=== PATIENT | male | born 1955 | race Caucasian/White ===

== ENCOUNTER 2016-11-24 13:56 | Inpatient (IN) | payer MEDICARE ==
[~2016-11-24] VITALS: Ht 182.9 cm; Wt 120.2 kg
--- NOTE | 2016-11-24 14:08 | PHYS DOC ---
Adult General HPI HPI Patient is a 61 year old male who presents with chest pain, he has a past medical history of coronary disease, schizophrenia, hypertension, hypothyroidism, Alzheimer's disease, diabetes, COPD, obesity, major depressive disorder, chronic pain syndrome who EMS was called secondary chest pain. In route he had a rhythm changed to a wide complex rate of approximately 100 and was unresponsive after sternal rub became responsive but is wide-complex tachycardia persists. Approximately 30 minutes after he arrived he went to a narrow complex rhythm and now he is much more responsive, he states he had some chest discomfort that radiated up into his left chest that lasted for a few minutes and it resolved. According to his he's been having troubles his voice over the last several days and feeling more hoarse. The states that he was just in [facility] and [facility] prior to going to [facility]. Review of Systems Review of Systems Unable to obtain Current Medications Current Medications Current Medications Medications (Trade) Dose Ordered Sig/Tamra Start Time Stop Time Status Last Admin Dose Admin Aspirin (Children'S Aspirin) 324 mg 1X ONCE 11/24/16 14:15 11/24/16 14:44 DC 11/24/16 15:02 324 MG Nitroglycerin (Nitrostat) 0.4 mg PRN Q5MIN PRN 11/24/16 15:45 11/25/16 15:44 Ondansetron HCl (Zofran) 4 mg PRN Q8HRS PRN 11/24/16 15:45 11/25/16 15:44 Allergies Allergies Allergies Coded Allergies Type Severity Reaction Last Updated Verified Penicillins Allergy Unknown 11/24/16 Yes Sulfa (Sulfonamide Antibiotics) Allergy Unknown 11/24/16 Yes clindamycin Allergy Unknown 11/24/16 Yes lisinopril Allergy Unknown 11/24/16 Yes Physical Exam Physical Exam Constitutional: Well developed, well nourished, no acute distress, non-toxic appearance. [] HENT: Normocephalic, atraumatic, bilateral external ears normal, oropharynx moist, no oral exudates, nose normal. [] Eyes: PERRLA, EOMI, conjunctiva normal, no discharge. [] Neck: Normal range of motion, no tenderness, supple, no stridor. [] Cardiovascular:Heart rate regular rhythm, no murmur [] Lungs & Thorax: Bilateral breath sounds clear to auscultation [] Abdomen: Bowel sounds normal, soft, no tenderness, no masses, no pulsatile masses. [] Skin: Warm, dry, no erythema, no rash. [] Back: No tenderness, no CVA tenderness. [] Extremities: No tenderness, no cyanosis, no clubbing, ROM intact, no edema. [] Neurologic: Alert and oriented X 3, normal motor function, normal sensory function, no focal deficits noted. [] Psychologic: Affect normal, judgement normal, mood normal. [] Current Patient Data Vital Signs Vital Signs Date Time Temp Pulse Resp B/P Pulse Ox O2 Delivery O2 Flow Rate FiO2 11/24/16 14:35 Nasal Cannula 4.0 11/24/16 13:56 97.6 95 24 122/70 97 97.6 Lab Values Laboratory Tests Test 11/24/16 14:07 11/24/16 15:15 White Blood Count 9.9x10^3/uL (4.0-11.0) Red Blood Count 3.74x10^6/uL (4.30-5.70) L Hemoglobin 9.8g/dL (13.0-17.5) L Hematocrit 30.3% (39.0-53.0) L Mean Corpuscular Volume 81fL (79-100) Mean Corpuscular Hemoglobin 26pg (25-35) Mean Corpuscular Hemoglobin Concent 32g/dL (31-37) Red Cell Distribution Width 20.0% (11.5-14.5) H Platelet Count 265x10^3/uL (140-400) Neutrophils (%) (Auto) 74% (31-73) H Lymphocytes (%) (Auto) 9% (24-48) L Monocytes (%) (Auto) 17% (0-9) H Eosinophils (%) (Auto) 0% (0-3) Basophils (%) (Auto) 0% (0-3) Neutrophils # (Auto) 7.4x10^3uL (1.8-7.7) Lymphocytes # (Auto) 0.9x10^3/uL (1.0-4.8) L Monocytes # (Auto) 1.6x10^3/uL (0.0-1.1) H Eosinophils # (Auto) 0.0x10^3/uL (0.0-0.7) Basophils # (Auto) 0.0x10^3/uL (0.0-0.2) Prothrombin Time 17.3SEC (11.7-14.0) H Prothrombin Time INR 1.5 (0.8-1.1) H Sodium Level 133mmol/L (136-145) L Potassium Level 4.2mmol/L (3.5-5.1) Chloride Level 94mmol/L (98-107) L Carbon Dioxide Level 33mmol/L (21-32) H Anion Gap 6 (6-14) Blood Urea Nitrogen 25mg/dL (8-26) Creatinine 1.5mg/dL (0.7-1.3) H Estimated GFR (Cockcroft-Gault) 47.7 Glucose Level 295mg/dL (70-99) H Calcium Level 10.0mg/dL (8.5-10.1) Magnesium Level 1.9mg/dL (1.8-2.4) Total Bilirubin 0.6mg/dL (0.2-1.0) Direct Bilirubin 0.4mg/dL (0.0-0.2) H Aspartate Amino Transferase (AST) 30U/L (15-37) Alanine Aminotransferase (ALT) 18U/L (16-63) Alkaline Phosphatase 182U/L (46-116) H Ammonia 13mcmol/L (11-34) Creatine Kinase 63U/L (39-308) Creatine Kinase MB (Mass) 0.9ng/mL (0.0-3.6) Creatine Kinase MB Relative Index % (0-4) Troponin I Quantitative < 0.017ng/mL (0.000-0.055) UR-Xvl-W-Type Natriuretic Peptide 1053pg/mL (0-124) H Total Protein 7.4g/dL (6.4-8.2) Albumin 1.7g/dL (3.4-5.0) L Lipase 45U/L (73-393) L Thyroid Stimulating Hormone (TSH) 2.921uIU/mL (0.358-3.74) Urine Opiates Screen Pos (NEG) Urine Methadone Screen Neg (NEG) Urine Barbiturates Neg (NEG) Urine Phencyclidine Screen Neg (NEG) Urine Amphetamine/Methamphetamine Neg (NEG) Urine Benzodiazepines Screen Neg (NEG) Urine Cocaine Screen Neg (NEG) Urine Cannabinoids Screen Neg (NEG) Urine Ethyl Alcohol Neg (NEG) Laboratory Tests 11/24/16 14:07 Laboratory Tests 11/24/16 14:07 EKG EKG First EKG at 1358 shows sinus rhythm with a prolonged SC interval at 220 ms, left axis deviation, likely paced rhythm, QRS 176, QTC 5 or 50 ms, as interpreted by me G at 1420 shows normal sinus rhythm with a prolonged SC of 266 ms, normal axis, QRS 104 ms, QTC 441 ms, no ST elevations appreciated, T-wave inversions in lead 3, as interpreted by me. Radiology/Procedures Radiology/Procedures [facility] [id number] [place], [place] [id number] IMAGING REPORT Signed PATIENT: ANNAMARIE WHITLOCK ACCOUNT: [id number] : 1955 LOCATION: ER AGE: 61 SEX: M EXAM STATUS: REG ER ORD. PHYSICIAN: BELLA ZAVALA MD REASON: chest pain PROCEDURE: PORTABLE CHEST 1V Portable chest, 11/24/2016: History: Chest pain There has been a previous median sternotomy. A left-sided transvenous pacemaker is in place with 2 leads extending into the right heart. The heart appears to be within normal limits in size for the AP technique. The pulmonary vascularity is normal. The depth of inspiration is suboptimal. No acute infiltrates are seen. There is no evidence of significant pleural fluid. IMPRESSION: 1. A transvenous pacemaker is in place. 2. Previous cardiac surgery. 3. No acute cardiopulmonary abnormality is detected. DICTATED and SIGNED BY: TONYA JULIEN MD DATE: 11/24/161432 CC: BELLA ZAVALA MD; PATTY RAM MD ~ [id number] [place], [place] [id number] IMAGING REPORT Signed PATIENT: ANNAMARIE WHITLOCK ACCOUNT: [id number] : 1955 LOCATION: ER AGE: 61 SEX: M EXAM STATUS: REG ER ORD. PHYSICIAN: BELLA ZAVALA MD REASON: AMS PROCEDURE: CT HEAD WO CONTRAST CT of the head without contrast, 11/24/2016: History: Altered mental status, previous stroke There is moderate cerebral atrophy. The ventricles are mildly prominent on a compensatory basis. There is no shift of the midline structures. There is no evidence of acute intracranial hemorrhage or mass effect. IMPRESSION: 1. Cerebral atrophy. 2. No acute intracranial abnormality is detected. PQRS Compliance Statement: One or more of the following individualized dose reduction techniques were utilized for this examination: 1. Automated exposure control 2. Adjustment of the mA and/or kV according to patient size 3. Use of iterative reconstruction technique DICTATED and SIGNED BY: TONYA JULIEN MD DATE: 11/24/16 1383 CC: BELLA ZAVALA MD; PATTY RAM MD ~ Impressions: Altered mental status-resolved Chest pain-resolved Course & Med Decision Making Course & Med Decision Making Pertinent Labs and Imaging studies reviewed. (See chart for details) Patient has some confusion however it seems to be resolved now. He denies any chest pain currently. CT of his head, UA are pending at this time. Spoke with Dr. Ram, who accepts the patient for admission, he wants cardiology and neurology consult would and his is make her interrogated. The patient's agreeable plan is in stable condition this time with his at bedside. Dragon Disclaimer Dragon Disclaimer This electronic medical record was generated, in whole or in part, using a voice recognition dictation system. BELLA ZAVALA MD Nov 24, 2016 14:08
[2016-11-24] MEDS ORDERED: ASPIRIN CHEWABLE 81 MG TABLET. PO ONE (14:15)
[2016-11-24 14:29] LABS: INR 1.5 (0.8-1.1); PROTHROMBIN TIME PATIENT 17.3 SEC (11.7-14.0)
[2016-11-24 14:30] LABS: BASO % 0 % (0-3); EOS % 0 % (0-3); HEMATOCRIT 30.3 % (39.0-53.0); HEMOGLOBIN 9.8 g/dL (13.0-17.5); LYMPH # 0.9 x10^3/uL (1.0-4.8); LYMPH % 9 % (24-48); MEAN CORPUSCULAR HEMOGLOBIN 26 pg (25-35); MEAN CORPUSCULAR HGB CONC 32 g/dL (31-37); MEAN CORPUSCULAR VOLUME 81 fL (79-100); MONO % 17 % (0-9); NEUT % 74 % (31-73); PLATELET COUNT 265 x10^3/uL (140-400); RED BLOOD COUNT 3.74 x10^6/uL (4.30-5.70); WHITE BLOOD COUNT 9.9 x10^3/uL (4.0-11.0)
[2016-11-24 14:35] LABS: BASE EXCESS COOX 8 mmol/L (-3-3); CARBON MONOXIDE 1.2 % (0.0-1.9); HCO3 COOX 33 mmol/L (21-28); METHEMOGLOBIN 0.5 % (0.0-1.9); OXYHEMOGLOBIN 93.9 %; PCO2 COOX 50 mmHg (35-46); PH COOX 7.44 (7.35-7.45); PO2 COOX 86 mmHg (65-108); SAT O2 COOX 96 % (92-99); TOTAL HEMOGLOBIN 10.8 g/dL
--- NOTE | 2016-11-24 14:38 | RAD ---
Portable chest, 11/24/2016: History: Chest pain There has been a previous median sternotomy. A left-sided transvenous pacemaker is in place with 2 leads extending into the right heart. The heart appears to be within normal limits in size for the AP technique. The pulmonary vascularity is normal. The depth of inspiration is suboptimal. No acute infiltrates are seen. There is no evidence of significant pleural fluid. IMPRESSION: 1. A transvenous pacemaker is in place. 2. Previous cardiac surgery. 3. No acute cardiopulmonary abnormality is detected.
[2016-11-24 14:39] LABS: CREATININE 1.5 mg/dL (0.7-1.3); GFR 47.7; POTASSIUM 4.2 mmol/L (3.5-5.1)
[2016-11-24 14:43] LABS: ALBUMIN 1.7 g/dL (3.4-5.0); DIRECT BILIRUBIN 0.4 mg/dL (0.0-0.2); MAGNESIUM 1.9 mg/dL (1.8-2.4); TOTAL BILIRUBIN 0.6 mg/dL (0.2-1.0); TOTAL PROTEIN 7.4 g/dL (6.4-8.2)
[2016-11-24 14:53] LABS: CKMB MASS 0.9 ng/mL (0.0-3.6); CREATINE KINASE 63 U/L (39-308)
[2016-11-24 15:34] LABS: BARBITURATES NEG (NEG); BENZODIAZEPINES NEG (NEG); CANNABINOIDS NEG (NEG); COCAINE NEG (NEG); METHADONE NEG (NEG); OPIATES POS (NEG); PHENCYCLIDINE NEG (NEG)
[2016-11-24 15:42] LABS: BILIRUBIN,URINE NEGATIVE (NEG); GLUCOSE,URINE >=1000 mg/dL (NEG); NITRITE,URINE NEGATIVE (NEG); PH,URINE 5.5; PROTEIN,URINE NEGATIVE (NEG-TRACE)
[2016-11-24] MEDS ORDERED: NITROGLYCERIN SUBLINGUAL 0.4 MG BOTTLE OF 25. SL PRN (15:45)
[2016-11-24] MEDS ORDERED: ONDANSETRON PF 4 MG/2 ML VIAL. IV PRN (15:45)
--- NOTE | 2016-11-24 15:52 | RAD ---
CT of the head without contrast, 11/24/2016: History: Altered mental status, previous stroke There is moderate cerebral atrophy. The ventricles are mildly prominent on a compensatory basis. There is no shift of the midline structures. There is no evidence of acute intracranial hemorrhage or mass effect. IMPRESSION: 1. Cerebral atrophy. 2. No acute intracranial abnormality is detected. PQRS Compliance Statement: One or more of the following individualized dose reduction techniques were utilized for this examination: 1. Automated exposure control 2. Adjustment of the mA and/or kV according to patient size 3. Use of iterative reconstruction technique
--- NOTE | 2016-11-24 15:56 | PDOC2 ---
CARDIAC CONSULT DATE OF CONSULT Date of Consult DATE: 11/24/16 TIME: 15:53 REASON FOR CONSULT Reason for Consult: Chest Pain REFERRING PHYSICIAN Referring Physician: Dr. Mckay SOURCE Source: Caregiver, Chart review HISTORY OF PRESENT ILLNESS HISTORY OF PRESENT ILLNESS This is a 61 yo male who presented with complaints of chest pain. HPI mainly obtained from as patient had difficulty with voice since Thursday and is mildly drowsy upon examination. Patient with a history of CAD s/p CABG in with redo in , HTN, HLP, SSS s/p PPM, CHF, PAD, schizophrenia, and Alzheimer' s disease who resides in a nursing facility. is DPOA. reports pain early this afternoon. Located in the central chest and lasted several minutes. Radiated to his left arm. Associated with nausea. Relieved with nitro x2. Denies any associated dizziness, diaphoresis, palpitations, or SOA. Has experienced chest pain intermittently for the last few years but feels it has been more frequent since August. Moved here a year ago from [place]. Has not established a ob gyn physician assistant since moving here. Cardiac workup conducted in August at [facility], including echocardiogram, chemical stress test , and PET scan. reports abnormal studies indicative of obstructive disease ; in which medical management was recommended. Was treated as [facility] last week for non-healing bilateral LE wounds. Underwent bilateral LE angiogram, which reportedly revealed no significant disease requiring intervention. reports compliance with medications. Per chart review, patients rhythm apparently converted to a wide-complex tachycardia with a rate of 100. Patient was asymptomatic. PAST MEDICAL HISTORY Cardiovascular: CAD (s/p CABG in with redo in ), CHF, HTN, MT, Hyperlipidemia, Other (SSS s/p PPM) Pulmonary: COPD CENTRAL NERVOUS SYSTEM: Other (Alzheimer's Disease ) GI: GERD, Other (gastroparesis ) Heme/Onc: No pertinent hx Hepatobiliary: No pertinent hx Psych: Depression, Schizophrenia Musculoskeletal: Osteoarthritis, Other (chronic pain) Infectious disease: No pertinent hx ENT: No pertinent hx Renal/: Chronic renal insuff Endocrine: Diabetes, Hypothyroidism, Other (obesity ) Dermatology: No pertinent hx PAST SURGICAL HISTORY Past Surgical History: Pacemaker, Appendectomy, Cholecystectomy, Total knee replacement (left knee ), Tonsillectomy, Other (pericardial window follow CABG in , back sx, left femur hardware) FAMILY HISTORY Family History: Coronary Artery Disease SOCIAL HISTORY Smoke: Quit ALCOHOL: none Drugs: None Lives: Senior Living CURRENT MEDICATIONS CURRENT MEDICATIONS Current Medications Medications (Trade) Dose Ordered Sig/Tamra Route PRN Reason Start Time Stop Time Status Last Admin Dose Admin Aspirin (Children'S Aspirin) 324 mg 1X ONCE PO 11/24/16 14:15 11/24/16 14:44 DC 11/24/16 15:02 ALLERGIES ALLERGIES: Coded Allergies: Penicillins (Verified Allergy, Unknown, 11/24/16) Sulfa (Sulfonamide Antibiotics) (Verified Allergy, Unknown, 11/24/16) clindamycin (Verified Allergy, Unknown, 11/24/16) lisinopril (Verified Allergy, Unknown, 11/24/16) ROS Review of System 14 point ROS conducted with pertinent positives noted above in HPI. PHYSICAL EXAM General: Alert (droswy ), Cooperative, No acute distress HEENT: Atraumatic, Other (dry mucous membranes ) Lungs: Other (diminished bases ) Heart: Regular rate, Normal S1, Normal S2, Other (2/6 systolic murmur ) Abdomen: Soft, Other (obese ) Extremities: Other (1+ bilateral LE edema, diminished pedal pulses ) Skin: Other (bilateral LE heel wound and coccyx wound ) Neuro: Other (voice impaired; only able to whisper ) Psych/Mental Status: Other (flat affect) MUSCULOSKELETAL: Osteoarthritic changes both hands VITALS VITALS Vital Signs Date Time Temp Pulse Resp B/P Pulse Ox O2 Delivery O2 Flow Rate FiO2 11/24/16 14:35 Nasal Cannula 4.0 11/24/16 13:56 97.6 95 24 122/70 97 97.6 LABS Lab: Laboratory Tests Test 11/24/16 14:07 11/24/16 15:15 White Blood Count 9.9x10^3/uL (4.0-11.0) Red Blood Count 3.74x10^6/uL (4.30-5.70) Hemoglobin 9.8g/dL (13.0-17.5) Hematocrit 30.3% (39.0-53.0) Mean Corpuscular Volume 81fL (79-100) Mean Corpuscular Hemoglobin 26pg (25-35) Mean Corpuscular Hemoglobin Concent 32g/dL (31-37) Red Cell Distribution Width 20.0% (11.5-14.5) Platelet Count 265x10^3/uL (140-400) Neutrophils (%) (Auto) 74% (31-73) Lymphocytes (%) (Auto) 9% (24-48) Monocytes (%) (Auto) 17% (0-9) Eosinophils (%) (Auto) 0% (0-3) Basophils (%) (Auto) 0% (0-3) Neutrophils # (Auto) 7.4x10^3uL (1.8-7.7) Lymphocytes # (Auto) 0.9x10^3/uL (1.0-4.8) Monocytes # (Auto) 1.6x10^3/uL (0.0-1.1) Eosinophils # (Auto) 0.0x10^3/uL (0.0-0.7) Basophils # (Auto) 0.0x10^3/uL (0.0-0.2) Prothrombin Time 17.3SEC (11.7-14.0) Prothromb Time International Ratio 1.5 (0.8-1.1) Sodium Level 133mmol/L (136-145) Potassium Level 4.2mmol/L (3.5-5.1) Chloride Level 94mmol/L (98-107) Carbon Dioxide Level 33mmol/L (21-32) Anion Gap 6 (6-14) Blood Urea Nitrogen 25mg/dL (8-26) Creatinine 1.5mg/dL (0.7-1.3) Estimated GFR (Cockcroft-Gault) 47.7 Glucose Level 295mg/dL (70-99) Calcium Level 10.0mg/dL (8.5-10.1) Magnesium Level 1.9mg/dL (1.8-2.4) Total Bilirubin 0.6mg/dL (0.2-1.0) Direct Bilirubin 0.4mg/dL (0.0-0.2) Aspartate Amino Transf (AST/SGOT) 30U/L (15-37) Alanine Aminotransferase (ALT/SGPT) 18U/L (16-63) Alkaline Phosphatase 182U/L (46-116) Ammonia 13mcmol/L (11-34) Creatine Kinase 63U/L (39-308) Creatine Kinase MB (Mass) 0.9ng/mL (0.0-3.6) Creatine Kinase MB Relative Index % (0-4) Troponin I Quantitative < 0.017ng/mL (0.000-0.055) DY-Jyh-Y-Type Natriuretic Peptide 1053pg/mL (0-124) Total Protein 7.4g/dL (6.4-8.2) Albumin 1.7g/dL (3.4-5.0) Lipase 45U/L (73-393) Thyroid Stimulating Hormone (TSH) 2.921uIU/mL (0.358-3.74) Urine Opiates Screen Pos (NEG) Urine Methadone Screen Neg (NEG) Urine Barbiturates Neg (NEG) Urine Phencyclidine Screen Neg (NEG) Urine Amphetamine/Methamphetamine Neg (NEG) Urine Benzodiazepines Screen Neg (NEG) Urine Cocaine Screen Neg (NEG) Urine Cannabinoids Screen Neg (NEG) Urine Ethyl Alcohol Neg (NEG) ASSESSMENT/PLAN ASSESSMENT/PLAN 1. Chest pain 2. CAD; s/p CABG in 95 with redo in 07 3. Chronic CHF; appears compensated 4. SSS s/p PPM 5. Hypertension; controlled 6. Hyperlipidemia; on statin 7. Hypothyroidism; on replacement therapy. 8. Chronic renal insufficiency; Cr 1.5 9. Chronic pain 10. Schizophrenia/ major depressive disorder 11. Alzheimer's Dx Recommendations 1. Initial troponin negative- continue to trend. ? candidacy for aggressive measures. 2. Resume secondary prevention measures 3. BP well-controlled; continue home antiHTN therapy 4. Recent cardiac workup at [facility]; will obtain these records. 5. Interrogate PPM 6. NT Pro BNP mildly elevated, but appears compensated from a HF standpoint- continue optimization therapy. 7. Further recommendations pending review of outside records. Problems: DARWIN BALDWIN APRN Nov 24, 2016 15:56
[2016-11-24 16:06] LABS: BACTERIA,URINE FEW /HPF (0-FEW); RBC,URINE 0 /HPF (0-2)
--- NOTE | 2016-11-24 17:59 | EKG ---
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
[2016-11-24 18:00] VITALS: BP 93/42
--- NOTE | 2016-11-24 18:02 | ACF ---
Admission Forms Criteria CARDIOLOGY GRG Clinical Indications for Admission to Inpatient Care ( Place 'X' for any and all applicable criteria): Hospital admission is needed for appropriate care of the patient because of ANY ONE of the following (1): [ ] I. Hemodynamic instability as indicated by ALL of the following (1)(2)(3) (4)(5) [ ]a) Vital signs or other findings not as expected for chronic patient condition or baseline [ ]b) Instability indicated by ANY ONE of the following: [ ]i) Hypotension [ ]ii) Symptomatic Tachycardia unresponsive to treatment ( e.g., analgesia, fluids, sedation as indicated) [ ]iii) Inadequate perfusion indicated by ANY ONE of the following: [ ] 1) Lactic acidosis (> 2 mmol/L) [ ] 2) New abnormal capillary refill (> 3 seconds) [ ] 3) Reduced urine output [ ] 4) New altered mental status [ ]iv) Orthostatic vital sign changes unresponsive to treatment (e.g., fluids) [ ]v) IV inotropic or vasopressor medication required to maintain adequate blood pressure or perfusion [ ] II. Severe heart failure as indicated by ANY ONE of the following(17)(18) [ ]a) Respiratory distress [ ]b) Hypotension [ ]c) Anasarca (refractory to outpatient therapy) [ ]d) Cardiac arrhythmias of immediate concern [ ]e) Myocardial ischemia [ ] III. Cardiac arrhythmias or findings of immediate concern indicated by ANY ONE of the following (19)(20): [ ] a) Heart rhythms that are inherently dangerous or unstable indicated by ANY ONE of the following (21)(22)(23): [ ] i) Resuscitated ventricular fibrillation or cardiac arrest [ ] ii) Ventricular escape rhythm [ ] iii) Sustained ventricular tachycardia (30 seconds or more of ventricular rhythm at greater than 100 beats per minute) [ ] iv) Nonsustained ventricular tachycardia and ANY ONE of the following: [ ] 1) Suspected cardiac ischemia as cause or consequence of ventricular tachycardia [ ] 2) In setting of acute myocarditis [ ] b) Unstable cardiac conduction defects indicated by ANY ONE of the following(23)(24)(25) [ ] i) Type II second-degree atrioventricular block [ ]ii) Third-degree atrioventricular block [ ]iii) New-onset left bundle branch block with suspected myocardial ischemia [ ]c) Any heart rhythm and ANY ONE of the following (21)(22)(26)(27) (28) [ ] i) Continuous long-term ECG monitoring needed (e.g., initiation of drug requiring monitoring for more than 24 hours) [ ] ii) Patient has automatic implanted cardioverter defibrillator that is repeatedly firing, malfunctioning, or in need of immediate adjustment of settings beyond the scope of ambulatory or observation care [ ]d) Heart rhythms of concern due to ANY ONE of the following: [ ] i) Hypotension [ ] ii) Respiratory distress [ ] iii) Association with other significant symptoms (e.g., bradycardia with syncope or ongoing dizziness, supraventricular tachycardia with chest pain (14)(15)(17) [ ] IV. Monitoring for cardiac contusion beyond the scope of observation care needed [A](30)(31)(32) [ ] V. Surgical or device complication (e.g., valve replacement complication , pacemaker dysfunction) (35)(41)(44)(45)(46) [ ] . Inpatient palliative care needed. [B](49) Also use Inpatient Palliative Care Criteria [ ] VII. Nonbacterial thrombotic (marantic) endocarditis (36)(43)(47)(48) [X] VIII. Cardiology condition, symptom, or finding for which emergency and observation care has failed or are not considered appropriate. [ ] IX. Acute valvular disease requiring inpatient as indicated by ANY ONE of the following (41) [ ]a) Acute valvular regurgitation (42) [ ]b) Noninfectious valvulitis (43) [ ]c) Obstructive valve thrombosis [ ]d) Paravalvular leak [ ]e) Other significant valvular disorder remaining after emergency or observation level of care (as appropriate) [ ]X. Pericardial disease requiring inpatient treatment as indicated by ANY ONE of the following (33)(34)(35)(36)(37) [ ]a) Suspected tamponade (38)(39)(40) [ ]b) Hemopericardium [ ]c) Other significant pericardial disorder remaining after emergency or observation level of care (as appropriate) [ ] XI. Cardiac ischemia beyond scope of emergency and observation care. [ ] XII. Hypertension requiring inpatient treatment as indicated by ANY ONE of the following (6)(7)(8) [ ]a) SBP greater than 220 mm Hg or DBP greater than 120 mmHg despite treatment [ ]b) SBP greater than 140 mm Hg or DBP greater than 100 mm Hg with evidence of acute end organ damage as indicated by ANY ONE of the following [ ] i) Encephalopathy [ ] ii) Acute renal failure as indicated by new onset of ANY ONE of the following (9)(10)(11)(12)(13) [ ]1) 3-fold rise in serum creatinine from baseline [ ]2) Serum creatinine greater than 4 mg/dL ( 354 micromoles/L) with acute rise greater than 0.5 mg/dL (44.2 micromoles/L) [ ]3) Reduction of more than 75% in estimated glomerular filtration rate from baseline [ ]4) Estimated glomerular filtration rate less than 35 mL/min/1.73m2 (0.59 mL/sec/1.73m2) in child up to 18 years of age [ ]5) Cessation of urine output indicated by ALL of the following [ ]A. Adequate volume status [ ]B. Inadequate urine output as indicated by ANY ONE of the following [ ]a. Urine output less than 0.3 mL/kg/hr for 24 hours [ ]b. Anuria (urine output less than 0.1 mL/kg/hr) for 12 hours [ ] iii) Aortic dissection [ ] iv) Myocardial Ischemia [ ] v) Left ventricular heart failure [ ]vi) Retinal Hemorrhage [ ]vii) Other significant finding [ ]c) Hypertension in child requiring inpatient treatment as indicated by ALL of the following(14)(15)(16) [ ] i) Outpatient treatment not effective, not available, or not appropriate [ ]ii) SBP or DBP greater than 95th percentile for age [ ]iii) Evidence of acute end organ damage as indicated by ANY ONE of the following [ ]1) Altered mental status [ ]2) Acute renal failure as indicated by new onset of ANY ONE of the following(9)(10)(11)(12)(13) [ ]A. 3-fold rise in serum creatinine from baseline [ ]B. Serum creatinine greater than 4 mg/dL (354 micromoles/L) with acute rise greater than 0.5 mg/dL (44.2 micromoles/L) [ ]C. Reduction of more than 75% in estimated glomerular filtration rate from baseline [ ]D. Estimated glomerular filtration rate less than 35 mL/min/1.73m2 (0.59 mL/sec/1.73m2) in child up to 18 years of age [ ]E. Cessation of urine output indicated by ALL of the following [ ]a. Adequate volume status [ ]b. Inadequate urine output as indicated by ANY ONE of the following [ ]i) Urine output less than 0.3 mL/kg/hr for 24 hours [ ]ii) Anuria ( urine output less than 0.1 mL/kg/hr) for 12 hours [ ]3) Severe headache [ ]4) Visual disturbance [ ]5) Retinal hemorrhage [ ]6) Other significant finding [ ]XIII. Complications of transplanted heart indicated by ANY ONE of the following(61): [ ]a) Acute graft rejection requiring inpatient management (eg, intravenous immunosuppression)(62)(63) [ ]b) Acute graft heart failure indicated by ANY ONE of the following(64): [ ]i) Hemodynamic instability [ ]ii) Cardiac arrhythmias of immediate concern [ ]iii) Pulmonary edema that is very severe (eg, mechanical ventilation needed, imminent or likely, need for 100% oxygen to keep oxygen saturation above 90%) [ ]iv) Pulmonary edema that is persistent as indicated by ALL of the following: [ ]1) New need for oxygen therapy to keep oxygen saturation above 90% (or increased FiO2 need from baseline) [ ]2) Has not improved sufficiently with emergency department or observation care IV diuretics or other heart failure treatments[E] [ ]v) Altered mental status that is severe or persistent [ ]vi) Increased creatinine (new on laboratory test) with reduction of more than 50% in estimated glomerular filtration rate from baseline [ ]vii) Progressively (ongoing) rising creatinine (known from past laboratory test) with reduction of more than 25% in estimated glomerular filtration rate from baseline [ ]viii) Acute renal failure [ ]ix) Acute peripheral ischemia (eg, examination shows pulseless, cool, mottled, or cyanotic extremity) [ ]x) Pulmonary artery catheter monitoring needed [ ]xi) Other sign or symptom of heart failure requiring inpatient treatment (ie, too severe or not responsive to outpatient and observation care treatment) [ ]c) Infection requiring inpatient management (eg, Hemodynamic instability, need for intravenous antimicrobial treatment)(66)(67)(68)(69)(70) [ ]d) Cardiac allograft vasculopathy requiring inpatient management ( eg evidence of cardiac ischemia)(71) [ ]e) Other complication of transplanted heart (eg, stroke, severe pulmonary hypertension, severe valvular dysfunction) requiring inpatient management(72) The original [facility] content created by [facility] has been revised. The portions of the content which have been revised are identified through the use of italic text or in bold, and [facility] has neither reviewed nor approved the modified material. All other unmodified content is copyright [facility]. Please see references footnoted in the original [facility] edition 2016 Admission Criteria Met?: Yes ALMA BRAMBILA Nov 24, 2016 18:02
[2016-11-24 18:41] LABS: FIO2 COOX 36
[2016-11-24 19:07] VITALS: BP 89/49
[2016-11-24 23:33] VITALS: BP 108/54
[2016-11-25] MEDS ORDERED: DONE10TA7 PO (00:36)
[2016-11-25] MEDS ORDERED: INSU100I13 SQ (00:36)
[2016-11-25] MEDS ORDERED: METO100T2 PO (00:36)
[2016-11-25] MEDS ORDERED: MAGN400T3 PO (00:36)
[2016-11-25] MEDS ORDERED: ARFO15VI IH (00:36)
[2016-11-25] MEDS ORDERED: LORA1TAB PO (00:36)
[2016-11-25] MEDS ORDERED: UBID50CA25 PO (00:36)
[2016-11-25] MEDS ORDERED: TORS20TA2 PO (00:36)
[2016-11-25] MEDS ORDERED: DIVA500T4 PO (00:36)
[2016-11-25] MEDS ORDERED: LEVO137T3 PO (00:36)
[2016-11-25] MEDS ORDERED: QUET100T4 PO (00:36)
[2016-11-25] MEDS ORDERED: FENO145T2 PO (00:36)
[2016-11-25] MEDS ORDERED: GABA400C7 PO (00:36)
[2016-11-25] MEDS ORDERED: PANT40TA3 PO (00:36)
[2016-11-25] MEDS ORDERED: HYDR-2672 PO (00:36)
[2016-11-25] MEDS ORDERED: ROSUVASTATIN CA10 M1 PO (00:36)
[2016-11-25] MEDS ORDERED: LINA5TAB4 PO (00:36)
[2016-11-25] MEDS ORDERED: ASPI325T4 PO (00:36)
[2016-11-25] MEDS ORDERED: FLUO40CA9 PO (00:36)
[2016-11-25] MEDS ORDERED: OXYC1TAB7 PO (00:36)
[2016-11-25] MEDS ORDERED: NORT25CA PO (00:36)
[2016-11-25] MEDS ORDERED: CARI3CAP PO (00:36)
[2016-11-25] MEDS ORDERED: INSU100C4 SQ (00:36)
[2016-11-25] MEDS ORDERED: SENN8.6T3 PO (00:36)
[2016-11-25] MEDS ORDERED: non (00:36)
[2016-11-25] MEDS ORDERED: SPIR100T2 PO (00:36)
[2016-11-25] MEDS ORDERED: DEXT38GE2 PO (00:36)
[2016-11-25] MEDS ORDERED: DICL100G7 TP (00:36)
[2016-11-25] MEDS ORDERED: LAMO100T PO (00:36)
[2016-11-25] MEDS ORDERED: DEXTROSE ORAL GEL 15 GM TUBE. PO PRN (01:30)
[2016-11-25] MEDS: ATORVASTATIN CALCIUM 40 MG TABLET. PO SCH ×2 (02:06→21:24)
[2016-11-25] MEDS: FLUoxetine HCL 20 MG CAPSULE PO SCH ×4 (02:06→21:24)
[2016-11-25] MEDS: NORTRIPTYLINE 25 MG CAPSULE PO SCH ×2 (02:06→21:24)
[2016-11-25] MEDS: DIVALPROEX EXTENDED RELEASE 500 MG TAB.ER.24H. PO SCH ×3 (02:07→21:24)
[2016-11-25] MEDS: DONEPEZIL HCL 10 MG TABLET. PO SCH ×2 (02:07→21:24)
[2016-11-25] MEDS: QUEtiapine 100 MG TABLET. PO SCH ×2 (02:08→21:24)
[2016-11-25] MEDS: lamoTRIgine 100 MG TABLET. PO SCH ×2 (02:08→21:24)
[2016-11-25] MEDS: INSULIN DETEMIR 300 UNITS/3 ML INSULN.PEN. SQ SCH ×2 (02:12→21:41)
[2016-11-25 02:27] VITALS: BP 108/56
[2016-11-25] MEDS: oxyCODONE/APAP 5/325 1 TAB TABLET PO PRN (04:09)
[2016-11-25] MEDS: HYDROcodone/APAP 10/325 1 TAB TABLET PO PRN (04:13)
[2016-11-25 04:30] LABS: BASO % 0 % (0-3); EOS % 0 % (0-3); HEMATOCRIT 29.2 % (39.0-53.0); HEMOGLOBIN 9.3 g/dL (13.0-17.5); LYMPH # 0.5 x10^3/uL (1.0-4.8); LYMPH % 7 % (24-48); MEAN CORPUSCULAR HEMOGLOBIN 26 pg (25-35); MEAN CORPUSCULAR HGB CONC 32 g/dL (31-37); MEAN CORPUSCULAR VOLUME 81 fL (79-100); MONO % 20 % (0-9); NEUT % 73 % (31-73); PLATELET COUNT 266 x10^3/uL (140-400); RED BLOOD COUNT 3.61 x10^6/uL (4.30-5.70); RED CELL DISTRIBUTION WIDTH 19.8 % (11.5-14.5); WHITE BLOOD COUNT 7.2 x10^3/uL (4.0-11.0)
[2016-11-25 04:44] LABS: CALCIUM 9.8 mg/dL (8.5-10.1); CREATININE 1.1 mg/dL (0.7-1.3); GFR 68.3; POTASSIUM 4.2 mmol/L (3.5-5.1)
[2016-11-25 04:51] LABS: CHOLESTEROL/HDL RATIO 6.8
--- NOTE | 2016-11-25 06:50 | EKG ---
[facility] [address] [place] [address] Test Date: 2016-11-24 Test Time: 13:58:47 Pat Name: ANNAMARIE WHITLOCK Department: Room: [facility] Gender: M Shingle Weaver: : 1955 Requested By: PATTY CHRISTIAN Order Number: [id number] Reading MD: Daniel Carrion Measurements Intervals [place] Rate: 81 P: -40 [place]: 220 QRS: -28 QRSD: 176 T: 110 QT: 438 QTc: 515 Interpretive Statements V-PACED Electronically Signed On 11-25-2016 15:54:26 CDT by Daniel Carrion
[2016-11-25] MEDS: ALBUTEROL SULFATE 2.5 MG/3 ML NEBU. NEB SCH ×3 (07:49→18:12)
[2016-11-25 07:53] VITALS: BP 113/55
[2016-11-25] MEDS: ASPIRIN 325 MG TABLET PO SCH (08:43)
[2016-11-25] MEDS: FENOFIBRATE,MICRONIZED 134 MG CAPSULE PO SCH (08:43)
[2016-11-25] MEDS: LINAGLIPTIN 5 MG TABLET PO SCH (08:43)
[2016-11-25] MEDS: LEVOTHYROXINE 137 MCG TABLET PO SCH (08:43)
[2016-11-25] MEDS: GABAPENTIN 400 MG CAPSULE. PO SCH (08:43)
[2016-11-25] MEDS: SENNOSIDES 8.6 MG TABLET PO SCH (08:44)
[2016-11-25] MEDS: PANTOPRAZOLE 40 MG TABLET.DR. PO SCH (08:44)
[2016-11-25] MEDS: TORSEMIDE 20 MG TABLET. PO SCH ×2 (08:44→15:13)
[2016-11-25] MEDS: MAGNESIUM OXIDE 400 MG TABLET PO SCH (08:44)
[2016-11-25] MEDS: LORazepam 1 MG TABLET PO SCH ×3 (08:45→21:24)
[2016-11-25] MEDS: METOPROLOL TART IMMED RELEASE 50 MG TABLET. PO SCH (08:45)
[2016-11-25] MEDS: SPIRONOLACTONE 25 MG TABLET PO SCH (08:45)
[2016-11-25] MEDS: DICLOFENAC SODIUM 1% TOPICAL GEL 100GM TUBE. TP SCH ×4 (08:47→21:25)
[2016-11-25] MEDS: INSULIN ASPART 300 UNITS/3 ML INSULN.PEN SQ SCH ×2 (08:49→21:41)
[2016-11-25] MEDS ORDERED: NON FORMULARY ITEM (Arformoterol Tartrate (Brovana) 15 MCG) IH SCH (09:00)
[2016-11-25] MEDS ORDERED: FLUOXETINE HCL PO SCH (09:00)
[2016-11-25] MEDS ORDERED: DIVALPROEX EXTENDED RELEASE 500 MG TAB.ER.24H. PO SCH (09:00)
[2016-11-25] MEDS ORDERED: UBIDECARENONE 100 MG PO SCH (09:00)
[2016-11-25] MEDS: CARIPRAZINE HYDROCHLORIDE 3 MG PO SCH (09:00)
--- NOTE | 2016-11-25 10:32 | PDOC ---
CARDIO Progress Notes Date and Time Date of Service 11/25/16 Time of Evaluation 1030 Subjective Subjective: No Chest Pain, No shortness of breath Comments: no acute events overnight Vitals Vitals Vital Signs Date Time Temp Pulse Resp B/P Pulse Ox O2 Delivery O2 Flow Rate FiO2 11/25/16 08:45 84 113/55 11/25/16 07:55 94 Nasal Cannula 1.5 11/25/16 07:53 98.5 22 98.5 Weight Weight [ ] Input and Output Intake and Output Intake and Output 11/25/16 06:59 Intake Total 0 ml Output Total 700 ml Balance -700 ml Intake Oral 0 ml Output Urine Total 700 ml # Voids 1 Laboratory Labs Laboratory Tests Test 11/24/16 14:03 11/24/16 14:05 11/24/16 14:07 11/24/16 15:15 Glucose (Fingerstick) 229mg/dL (70-99) O2 Saturation 96% (92-99) Arterial Blood pH 7.44 (7.35-7.45) Arterial Blood pCO2 at Patient Temp 50mmHg (35-46) Arterial Blood pO2 at Patient Temp 86mmHg (65-108) Arterial Blood HCO3 33mmol/L (21-28) Arterial Blood Base Excess 8mmol/L (-3-3) Oxyhemoglobin 93.9% Methemoglobin 0.5% (0.0-1.9) Carbon Monoxide, Quantitative 1.2% (0.0-1.9) FiO2 36 White Blood Count 9.9x10^3/uL (4.0-11.0) Red Blood Count 3.74x10^6/uL (4.30-5.70) Hemoglobin 9.8g/dL (13.0-17.5) Hematocrit 30.3% (39.0-53.0) Mean Corpuscular Volume 81fL (79-100) Mean Corpuscular Hemoglobin 26pg (25-35) Mean Corpuscular Hemoglobin Concent 32g/dL (31-37) Red Cell Distribution Width 20.0% (11.5-14.5) Platelet Count 265x10^3/uL (140-400) Neutrophils (%) (Auto) 74% (31-73) Lymphocytes (%) (Auto) 9% (24-48) Monocytes (%) (Auto) 17% (0-9) Eosinophils (%) (Auto) 0% (0-3) Basophils (%) (Auto) 0% (0-3) Neutrophils # (Auto) 7.4x10^3uL (1.8-7.7) Lymphocytes # (Auto) 0.9x10^3/uL (1.0-4.8) Monocytes # (Auto) 1.6x10^3/uL (0.0-1.1) Eosinophils # (Auto) 0.0x10^3/uL (0.0-0.7) Basophils # (Auto) 0.0x10^3/uL (0.0-0.2) Prothrombin Time 17.3SEC (11.7-14.0) Prothromb Time International Ratio 1.5 (0.8-1.1) Sodium Level 133mmol/L (136-145) Potassium Level 4.2mmol/L (3.5-5.1) Chloride Level 94mmol/L (98-107) Carbon Dioxide Level 33mmol/L (21-32) Anion Gap 6 (6-14) Blood Urea Nitrogen 25mg/dL (8-26) Creatinine 1.5mg/dL (0.7-1.3) Estimated GFR (Cockcroft-Gault) 47.7 Glucose Level 295mg/dL (70-99) Calcium Level 10.0mg/dL (8.5-10.1) Magnesium Level 1.9mg/dL (1.8-2.4) Total Bilirubin 0.6mg/dL (0.2-1.0) Direct Bilirubin 0.4mg/dL (0.0-0.2) Aspartate Amino Transf (AST/SGOT) 30U/L (15-37) Alanine Aminotransferase (ALT/SGPT) 18U/L (16-63) Alkaline Phosphatase 182U/L (46-116) Ammonia 13mcmol/L (11-34) Creatine Kinase 63U/L (39-308) Creatine Kinase MB (Mass) 0.9ng/mL (0.0-3.6) Creatine Kinase MB Relative Index % (0-4) Troponin I Quantitative < 0.017ng/mL (0.000-0.055) DB-Lii-D-Type Natriuretic Peptide 1053pg/mL (0-124) Total Protein 7.4g/dL (6.4-8.2) Albumin 1.7g/dL (3.4-5.0) Lipase 45U/L (73-393) Thyroid Stimulating Hormone (TSH) 2.921uIU/mL (0.358-3.74) Urine Collection Type Unknown Urine Color Hannah Urine Clarity Clear Urine pH 5.5 Urine Specific [place] 1.015 Urine Protein Negativemg/dL (NEG-TRACE) Urine Glucose (UA) >=1000mg/dL (NEG) Urine Ketones (Stick) Negativemg/dL (NEG) Urine Blood Negative (NEG) Urine Nitrite Negative (NEG) Urine Bilirubin Negative (NEG) Urine Urobilinogen Dipstick 1.0mg/dL (0.2 mg/dL) Urine Leukocyte Esterase Small (NEG) Urine RBC 0/HPF (0-2) Urine WBC 5-10/HPF (0-4) Urine Bacteria Few/HPF (0-FEW) Urine Hyaline Casts Many/HPF Urine Mucus Mod/LPF Urine Opiates Screen Pos (NEG) Urine Methadone Screen Neg (NEG) Urine Barbiturates Neg (NEG) Urine Phencyclidine Screen Neg (NEG) Urine Amphetamine/Methamphetamine Neg (NEG) Urine Benzodiazepines Screen Neg (NEG) Urine Cocaine Screen Neg (NEG) Urine Cannabinoids Screen Neg (NEG) Urine Ethyl Alcohol Neg (NEG) Test 11/24/16 19:05 11/24/16 20:50 11/24/16 21:20 11/25/16 02:08 Glucose (Fingerstick) 252mg/dL (70-99) 256mg/dL (70-99) 248mg/dL (70-99) Troponin I Quantitative < 0.017ng/mL (0.000-0.055) Test 11/25/16 03:45 11/25/16 07:21 White Blood Count 7.2x10^3/uL (4.0-11.0) Red Blood Count 3.61x10^6/uL (4.30-5.70) Hemoglobin 9.3g/dL (13.0-17.5) Hematocrit 29.2% (39.0-53.0) Mean Corpuscular Volume 81fL (79-100) Mean Corpuscular Hemoglobin 26pg (25-35) Mean Corpuscular Hemoglobin Concent 32g/dL (31-37) Red Cell Distribution Width 19.8% (11.5-14.5) Platelet Count 266x10^3/uL (140-400) Neutrophils (%) (Auto) 73% (31-73) Lymphocytes (%) (Auto) 7% (24-48) Monocytes (%) (Auto) 20% (0-9) Eosinophils (%) (Auto) 0% (0-3) Basophils (%) (Auto) 0% (0-3) Neutrophils # (Auto) 5.2x10^3uL (1.8-7.7) Lymphocytes # (Auto) 0.5x10^3/uL (1.0-4.8) Monocytes # (Auto) 1.4x10^3/uL (0.0-1.1) Eosinophils # (Auto) 0.0x10^3/uL (0.0-0.7) Basophils # (Auto) 0.0x10^3/uL (0.0-0.2) Sodium Level 135mmol/L (136-145) Potassium Level 4.2mmol/L (3.5-5.1) Chloride Level 96mmol/L (98-107) Carbon Dioxide Level 35mmol/L (21-32) Anion Gap 4 (6-14) Blood Urea Nitrogen 23mg/dL (8-26) Creatinine 1.1mg/dL (0.7-1.3) Estimated GFR (Cockcroft-Gault) 68.3 Glucose Level 267mg/dL (70-99) Calcium Level 9.8mg/dL (8.5-10.1) Troponin I Quantitative < 0.017ng/mL (0.000-0.055) Triglycerides Level 95mg/dL (0-150) Cholesterol Level 75mg/dL (0-200) LDL Cholesterol, Calculated 45mg/dL (0-100) VLDL Cholesterol, Calculated 19mg/dL (0-40) Non-HDL Cholesterol Calculated 64mg/dL (0-129) HDL Cholesterol 11mg/dL (40-60) Cholesterol/HDL Ratio 6.8 Glucose (Fingerstick) 200mg/dL (70-99) Physical Exam HEENT: Neck Supple W Full Motion Chest: Symmetric LUNGS: Other (diminished bases ) Heart: S1S2, RRR, murmurs (soft systolic murmur ) Abdomen: Soft N/T, Other (obese ) Extremities: Other (diminished pedal pulses; bilateral heel wounds, 1+ bilateral LE edema ) Neurology: alert, other (drowsy ) Assessment Assessment 1. Chest pain 2. CAD; s/p CABG in 95 with redo in 07 3. Chronic presumed systolic CHF with ICM; appears compensated 4. ? Arrhythmia; EMS noted wide-complex tachyarrhythmia en route 5. SSS s/p PPM ([employer]) 6. Hypertension; controlled 7. Hyperlipidemia; on statin 8. Hypothyroidism; on replacement therapy. 9. Chronic renal insufficiency; Cr 1.5 10. Chronic pain 11. Schizophrenia/ major depressive disorder 11. Alzheimer's Dx Recommendations 1. Troponin series normal- AMI ruled out. 2. Continue secondary prevention measures including ASA, statin, and BB 3. BP well-controlled; continue present antiHTN therapy 4. Will refax record request for [facility] 5. Device interrogation revealed normal device function. No VT/VF. 6. Appears compensated from a HF standpoint- continue optimization therapy. 7. Consider addition of Imdur for CP prevention 8. Further recommendations pending review of outside records. DARWIN BALDWIN APRN Nov 25, 2016 10:32
[2016-11-25 11:16] VITALS: BP 98/50
--- NOTE | 2016-11-25 14:04 | EEG ---
DATE OF SERVICE: 11/25/2016 EEG NUMBER: [id number]. OBJECTIVE: This is a 61-year-old male patient with history of mental status changes. EEG was requested to evaluate cerebral activity. METHODS: Twenty electrodes were applied according to the international 10-20 electrode placement system. EKG monitoring, hyperventilation, intermittent photic stimulation, and monopolar and bipolar montages are routinely utilized. The record was obtained on a digital system with video monitoring. FINDINGS: 1. Background: The patient was recorded in the awake, drowsy, and sleep states. The overall background amplitude is 10-20 microvolts. A posterior dominant rhythm of 6-8 Hz is observed with superimposed slowing in theta frequency. 2. Abnormalities: No specific epileptiform discharge or electrographic seizure is seen. Slowing in the theta frequency noted. 3. Activation: Hyperventilation was not performed because the patient was unable to follow the commands. Intermittent photic stimulation was performed with photic driving. IMPRESSION: This EEG is an abnormal study for the awake, drowsy, and sleep state. The posterior dominant rhythm of 6-8 Hz is slow for age. There is superimposed slowing in the theta frequency. No focal, lateralizing, specific epileptiform discharge or electrographic seizure is seen. This pattern of EEG may suggest mild to moderate encephalopathy. KAT ROSARIO MD DR: AVERY/harry JOB#: [id number] / [id number] ASHWIN
--- NOTE | 2016-11-25 14:23 | PDOC2 ---
NEUROLOGY CONSULT Date of Admission Date of Admission DATE: 11/25/16 TIME: 14:07 Reason for Consult Reason for Consult: IMPRESSION: Metabolic encephalopathy. Lethargy, mild. Chest pain. UTI CAD, s/p CABG DM HTN COPD KAMILAH on BiPAP Hypothyroidism Pacemaker in site. Obesity. Wounds in LE and feet. RECOMMENDATIONS/PLAN: Treat medical and cardiac diseases. Continue ASA 325 mg daily. Continue Lipitor HS. EEG Lab: see orders. OT/PT Discussed with his at bedside. EEG on 11/25: Suggest mild to moderate encephalopathy. HCT on 11/24: No acute findings. HISTORY OF THE PRESENT ILLNESS: 61-y-old male patient with multiple medical and cardiac diseases developed symptoms of chest pain to be brought to the ER of [facility]. He was noted mental status changes, decreased response, overly sleepiness, so Neurology was called for contultation. His HCT showed no acute findings but cerebral atrophy. No focalized motor or sensory deficits noted. PAST MEDICAL HISTORY: Please see above. PAST SURGERY HISTORY: Pacemaker Placement, S/P CABG Tonsillectomy Appendectomy Cholecystectomy Knee surgery ALLERGY: Reviewed. MEDICATIONS: Refer to [facility] FAMILY HISTORY: CAD SOCIAL HISTORY: Lives with his at home, but he has been in rehab facilities since 07/2016. Denies current smoking, drinking, and illicit drug use. REVIEW OF SYSTEMS: Constitutional: No malnutrition, weight loss, cachexia. Head: No recent traumatic brain or head injury. Skin: No edema, or rash. Ear: No infection. Eyes: No vision loss or color blindness. Nose: No bleeding or purulent discharges. Hearing: Hearing decrease. Neck: No recent injury. Cardiac: CAD, s/p CABG, Pacemaker Placement, HTN. Pulmonary: COPD, KAMILAH. GI: No GI ulcer, GI bleeding. Urinary/genital: UTI. Endocrinologic: Diabetes Mellitus, hypothyroidism, obesity. Skeletomuscular: No muscular atrophy, deformity. Neurological: see HP. Psychiatric: Denies drug use/abuse. Otherwise, not [id number] review of systems. PHYSICAL EXAMINATION: General appearance is sleepiness. HEENT: Normocephalic and nontraumatic. Eyes, nose, ears, and throat are unremarkable. Neck is supple. No lymphadenopathy. No crepitus. Cardiovascular: S1, S2, regular rate and rhythm. Pulmonary: decreased to auscultation bilaterally. Abdomen: Bowel sounds are positive. Extremities: No rash, lesions, or edema. No restriction of range of motion NEUROLOGICAL EXAMINATION: Sleepiness and difficult to arouse. Not oriented to time, place but knew his . PERRL. EOMI when awake. CN: no focal findings. Muscle tone: within normal. Muscle strength: moves all extremities to stimuli. DTR: 1 Plantar reflex: Flexor response bilaterally Gait: not examined in bed. Sensory exam: no abnormal findings. Not able to access cerebellar signs due to not follow commands. F-T-N test not performed. Current Medications Current Medications Current Medications Aspirin (Children'S Aspirin) 324 mg 1X ONCE PO Last administered on 11/24/16 15:02; Start 11/24/16 at 14:15; Stop 11/24/16 at 14:44; Status DC Ondansetron HCl (Zofran) 4 mg PRN Q8HRS PRN IV NAUSEA/VOMITING; Start 11/24/16 at 15:45; Stop 11/25/16 at 15:44 Nitroglycerin (Nitrostat) 0.4 mg PRN Q5MIN PRN SL CHEST PAIN; Start 11/24/16 at 15:45; Stop 11/25/16 at 15:44 Aspirin (Ceci Aspirin) 325 mg DAILY PO Last administered on 11/25/16 08:43; Start 11/25/16 at 09:00 Glucose (Insta-Glucose) 15 gm PRN DAILY PRN PO LOW GLUCOSE LEVEL PER PROTOCOL; Start 11/25/16 at 01:30 Diclofenac Sodium (Voltaren) 2 martha QID TP Last administered on 11/25/16 08:47 ; Start 11/25/16 at 09:00 Divalproex Sodium (Depakote Er) 500 mg BID PO ; Start 11/25/16 at 09:00; Stop at 09:00; Status DC Donepezil HCl (Aricept) 10 mg HS PO ; Start 11/25/16 at 21:00; Stop 11/25/16 at 21:00; Status DC Gabapentin (Neurontin) 800 mg DAILY PO Last administered on 11/25/16 08:43; Start 11/25/16 at 09:00 Acetaminophen/ Hydrocodone Bitart (Lortab 10/325) 1 tab PRN QID PRN PO MODERATE PAIN Last administered on 11/25/16 04:13; Start 11/25/16 at 01:30 Lamotrigine (LaMICtal) 100 mg HS PO ; Start 11/25/16 at 21:00; Stop 11/25/16 at 21:00; Status DC Levothyroxine Sodium (Synthroid) 137 mcg DAILY07 PO Last administered on 08:43; Start 11/25/16 at 07:00 Linagliptin (Tradjenta) 5 mg DAILY PO Last administered on 11/25/16 08:43; Start 11/25/16 at 09:00 Lorazepam (Ativan) 1 mg TID PO Last administered on 11/25/16 08:45; Start at 09:00 Magnesium Oxide (Magnesium Oxide) 400 mg DAILY PO Last administered on 08:44; Start 11/25/16 at 09:00 Nortriptyline HCl (Pamelor) 25 mg QHS PO ; Start 11/25/16 at 21:00; Stop at 21:00; Status DC Oxycodone/ Acetaminophen (Percocet 5/325) 1 tab PRN Q6HRS PRN PO MILD PAIN; Start 11/25/16 at 01:30 Pantoprazole Sodium (Protonix) 40 mg DAILYAC PO Last administered on 11/25/16 08:44; Start 11/25/16 at 07:30 Quetiapine Fumarate (SEROquel) 100 mg QHS PO ; Start 11/25/16 at 21:00; Stop at 21:00; Status DC Sennosides (Senna) 8.6 mg DAILY PO Last administered on 11/25/16 08:44; Start 11/25/16 at 09:00 Torsemide (Demadex) 20 mg BID94 PO Last administered on 11/25/16 08:44; Start 11/25/16 at 09:00 Non-Formulary Medication 15 mcg BID IH ; Start 11/25/16 at 09:00; Status UNV Non-Formulary Medication 3 mg DAILY PO ; Start 11/25/16 at 09:00; Status UNV Fenofibrate (Lofibra) 134 mg DAILY PO Hypothyroidism Last administered on 08:43; Start 11/25/16 at 09:00 Non-Formulary Medication 1 cap TID PO ; Start 11/25/16 at 09:00; Stop 11/25/16 at 09:00; Status DC Insulin Aspart (Novolog) 10 units BID SQ Last administered on 11/25/16 08:49; Start 11/25/16 at 09:00 Non-Formulary Medication 50 unit QHS SQ ; Start 11/25/16 at 21:00; Stop at 21:00; Status DC Metoprolol Tartrate (Lopressor) 100 mg DAILY PO Last administered on 11/25/16 08:45; Start 11/25/16 at 09:00 Non-Formulary Medication 10 mg HS PO Atheroscletotic Heart Disease; Start at 21:00; Stop 11/25/16 at 21:00; Status DC Spironolactone (Aldactone) 100 mg DAILY PO Diuretic Last administered on 08:45; Start 11/25/16 at 09:00 Non-Formulary Medication 100 mg DAILY PO ; Start 11/25/16 at 09:00; Status UNV Divalproex Sodium (Depakote Er) 500 mg BID PO Last administered on 11/25/16 08 :43; Start 11/25/16 at 01:45 Donepezil HCl (Aricept) 10 mg HS PO Last administered on 11/25/16 02:07; Start 11/25/16 at 01:45 Lamotrigine (LaMICtal) 100 mg HS PO Last administered on 11/25/16 02:08; Start 11/25/16 at 01:45 Nortriptyline HCl (Pamelor) 25 mg QHS PO Last administered on 11/25/16 02:06; Start 11/25/16 at 01:45 Quetiapine Fumarate (SEROquel) 100 mg QHS PO Last administered on 11/25/16 02: 08; Start 11/25/16 at 01:45 Fluoxetine HCl (Prozac) 40 mg TID PO Last administered on 11/25/16 08:45; Start 11/25/16 at 02:00 Insulin Detemir (Levemir) 50 units QHS SQ Last administered on 11/25/16 02:12 ; Start 11/25/16 at 02:00 Atorvastatin Calcium (Lipitor) 40 mg HS PO Atheroscletotic Heart Disease Last administered on 11/25/16 02:06; Start 11/25/16 at 02:00 Albuterol Sulfate (Ventolin Neb Soln) 2.5 mg Q6H NEB Last administered on 07:49; Start 11/25/16 at 06:00 Heparin Sodium (Porcine) 5,000 unit Q8HRS SQ ; Start 11/25/16 at 14:00 Active Scripts Active Reported Voltaren (Diclofenac Sodium) 100 Gm Gel..gram. 2 Gm TP QID Tradjenta (Linagliptin) 5 Mg Tablet 1 Tab PO DAILY Torsemide 20 Mg Tablet 40 Tab PO BID Spironolactone 100 Mg Tablet 1 Tab PO DAILY Seroquel (Quetiapine Fumarate) 100 Mg Tablet 1 Tab PO QHS Senna (Sennosides) 8.6 Mg Tablet 8.6 Mg PO DAILY Prozac (Fluoxetine Hcl) 40 Mg Capsule 1 Cap PO TID Protonix (Pantoprazole Sodium) 40 Mg Tablet.dr 40 Mg PO DAILY Oxycodone-Acetaminophen 5-325 (Oxycodone Hcl/Acetaminophen) 1 Each Tablet 1 Each PO PRN Q6HRS PRN Novolog (Insulin Aspart) 100 Unit/1 Ml Cartridge 10 Unit SQ BID Nortriptyline Hcl 25 Mg Capsule 50 Cap PO QHS Metoprolol Tartrate 100 Mg Tablet 100 Tab PO DAILY Magnesium Oxide 400 Mg Tablet 1 Tab PO DAILY Lorazepam 1 Mg Tablet 1 Tab PO TID Levothyroxine Sodium 137 Mcg Tablet 1 Tab PO DAILY Lantus Solostar (Insulin Glargine,Hum.rec.anlog) 100 Unit/1 Ml Insuln.pen 50 Unit SQ QHS Lamotrigine 100 Mg Tablet 1 Tab PO HS Hydrocodone-Apap 10-325 (Hydrocodone Bit/Acetaminophen) 1 Each Tablet 1 Tab PO QID PRN Glucose Gel (Dextrose) 38 Gm Gel..gram. 38 Gm PO Gabapentin 400 Mg Capsule 800 Mg PO DAILY [non] Fenofibrate (Fenofibrate Nanocrystallized) 145 Mg Tablet 1 Tab PO DAILY Donepezil Hcl 10 Mg Tablet 1 Tab PO HS Depakote Er (Divalproex Sodium) 500 Mg Tab.er.24h 2 Tab PO BID Rosuvastatin Calcium 10 Mg Tablet 10 Mg PO HS Coenzyme Q-10 (Ubidecarenone) 50 Mg Capsule 100 Mg PO DAILY Brovana (Arformoterol Tartrate) 15 Mcg/2 Ml Vial.neb 15 Mcg IH BID Vraylar (Cariprazine Hydrochloride) 3 Mg Capsule 3 Mg PO DAILY Aspirin 325 Mg Tablet 1 Tab PO DAILY Allergies Allergies: Coded Allergies: Penicillins (Verified Allergy, Unknown, 11/24/16) Sulfa (Sulfonamide Antibiotics) (Verified Allergy, Unknown, 11/24/16) clindamycin (Verified Allergy, Unknown, 11/24/16) lisinopril (Verified Allergy, Unknown, 11/24/16) Vitals VITALS Vital Signs Date Time Temp Pulse Resp B/P Pulse Ox O2 Delivery O2 Flow Rate FiO2 11/25/16 11:16 98.2 76 17 98/50 94 Nasal Cannula 98.2 11/25/16 08:00 1.5 Labs Labs Laboratory Tests Test 11/24/16 14:03 11/24/16 14:05 11/24/16 14:07 11/24/16 15:15 Glucose (Fingerstick) 229mg/dL (70-99) O2 Saturation 96% (92-99) Arterial Blood pH 7.44 (7.35-7.45) Arterial Blood pCO2 at Patient Temp 50mmHg (35-46) Arterial Blood pO2 at Patient Temp 86mmHg (65-108) Arterial Blood HCO3 33mmol/L (21-28) Arterial Blood Base Excess 8mmol/L (-3-3) Oxyhemoglobin 93.9% Methemoglobin 0.5% (0.0-1.9) Carbon Monoxide, Quantitative 1.2% (0.0-1.9) FiO2 36 White Blood Count 9.9x10^3/uL (4.0-11.0) Red Blood Count 3.74x10^6/uL (4.30-5.70) Hemoglobin 9.8g/dL (13.0-17.5) Hematocrit 30.3% (39.0-53.0) Mean Corpuscular Volume 81fL (79-100) Mean Corpuscular Hemoglobin 26pg (25-35) Mean Corpuscular Hemoglobin Concent 32g/dL (31-37) Red Cell Distribution Width 20.0% (11.5-14.5) Platelet Count 265x10^3/uL (140-400) Neutrophils (%) (Auto) 74% (31-73) Lymphocytes (%) (Auto) 9% (24-48) Monocytes (%) (Auto) 17% (0-9) Eosinophils (%) (Auto) 0% (0-3) Basophils (%) (Auto) 0% (0-3) Neutrophils # (Auto) 7.4x10^3uL (1.8-7.7) Lymphocytes # (Auto) 0.9x10^3/uL (1.0-4.8) Monocytes # (Auto) 1.6x10^3/uL (0.0-1.1) Eosinophils # (Auto) 0.0x10^3/uL (0.0-0.7) Basophils # (Auto) 0.0x10^3/uL (0.0-0.2) Prothrombin Time 17.3SEC (11.7-14.0) Prothromb Time International Ratio 1.5 (0.8-1.1) Sodium Level 133mmol/L (136-145) Potassium Level 4.2mmol/L (3.5-5.1) Chloride Level 94mmol/L (98-107) Carbon Dioxide Level 33mmol/L (21-32) Anion Gap 6 (6-14) Blood Urea Nitrogen 25mg/dL (8-26) Creatinine 1.5mg/dL (0.7-1.3) Estimated GFR (Cockcroft-Gault) 47.7 Glucose Level 295mg/dL (70-99) Calcium Level 10.0mg/dL (8.5-10.1) Magnesium Level 1.9mg/dL (1.8-2.4) Total Bilirubin 0.6mg/dL (0.2-1.0) Direct Bilirubin 0.4mg/dL (0.0-0.2) Aspartate Amino Transf (AST/SGOT) 30U/L (15-37) Alanine Aminotransferase (ALT/SGPT) 18U/L (16-63) Alkaline Phosphatase 182U/L (46-116) Ammonia 13mcmol/L (11-34) Creatine Kinase 63U/L (39-308) Creatine Kinase MB (Mass) 0.9ng/mL (0.0-3.6) Creatine Kinase MB Relative Index % (0-4) Troponin I Quantitative < 0.017ng/mL (0.000-0.055) MG-Bgv-M-Type Natriuretic Peptide 1053pg/mL (0-124) Total Protein 7.4g/dL (6.4-8.2) Albumin 1.7g/dL (3.4-5.0) Lipase 45U/L (73-393) Thyroid Stimulating Hormone (TSH) 2.921uIU/mL (0.358-3.74) Urine Collection Type Unknown Urine Color Hannah Urine Clarity Clear Urine pH 5.5 Urine Specific [place] 1.015 Urine Protein Negativemg/dL (NEG-TRACE) Urine Glucose (UA) >=1000mg/dL (NEG) Urine Ketones (Stick) Negativemg/dL (NEG) Urine Blood Negative (NEG) Urine Nitrite Negative (NEG) Urine Bilirubin Negative (NEG) Urine Urobilinogen Dipstick 1.0mg/dL (0.2 mg/dL) Urine Leukocyte Esterase Small (NEG) Urine RBC 0/HPF (0-2) Urine WBC 5-10/HPF (0-4) Urine Bacteria Few/HPF (0-FEW) Urine Hyaline Casts Many/HPF Urine Mucus Mod/LPF Urine Opiates Screen Pos (NEG) Urine Methadone Screen Neg (NEG) Urine Barbiturates Neg (NEG) Urine Phencyclidine Screen Neg (NEG) Urine Amphetamine/Methamphetamine Neg (NEG) Urine Benzodiazepines Screen Neg (NEG) Urine Cocaine Screen Neg (NEG) Urine Cannabinoids Screen Neg (NEG) Urine Ethyl Alcohol Neg (NEG) Test 11/24/16 19:05 11/24/16 20:50 11/24/16 21:20 11/25/16 02:08 Glucose (Fingerstick) 252mg/dL (70-99) 256mg/dL (70-99) 248mg/dL (70-99) Troponin I Quantitative < 0.017ng/mL (0.000-0.055) Test 11/25/16 03:45 11/25/16 07:21 11/25/16 13:20 White Blood Count 7.2x10^3/uL (4.0-11.0) Red Blood Count 3.61x10^6/uL (4.30-5.70) Hemoglobin 9.3g/dL (13.0-17.5) Hematocrit 29.2% (39.0-53.0) Mean Corpuscular Volume 81fL (79-100) Mean Corpuscular Hemoglobin 26pg (25-35) Mean Corpuscular Hemoglobin Concent 32g/dL (31-37) Red Cell Distribution Width 19.8% (11.5-14.5) Platelet Count 266x10^3/uL (140-400) Neutrophils (%) (Auto) 73% (31-73) Lymphocytes (%) (Auto) 7% (24-48) Monocytes (%) (Auto) 20% (0-9) Eosinophils (%) (Auto) 0% (0-3) Basophils (%) (Auto) 0% (0-3) Neutrophils # (Auto) 5.2x10^3uL (1.8-7.7) Lymphocytes # (Auto) 0.5x10^3/uL (1.0-4.8) Monocytes # (Auto) 1.4x10^3/uL (0.0-1.1) Eosinophils # (Auto) 0.0x10^3/uL (0.0-0.7) Basophils # (Auto) 0.0x10^3/uL (0.0-0.2) Sodium Level 135mmol/L (136-145) Potassium Level 4.2mmol/L (3.5-5.1) Chloride Level 96mmol/L (98-107) Carbon Dioxide Level 35mmol/L (21-32) Anion Gap 4 (6-14) Blood Urea Nitrogen 23mg/dL (8-26) Creatinine 1.1mg/dL (0.7-1.3) Estimated GFR (Cockcroft-Gault) 68.3 Glucose Level 267mg/dL (70-99) Calcium Level 9.8mg/dL (8.5-10.1) Troponin I Quantitative < 0.017ng/mL (0.000-0.055) Triglycerides Level 95mg/dL (0-150) Cholesterol Level 75mg/dL (0-200) LDL Cholesterol, Calculated 45mg/dL (0-100) VLDL Cholesterol, Calculated 19mg/dL (0-40) Non-HDL Cholesterol Calculated 64mg/dL (0-129) HDL Cholesterol 11mg/dL (40-60) Cholesterol/HDL Ratio 6.8 Glucose (Fingerstick) 200mg/dL (70-99) 192mg/dL (70-99) Laboratory Tests Test 11/24/16 15:15 11/24/16 19:05 11/24/16 20:50 11/24/16 21:20 Urine Collection Type Unknown Urine Color Hannah Urine Clarity Clear Urine pH 5.5 Urine Specific [place] 1.015 Urine Protein Negativemg/dL (NEG-TRACE) Urine Glucose (UA) >=1000mg/dL (NEG) Urine Ketones (Stick) Negativemg/dL (NEG) Urine Blood Negative (NEG) Urine Nitrite Negative (NEG) Urine Bilirubin Negative (NEG) Urine Urobilinogen Dipstick 1.0mg/dL (0.2 mg/dL) Urine Leukocyte Esterase Small (NEG) Urine RBC 0/HPF (0-2) Urine WBC 5-10/HPF (0-4) Urine Bacteria Few/HPF (0-FEW) Urine Hyaline Casts Many/HPF Urine Mucus Mod/LPF Urine Opiates Screen Pos (NEG) Urine Methadone Screen Neg (NEG) Urine Barbiturates Neg (NEG) Urine Phencyclidine Screen Neg (NEG) Urine Amphetamine/Methamphetamine Neg (NEG) Urine Benzodiazepines Screen Neg (NEG) Urine Cocaine Screen Neg (NEG) Urine Cannabinoids Screen Neg (NEG) Urine Ethyl Alcohol Neg (NEG) Glucose (Fingerstick) 252mg/dL (70-99) 256mg/dL (70-99) Troponin I Quantitative < 0.017ng/mL (0.000-0.055) Test 11/25/16 02:08 11/25/16 03:45 11/25/16 07:21 11/25/16 13:20 Glucose (Fingerstick) 248mg/dL (70-99) 200mg/dL (70-99) 192mg/dL (70-99) White Blood Count 7.2x10^3/uL (4.0-11.0) Red Blood Count 3.61x10^6/uL (4.30-5.70) Hemoglobin 9.3g/dL (13.0-17.5) Hematocrit 29.2% (39.0-53.0) Mean Corpuscular Volume 81fL (79-100) Mean Corpuscular Hemoglobin 26pg (25-35) Mean Corpuscular Hemoglobin Concent 32g/dL (31-37) Red Cell Distribution Width 19.8% (11.5-14.5) Platelet Count 266x10^3/uL (140-400) Neutrophils (%) (Auto) 73% (31-73) Lymphocytes (%) (Auto) 7% (24-48) Monocytes (%) (Auto) 20% (0-9) Eosinophils (%) (Auto) 0% (0-3) Basophils (%) (Auto) 0% (0-3) Neutrophils # (Auto) 5.2x10^3uL (1.8-7.7) Lymphocytes # (Auto) 0.5x10^3/uL (1.0-4.8) Monocytes # (Auto) 1.4x10^3/uL (0.0-1.1) Eosinophils # (Auto) 0.0x10^3/uL (0.0-0.7) Basophils # (Auto) 0.0x10^3/uL (0.0-0.2) Sodium Level 135mmol/L (136-145) Potassium Level 4.2mmol/L (3.5-5.1) Chloride Level 96mmol/L (98-107) Carbon Dioxide Level 35mmol/L (21-32) Anion Gap 4 (6-14) Blood Urea Nitrogen 23mg/dL (8-26) Creatinine 1.1mg/dL (0.7-1.3) Estimated GFR (Cockcroft-Gault) 68.3 Glucose Level 267mg/dL (70-99) Calcium Level 9.8mg/dL (8.5-10.1) Troponin I Quantitative < 0.017ng/mL (0.000-0.055) Triglycerides Level 95mg/dL (0-150) Cholesterol Level 75mg/dL (0-200) LDL Cholesterol, Calculated 45mg/dL (0-100) VLDL Cholesterol, Calculated 19mg/dL (0-40) Non-HDL Cholesterol Calculated 64mg/dL (0-129) HDL Cholesterol 11mg/dL (40-60) Cholesterol/HDL Ratio 6.8 KAT ROSARIO MD Nov 25, 2016 14:22
[2016-11-25 14:30] VITALS: BP 108/58
--- NOTE | 2016-11-25 14:40 | HP ---
ADMIT DATE: 11/24/2016 HISTORY OF PRESENT ILLNESS: The patient is a 61-year-old male patient who was recently admitted to [facility] as a transfer from [facility] where he was admitted as a transfer from [facility] as he has had suicidal admission to nursing staff there. He apparently is known to have schizoaffective disorder with depression. He was noted by the nursing staff at [facility] to be unresponsive yesterday and en route to the hospital, he was noted to have wide complex tachycardia and the patient was brought to the [facility] instead of going to [facility] ____ intended destination. The patient was actually unresponsive. His rhythm was approximately at a rate of 100 with wide complex tachycardia and at that time the patient was unresponsive, but he responded to sternal rub and his wide complex tachycardia persisted and approximately after 30 minutes of arrival to the Emergency Room, he went into narrow complex rhythm after which he became more responsive and did complain of some chest discomfort radiating up into the left chest, it lasted for a few minutes and has resolved. His stated that he is also having trouble with his voice over the last several days and also feeling more hoarse. PAST MEDICAL HISTORY: Significant for type 2 diabetes insulin-dependent, coronary artery disease status post CABG x 2 and also stent deployment, hypertension, pseudoseizures, history of multiple falls with prior head injury, morbid obesity, chronic obstructive pulmonary disease, hypothyroidism, schizoaffective disorder, has Alzheimer's early onset. PAST SURGICAL HISTORY: Significant for coronary bypass surgery in 1994 and 2001. He has prior lumbar fusion surgery in 1999 2000, left knee replacement a fusion of his left femur, appendectomy, and cholecystectomy. FAMILY HISTORY: His father at age of 60 of myocardial infarction. Mother has a history of COPD. SOCIAL HISTORY: The patient was previously in [place]. He and his moved up to [facility] in 07/2016, to be closer to the grandchild just recently born. He apparently has been in and out of several hospitals and several rehab centers since then. Apparently according to the behavioral health note, the patient was kicked out of the home by his and his kids. He apparently has been a smoker, quit in 1994. Prior, he used to smoke 2 packs a day for approximately 5 years. He denied any alcohol or illicit drug use. The patient did multiple jobs and apparently he is currently not working as he was diagnosed with schizophrenia recently about a year ago. ALLERGIES: HE IS ALLERGIC TO LISINOPRIL, PENICILLIN, AND SULFA DRUGS. MEDICATIONS: He is currently on following medications: He is on arformoterol (Brovana) 15 mcg inhaler twice a day, aspirin 325 mg once a daily, Vraylar that is cariprazine/hydrochloride 3 mg p.o. daily, he is on ____ as needed for hypoglycemia, diclofenac sodium, Voltaren gel 2 grams q.i.d., divalproex sodium 500 mg 2 tablets twice a day, Aricept 10 mg at bedtime, he is on fenofibrate nanocrystallized 145 mg once a day, fluoxetine 40 mg 3 times a day, gabapentin 400 mg takes 800 mg p.o. daily, hydrocodone/APAP 10/325 one tablet 4 times a day as needed. He is on NovoLog insulin 10 units before meals. He is on NovoLog 10 units subcutaneously twice a day and he is on Lantus insulin 15 units at bedtime. He is on lamotrigine 100 mg at bedtime, levothyroxine sodium 137 mcg once a day, linagliptin 5 mg once a day, lorazepam 1 mg 3 times a day, magnesium oxide 400 mg daily, metoprolol tartrate 100 mg daily, nortriptyline 50 mcg at bedtime, oxycodone/APAP 5/325 one tablet every 6 hours as needed, Protonix 40 mg once a day, Seroquel 100 mg at bedtime, rosuvastatin calcium 10 mg at bedtime, senna 1 tablet once a day, spironolactone 100 mg once a day, furosemide 40 mg twice a day. He is on Coenzyme Q10 100 mg once a day. REVIEW OF SYSTEMS: As per history of present illness. PHYSICAL EXAMINATION: GENERAL: On arrival to the Emergency Room, he was initially unresponsive with wide complex tachycardia that was switched to narrow complex tachycardia. He was slightly pale, but no jaundice, cyanosis, or thyromegaly. No jugular distension, no limb edema. VITAL SIGNS: His heart rate was 95, blood pressure was 122/70, temperature was 97.6, respiratory rate was 24, and oxygen saturation was 97% on 4 liters of oxygen. HEENT: Showed normocephalic, atraumatic. NECK: Supple. HEART: Showed normal first and second heart sounds with no gallop, rub or murmur. CHEST: Clear to auscultation. No crepitation or rhonchi. ABDOMEN: Distended, soft, nontender. No guarding or rigidity. No organomegaly. Hernial orifices intact. Bowel sounds normal. NEUROLOGIC: He was apparently sleepy, but arousable. All his cranial nerves are intact. EXTREMITIES: He moves extremities without difficulty, has marked swelling in the left lower extremity. LABORATORY DATA: While in the Emergency Room, he has lab work done showed a white cell count of 9900, hemoglobin 9.8, hematocrit 30, MCV 81 and platelet count 265,000 with normal manual differential. His arterial blood gas showed a pH of 7.44, pCO2 of 50, pO2 of 86, bicarbonate was 33 and oxygen saturation was 96% on FiO2 of 36%. His prothrombin time was 17.3, INR 1.5. His chemistry showed a serum sodium 133, potassium 4.2, chloride 94, bicarbonate 33, anion gap of 6, BUN 25, creatinine 1.5, estimated GFR was 48 mL per minute. His glucose was 295, calcium was 10, magnesium was 1.9. Total bilirubin, AST, ALT were normal. Alkaline phosphatase slightly elevated. His beta natriuretic peptide was 1050. Total protein 7.4, albumin was 1.7. Lipase was 45. Urinalysis showed that his urine was iron clear with a pH of 5.5, specific gravity 1.015. The urine was negative for protein. There was large amount glucose, negative for ketones, blood, nitrite, there was small amount of leukocyte esterase, 0 rbc's, 5-10 wbc's, very few bacteria. His toxic screen was positive for opiates, negative for methadone, barbiturates, phencyclidine, amphetamine, methamphetamine, benzodiazepine, cocaine, and cannabinoids. He did have a chest x-ray done, which showed that he has transvenous pacemaker is in place from his previous cardiac surgery, no acute cardiopulmonary abnormalities detected. He did have a CT scan of the head without contrast, which showed that the patient has cerebral atrophy, no acute intracranial abnormalities detected. PLAN: The patient was admitted with altered mental status and also possible wide complex tachycardia. We did consult the Cardiology Team as well as the neurologist as he apparently has a history of pseudoseizures and will decide the further management accordingly. PATTY CHRISTIAN MD DR: YUMI/harry JOB#: [id number] / [id number]
[2016-11-25] MEDS: HEPARIN PF for SUB-Q USE 5,000 UNIT/0.5 ML VIAL. SQ SCH ×2 (15:18→21:42)
--- NOTE | 2016-11-25 16:14 | RAD ---
Left lower extremity venous Doppler ultrasound History: Left lower extremity swelling. Comparison: None. Procedure: Color Doppler, spectral Doppler, and grayscale images are obtained with and without compression in the area of the common femoral vein, superficial femoral vein - femoral vein junction, main femoral vein (superficial femoral vein) and popliteal vein. Veins of the proximal calf are also imaged. Findings: There is normal duplex flow, color flow and compressibility of all visualized vein segments. No evidence of deep venous thrombosis is present. There is a very large complex fluid collection with fluid demonstrating internal debris. This fluid collection involves left anterior distal thigh measures roughly 13 x 6 x 4 cm. Impression: 1. No evidence of left lower extremity deep venous thrombosis. 2. Large complex fluid collection involving left anterior distal thigh. Recommend clinical correlation regarding etiology such as hematoma versus abscess.
[2016-11-25 19:15] VITALS: BP 105/58
[2016-11-25] MEDS ORDERED: DONEPEZIL HCL 10 MG TABLET. PO SCH (21:00)
[2016-11-25] MEDS ORDERED: NON FORMULARY ITEM (Insulin Glargine,Hum.rec.anlog (Lantus Solostar) 50 UNIT) SQ SCH (21:00)
[2016-11-25] MEDS ORDERED: NORTRIPTYLINE 25 MG CAPSULE PO SCH (21:00)
[2016-11-25] MEDS ORDERED: QUEtiapine 100 MG TABLET. PO SCH (21:00)
[2016-11-25] MEDS ORDERED: lamoTRIgine 100 MG TABLET. PO SCH (21:00)
[2016-11-25] MEDS ORDERED: ROSUVASTATIN CALCIUM 10 MG PO SCH (21:00)
[2016-11-25] MEDS: VITS A & D/LANOLIN TOPICAL OINTMENT 56GM TUBE. TP SCH (21:24)
[2016-11-25 23:00] VITALS: BP 101/45
[2016-11-26] MEDS: ALBUTEROL SULFATE 2.5 MG/3 ML NEBU. NEB SCH ×4 (00:50→19:21)
[2016-11-26 02:50] VITALS: BP 118/49
--- NOTE | 2016-11-26 03:25 | PN ---
DATE: SUBJECTIVE: The patient is resting slightly propped up, unresponsive; however, he does not seem to be in any respiratory distress and was pale, but no jaundice, cyanosis, or thyromegaly. No jugular venous distention. No limb edema. PHYSICAL EXAMINATION: VITAL SIGNS: On examining him, his heart rate was 70, blood pressure was 98/50, temperature was 97.6, respiratory rate was 24, and oxygen saturation was 98% on 3 liters oxygen. HEAD, EYES, EARS, NOSE AND THROAT: Showed normocephalic, atraumatic. NECK: Supple. HEART: Showed normal first and second heart sounds without gallop, rub or murmur. CHEST: Clear to auscultation. No crepitation or rhonchi. ABDOMEN: Distended, soft, and nontender. No guarding or rigidity. No organomegaly. Hernial orifices intact. Bowel sounds normal. NEUROLOGIC: He is unresponsive, according to his , he is demented, has had recurrent falls recently, however, he was able to walk with a walker. His intake over the last 24 hours was incompletely recorded. LABORATORY DATA: This morning showed a serum sodium of 135, potassium 4.2, chloride 106, bicarbonate 35, anion gap of 4, BUN 23, creatinine 1.1, estimated GFR was 68 mL per minute. His glucose ____, calcium was 9.8. His triglycerides were 95. Total cholesterol 75, LDL was 45, VLDL was 19, HDL was 11 and cholesterol to HDL cholesterol ratio was 6.8. His thyroid function was 2.92. White cell count was 7200, hemoglobin 9.3, hematocrit 29.2, MCV 81 and platelet count ____. ASSESSMENT: 1. Altered mental status, questionable seizures versus pseudoseizures. 2. Chest pain. 3. Wide complex tachycardia. Obviously, he is known to have coronary artery disease status post coronary bypass graft surgery x 2. He has chronic systolic congestive heart failure, sick sinus syndrome, status post permanent pacemaker, hypertension, hyperlipidemia, hypothyroidism, chronic renal insufficiency with a creatinine 1.5, schizoaffective disorder and major depressive disorder as well as Alzheimer's disease. His left lower extremity is also markedly swollen. PLAN: My plan is to arrange for him to have a Doppler ultrasound and to rule out the possibility of deep vein thrombosis and probably start him on heparin subcutaneously 3 times a day. We will decide on further management accordingly. He is scheduled to have his pacemaker interrogated. We have already consulted the neurologist for further evaluation and treatment. PATTY CHRISTIAN MD DR: YUMI/harry JOB#: [id number] / [id number]
[2016-11-26 04:52] LABS: INR 1.3 (0.8-1.1); PROTHROMBIN TIME PATIENT 15.1 SEC (11.7-14.0)
[2016-11-26 05:19] LABS: ALBUMIN 1.5 g/dL (3.4-5.0); ALBUMIN/GLOBULIN RATIO 0.3 (1.0-1.7); CALCIUM 9.7 mg/dL (8.5-10.1); CREATININE 1.1 mg/dL (0.7-1.3); GFR 68.3; POTASSIUM 3.8 mmol/L (3.5-5.1); TOTAL BILIRUBIN 0.4 mg/dL (0.2-1.0); TOTAL PROTEIN 6.9 g/dL (6.4-8.2)
[2016-11-26] MEDS: LEVOTHYROXINE 137 MCG TABLET PO SCH (05:45)
[2016-11-26] MEDS: HEPARIN PF for SUB-Q USE 5,000 UNIT/0.5 ML VIAL. SQ SCH ×4 (05:46→22:21)
[2016-11-26 07:00] VITALS: BP 121/59
[2016-11-26] MEDS: INSULIN ASPART 300 UNITS/3 ML INSULN.PEN SQ SCH ×2 (08:01→20:36)
[2016-11-26] MEDS: CARIPRAZINE HYDROCHLORIDE 3 MG PO SCH (08:01)
[2016-11-26] MEDS: LINAGLIPTIN 5 MG TABLET PO SCH (08:06)
[2016-11-26] MEDS: ASPIRIN 325 MG TABLET PO SCH (08:06)
[2016-11-26] MEDS: DIVALPROEX EXTENDED RELEASE 500 MG TAB.ER.24H. PO SCH ×2 (08:07→20:35)
[2016-11-26] MEDS: METOPROLOL TART IMMED RELEASE 50 MG TABLET. PO SCH ×2 (08:07→20:36)
[2016-11-26] MEDS: GABAPENTIN 400 MG CAPSULE. PO SCH (08:07)
[2016-11-26] MEDS: SENNOSIDES 8.6 MG TABLET PO SCH (08:07)
[2016-11-26] MEDS: SPIRONOLACTONE 25 MG TABLET PO SCH (08:07)
[2016-11-26] MEDS: MAGNESIUM OXIDE 400 MG TABLET PO SCH (08:08)
[2016-11-26] MEDS: DICLOFENAC SODIUM 1% TOPICAL GEL 100GM TUBE. TP SCH ×4 (08:08→20:37)
[2016-11-26] MEDS: FLUoxetine HCL 20 MG CAPSULE PO SCH ×3 (08:08→20:35)
[2016-11-26] MEDS: TORSEMIDE 20 MG TABLET. PO SCH ×2 (08:08→15:17)
[2016-11-26] MEDS: FENOFIBRATE,MICRONIZED 134 MG CAPSULE PO SCH (08:08)
[2016-11-26] MEDS: VITS A & D/LANOLIN TOPICAL OINTMENT 56GM TUBE. TP SCH ×3 (08:08→20:37)
[2016-11-26] MEDS: PANTOPRAZOLE 40 MG TABLET.DR. PO SCH (08:08)
[2016-11-26] MEDS: LORazepam 1 MG TABLET PO SCH ×3 (08:09→21:00)
--- NOTE | 2016-11-26 10:35 | PDOC ---
CARDIO Progress Notes Date and Time Date of Service 11/26/16 Time of Evaluation 1025 Subjective Subjective: No Chest Pain, No shortness of breath Comments: resting in bed; no acute events overnight Vitals Vitals Vital Signs Date Time Temp Pulse Resp B/P Pulse Ox O2 Delivery O2 Flow Rate FiO2 11/26/16 08:07 89 118/49 11/26/16 07:54 88 Nasal Cannula 1.5 11/26/16 07:00 98.0 20 98.0 Weight Weight [ ] Input and Output Intake and Output Intake and Output 11/26/16 07:00 Intake Total 400 ml Output Total 1800 ml Balance -1400 ml Intake Oral 400 ml Output Urine Total 1800 ml Laboratory Labs Laboratory Tests Test 11/25/16 13:20 11/25/16 17:20 11/25/16 20:43 11/26/16 03:35 Glucose (Fingerstick) 192mg/dL (70-99) 196mg/dL (70-99) 146mg/dL (70-99) Prothrombin Time 15.1SEC (11.7-14.0) Prothromb Time International Ratio 1.3 (0.8-1.1) Sodium Level 137mmol/L (136-145) Potassium Level 3.8mmol/L (3.5-5.1) Chloride Level 98mmol/L (98-107) Carbon Dioxide Level 36mmol/L (21-32) Anion Gap 3 (6-14) Blood Urea Nitrogen 18mg/dL (8-26) Creatinine 1.1mg/dL (0.7-1.3) Estimated GFR (Cockcroft-Gault) 68.3 BUN/Creatinine Ratio 16 (6-20) Glucose Level 52mg/dL (70-99) Calcium Level 9.7mg/dL (8.5-10.1) Total Bilirubin 0.4mg/dL (0.2-1.0) Aspartate Amino Transf (AST/SGOT) 38U/L (15-37) Alanine Aminotransferase (ALT/SGPT) 21U/L (16-63) Alkaline Phosphatase 162U/L (46-116) Ammonia 40mcmol/L (11-34) Total Protein 6.9g/dL (6.4-8.2) Albumin 1.5g/dL (3.4-5.0) Albumin/Globulin Ratio 0.3 (1.0-1.7) Test 11/26/16 07:57 Glucose (Fingerstick) 52mg/dL (70-99) Physical Exam HEENT: Neck Supple W Full Motion Chest: Symmetric LUNGS: Other (diminished bases ) Heart: S1S2, RRR, murmurs Abdomen: Soft N/T, Other Extremities: Other Neurology: alert, other (drowsy ) Assessment Assessment 1. Chest pain; AMI ruled out 2. CAD; s/p CABG in 95 with redo in 07 3. Chronic presumed systolic CHF with ICM; appears compensated 4. ? Arrhythmia; EMS noted wide-complex tachyarrhythmia en route 5. SSS s/p PPM ([employer]); interrogation with normal device function. No VT/ VF. 6. Hypertension; controlled 7. Hyperlipidemia; on statin 8. Hypothyroidism; on replacement therapy. 9. Chronic renal insufficiency; Cr 1.5 10. Chronic pain 11. Schizophrenia/ major depressive disorder 11. Alzheimer's Dx Recommendations 1. Contacted [facility] Medical Records- if records not obtained later this afternoon, will repeat echo in am. 2. Continue secondary prevention measures including ASA, statin, and BB 3. BP well-controlled; continue present antiHTN therapy 4. Appears compensated from a HF standpoint- continue optimization therapy. Allergy to lisinopril- reaction unknown. 5. Add Imdur for vasodilation as BP allows. 6. Further recommendations pending review of outside records. DARWIN BALDWIN APRN Nov 26, 2016 10:35
[2016-11-26 11:00] VITALS: BP 121/59
[2016-11-26] MEDS ORDERED: DEXTROSE 50% 25 GM / 50ML DISP.SYRIN. IV PRN (12:15)
--- NOTE | 2016-11-26 14:47 | PDOC ---
PROGRESS NOTES Assessment Assessment Metabolic encephalopathy. Lethargy, mild. Chest pain. UTI CAD, s/p CABG DM Hyperglycemia, glucose level 295 Hypoglycemia, glucose level 43. HTN COPD KAMILAH on BiPAP Hypothyroidism Pacemaker in site. Obesity. Wounds in bilateral LE and feet. Large fluid collection in left thigh, hematoma or abscess? RECOMMENDATIONS/PLAN: Treat medical and cardiac diseases. Brain MRI w/o contrast if no contraindications. Continue ASA 325 mg daily. Continue Lipitor HS. Please consult Surgery for left thigh possible hematoma or abscess. OT/PT Discussed with his at bedside on 11/25. EEG on 11/25: Suggest mild to moderate encephalopathy. HCT on 11/24: No acute findings. HISTORY OF THE PRESENT ILLNESS: 61-y-old male patient with multiple medical and cardiac diseases developed symptoms of chest pain to be brought to the ER of [facility]. He was noted mental status changes, decreased response, overly sleepiness, so Neurology was called for contultation. His HCT showed no acute findings but cerebral atrophy. No focalized motor or sensory deficits noted. PAST MEDICAL HISTORY: Please see above. PAST SURGERY HISTORY: Pacemaker Placement, S/P CABG Tonsillectomy Appendectomy Cholecystectomy Knee surgery ALLERGY: Reviewed. MEDICATIONS: Refer to [facility] FAMILY HISTORY: CAD SOCIAL HISTORY: Lives with his at home, but he has been in rehab facilities since 07/2016. Denies current smoking, drinking, and illicit drug use. REVIEW OF SYSTEMS: Constitutional: No malnutrition, weight loss, cachexia. Head: No recent traumatic brain or head injury. Skin: No edema, or rash. Ear: No infection. Eyes: No vision loss or color blindness. Nose: No bleeding or purulent discharges. Hearing: Hearing decrease. Neck: No recent injury. Cardiac: CAD, s/p CABG, Pacemaker Placement, HTN. Pulmonary: COPD, KAMILAH. GI: No GI ulcer, GI bleeding. Urinary/genital: UTI. Endocrinologic: Diabetes Mellitus, hypothyroidism, obesity. Skeletomuscular: No muscular atrophy, deformity. Neurological: see HP. Psychiatric: Denies drug use/abuse. Otherwise, not [id number] review of systems. PHYSICAL EXAMINATION: General appearance is sleepiness. HEENT: Normocephalic and nontraumatic. Eyes, nose, ears, and throat are unremarkable. Neck is supple. No lymphadenopathy. No crepitus. Cardiovascular: S1, S2, regular rate and rhythm. Pulmonary: decreased to auscultation bilaterally. Abdomen: Bowel sounds are positive. Extremities: No rash, lesions, or edema. No restriction of range of motion NEUROLOGICAL EXAMINATION: Lethargic and difficult to arouse. Not oriented to time, place and person. PERRL. EOMI when awake. CN: no focal findings. Muscle tone: within normal. Muscle strength: moves all extremities to stimuli. DTR: 1 Plantar reflex: Flexor response bilaterally Gait: not examined in bed. Sensory exam: no abnormal findings. Not able to access cerebellar signs due to not follow commands. F-T-N test not performed due to not follow commands. Objective Objective Vital Signs Date Time Temp Pulse Resp B/P Pulse Ox O2 Delivery O2 Flow Rate FiO2 11/26/16 11:42 93 Nasal Cannula 1.5 11/26/16 11:00 97.7 64 17 121/59 97.7 Intake and Output 11/26/16 07:00 Intake Total 400 ml Output Total 1800 ml Balance -1400 ml Intake Oral 400 ml Output Urine Total 1800 ml Vitals Signs Vitals VS - Last 72 Hours, by Label Date Time Temp Pulse Resp B/P Pulse Ox O2 Delivery O2 Flow Rate FiO2 11/26/16 11:42 93 Nasal Cannula 1.5 11/26/16 11:00 97.7 64 17 121/59 90 Nasal Cannula 2.0 97.7 11/26/16 08:07 89 118/49 11/26/16 07:54 88 Nasal Cannula 1.5 11/26/16 07:30 Nasal Cannula 2.0 11/26/16 07:00 98.0 71 20 121/59 88 Nasal Cannula 2.0 98.0 11/26/16 02:50 98.4 89 20 118/49 93 Nasal Cannula 2.0 98.4 11/26/16 00:50 Nasal Cannula 1.5 11/25/16 23:00 97.8 78 20 101/45 94 Nasal Cannula 2.0 97.8 11/25/16 19:59 Nasal Cannula 2.0 11/25/16 19:15 97.4 71 20 105/58 92 Nasal Cannula 1.0 97.4 11/25/16 18:13 Nasal Cannula 1.5 11/25/16 14:30 97.9 72 20 108/58 94 Nasal Cannula 97.9 11/25/16 14:28 94 Nasal Cannula 1.5 11/25/16 11:16 98.2 76 17 98/50 94 Nasal Cannula 98.2 11/25/16 08:45 84 113/55 11/25/16 08:00 Nasal Cannula 1.5 11/25/16 07:55 94 Nasal Cannula 1.5 11/25/16 07:53 98.5 84 22 113/55 92 Nasal Cannula 98.5 Laboratory Laboratory Laboratory Tests Test 11/25/16 17:20 11/25/16 20:43 11/26/16 03:35 11/26/16 07:57 Glucose (Fingerstick) 196mg/dL (70-99) 146mg/dL (70-99) 52mg/dL (70-99) Prothrombin Time 15.1SEC (11.7-14.0) Prothromb Time International Ratio 1.3 (0.8-1.1) Sodium Level 137mmol/L (136-145) Potassium Level 3.8mmol/L (3.5-5.1) Chloride Level 98mmol/L (98-107) Carbon Dioxide Level 36mmol/L (21-32) Anion Gap 3 (6-14) Blood Urea Nitrogen 18mg/dL (8-26) Creatinine 1.1mg/dL (0.7-1.3) Estimated GFR (Cockcroft-Gault) 68.3 BUN/Creatinine Ratio 16 (6-20) Glucose Level 52mg/dL (70-99) Calcium Level 9.7mg/dL (8.5-10.1) Total Bilirubin 0.4mg/dL (0.2-1.0) Aspartate Amino Transf (AST/SGOT) 38U/L (15-37) Alanine Aminotransferase (ALT/SGPT) 21U/L (16-63) Alkaline Phosphatase 162U/L (46-116) Ammonia 40mcmol/L (11-34) Total Protein 6.9g/dL (6.4-8.2) Albumin 1.5g/dL (3.4-5.0) Albumin/Globulin Ratio 0.3 (1.0-1.7) Test 11/26/16 08:19 11/26/16 12:02 11/26/16 12:52 Glucose (Fingerstick) 74mg/dL (70-99) 43mg/dL (70-99) 138mg/dL (70-99) Microbiology 11/24/16 Urine Culture - Preliminary, Resulted 11/24/16 Urine Culture Result 1 (CHUCK) - Preliminary, Resulted Medication Medications Current Medications Dextrose (Dextrose 50%-Water Syringe) 12.5 gm PRN Q15MIN PRN IV SEE COMMENTS Last administered on 11/26/16 12:32; Start 11/26/16 at 12:15 Donepezil HCl (Aricept) 10 mg HS PO ; Start 11/25/16 at 21:00; Stop 11/25/16 at 21:00; Status DC Insulin Aspart (Novolog) 5 units BID SQ ; Start 11/26/16 at 21:00 Insulin Detemir (Levemir) 30 units QHS SQ ; Start 11/26/16 at 21:00 Isosorbide Mononitrate (Imdur) 30 mg DAILY PO ; Start 11/26/16 at 15:00 Lamotrigine (LaMICtal) 100 mg HS PO ; Start 11/25/16 at 21:00; Stop 11/25/16 at 21:00; Status DC Metoprolol Tartrate (Lopressor) 50 mg BID PO ; Start 11/26/16 at 21:00 Non-Formulary Medication 10 mg HS PO Atheroscletotic Heart Disease; Start at 21:00; Stop 11/25/16 at 21:00; Status DC Non-Formulary Medication 50 unit QHS SQ ; Start 11/25/16 at 21:00; Stop at 21:00; Status DC Nortriptyline HCl (Pamelor) 25 mg QHS PO ; Start 11/25/16 at 21:00; Stop at 21:00; Status DC Quetiapine Fumarate (SEROquel) 100 mg QHS PO ; Start 11/25/16 at 21:00; Stop at 21:00; Status DC Vitamin A/Vitamin D (Vitamin A & D Ointment) 1 martha TID TP Last administered on 11/26/16 08:08; Start 11/25/16 at 21:00 Comment Review of Relevant I have reviewed the following items michelle (where applicable) has been applied. KAT ROSARIO MD Nov 26, 2016 14:46
[2016-11-26 15:00] VITALS: BP 128/60
[2016-11-26] MEDS: ISOSORBIDE MONONITRATE ER 30 MG TAB.ER.24H PO SCH (15:00)
[2016-11-26] MEDS ORDERED: IOHEXOL 300 MG/ML 75 ML VIAL IV ONE (15:30)
[2016-11-26] MEDS ORDERED: CONTRAST GIVEN MC PRN (15:45)
--- NOTE | 2016-11-26 16:16 | RAD ---
CT head without contrast History: Altered mental status and weakness. Comparison: CT head 11/24/2016. Procedure: Axial images are obtained of the head from the skull base through the vertex without IV contrast. One or more of the following individualized dose reduction techniques were utilized for the study: Automated exposure control Adjustment of mA and/or kV according to patient's size Use of iterative reconstruction technique. Findings: There is diffuse cerebral volume loss, greater than expected for patient age, similar to previous study. No mass-effect, intracranial mass, midline shift, hemorrhage or obvious acute infarction is identified. Basilar cisterns are patent. Bone windows demonstrate no significant calvarial abnormality. Mild right maxillary sinus mucosal thickening is seen. Impression: 1. No acute intracranial process. Please note that CT can be relatively insensitive to acute ischemic infarction for up to 24 hours after symptom onset. 2. Diffuse cerebral volume loss, greater than expected for patient age, similar to previous study.
--- NOTE | 2016-11-26 16:17 | PDOC ---
Provider Note Provider Note #[id number] fluid collection uncertain etiology. ortho consult placed. will follow along. thank you! COLLINS WILSON MD Nov 26, 2016 16:17
--- NOTE | 2016-11-26 16:32 | RAD ---
CT left lower extremity with intravenous contrast History: Fluid collection. Comparison: Left lower extremity venous Doppler 11/25/2016. Technique: After administration of intravenous contrast, 75 mL Omnipaque 300, CT of the left lower extremity was performed from the subtrochanteric thigh through the proximal lower leg. Axial, sagittal, coronal reconstructions were obtained. One or more of the following individualized dose reduction techniques were utilized for the study: Automated exposure control Adjustment of mA and/or kV according to patient's size Use of iterative reconstruction technique. Findings: There is significant streak artifact emanating from the patient's orthopedic hardware. There is elongated left total knee arthroplasty revision hardware which is notable for postsurgical resection of the distal half of the left femur with the femoral hardware stem component extending into the proximal left femoral shaft. Circumferentially surrounding the hardware, there is a very large of fluid collection which measures approximately 10 x 8 cm in maximum axial dimension x approximately 30 cm in craniocaudal dimension. The fluid collection demonstrates several foci of gas. Assuming no recent instrumentation, findings would be compatible with infected fluid collection, probably superimposed on chronic seroma or hematoma as posterior aspect of the fluid collection appears to have layering, relatively increased density. Hounsfield units of the fluid collection is difficult to assess secondary to the significant streak artifact. Impression: Surrounding the orthopedic hardware, there is a very large thigh fluid collection which measures roughly 10 x 8 cm in maximum axial dimension x approximately 30 cm in craniocaudal dimension. Multiple foci of internal gas are seen. Assuming no recent instrumentation, findings are compatible with infection/abscess, probably superimposed on chronic seroma or hematoma
[2016-11-26 19:00] VITALS: BP 97/50
[2016-11-26] MEDS ORDERED: ACETAMINOPHEN 325 MG TABLET. PO PRN (20:00)
[2016-11-26] MEDS: QUEtiapine 100 MG TABLET. PO SCH (20:35)
[2016-11-26] MEDS: DONEPEZIL HCL 10 MG TABLET. PO SCH (20:35)
[2016-11-26] MEDS: lamoTRIgine 100 MG TABLET. PO SCH (20:35)
[2016-11-26] MEDS: ATORVASTATIN CALCIUM 40 MG TABLET. PO SCH (20:36)
[2016-11-26] MEDS: NORTRIPTYLINE 25 MG CAPSULE PO SCH (20:36)
--- NOTE | 2016-11-26 21:23 | RAD ---
Examination: Single frontal view of the chest. HISTORY History of shortness of breath, fever. COMPARISON None available. Findings : Left-sided cardiac pacer is identified. Low lung volumes and technique accentuates heart size and pulmonary vascularity. Few fractured mediastinal wires are identified. Left lung opacity could be epicardial fat pad or atelectasis or infiltrate. IMPRESSION Opacity identified in the left lung base along the cardiac border could be epicardial fat pad or atelectasis or infiltrate. Comparison to prior exam is recommended if available. Electronically signed by: Jonathan Cummings (Nov 26, 2016 21:21:36)
[2016-11-26] MEDS: INSULIN DETEMIR 300 UNITS/3 ML INSULN.PEN. SQ SCH (21:25)
[2016-11-26 22:16] LABS: BILIRUBIN,URINE SMALL (NEG); GLUCOSE,URINE NEGATIVE (NEG); NITRITE,URINE NEGATIVE (NEG); PH,URINE 7.5; PROTEIN,URINE NEGATIVE (NEG-TRACE)
[2016-11-26] MEDS: MEROPENEM 1 GM in IV NORMAL SALINE 100ML 100 ML IV SCH (22:22)
[2016-11-26 22:28] LABS: BACTERIA,URINE 0 /HPF (0-FEW); RBC,URINE OCC /HPF (0-2); SQUAMOUS EPITHELIAL CELL,UR OCC /LPF
[2016-11-26 23:00] VITALS: BP 92/53
[2016-11-27] VITALS (8 sets, daily range): BP systolic 100–137; BP diastolic 55–65
[2016-11-27] MEDS: ALBUTEROL SULFATE 2.5 MG/3 ML NEBU. NEB SCH ×4 (00:33→18:20)
--- NOTE | 2016-11-27 03:09 | PN ---
DATE: 11/26/2016 SUBJECTIVE: The patient is resting, slightly propped up, sleeping flat in bed; however, he is arousable. On questioning him, he denied any complaint. Nursing staff stated that he is more arousable today. He actually managed to eat his breakfast this morning. He apparently has had his venous Doppler ultrasound of his left lower extremity, which showed no evidence of left lower extremity deep vein thrombosis; however, there was large complex fluid collection involving left anterior distal thigh. There is no evidence of redness, tenderness. He is afebrile, has no fever, no leukocytosis. PHYSICAL EXAMINATION: GENERAL: When I examined him this morning, he was pale, no jaundice, cyanosis or thyromegaly. No jugular venous distention. No limb edema. VITAL SIGNS: His heart rate was 64, blood pressure 121/59, temperature was 97.7, respiratory rate was 17 and oxygen saturation was 93% on 1.5 liters of oxygen. HEAD, EYES, EARS, NOSE AND THROAT: Showed normocephalic, atraumatic. NECK: Supple. HEART: Showed normal first and second heart sounds with no gallop, rub or murmur. CHEST: Clear to auscultation. No crepitation or rhonchi. ABDOMEN: Distended, soft, nontender. No guarding or rigidity. No organomegaly. Hernial orifices intact. Bowel sounds normal. NEUROLOGIC: He was sleepy, but arousable, opens eyes, responds appropriately and drifts back to sleep. He moves upper extremities to much good extent than his lower extremities. His intake over the last 24 hours was 1400, output was 1800. LABORATORY DATA: His lab work this morning showed a white cell count 7200, hemoglobin 9.3, hematocrit 29.2, MCV 81, platelet count 266,000. His chemistry showed serum sodium of 137, potassium 3.8, chloride 98, bicarbonate 36, anion gap of 3, BUN 18, creatinine 1.1, estimated GFR was 68 mL per minute. His glucose was 52, calcium was 9.7. Total bilirubin, ____ normal. Alkaline phosphatase slightly elevated. Ammonia was ____. Total protein was 6.9, albumin was 1.5. His prothrombin time was 15.1, INR 1.3. ASSESSMENT: Chest pain with 3 sets of troponins are less than 0.017 with myocardial infarction ruled out. The patient has some form of arrhythmias. Apparently his device was interrogated and reviewed, normal device function with no evidence of V-tach or VFib, coronary artery disease status post CABG, chronic systolic congestive heart failure, ischemic cardiomyopathy, seems to be well compensated, the patient is actually lying flat, sick sinus syndrome, status post permanent pacemaker placement, hypertension well controlled, hyperlipidemia, hypothyroidism, chronic renal insufficiency. He apparently is also known to have type 2 diabetes that is insulin-dependent. His blood sugar is low. PLAN: My plan is to cut down his insulin. Repeat his lab works and consult the surgical team for the mass in the medial aspect of the left thigh. PATTY CHRISTIAN MD DR: YUMI/harry JOB#: [id number] / [id number]
--- NOTE | 2016-11-27 04:34 | CONS ---
DATE OF CONSULTATION: 11/26/2016 REASON FOR CONSULTATION: Fluid collection, left leg. HISTORY OF PRESENT ILLNESS: The patient is a 61-year-old male who is very somnolent at this point. He does arouse, but the answers he gives me are inconsistent and sometimes not at all coherent, so the HPI regarding his leg is essentially unreliable and unobtainable as are review of systems. He says he has known that he had a fluid collection in his leg for quite some time, but he is unable to tell me how long that is. He said he fell and had trauma to the leg, but he does not know when. He thinks the fluid collection has been there since then. He denies pain in the leg. Denies redness of the skin. He thinks the area has been the same size for some time, but he is not able to answer any other questions about his leg. PAST MEDICAL HISTORY: He is unable to give me past medical history, but in reviewing Dr. Anupama Reeves, it includes; 1. Insulin-dependent diabetes mellitus. 2. Status post CABG for coronary artery disease. 3. Hypertension. 4. History of head injury. 5. Pseudoseizures. 6. Obesity. 7. Chronic obstructive pulmonary disease. 8. Hypothyroidism. 9. Schizoaffective disorder and early onset Alzheimer's. 10. Recent suicide attempt or admission for suicidal thoughts. PAST SURGICAL HISTORY: 1. CABG x 2. 2. Left knee and femur surgery. 3. Spine surgery. 4. Appendectomy. 5. Cholecystectomy. This is how I am certain that his history that he provides me is unreliable because when I asked him if he had any prior abdominal surgery, he said no and Dr. Anupama Reeves has a different information. FAMILY HISTORY: Noncontributory to this illness. SOCIAL HISTORY: Apparently, he has had a complex social history. He is a former smoker and he is , but he has been kicked out of his house by his and kids. ALLERGIES: 1. LISINOPRIL. 2. PENICILLIN. 3. SULFA. REVIEW OF SYSTEMS: Unable to reliably obtain for the reasons described above. MEDICATIONS: I have reviewed his medication administration record. PHYSICAL EXAMINATION: GENERAL: This is a morbidly obese male with a BMI of 42.9, who appears older than his stated age. PSYCHIATRIC: He is lethargic with depressed mood and flat affect. NEUROLOGIC: He has a resting tremor in both upper extremities and weak dna sequencing associate strength equal bilaterally. EYES: His pupils are small, equal and reactive. Sclerae are nonicteric. HENT: Head is atraumatic. Mucous membranes are moist. He is wearing nasal cannula oxygen. VITAL SIGNS: His temperature is 99.0 with a pulse of 80, respiratory rate 18, blood pressure 128/60, O2 sats 93% on 2 liters nasal cannula. NECK: Supple, without cervical lymphadenopathy, no supraclavicular lymphadenopathy. CARDIOVASCULAR: Palpation of his right radial pulse reveals his rhythm to be regular. 2+ right radial pulse. He has extensive left lower extremity edema. Minimal right lower extremity edema. RESPIRATORY: His respirations are nonlabored. CHEST: Chest wall is nontender to palpation. He has a median sternotomy incision. ABDOMEN: Soft, nondistended, nontender. EXTREMITIES: Examination of his lower extremities shows his left lower extremity to be significantly edematous from the hip to the toe. He has a large incision on his knee consistent with previous orthopedic Surgery. He has a soft area just above his knee on the medial aspect of his thigh that is nontender. The overlying skin is not red. The area is not ulcerated. It is not tender. LABORATORY DATA: Reviewed, which shows normal white blood cell count, mildly elevated INR of 1.5 on admission, 1.3 today. Albumin is 1.5. Imaging of his lower extremity shows no evidence of left lower extremity DVT, large complex fluid collection involving the left anterior distal thigh demonstrating internal debris. They did not comment on the ultrasound whether this was intramuscular or in the subcutaneous space. They say it does measure 13 x [address] scan of the lower extremity with contrast was ordered and obtained. The report is pending. In my review, it is very difficult to interpret because of extensive artifact from his orthopedic hardware. ASSESSMENT: 1. Large complex fluid collection, left thigh, etiology unclear. Clinically no evidence of infection. 2. Morbid obesity with BMI of 42.9. 3. Severe malnutrition with an albumin of 1.5. 4. Coronary artery disease, status post coronary artery bypass graft. 5. Encephalopathy. 6. Arrhythmia on admission. 7. History of schizoaffective disorder and depression with recent suicidal tendencies. 8. Chronic obstructive pulmonary disease. 9. Insulin-dependent diabetes mellitus. 10. Hypertension. PLAN: I am uncertain as to the nature of this fluid collection or the duration to which it has been present. I suspect that this is a chronic problem. This may be related to his previous orthopedic surgery. I have asked Dr. Collins to evaluate the patient as well and he said that he would be happy to do so. I will follow along until the plan of care regarding the fluid collection becomes more delineated. COLLINS WILSON MD DR: ILDEFONSO/harry JOB#: [id number] / [id number] PATTY Tavera MDD
[2016-11-27 04:39] LABS: HEMATOCRIT 27.8 % (39.0-53.0); HEMOGLOBIN 8.9 g/dL (13.0-17.5); WHITE BLOOD COUNT 8.6 x10^3/uL (4.0-11.0)
[2016-11-27 05:01] LABS: ALBUMIN 1.3 g/dL (3.4-5.0); ALBUMIN/GLOBULIN RATIO 0.3 (1.0-1.7); CALCIUM 9.7 mg/dL (8.5-10.1); CREATININE 1.1 mg/dL (0.7-1.3); GFR 68.3; POTASSIUM 3.8 mmol/L (3.5-5.1); TOTAL BILIRUBIN 0.5 mg/dL (0.2-1.0); TOTAL PROTEIN 6.5 g/dL (6.4-8.2)
[2016-11-27] MEDS: HYDROcodone/APAP 10/325 1 TAB TABLET PO PRN ×2 (05:35→15:08)
[2016-11-27] MEDS: MEROPENEM 1 GM in IV NORMAL SALINE 100ML 100 ML IV SCH ×3 (05:37→22:34)
[2016-11-27] MEDS: LEVOTHYROXINE 137 MCG TABLET PO SCH (05:37)
[2016-11-27] MEDS: HEPARIN PF for SUB-Q USE 5,000 UNIT/0.5 ML VIAL. SQ SCH ×3 (05:39→22:36)
--- NOTE | 2016-11-27 08:16 | PDOC ---
Infectious Disease Note ROS ROS GEN: Denies fevers, chills, sweats HEENT: Denies blurred vision, sore throat CV: Denies chest pain RESP: Denies shortness of air, cough GI: Denies n/v/d NEURO: Denies confusion, dizziness MSK: Denies weakness, joint pain/swelling Vital Sign Vital Signs Vital Signs Date Time Temp Pulse Resp B/P Pulse Ox O2 Delivery O2 Flow Rate FiO2 11/27/16 06:35 20 11/27/16 03:00 97.5 67 105/59 95 Nasal Cannula 2.0 97.5 Physical Exam PHYSICAL EXAM GENERAL: NAD, Alert HEENT: PERRL, OC/OP NECK: Supple, no JVD, no LN LUNGS: Clear HEART: S1S2, no gallop, no murmur ABD: Soft, NT, no organomegaly, no rebound EXT: No edema, no cyanosis FOAM TANK LAMINATOR: Alert, oriented x 3, no focal neurologic deficit SKIN: No rash IV: ok Labs Lab Laboratory Tests Test 11/26/16 07:57 11/26/16 08:19 11/26/16 12:02 11/26/16 12:52 Glucose (Fingerstick) 52mg/dL (70-99) 74mg/dL (70-99) 43mg/dL (70-99) 138mg/dL (70-99) Test 11/26/16 17:20 11/26/16 20:32 11/26/16 21:30 11/27/16 03:25 Glucose (Fingerstick) 79mg/dL (70-99) 103mg/dL (70-99) Urine Collection Type Unknown Urine Color Dk yellow Urine Clarity Clear Urine pH 7.5 Urine Specific [place] >=1.030 Urine Protein Negativemg/dL (NEG-TRACE) Urine Glucose (UA) Negativemg/dL (NEG) Urine Ketones (Stick) Tracemg/dL (NEG) Urine Blood Negative (NEG) Urine Nitrite Negative (NEG) Urine Bilirubin Small (NEG) Urine Urobilinogen Dipstick 4.0mg/dL (0.2 mg/dL) Urine Leukocyte Esterase Trace (NEG) Urine RBC Occ/HPF (0-2) Urine WBC 1-4/HPF (0-4) Urine Squamous Epithelial Cells Occ/LPF Urine Bacteria 0/HPF (0-FEW) White Blood Count 8.6x10^3/uL (4.0-11.0) Hemoglobin 8.9g/dL (13.0-17.5) Hematocrit 27.8% (39.0-53.0) Platelet Count 302x10^3/uL (140-400) Sodium Level 136mmol/L (136-145) Potassium Level 3.8mmol/L (3.5-5.1) Chloride Level 99mmol/L (98-107) Carbon Dioxide Level 35mmol/L (21-32) Anion Gap 2 (6-14) Blood Urea Nitrogen 19mg/dL (8-26) Creatinine 1.1mg/dL (0.7-1.3) Estimated GFR (Cockcroft-Gault) 68.3 BUN/Creatinine Ratio 17 (6-20) Glucose Level 120mg/dL (70-99) Calcium Level 9.7mg/dL (8.5-10.1) Total Bilirubin 0.5mg/dL (0.2-1.0) Aspartate Amino Transf (AST/SGOT) 49U/L (15-37) Alanine Aminotransferase (ALT/SGPT) 21U/L (16-63) Alkaline Phosphatase 162U/L (46-116) Total Protein 6.5g/dL (6.4-8.2) Albumin 1.3g/dL (3.4-5.0) Albumin/Globulin Ratio 0.3 (1.0-1.7) Objective Assessment Fever PCN/Clinda/Sulfa allergy Has tolerated Rocephin Staph aureus in urine Complex left leg fluid collection with hardware in place Bilt LE wounds - Arrythmias Left ? opacity Severe protein malnutrition H/o strep anginosis/intermedius bacteremia Plan Plan of Care Discont Zyvox/Add Vanc Cont Meropenem F/u blood cults/labs Await knee aspiration by Dr. Collins and IR aspiration of thigh Needs ECHO. Potential ROHIT as Staph aureus not typical pathogen for UTI Am concerned for hardware infection and anticipate need for I an D maybe potential hardware removal/amputation local wound care D/w Dr. Collins Reviewed [facility] notes Thank you # [id number] MACY MCCONNELL MD Nov 27, 2016 08:16
[2016-11-27] MEDS: CARIPRAZINE HYDROCHLORIDE 3 MG PO SCH (08:41)
[2016-11-27] MEDS ORDERED: VANCOMYCIN 2 GM in IV NORMAL SALINE 500ML BAG 500 ML IV ONE (09:00)
[2016-11-27] MEDS: INSULIN ASPART 300 UNITS/3 ML INSULN.PEN SQ SCH ×2 (09:00→22:38)
[2016-11-27] MEDS: GABAPENTIN 400 MG CAPSULE. PO SCH (09:05)
[2016-11-27] MEDS: SENNOSIDES 8.6 MG TABLET PO SCH (09:05)
[2016-11-27] MEDS: TORSEMIDE 20 MG TABLET. PO SCH ×2 (09:05→15:08)
[2016-11-27] MEDS: MAGNESIUM OXIDE 400 MG TABLET PO SCH (09:05)
[2016-11-27] MEDS: LINAGLIPTIN 5 MG TABLET PO SCH (09:05)
[2016-11-27] MEDS: ISOSORBIDE MONONITRATE ER 30 MG TAB.ER.24H PO SCH (09:05)
[2016-11-27] MEDS: FENOFIBRATE,MICRONIZED 134 MG CAPSULE PO SCH (09:05)
[2016-11-27] MEDS: METOPROLOL TART IMMED RELEASE 50 MG TABLET. PO SCH ×2 (09:05→22:32)
[2016-11-27] MEDS: FLUoxetine HCL 20 MG CAPSULE PO SCH ×3 (09:06→22:32)
[2016-11-27] MEDS: DIVALPROEX EXTENDED RELEASE 500 MG TAB.ER.24H. PO SCH ×2 (09:06→22:33)
[2016-11-27] MEDS: PANTOPRAZOLE 40 MG TABLET.DR. PO SCH (09:06)
[2016-11-27] MEDS: SPIRONOLACTONE 25 MG TABLET PO SCH (09:06)
[2016-11-27] MEDS: ASPIRIN 325 MG TABLET PO SCH (09:06)
[2016-11-27] MEDS: LORazepam 1 MG TABLET PO SCH ×3 (09:06→22:33)
[2016-11-27] MEDS: VITS A & D/LANOLIN TOPICAL OINTMENT 56GM TUBE. TP SCH ×3 (09:11→22:34)
[2016-11-27] MEDS: DICLOFENAC SODIUM 1% TOPICAL GEL 100GM TUBE. TP SCH ×4 (09:12→22:33)
[2016-11-27] MEDS: VANCOMYCIN PER PHARMACY MC PRN (09:26)
[2016-11-27] MEDS ORDERED: LIDOCAINE 1% / SOD BICARB 8.4% 20 ML VIAL. IJ ONE ×2 (09:33→10:00)
[2016-11-27] MEDS ORDERED: MIDAZOLAM HCL/PF 5 MG/5 ML VIAL. ONE (09:53)
[2016-11-27] MEDS ORDERED: fentaNYL PF VIAL 250 MCG/5 ML VIAL ONE (09:54)
--- NOTE | 2016-11-27 10:38 | PDOC ---
Exam Railroad Operating Engineer Railroad Operating Engineer Maryellen Physician Extender Physician Extender B Cates Pre-Procedure Diagnosis Pre-Procedure Diagnosis Complex fluid collection surrounding metallic surgical hardware from mid thigh thru knee. Post-Procedure Diagnosis Post-Procedure Diagnosis Same Procedure Performed Procedure Performed Sono guided aspiration left thigh fluid collection Type of Anesthesia Type of Anesthesia Local Estimated Blood Loss EBL: Trace Specimens Specimans 500 cc whitish-turbid complex fluid removed---samples to lab for cell count with diff + C&S Drain/Tubes Drains/Tubes 8F drainage catheter used for complex fluid aspiration and then removed. Condition of Patient Condition of Patient No change. No apparent complication. Disposition Disposition From IR return to [facility]. F/u with Ortho and ID. Full report to follow. FAUSTINO WHITLOCK MD Nov 27, 2016 10:38
[2016-11-27] MEDS ORDERED: LIDOCAINE 2% 20 ML VIAL. IJ ONE (11:30)
--- NOTE | 2016-11-27 12:23 | PDOC ---
CARLY GUZMAN SCRIP CLERK 11/27/16 1223: CARDIO Progress Notes Date and Time Date of Service 11/27/2016 Time of Evaluation 1120 Subjective Subjective: No Chest Pain, No shortness of breath, No Palpitations, No Dizziness, Other (leg pain from wound) Vitals Vitals Vital Signs Date Time Temp Pulse Resp B/P Pulse Ox O2 Delivery O2 Flow Rate FiO2 11/27/16 11:54 Nasal Cannula 1.5 11/27/16 10:16 77 19 100/59 91 11/27/16 07:00 97.6 97.6 Weight Weight [ ] Input and Output Intake and Output Intake and Output 11/27/16 06:59 Intake Total 200 ml Output Total 1650 ml Balance -1450 ml Intake Oral 200 ml Output Urine Total 1650 ml Laboratory Labs Laboratory Tests Test 11/26/16 12:52 11/26/16 17:20 11/26/16 20:32 11/26/16 21:30 Glucose (Fingerstick) 138mg/dL (70-99) 79mg/dL (70-99) 103mg/dL (70-99) Urine Collection Type Unknown Urine Color Dk yellow Urine Clarity Clear Urine pH 7.5 Urine Specific [place] >=1.030 Urine Protein Negativemg/dL (NEG-TRACE) Urine Glucose (UA) Negativemg/dL (NEG) Urine Ketones (Stick) Tracemg/dL (NEG) Urine Blood Negative (NEG) Urine Nitrite Negative (NEG) Urine Bilirubin Small (NEG) Urine Urobilinogen Dipstick 4.0mg/dL (0.2 mg/dL) Urine Leukocyte Esterase Trace (NEG) Urine RBC Occ/HPF (0-2) Urine WBC 1-4/HPF (0-4) Urine Squamous Epithelial Cells Occ/LPF Urine Bacteria 0/HPF (0-FEW) Test 11/27/16 03:25 11/27/16 08:06 11/27/16 12:10 White Blood Count 8.6x10^3/uL (4.0-11.0) Hemoglobin 8.9g/dL (13.0-17.5) Hematocrit 27.8% (39.0-53.0) Platelet Count 302x10^3/uL (140-400) Sodium Level 136mmol/L (136-145) Potassium Level 3.8mmol/L (3.5-5.1) Chloride Level 99mmol/L (98-107) Carbon Dioxide Level 35mmol/L (21-32) Anion Gap 2 (6-14) Blood Urea Nitrogen 19mg/dL (8-26) Creatinine 1.1mg/dL (0.7-1.3) Estimated GFR (Cockcroft-Gault) 68.3 BUN/Creatinine Ratio 17 (6-20) Glucose Level 120mg/dL (70-99) Calcium Level 9.7mg/dL (8.5-10.1) Total Bilirubin 0.5mg/dL (0.2-1.0) Aspartate Amino Transf (AST/SGOT) 49U/L (15-37) Alanine Aminotransferase (ALT/SGPT) 21U/L (16-63) Alkaline Phosphatase 162U/L (46-116) Total Protein 6.5g/dL (6.4-8.2) Albumin 1.3g/dL (3.4-5.0) Albumin/Globulin Ratio 0.3 (1.0-1.7) Glucose (Fingerstick) 139mg/dL (70-99) 152mg/dL (70-99) Microbiology Micro Microbiology 11/24/16 Urine Culture - Preliminary, Resulted 11/24/16 Urine Culture Result 1 (CHUCK) - Preliminary, Resulted 11/24/16 Urine Culture Result 2 (CHUCK) - Preliminary, Resulted 11/24/16 Antimicrobic Susceptibility - Preliminary, Resulted Physical Exam HEENT: Neck Supple W Full Motion Chest: Symmetric LUNGS: Other (diminished bases ) Heart: S1S2, RRR (SR intermittent pacing no significant ectopies overnight) Abdomen: Soft N/T, Other Extremities: Other (2+ bilateral LE pitting edema) Neurology: alert, oriented, follow commands Assessment Assessment 1. Atypical CP: likely MSK/GI 2. CAD; s/p CABG in 95 with redo in . stable. Recent [place] [facility] [place] decided with medical mgmt. 3. Chronic presumed systolic CHF with ICM: compensated 4. Arrhythmia; EMS noted wide-complex tachyarrhythmia en route. SR, no rhythm ectopies 5. SSS s/p PPM ([employer]); interrogation with normal device function. No VT/ VF. 6. Hypertension; controlled 7. Hyperlipidemia 8. CKD3 9. Dementia/frailty/protein malnutrition 10. LE wounds: per ID Recommendations 1. Will review records when available. Anticipating recent TTE 2. Continue secondary prevention measures including ASA, statin, and BB 3. Further recommendations pending review of outside records. 4. Cardiac chandler supportive care, medical management 5. No lisinopril due to allergy but on aldactone. LARRY JOHNSON MD 11/27/16 2242: CARDIO Progress Notes Plan Plan Pt. seen and examined. Agree with above TRIAL MANAGEMENT ASSOCIATE note. No acute events overnight. Reports very atypical chest pain. Normal caridac exam. Labs reviewed. OSH pending. Will f/u in a.m. Moderate risk for surgical intervention. CARLY GUZMAN SCRIP CLERK Nov 27, 2016 12:23 LARRY JOHNSON MD Nov 27, 2016 22:42
--- NOTE | 2016-11-27 13:09 | PDOC4 ---
COLLINS DARNELL APRN 11/27/16 1309: PROCEDURE Procedure After informed consent was obtained the skin over the superior lateral portal was anesthetized with 3 mL of 2% lidocaine under sterile conditions. Following this a large-bore needle was injected into the intra-articular space of left knee and approximately 30 mL of cloudy light brown fluid were aspirated from the knee joint. Area was cleansed with alcohol and a dressing was applied. He tolerated the procedure well ANIL GARCIA II, MD 11/28/16 0907: COLLINS DARNELL APRN Nov 27, 2016 13:09 ANIL GARCIA II, MD Nov 28, 2016 09:07
[2016-11-27 14:21] LABS: BF CLARITY TURBID; BF COLOR GREEN
[2016-11-27 15:03] LABS: BF CLARITY TURBID; BF COLOR GREEN
--- NOTE | 2016-11-27 15:07 | PDOC ---
PROGRESS NOTES Assessment Assessment Metabolic encephalopathy. Chest pain. UTI CAD, s/p CABG DM Hyperglycemia, glucose level 295 Hypoglycemia, glucose level 43. HTN COPD KAMILAH on BiPAP Hypothyroidism Pacemaker in site. Obesity. Wounds in bilateral LE and feet. Large fluid collection in left thigh, hematoma or abscess? RECOMMENDATIONS/PLAN: Treat medical and cardiac diseases. Continue ASA 325 mg daily. Continue Lipitor HS. Please consult Surgery for left thigh possible hematoma or abscess. OT/PT Discussed with his at bedside on 11/25. EEG on 11/25: Suggest mild to moderate encephalopathy. HCT on 11/24 and 11/26: No acute findings. MRI contraindicated due to pacemaker. HISTORY OF THE PRESENT ILLNESS: 61-y-old male patient with multiple medical and cardiac diseases developed symptoms of chest pain to be brought to the ER of [facility]. He was noted mental status changes, decreased response, overly sleepiness, so Neurology was called for contultation. His HCT showed no acute findings but cerebral atrophy. No focalized motor or sensory deficits noted. PAST MEDICAL HISTORY: Please see above. PAST SURGERY HISTORY: Pacemaker Placement, S/P CABG Tonsillectomy Appendectomy Cholecystectomy Knee surgery ALLERGY: Reviewed. MEDICATIONS: Refer to MAR FAMILY HISTORY: CAD SOCIAL HISTORY: Lives with his at home, but he has been in rehab facilities since 07/2016. Denies current smoking, drinking, and illicit drug use. REVIEW OF SYSTEMS: Constitutional: No malnutrition, weight loss, cachexia. Head: No recent traumatic brain or head injury. Skin: No edema, or rash. Ear: No infection. Eyes: No vision loss or color blindness. Nose: No bleeding or purulent discharges. Hearing: Hearing decrease. Neck: No recent injury. Cardiac: CAD, s/p CABG, Pacemaker Placement, HTN. Pulmonary: COPD, KAMILAH. GI: No GI ulcer, GI bleeding. Urinary/genital: UTI. Endocrinologic: Diabetes Mellitus, hypothyroidism, obesity. Skeletomuscular: No muscular atrophy, deformity. Neurological: see HP. Psychiatric: Denies drug use/abuse. Otherwise, not [id number] review of systems. PHYSICAL EXAMINATION: General appearance is sleepiness. HEENT: Normocephalic and nontraumatic. Eyes, nose, ears, and throat are unremarkable. Neck is supple. No lymphadenopathy. No crepitus. Cardiovascular: S1, S2, regular rate and rhythm. Pulmonary: decreased to auscultation bilaterally. Abdomen: Bowel sounds are positive. Extremities: No rash, lesions, or edema. No restriction of range of motion NEUROLOGICAL EXAMINATION: Awake. Not oriented to time, but knows place and person. PERRL. EOMI. CN: no focal findings. Muscle tone: within normal. Muscle strength: 4 UE, 3+ LE. DTR: 1 Plantar reflex: Flexor response bilaterally Gait: not examined in bed. Sensory exam: no abnormal findings. Not able to access cerebellar signs due to not follow commands. F-T-N test not performed due to not follow commands. Objective Objective Vital Signs Date Time Temp Pulse Resp B/P Pulse Ox O2 Delivery O2 Flow Rate FiO2 11/27/16 11:54 Nasal Cannula 1.5 11/27/16 10:16 77 19 100/59 91 11/27/16 07:00 97.6 97.6 Intake and Output 11/27/16 07:00 Intake Total 200 ml Output Total 1650 ml Balance -1450 ml Intake Oral 200 ml Output Urine Total 1650 ml Vitals Signs Vitals VS - Last 72 Hours, by Label Date Time Temp Pulse Resp B/P Pulse Ox O2 Delivery O2 Flow Rate FiO2 11/27/16 11:54 Nasal Cannula 1.5 11/27/16 10:16 77 19 100/59 91 Nasal Cannula 4.0 11/27/16 10:11 78 22 119/61 91 Nasal Cannula 4.0 11/27/16 09:05 76 137/65 11/27/16 09:05 76 137/65 11/27/16 08:33 95 Nasal Cannula 1.5 11/27/16 08:00 Nasal Cannula 2.0 11/27/16 07:00 97.6 76 18 137/65 95 Nasal Cannula 2.0 97.6 11/27/16 06:35 20 11/27/16 05:35 20 11/27/16 03:00 97.5 67 18 105/59 95 Nasal Cannula 2.0 97.5 11/27/16 00:33 93 Nasal Cannula 1.5 11/26/16 23:00 98.4 73 20 92/53 96 Nasal Cannula 2.0 98.4 11/26/16 22:33 99.2 99.2 11/26/16 20:00 Nasal Cannula 2.0 11/26/16 19:21 97 Nasal Cannula 1.5 11/26/16 19:00 101.1 83 20 97/50 98 Room Air 101.1 11/26/16 15:00 99.0 80 18 128/60 93 Nasal Cannula 2.0 99.0 11/26/16 11:42 93 Nasal Cannula 1.5 11/26/16 11:00 97.7 64 17 121/59 90 Nasal Cannula 2.0 97.7 11/26/16 08:07 89 118/49 11/26/16 07:54 88 Nasal Cannula 1.5 11/26/16 07:30 Nasal Cannula 2.0 11/26/16 07:00 98.0 71 20 121/59 88 Nasal Cannula 2.0 98.0 Laboratory Laboratory Laboratory Tests Test 11/26/16 17:20 11/26/16 20:32 11/26/16 21:30 11/27/16 03:25 Glucose (Fingerstick) 79mg/dL (70-99) 103mg/dL (70-99) Urine Collection Type Unknown Urine Color Dk yellow Urine Clarity Clear Urine pH 7.5 Urine Specific [place] >=1.030 Urine Protein Negativemg/dL (NEG-TRACE) Urine Glucose (UA) Negativemg/dL (NEG) Urine Ketones (Stick) Tracemg/dL (NEG) Urine Blood Negative (NEG) Urine Nitrite Negative (NEG) Urine Bilirubin Small (NEG) Urine Urobilinogen Dipstick 4.0mg/dL (0.2 mg/dL) Urine Leukocyte Esterase Trace (NEG) Urine RBC Occ/HPF (0-2) Urine WBC 1-4/HPF (0-4) Urine Squamous Epithelial Cells Occ/LPF Urine Bacteria 0/HPF (0-FEW) White Blood Count 8.6x10^3/uL (4.0-11.0) Hemoglobin 8.9g/dL (13.0-17.5) Hematocrit 27.8% (39.0-53.0) Platelet Count 302x10^3/uL (140-400) Sodium Level 136mmol/L (136-145) Potassium Level 3.8mmol/L (3.5-5.1) Chloride Level 99mmol/L (98-107) Carbon Dioxide Level 35mmol/L (21-32) Anion Gap 2 (6-14) Blood Urea Nitrogen 19mg/dL (8-26) Creatinine 1.1mg/dL (0.7-1.3) Estimated GFR (Cockcroft-Gault) 68.3 BUN/Creatinine Ratio 17 (6-20) Glucose Level 120mg/dL (70-99) Calcium Level 9.7mg/dL (8.5-10.1) Total Bilirubin 0.5mg/dL (0.2-1.0) Aspartate Amino Transf (AST/SGOT) 49U/L (15-37) Alanine Aminotransferase (ALT/SGPT) 21U/L (16-63) Alkaline Phosphatase 162U/L (46-116) Total Protein 6.5g/dL (6.4-8.2) Albumin 1.3g/dL (3.4-5.0) Albumin/Globulin Ratio 0.3 (1.0-1.7) Test 11/27/16 08:06 11/27/16 10:15 11/27/16 12:10 11/27/16 12:35 Glucose (Fingerstick) 139mg/dL (70-99) 152mg/dL (70-99) Body Fluid Source Synovial Synovial Body Fluid Color Green Green Body Fluid Clarity Turbid Turbid Body Fluid Nucleated Cells [id number]/cmm 4478416/cmm Body Fluid Mononuclear WBCs (%) 5% 14% Body Fluid Polymorphonuclear Cells 95% 86% Body Fluid Total RBCs Counted 26324/cmm 618730/cmm Microbiology 11/27/16 Gram Stain - Final, Complete 11/24/16 Urine Culture - Preliminary, Resulted 11/24/16 Urine Culture Result 1 (CHUCK) - Preliminary, Resulted 11/24/16 Urine Culture Result 2 (CHUCK) - Preliminary, Resulted 11/24/16 Antimicrobic Susceptibility - Preliminary, Resulted Medication Medications Current Medications Acetaminophen (Tylenol) 650 mg PRN Q4HRS PRN PO fever Last administered on t 20:35; Start 11/26/16 at 20:00 Fentanyl Citrate (Fentanyl 5ml Vial) 250 mcg STK-MED ONCE .ROUTE ; Start at 09:54; Stop 11/27/16 at 09:55; Status DC Info 1 each 1 each PRN DAILY PRN MC SEE COMMENTS; Start 11/26/16 at 15:45; Stop 11/28/16 at 15:44 Insulin Aspart (Novolog) 5 units BID SQ ; Start 11/26/16 at 21:00 Insulin Detemir (Levemir) 30 units QHS SQ Last administered on 11/26/16 21:25 ; Start 11/26/16 at 21:00 Iohexol (Omnipaque 300 Mg/ml) 75 ml 1X ONCE IV Last administered on 11/26/16 15:57; Start 11/26/16 at 15:30; Stop 11/26/16 at 15:35; Status DC Lidocaine HCl 5 ml 1X ONCE IJ ; Start 11/27/16 at 11:30; Stop 11/27/16 at 11:31 ; Status DC Lidocaine/Sodium Bicarbonate (Buffered Lidocaine 1%) 20 ml 1X ONCE IJ Last administered on 11/27/16 10:26; Start 11/27/16 at 10:00; Stop 11/27/16 at 10:06 ; Status DC Lidocaine/Sodium Bicarbonate (Buffered Lidocaine 1%) 20 ml STK-MED ONCE IJ ; Start 11/27/16 at 09:33; Stop 11/27/16 at 09:34; Status DC Linezolid 300 ml @ 300 mls/hr Q12HR IV Last administered on 11/26/16 22:53; Start 11/26/16 at 21:00; Stop 11/27/16 at 08:00; Status DC Meropenem/Sodium Chloride (Merrem/Iv Sodium Chloride 0.9% 100ml) 100 ml @ 200 mls/hr Q8HRS IV Last administered on 11/27/16 14:20; Start 11/26/16 at 20:30 Metoprolol Tartrate (Lopressor) 50 mg BID PO Last administered on 11/27/16 09: 05; Start 11/26/16 at 21:00 Midazolam HCl (Versed) 5 mg STK-MED ONCE .ROUTE ; Start 11/27/16 at 09:53; Stop 11/27/16 at 09:54; Status DC Vancomycin HCl 1 each 1X ONCE MC ; Start 11/28/16 at 20:30; Stop 11/28/16 at 20 :31 Vancomycin HCl 1 each 1 each PRN DAILY PRN MC SEE COMMENTS Last administered on 11/27/16 09:26; Start 11/27/16 at 08:00 Vancomycin HCl 2 gm/Sodium Chloride 500 ml @ 250 mls/hr 1X ONCE IV Last administered on 4/27/17at 09:07; Start 11/27/16 at 09:00; Stop 11/27/16 at 10:59 ; Status DC Vancomycin HCl/ Sodium Chloride (Iv Sodium Chloride 0.9% 500ml Bag) 500 ml @ 250 mls/hr Q12H IV ; Start 11/27/16 at 21:00 Comment Review of Relevant I have reviewed the following items michelle (where applicable) has been applied. KAT ROSARIO MD Nov 27, 2016 15:07
--- NOTE | 2016-11-27 16:06 | PDOC ---
ORTHO PROGRESS NOTES Vitals Vital Signs Date Time Temp Pulse Resp B/P Pulse Ox O2 Delivery O2 Flow Rate FiO2 11/27/16 15:08 Nasal Cannula 11/27/16 15:00 98.9 79 22 104/55 93 2.0 98.9 Labs Laboratory Tests Test 11/25/16 17:20 11/25/16 20:43 11/26/16 03:35 11/26/16 07:57 Glucose (Fingerstick) 196mg/dL (70-99) 146mg/dL (70-99) 52mg/dL (70-99) Prothrombin Time 15.1SEC (11.7-14.0) Prothromb Time International Ratio 1.3 (0.8-1.1) Sodium Level 137mmol/L (136-145) Potassium Level 3.8mmol/L (3.5-5.1) Chloride Level 98mmol/L (98-107) Carbon Dioxide Level 36mmol/L (21-32) Anion Gap 3 (6-14) Blood Urea Nitrogen 18mg/dL (8-26) Creatinine 1.1mg/dL (0.7-1.3) Estimated GFR (Cockcroft-Gault) 68.3 BUN/Creatinine Ratio 16 (6-20) Glucose Level 52mg/dL (70-99) Calcium Level 9.7mg/dL (8.5-10.1) Total Bilirubin 0.4mg/dL (0.2-1.0) Aspartate Amino Transf (AST/SGOT) 38U/L (15-37) Alanine Aminotransferase (ALT/SGPT) 21U/L (16-63) Alkaline Phosphatase 162U/L (46-116) Ammonia 40mcmol/L (11-34) Total Protein 6.9g/dL (6.4-8.2) Albumin 1.5g/dL (3.4-5.0) Albumin/Globulin Ratio 0.3 (1.0-1.7) Test 11/26/16 08:19 11/26/16 12:02 11/26/16 12:52 11/26/16 17:20 Glucose (Fingerstick) 74mg/dL (70-99) 43mg/dL (70-99) 138mg/dL (70-99) 79mg/dL (70-99) Test 11/26/16 20:32 11/26/16 21:30 11/27/16 03:25 11/27/16 08:06 Glucose (Fingerstick) 103mg/dL (70-99) 139mg/dL (70-99) Urine Collection Type Unknown Urine Color Dk yellow Urine Clarity Clear Urine pH 7.5 Urine Specific [place] >=1.030 Urine Protein Negativemg/dL (NEG-TRACE) Urine Glucose (UA) Negativemg/dL (NEG) Urine Ketones (Stick) Tracemg/dL (NEG) Urine Blood Negative (NEG) Urine Nitrite Negative (NEG) Urine Bilirubin Small (NEG) Urine Urobilinogen Dipstick 4.0mg/dL (0.2 mg/dL) Urine Leukocyte Esterase Trace (NEG) Urine RBC Occ/HPF (0-2) Urine WBC 1-4/HPF (0-4) Urine Squamous Epithelial Cells Occ/LPF Urine Bacteria 0/HPF (0-FEW) White Blood Count 8.6x10^3/uL (4.0-11.0) Hemoglobin 8.9g/dL (13.0-17.5) Hematocrit 27.8% (39.0-53.0) Platelet Count 302x10^3/uL (140-400) Sodium Level 136mmol/L (136-145) Potassium Level 3.8mmol/L (3.5-5.1) Chloride Level 99mmol/L (98-107) Carbon Dioxide Level 35mmol/L (21-32) Anion Gap 2 (6-14) Blood Urea Nitrogen 19mg/dL (8-26) Creatinine 1.1mg/dL (0.7-1.3) Estimated GFR (Cockcroft-Gault) 68.3 BUN/Creatinine Ratio 17 (6-20) Glucose Level 120mg/dL (70-99) Calcium Level 9.7mg/dL (8.5-10.1) Total Bilirubin 0.5mg/dL (0.2-1.0) Aspartate Amino Transf (AST/SGOT) 49U/L (15-37) Alanine Aminotransferase (ALT/SGPT) 21U/L (16-63) Alkaline Phosphatase 162U/L (46-116) Total Protein 6.5g/dL (6.4-8.2) Albumin 1.3g/dL (3.4-5.0) Albumin/Globulin Ratio 0.3 (1.0-1.7) Test 11/27/16 10:15 11/27/16 12:10 11/27/16 12:35 Body Fluid Source Synovial Synovial Body Fluid Color Green Green Body Fluid Clarity Turbid Turbid Body Fluid Nucleated Cells 01410157/cmm 7106450/cmm Body Fluid Mononuclear WBCs (%) 5% 14% Body Fluid Polymorphonuclear Cells 95% 86% Body Fluid Total RBCs Counted 47911/cmm 221163/cmm Glucose (Fingerstick) 152mg/dL (70-99) Laboratory Tests Test 11/26/16 17:20 11/26/16 20:32 11/26/16 21:30 11/27/16 03:25 Glucose (Fingerstick) 79mg/dL (70-99) 103mg/dL (70-99) Urine Collection Type Unknown Urine Color Dk yellow Urine Clarity Clear Urine pH 7.5 Urine Specific [place] >=1.030 Urine Protein Negativemg/dL (NEG-TRACE) Urine Glucose (UA) Negativemg/dL (NEG) Urine Ketones (Stick) Tracemg/dL (NEG) Urine Blood Negative (NEG) Urine Nitrite Negative (NEG) Urine Bilirubin Small (NEG) Urine Urobilinogen Dipstick 4.0mg/dL (0.2 mg/dL) Urine Leukocyte Esterase Trace (NEG) Urine RBC Occ/HPF (0-2) Urine WBC 1-4/HPF (0-4) Urine Squamous Epithelial Cells Occ/LPF Urine Bacteria 0/HPF (0-FEW) White Blood Count 8.6x10^3/uL (4.0-11.0) Hemoglobin 8.9g/dL (13.0-17.5) Hematocrit 27.8% (39.0-53.0) Platelet Count 302x10^3/uL (140-400) Sodium Level 136mmol/L (136-145) Potassium Level 3.8mmol/L (3.5-5.1) Chloride Level 99mmol/L (98-107) Carbon Dioxide Level 35mmol/L (21-32) Anion Gap 2 (6-14) Blood Urea Nitrogen 19mg/dL (8-26) Creatinine 1.1mg/dL (0.7-1.3) Estimated GFR (Cockcroft-Gault) 68.3 BUN/Creatinine Ratio 17 (6-20) Glucose Level 120mg/dL (70-99) Calcium Level 9.7mg/dL (8.5-10.1) Total Bilirubin 0.5mg/dL (0.2-1.0) Aspartate Amino Transf (AST/SGOT) 49U/L (15-37) Alanine Aminotransferase (ALT/SGPT) 21U/L (16-63) Alkaline Phosphatase 162U/L (46-116) Total Protein 6.5g/dL (6.4-8.2) Albumin 1.3g/dL (3.4-5.0) Albumin/Globulin Ratio 0.3 (1.0-1.7) Test 11/27/16 08:06 11/27/16 10:15 11/27/16 12:10 11/27/16 12:35 Glucose (Fingerstick) 139mg/dL (70-99) 152mg/dL (70-99) Body Fluid Source Synovial Synovial Body Fluid Color Green Green Body Fluid Clarity Turbid Turbid Body Fluid Nucleated Cells 40507045/cmm 2005734/cmm Body Fluid Mononuclear WBCs (%) 5% 14% Body Fluid Polymorphonuclear Cells 95% 86% Body Fluid Total RBCs Counted 05451/cmm 174622/cmm Assessment and Plan Spoke via phone with Zack regarding treatment plan for his left lower extremity periprosthetic and soft tissue infection. I had previously discussed the possibility of an IND with chronic suppression versus amputation with them. They're leaning towards amputation still have not entirely reached their decision. I will follow along and will touch base with him in the morning. In the meantime I would like he had x-rays as a needed some more information regarding the prosthetic ANIL GARCIA II, MD Nov 27, 2016 16:06
[2016-11-27] MEDS: QUEtiapine 100 MG TABLET. PO SCH (22:32)
[2016-11-27] MEDS: ATORVASTATIN CALCIUM 40 MG TABLET. PO SCH (22:32)
[2016-11-27] MEDS: NORTRIPTYLINE 25 MG CAPSULE PO SCH (22:32)
[2016-11-27] MEDS: DONEPEZIL HCL 10 MG TABLET. PO SCH (22:32)
[2016-11-27] MEDS: lamoTRIgine 100 MG TABLET. PO SCH (22:33)
[2016-11-27] MEDS: VANCOMYCIN 2 GM in IV NORMAL SALINE 500ML BAG 500 ML IV SCH (22:34)
[2016-11-27] MEDS: INSULIN DETEMIR 300 UNITS/3 ML INSULN.PEN. SQ SCH (22:37)
[2016-11-28] MEDS: ALBUTEROL SULFATE 2.5 MG/3 ML NEBU. NEB SCH ×4 (00:05→18:00)
--- NOTE | 2016-11-28 00:19 | PN ---
DATE: 11/27/2016 SUBJECTIVE: The patient is resting, slightly propped up, awake and alert. His is feeding him. He denied any complaint. Apparently large amount of milky fluid was drained from the abscess on the medial aspect of his left knee joint and with a plan to drain his knee joint. He did spike a temperature last night to 101.1 and we did send blood and urine for culture and started him empirically on IV Zyvox and meropenem. He apparently was seen by Dr. Beauchamp and changed him to IV vancomycin. PHYSICAL EXAMINATION: GENERAL: When I saw him this morning, he looked well and was clearly awake, alert, answers questions appropriately. He was pale, but no jaundice, cyanosis or thyromegaly. No jugular venous distention. No limb edema. VITAL SIGNS: Her heart rate was 77, blood pressure was 100/59, temperature was 97.6, respiratory rate was 19 and oxygen saturation was 91% on 4 liters of oxygen. HEAD, EYES, EARS, NOSE AND THROAT: Showed normocephalic, atraumatic. NECK: Supple. HEART: Showed normal first and second heart sounds with no gallop, rub, or murmur. CHEST: Clear to auscultation. No crepitation or rhonchi. ABDOMEN: Distended, soft, nontender. No guarding or rigidity. No organomegaly. Hernial orifices intact. Bowel sounds normal. NEUROLOGIC: He was definitely more awake, alert, responding appropriately. All his cranial nerves are intact. He moves upper extremities to much greater extent than lower extremities. He is mostly bed bound. His intake over the last 24 hours was 400, output was 1800. LABORATORY DATA: Her lab work this morning showed serum sodium 136, potassium 3.8, chloride 99, bicarbonate 35, anion gap of 2, BUN of 19, creatinine 1.1, estimated GFR was 68 mL per minute, his glucose 120, calcium 9.7. Total bilirubin and ALT normal. AST and alkaline phosphatase slightly elevated. Total protein was 6.5, albumin was 1.3. White cell count this morning was 8600, hemoglobin 8.9, hematocrit 27.8, MCV 302. His prothrombin time was 15.1, INR 1.3. Urinalysis was mostly unremarkable. The urine was negative for nitrite, there was trace of leukocyte esterase. His urine culture showed 50,000 to 100,000 colony forming units per mL of Staphylococcus aureus. Apparently he was seen by the interventional radiologist, and about 500 mL of whitish turbid complex fluid removed and sample was sent for cell count, differential, and culture and sensitivity. He is scheduled for drainage of his left knee joint, as he probably has also septic arthritis and he was seen actually by the orthopedic surgeon. PLAN: Obviously to continue with IV antibiotic as recommended by Infectious Disease specialist and await the lab work. Await the orthopedic surgeon aspiration of the knee joints and might require transthoracic or transesophageal echocardiogram for further evaluation of his valves to exclude the possibility of endocarditis as recommended by the Infectious Disease specialist. PATTY CHRISTIAN MD DR: YUMI/harry JOB#: [id number] / [id number]
[2016-11-28 03:55] VITALS: BP 111/54
[2016-11-28 06:03] LABS: BASO % 1 % (0-3); EOS % 0 % (0-3); LYMPH # 0.8 x10^3/uL (1.0-4.8); LYMPH % 16 % (24-48); MEAN CORPUSCULAR HEMOGLOBIN 26 pg (25-35); MEAN CORPUSCULAR HGB CONC 33 g/dL (31-37); MEAN CORPUSCULAR VOLUME 78 fL (79-100); MONO % 21 % (0-9); NEUT % 63 % (31-73); PLATELET COUNT 305 x10^3/uL (140-400); RED BLOOD COUNT 3.44 x10^6/uL (4.30-5.70); RED CELL DISTRIBUTION WIDTH 19.7 % (11.5-14.5); WHITE BLOOD COUNT 5.4 x10^3/uL (4.0-11.0)
[2016-11-28] MEDS: MEROPENEM 1 GM in IV NORMAL SALINE 100ML 100 ML IV SCH ×3 (06:11→21:16)
[2016-11-28] MEDS: LEVOTHYROXINE 137 MCG TABLET PO SCH (06:11)
[2016-11-28] MEDS: HEPARIN PF for SUB-Q USE 5,000 UNIT/0.5 ML VIAL. SQ SCH ×3 (06:12→21:22)
[2016-11-28 06:34] LABS: ALBUMIN 1.2 g/dL (3.4-5.0); ALBUMIN/GLOBULIN RATIO 0.2 (1.0-1.7); CALCIUM 9.1 mg/dL (8.5-10.1); CREATININE 1.1 mg/dL (0.7-1.3); GFR 68.3; POTASSIUM 4.3 mmol/L (3.5-5.1); TOTAL BILIRUBIN 0.3 mg/dL (0.2-1.0); TOTAL PROTEIN 6.3 g/dL (6.4-8.2)
--- NOTE | 2016-11-28 07:12 | CONS ---
DATE OF CONSULTATION: 11/27/2016 LOCATION: The patient is in room 244. REQUESTING PHYSICIAN: Dr. Ram. REASON FOR CONSULTATION: Fever. HISTORY OF PRESENT ILLNESS: The patient is a 61-year-old gentleman recently admitted to [facility] on 11/03/2016, was found to have group B strep as well as Strep anginosus intermedius group bacteremia, thought to be from wounds in his lower extremities as he has bilateral pressure wounds with the left being worse than the right. He did undergo some debridement. He was on Rocephin and finished Tamiflu. He was then admitted on 11/09/[address] [facility] secondary to depression and suicidal ideations. Apparently, he has a history of schizoaffective disorders as well. He is a very poor historian, but he was evaluated by Cardiology over there and showed that he had sinus rhythm with no acute changes. In addition, he was evaluated by Vascular Surgery for pressure ulcers and apparently, he has not been doing very well with his offloading and was to have some lower extremity evaluation performed. He underwent an aortogram on 11/11/2016, showed widely patent abdominal aorta and iliac arterial system without significant arterial inflow stenosis, but he did have some posterior tibial artery variations, but only had some small. There was severe stenosis of the distal common plantar artery in the left foot, but findings were consistent with diabetic small vessel arterial disease and it is uncertain if he had been continued on any antimicrobials when he was admitted to [facility]. However, he has been at [facility] and became somewhat unresponsive. He responded to sternal rub, had wide complex tachycardia and was sent to [facility] Emergency Room on 11/24/2016, white count was 9.9. He had a normal differential. Urine cultures were obtained. They returned for Staph aureus. He had been placed on Zyvox and meropenem starting on 11/26/2016, as he underwent a lower extremity ultrasound secondary to some swelling on his lower extremities, he was found to have a large complex fluid collection in the left anterior distal thigh and has since undergone a CT scan, which showed surrounding the orthopedic hardware, there is a very large thigh fluid collection 10 x 8 x 30 cm with multiple foci of internal gas. Last evening, he developed a fever and hence, I have been consulted. Currently, the patient is lying in bed. States he is feeling some better since his admission. Denies any active fever, chills or sweats. He has no headaches, sore throat or cough or chest pain. No nausea, vomiting or diarrhea. Denies any recent falls, although he states he has fallen multiple times in the past. PAST MEDICAL HISTORY: Positive for the above-mentioned influenza B, the Strep mitis anginosus bacteremia, history of MRSA, history of bilateral pressure wounds on his heels with previous debridement, diabetes, obesity, coronary artery disease, hypertension, pseudoseizures, previous head injury, morbid obesity, COPD, hypothyroidism, schizoaffective disorder, questionable early onset Alzheimer's. PAST SURGICAL HISTORY: Positive for previous coronary bypass grafting, lumbar fusions, left knee replacement, fusion of the left femur, appendectomy, cholecystectomy and debridement. REVIEW OF SYSTEMS: Otherwise negative except for mentioned above. ALLERGIES: LISTED LISINOPRIL, PENICILLIN, SULFA AND ALSO CLINDAMYCIN. He has tolerated Rocephin, believes he has had amoxicillin in the past. SOCIAL HISTORY: Lived in [place], but he was kicked out by his . He is a former tobacco user. FAMILY HISTORY: Father at age 60. Mother had COPD. CURRENT MEDICATIONS: Include Zyvox, meropenem, albuterol, Atrovent, aspirin, Lipitor, Aricept, Prozac, Neurontin, heparin, insulin, metoprolol, Seroquel, senna. Other meds are available, have been reviewed in the chart. PHYSICAL EXAMINATION: VITAL SIGNS: T-max 101.1 axillary, currently 97.5, respirations 18-20, blood pressure 105/59, satting 95% on 2 L nasal cannula with a pulse of 67. CONSTITUTIONAL: He is lying there. He appears comfortable. He is in no acute distress. HEENT: His pupils are status post cataract surgery. He has normal conjunctivae. Oral cavity, oropharynx was clear. NECK: Supple with good range of motion, no JVD. LUNGS: Clear to auscultation. HEART: S1, S2. No murmur. ABDOMEN: Obese, soft. He has a healed scar in the anterior area and has a hernia there that is without any complications. EXTREMITIES: Lower extremities without clubbing, cyanosis. He has trace edema. He has boots on. Pictures reveal scabbing lesions and also eschar that is healed. There does not appear to be an acute infection associated with that. His left knee is mildly warm. There is no gross erythema, but there is significant edema associated with it, some mild tenderness. SKIN: Otherwise, warm to touch. NEUROLOGIC: He moved all extremities, but he is a poor historian. Affect was appropriate. LABORATORY DATA: White count 8.6, hemoglobin 8.9, platelets of 302. Creatinine of 1.1, glucose of 120, AST 49, alk phos 162, albumin of 1.5. Urinalysis has a few bacteria, moderate mucus, leukocyte esterase was small, a few bacteria, 5-10 wbc's, nitrite was negative. A repeat on 11/26/2016 was clear. Chest x-ray had opacity in the left lung base. CT scan of the head, some diffuse cerebral volume loss, no intracranial process. IMPRESSION: 1. Fever. 2. PENICILLIN, CLINDAMYCIN, SULFA ALLERGIES, BUT HE HAS TOLERATED ROCEPHIN. 3. Staphylococcus aureus in the urine. 4. Complex left leg fluid collection with hardware in place. 5. Bilateral lower extremity wounds. 6. Arrhythmias. 7. Left-sided opacity. 8. Severe protein malnutrition. 9. History of Streptococcus anginosus/medius bacteremia. PLAN: Currently, we will discontinue the Zyvox and add vancomycin to cover potential bacteremia, we will continue the meropenem. Follow up on blood cultures and labs. Await knee aspiration by Dr. Collins and IR aspiration of the thigh. He needs an echo, potentially ROHIT. Staph aureus in the urine is not typical for urinary tract infections. I am concerned for hardware infection and anticipate the need for I and D and maybe potential hardware removal and/or amputation. We will continue local wound care. This was discussed with Dr. Collins. I did review [facility] as well as [facility] medical records. Thank you for allowing me to participate in this patient's care. Should you have any questions, please do not hesitate to contact me. MACY MCCONNELL MD DR: LEILA/harry JOB#: [id number] / [id number]
[2016-11-28 07:18] VITALS: BP 111/54
--- NOTE | 2016-11-28 07:34 | CONS ---
DATE OF CONSULTATION: 11/27/2016 REFERRING PROVIDER: Bishop Ram MD CONSULTING PROVIDER: Kevin Garcia MD REASON FOR CONSULTATION: Left thigh fluid collection. CHIEF COMPLAINT: Left thigh and knee pain. HISTORY OF PRESENT ILLNESS: The patient is a very pleasant 61-year-old gentleman with multiple medical comorbidities, who was admitted for altered mental status and found to be in arrhythmia. He was up at a rehab center and was previously at [facility] and he was en route to that facility when he became more unresponsive with tachycardia and was diverted to our facility. Cardiology and Neurology had seen and evaluated the patient. I was asked to evaluate him for his history of left knee replacement and fluid collection around this. Regarding his leg, he tells me he has been through quite a bit regarding his leg that started with ACL reconstruction decades ago that did well initially. He did eventually require a total knee replacement and subsequently developed what sounds like a supracondylar femur fracture. I spent some time talking with his this morning as he is not the greatest historian. It sounds like the distal femur fracture developed a nonunion and failure of hardware, which culminated in a left knee megaprosthesis being placed approximately 2 years ago. The patient tells me he has had pain in his thigh and knee essentially since then and it has been pretty steady. I did discuss with his and he does often complain of knee and thigh pain. Due to his balance and coordination issues, he does not really walk much. Of note, he has also had a lot of nonhealing wounds and MRSA, treated with linezolid and another antibiotic in the past year or so. He has not really seen anyone for his knee to the best of my knowledge. He denies any fevers or chills currently. REVIEW OF SYSTEMS: A 12-point review of systems negative except as per HPI. ALLERGIES: PENICILLIN, SULFA, CLINDAMYCIN, LISINOPRIL. MEDICATIONS: Reviewed, please see MRAD. PAST MEDICAL HISTORY: Type 2 diabetes, history of coronary artery disease, CABG x 2 as well as stent, hypertension, morbid obesity, COPD, hypothyroidism, early onset Alzheimer's, schizoaffective disorder and knee surgeries as per HPI. In addition to his knee surgeries, he also had a lumbar fusion, appendectomy and cholecystectomy. FAMILY HISTORY: Significant for heart disease. SOCIAL HISTORY: He had previously lived in [place] where his knee surgeries were performed. They removed up here last year to be closer to grandchildren. He has been in and out of several different regional hospitals. He is a former smoker. No drugs or alcohol lately. PHYSICAL EXAMINATION: GENERAL: The patient is alert to person and knows he is in the hospital. He answers most questions appropriately. HEENT: Head normocephalic, atraumatic. Extraocular muscles are intact. CARDIOVASCULAR: Regular rate and rhythm and no edema in his ankles. LUNGS: Respirations are unlabored with symmetric chest rise. ABDOMEN: Soft and obese. EXTREMITIES: Examination of the left lower extremity reveals multiple scattered wounds of varying depths, mostly superficial, throughout his left lower extremity and the anterior knee. The largest is approximately a quarter size. None of these wounds have any purulent drainage or signs of fluctuance around them. He can wiggle his toes. Dorsalis pedis is weakly palpable. Examination of his knee further reveals a well-healed anterior midline skin incision and a well-healed large lateral thigh incision. He has tenderness, some fullness in this thigh. Limited range of motion of his knee secondary to pain. He does have an effusion in his knee. He is globally tender around his knee. Knee is stable to varus and valgus and extension. IMAGING: Review of the CT was interpreted by myself. The report was also reviewed. He has a distal femoral megaprosthesis in place with a large thigh fluid collection. No obvious communication with his knee joint on CT. IMPRESSION: 1. 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 2. Altered mental status. 3. Tachycardia. 4. Type 2 diabetes. 5. Morbid obesity. PLAN: I did spend quite a bit of time this morning, approximately 10 minutes discussing his problem with his who is the durable power of hospice case manager. I did also discuss this case with Dr. Blanco and Dr. Bowers. In order to eradicate the infection, it is likely that all hardware needs to be removed. Given his low level of function right now, we did discuss proceeding with an amputation and his really was not open to that solution. I did also bring up the possibility of I and D and chronic suppression as a temporizing measure and she would like to discuss this with her . She will get back to me with her answer. We will await her response and then formulate our definitive plan at that time. KEVIN GARCIA MD DR: ANTON/harry JOB#: [id number] / [id number] ASHWIN
--- NOTE | 2016-11-28 07:42 | RAD ---
Ultrasound-guided aspiration of left thigh complex fluid collection Indication: 61-year-old male with an extensive complex fluid collection within soft tissues of left thigh, surrounding underlying derrek-prosthesis, associated with resection of mid-distal left femur. Image guided aspiration for culture and cell count has been requested by orthopedic surgery. Anesthesia: Local only Procedure: Informed consent was obtained from the patient's , who has DURABLE POWER OF CUSTOMS GUARD. Preliminary ultrasound examination confirmed the presence of an extensive, complex fluid collection within soft tissues of mid-distal left thigh. This was documented with a hard copy ultrasound image. An overlying skin site suitable for ultrasound-guided aspiration was selected and marked. That area was prepped and draped in the usual sterile fashion. Using aseptic technique, local anesthesia, and the micropuncture system, a small micropuncture sheath was successfully introduced into the complex fluid collection. The micropuncture sheath was removed over a guidewire. The percutaneous tract was dilated and an 8 [place] drainage catheter was easily introduced. A total of 500 cc of whitish-turbid complex fluid was easily aspirated, samples which were submitted to the laboratory for cell count and culture and sensitivity. The drainage catheter was then removed and a sterile dressing was applied. Patient tolerated the procedure well without apparent complication. Impression: Successful, uneventful ultrasound-guided aspiration of left thigh complex fluid collection, as described.
--- NOTE | 2016-11-28 08:20 | RAD ---
Left femur, 3 views, 11/27/2016: History: Prolonged left leg pain A left knee prosthesis is in place. There is a long femoral component due to previous surgical resection of the distal femur. There is abundant callus at the junction of the upper portion of the femoral component of the prosthesis with the remaining proximal left femur. No acute fracture or dislocation is evident. There is mild degenerative change at the hip joint. There are periarticular calcifications at the knee joint. Small bubbles of gas are present in the soft tissues adjacent to the mid and distal aspects of this prosthesis. Correlation with yesterday's CT study shows that these gas collections are related to a periprosthetic fluid collection, again raising the possibility of infection. IMPRESSION: 1. Previous surgical resection of the distal femur with a left knee prosthesis in place with a long femoral stem as described above. 2. Periprosthetic gas collections raising the possibility of infection. Left tibia and fibula, 2 views, 11/27/2016: A left knee prosthesis is in place. There is no evidence of loosening or infection involving the tibial component. No fracture or dislocation is identified. Moderate periarticular calcifications are present at the knee joint level. Moderate degenerative changes present at the ankle joint. There are surgical clips in the soft tissues medially. There is moderate subcutaneous edema about the lower leg. IMPRESSION: 1. A left knee prosthesis is in place. 2. No acute bony abnormality is detected.
[2016-11-28] MEDS: CARIPRAZINE HYDROCHLORIDE 3 MG PO SCH (09:00)
--- NOTE | 2016-11-28 09:14 | PDOC ---
ORTHO PROGRESS NOTES Subjective Edmar has been a little more sedated lately, per his was at bedside. Vitals Vital Signs Date Time Temp Pulse Resp B/P Pulse Ox O2 Delivery O2 Flow Rate FiO2 11/28/16 07:18 99.1 77 22 111/54 95 Nasal Cannula 2.0 99.1 Labs Laboratory Tests Test 11/26/16 12:02 11/26/16 12:52 11/26/16 17:20 11/26/16 20:32 Glucose (Fingerstick) 43mg/dL (70-99) 138mg/dL (70-99) 79mg/dL (70-99) 103mg/dL (70-99) Test 11/26/16 21:30 11/27/16 03:25 11/27/16 08:06 11/27/16 10:15 Urine Collection Type Unknown Urine Color Dk yellow Urine Clarity Clear Urine pH 7.5 Urine Specific [place] >=1.030 Urine Protein Negativemg/dL (NEG-TRACE) Urine Glucose (UA) Negativemg/dL (NEG) Urine Ketones (Stick) Tracemg/dL (NEG) Urine Blood Negative (NEG) Urine Nitrite Negative (NEG) Urine Bilirubin Small (NEG) Urine Urobilinogen Dipstick 4.0mg/dL (0.2 mg/dL) Urine Leukocyte Esterase Trace (NEG) Urine RBC Occ/HPF (0-2) Urine WBC 1-4/HPF (0-4) Urine Squamous Epithelial Cells Occ/LPF Urine Bacteria 0/HPF (0-FEW) White Blood Count 8.6x10^3/uL (4.0-11.0) Hemoglobin 8.9g/dL (13.0-17.5) Hematocrit 27.8% (39.0-53.0) Platelet Count 302x10^3/uL (140-400) Sodium Level 136mmol/L (136-145) Potassium Level 3.8mmol/L (3.5-5.1) Chloride Level 99mmol/L (98-107) Carbon Dioxide Level 35mmol/L (21-32) Anion Gap 2 (6-14) Blood Urea Nitrogen 19mg/dL (8-26) Creatinine 1.1mg/dL (0.7-1.3) Estimated GFR (Cockcroft-Gault) 68.3 BUN/Creatinine Ratio 17 (6-20) Glucose Level 120mg/dL (70-99) Calcium Level 9.7mg/dL (8.5-10.1) Total Bilirubin 0.5mg/dL (0.2-1.0) Aspartate Amino Transf (AST/SGOT) 49U/L (15-37) Alanine Aminotransferase (ALT/SGPT) 21U/L (16-63) Alkaline Phosphatase 162U/L (46-116) Total Protein 6.5g/dL (6.4-8.2) Albumin 1.3g/dL (3.4-5.0) Albumin/Globulin Ratio 0.3 (1.0-1.7) Glucose (Fingerstick) 139mg/dL (70-99) Body Fluid Source Synovial Body Fluid Color Green Body Fluid Clarity Turbid Body Fluid Nucleated Cells 10736040/cmm Body Fluid Mononuclear WBCs (%) 5% Body Fluid Polymorphonuclear Cells 95% Body Fluid Total RBCs Counted 49231/cmm Test 11/27/16 12:10 11/27/16 12:35 11/27/16 17:07 11/27/16 20:51 Glucose (Fingerstick) 152mg/dL (70-99) 272mg/dL (70-99) 305mg/dL (70-99) Body Fluid Source Synovial Body Fluid Color Green Body Fluid Clarity Turbid Body Fluid Nucleated Cells 3348097/cmm Body Fluid Mononuclear WBCs (%) 14% Body Fluid Polymorphonuclear Cells 86% Body Fluid Total RBCs Counted 630889/cmm Test 11/28/16 05:30 11/28/16 07:17 White Blood Count 5.4x10^3/uL (4.0-11.0) Red Blood Count 3.44x10^6/uL (4.30-5.70) Hemoglobin 9.0g/dL (13.0-17.5) Hematocrit 27.0% (39.0-53.0) Mean Corpuscular Volume 78fL (79-100) Mean Corpuscular Hemoglobin 26pg (25-35) Mean Corpuscular Hemoglobin Concent 33g/dL (31-37) Red Cell Distribution Width 19.7% (11.5-14.5) Platelet Count 305x10^3/uL (140-400) Neutrophils (%) (Auto) 63% (31-73) Lymphocytes (%) (Auto) 16% (24-48) Monocytes (%) (Auto) 21% (0-9) Eosinophils (%) (Auto) 0% (0-3) Basophils (%) (Auto) 1% (0-3) Neutrophils # (Auto) 3.4x10^3uL (1.8-7.7) Lymphocytes # (Auto) 0.8x10^3/uL (1.0-4.8) Monocytes # (Auto) 1.1x10^3/uL (0.0-1.1) Eosinophils # (Auto) 0.0x10^3/uL (0.0-0.7) Basophils # (Auto) 0.0x10^3/uL (0.0-0.2) Erythrocyte Sedimentation Rate 123 (0-15) Sodium Level 132mmol/L (136-145) Potassium Level 4.3mmol/L (3.5-5.1) Chloride Level 97mmol/L (98-107) Carbon Dioxide Level 35mmol/L (21-32) Anion Gap 0 (6-14) Blood Urea Nitrogen 21mg/dL (8-26) Creatinine 1.1mg/dL (0.7-1.3) Estimated GFR (Cockcroft-Gault) 68.3 BUN/Creatinine Ratio 19 (6-20) Glucose Level 281mg/dL (70-99) Calcium Level 9.1mg/dL (8.5-10.1) Total Bilirubin 0.3mg/dL (0.2-1.0) Aspartate Amino Transf (AST/SGOT) 49U/L (15-37) Alanine Aminotransferase (ALT/SGPT) 25U/L (16-63) Alkaline Phosphatase 137U/L (46-116) Total Protein 6.3g/dL (6.4-8.2) Albumin 1.2g/dL (3.4-5.0) Albumin/Globulin Ratio 0.2 (1.0-1.7) Glucose (Fingerstick) 233mg/dL (70-99) Laboratory Tests Test 11/27/16 10:15 11/27/16 12:10 11/27/16 12:35 11/27/16 17:07 Body Fluid Source Synovial Synovial Body Fluid Color Green Green Body Fluid Clarity Turbid Turbid Body Fluid Nucleated Cells 14285013/cmm 0112689/cmm Body Fluid Mononuclear WBCs (%) 5% 14% Body Fluid Polymorphonuclear Cells 95% 86% Body Fluid Total RBCs Counted 13318/cmm 734126/cmm Glucose (Fingerstick) 152mg/dL (70-99) 272mg/dL (70-99) Test 11/27/16 20:51 11/28/16 05:30 11/28/16 07:17 Glucose (Fingerstick) 305mg/dL (70-99) 233mg/dL (70-99) White Blood Count 5.4x10^3/uL (4.0-11.0) Red Blood Count 3.44x10^6/uL (4.30-5.70) Hemoglobin 9.0g/dL (13.0-17.5) Hematocrit 27.0% (39.0-53.0) Mean Corpuscular Volume 78fL (79-100) Mean Corpuscular Hemoglobin 26pg (25-35) Mean Corpuscular Hemoglobin Concent 33g/dL (31-37) Red Cell Distribution Width 19.7% (11.5-14.5) Platelet Count 305x10^3/uL (140-400) Neutrophils (%) (Auto) 63% (31-73) Lymphocytes (%) (Auto) 16% (24-48) Monocytes (%) (Auto) 21% (0-9) Eosinophils (%) (Auto) 0% (0-3) Basophils (%) (Auto) 1% (0-3) Neutrophils # (Auto) 3.4x10^3uL (1.8-7.7) Lymphocytes # (Auto) 0.8x10^3/uL (1.0-4.8) Monocytes # (Auto) 1.1x10^3/uL (0.0-1.1) Eosinophils # (Auto) 0.0x10^3/uL (0.0-0.7) Basophils # (Auto) 0.0x10^3/uL (0.0-0.2) Erythrocyte Sedimentation Rate 123 (0-15) Sodium Level 132mmol/L (136-145) Potassium Level 4.3mmol/L (3.5-5.1) Chloride Level 97mmol/L (98-107) Carbon Dioxide Level 35mmol/L (21-32) Anion Gap 0 (6-14) Blood Urea Nitrogen 21mg/dL (8-26) Creatinine 1.1mg/dL (0.7-1.3) Estimated GFR (Cockcroft-Gault) 68.3 BUN/Creatinine Ratio 19 (6-20) Glucose Level 281mg/dL (70-99) Calcium Level 9.1mg/dL (8.5-10.1) Total Bilirubin 0.3mg/dL (0.2-1.0) Aspartate Amino Transf (AST/SGOT) 49U/L (15-37) Alanine Aminotransferase (ALT/SGPT) 25U/L (16-63) Alkaline Phosphatase 137U/L (46-116) Total Protein 6.3g/dL (6.4-8.2) Albumin 1.2g/dL (3.4-5.0) Albumin/Globulin Ratio 0.2 (1.0-1.7) X-Rays X-rays of his left leg were reviewed. Notes He is sleeping. His puncture sites from his aspiration yesterday at his thigh and knee are clean and dry. Assessment and Plan He has an infected left knee derrek-prosthesis. I did again discuss suppression versus amputation with his and she thinks they're leaning towards amputation. I will follow up with her and await their final decision. In the meantime I will obtain the operative note and implant record from the outside institution. ANIL GARCIA II, MD Nov 28, 2016 09:14
[2016-11-28] MEDS: DICLOFENAC SODIUM 1% TOPICAL GEL 100GM TUBE. TP SCH ×4 (09:16→21:17)
[2016-11-28] MEDS: LORazepam 1 MG TABLET PO SCH (09:17)
[2016-11-28] MEDS: FENOFIBRATE,MICRONIZED 134 MG CAPSULE PO SCH (09:17)
[2016-11-28] MEDS: PANTOPRAZOLE 40 MG TABLET.DR. PO SCH (09:17)
[2016-11-28] MEDS: SENNOSIDES 8.6 MG TABLET PO SCH (09:17)
[2016-11-28] MEDS: MAGNESIUM OXIDE 400 MG TABLET PO SCH (09:17)
[2016-11-28] MEDS: TORSEMIDE 20 MG TABLET. PO SCH ×2 (09:17→16:00)
[2016-11-28] MEDS: FLUoxetine HCL 20 MG CAPSULE PO SCH ×3 (09:17→21:20)
[2016-11-28] MEDS: LINAGLIPTIN 5 MG TABLET PO SCH (09:18)
[2016-11-28] MEDS: ISOSORBIDE MONONITRATE ER 30 MG TAB.ER.24H PO SCH (09:18)
[2016-11-28] MEDS: DIVALPROEX EXTENDED RELEASE 500 MG TAB.ER.24H. PO SCH ×2 (09:18→21:16)
[2016-11-28] MEDS: METOPROLOL TART IMMED RELEASE 50 MG TABLET. PO SCH ×2 (09:19→21:15)
[2016-11-28] MEDS: GABAPENTIN 400 MG CAPSULE. PO SCH (09:19)
[2016-11-28] MEDS: ASPIRIN 325 MG TABLET PO SCH (09:19)
[2016-11-28] MEDS: SPIRONOLACTONE 25 MG TABLET PO SCH (09:19)
[2016-11-28] MEDS: VITS A & D/LANOLIN TOPICAL OINTMENT 56GM TUBE. TP SCH ×3 (09:22→21:18)
[2016-11-28] MEDS: VANCOMYCIN 2 GM in IV NORMAL SALINE 500ML BAG 500 ML IV SCH (09:22)
[2016-11-28] MEDS: INSULIN ASPART 300 UNITS/3 ML INSULN.PEN SQ SCH ×2 (09:26→21:24)
--- NOTE | 2016-11-28 11:12 | PDOC ---
Infectious Disease Note Subjective Subjective Sleeping, Ativan earlier says he has been c/o left knee pain No fever last 24 hours ROS ROS unable to do Vital Sign Vital Signs Vital Signs Date Time Temp Pulse Resp B/P Pulse Ox O2 Delivery O2 Flow Rate FiO2 11/28/16 09:19 77 111/54 11/28/16 08:00 Nasal Cannula 2.0 11/28/16 07:18 99.1 22 95 99.1 Physical Exam PHYSICAL EXAM GENERAL: Resting, NAD LUNGS: Clear HEART: S1S2 ABD: Obese, BS present, soft : Madden EXT: BLE trace edema. No cyanosis. Left knee warm. No redness SKIN: No rash IV: ok Labs Lab Laboratory Tests Test 11/27/16 12:10 11/27/16 12:35 11/27/16 17:07 11/27/16 20:51 Glucose (Fingerstick) 152mg/dL (70-99) 272mg/dL (70-99) 305mg/dL (70-99) Body Fluid Source Synovial Body Fluid Color Green Body Fluid Clarity Turbid Body Fluid Nucleated Cells 4213589/cmm Body Fluid Mononuclear WBCs (%) 14% Body Fluid Polymorphonuclear Cells 86% Body Fluid Total RBCs Counted 062811/cmm Test 11/28/16 05:30 11/28/16 07:17 White Blood Count 5.4x10^3/uL (4.0-11.0) Red Blood Count 3.44x10^6/uL (4.30-5.70) Hemoglobin 9.0g/dL (13.0-17.5) Hematocrit 27.0% (39.0-53.0) Mean Corpuscular Volume 78fL (79-100) Mean Corpuscular Hemoglobin 26pg (25-35) Mean Corpuscular Hemoglobin Concent 33g/dL (31-37) Red Cell Distribution Width 19.7% (11.5-14.5) Platelet Count 305x10^3/uL (140-400) Neutrophils (%) (Auto) 63% (31-73) Lymphocytes (%) (Auto) 16% (24-48) Monocytes (%) (Auto) 21% (0-9) Eosinophils (%) (Auto) 0% (0-3) Basophils (%) (Auto) 1% (0-3) Neutrophils # (Auto) 3.4x10^3uL (1.8-7.7) Lymphocytes # (Auto) 0.8x10^3/uL (1.0-4.8) Monocytes # (Auto) 1.1x10^3/uL (0.0-1.1) Eosinophils # (Auto) 0.0x10^3/uL (0.0-0.7) Basophils # (Auto) 0.0x10^3/uL (0.0-0.2) Erythrocyte Sedimentation Rate 123 (0-15) Sodium Level 132mmol/L (136-145) Potassium Level 4.3mmol/L (3.5-5.1) Chloride Level 97mmol/L (98-107) Carbon Dioxide Level 35mmol/L (21-32) Anion Gap 0 (6-14) Blood Urea Nitrogen 21mg/dL (8-26) Creatinine 1.1mg/dL (0.7-1.3) Estimated GFR (Cockcroft-Gault) 68.3 BUN/Creatinine Ratio 19 (6-20) Glucose Level 281mg/dL (70-99) Calcium Level 9.1mg/dL (8.5-10.1) Total Bilirubin 0.3mg/dL (0.2-1.0) Aspartate Amino Transf (AST/SGOT) 49U/L (15-37) Alanine Aminotransferase (ALT/SGPT) 25U/L (16-63) Alkaline Phosphatase 137U/L (46-116) Total Protein 6.3g/dL (6.4-8.2) Albumin 1.2g/dL (3.4-5.0) Albumin/Globulin Ratio 0.2 (1.0-1.7) Glucose (Fingerstick) 233mg/dL (70-99) Micro Left knee GRAM STAIN Final WBCS MANY RBCS FEW GRAM POSITIVE COCCI MANY COMMENTS SUGGESTIVE OF STREP BLOOD CULTURE Final GRAM POSITIVE COCCI IN CHAINS, SUGGESTIVE OF STREP, IN 1 OF 4 BOTTLES, TWO SETS DRAWN. URINE CULTURE Preliminary Preliminary report URINE CULTURE RES 1 Preliminary Staphylococcus aureus 50,000-100,000 colony forming units per mL Based on resistance to oxacillin this isolate would be resistant to all currently available beta-lactam antimicrobial agents, with the exception of the newer cephalosporins with anti-MRSA activity, such as Ceftaroline URINE CULTURE RES 2 Preliminary Enterococcus species 10,000-25,000 colony forming units per mL ANTIMICROBIAL SUSCEPTIBILITY Preliminary Comment S = Susceptible; I = Intermediate; R = Resistant P = Positive; N = Negative MICS are expressed in micrograms per mL Antibiotic RSLT#1 RSLT#2 RSLT#3 RSLT#4 Ciprofloxacin R Gentamicin S Levofloxacin R Linezolid S Nitrofurantoin S Oxacillin R Penicillin R Rifampin S Tetracycline R Trimethoprim/Sulfa S Vancomycin S Objective Assessment Fever. better GPC suggestive of strep bacteremia. POA Complex left leg fluid collection with hardware in place. GPC suggestive of strep MRSA and enterococcus in urine. POA PCN/Clinda/Sulfa allergy Has tolerated Rocephin Bilateral LE wounds Arrhythmias Left ? opacity Severe protein malnutrition H/o strep anginosis/intermedius bacteremia Plan Plan of Care Vanc and Meropenem Await GPC ID f/u am labs Needs ECHO. Potential ROHIT as Staph aureus not typical pathogen for UTI Am concerned for hardware infection and anticipate need for I an D maybe potential hardware removal/amputation local wound care Attending Co-Sign The patient was seen and interviewed as well as examined at the bedside. The chart was reviewed. The case was discussed. Agree with the plan of care. d/w in detail, palliative care/hospice is in works. Pt is not a surgical candidate as per her in the past sec to very poor heart condition. RENEE SCHMIDT APRN Nov 28, 2016 11:12 LOWELL ROSAS MD Nov 28, 2016 15:26
[2016-11-28 11:26] LABS: PLT ESTIMATE ADEQUATE (ADEQUATE)
[2016-11-28 11:29] LABS: ANISOCYTOSIS SLIGHT; HYPOCHROMIA MOD
[2016-11-28 11:31] VITALS: BP 110/52
[2016-11-28] MEDS: HYDROcodone/APAP 10/325 1 TAB TABLET PO PRN (11:47)
[2016-11-28] MEDS: VANCOMYCIN PER PHARMACY MC PRN ×3 (12:40→22:33)
[2016-11-28 15:00] VITALS: BP_SYST 98; BP_DIAS 50; BP_DIAS 58
--- NOTE | 2016-11-28 15:05 | PDOC ---
PROGRESS NOTES Assessment Assessment Metabolic encephalopathy. Chest pain. UTI CAD, s/p CABG DM Hyperglycemia, glucose level 295 Hypoglycemia, glucose level 43. HTN COPD KAMILAH on BiPAP Hypothyroidism Pacemaker in site. Obesity. Wounds in bilateral LE and feet. Large fluid collection in left thigh, hematoma or abscess? RECOMMENDATIONS/PLAN: Treat medical and cardiac diseases. Continue ASA 325 mg daily. Continue Lipitor HS. Consult Surgery and other specialty for left thigh possible hematoma or abscess. OT/PT Discussed with his at bedside on 11/28. EEG on 11/25: Suggest mild to moderate encephalopathy. HCT on 11/24 and 11/26: No acute findings. MRI contraindicated due to pacemaker. HISTORY OF THE PRESENT ILLNESS: 61-y-old male patient with multiple medical and cardiac diseases developed symptoms of chest pain to be brought to the ER of [facility]. He was noted mental status changes, decreased response, overly sleepiness, so Neurology was called for contultation. His HCT showed no acute findings but cerebral atrophy. No focalized motor or sensory deficits noted. PAST MEDICAL HISTORY: Please see above. PAST SURGERY HISTORY: Pacemaker Placement, S/P CABG Tonsillectomy Appendectomy Cholecystectomy Knee surgery ALLERGY: Reviewed. MEDICATIONS: Refer to [facility] FAMILY HISTORY: CAD SOCIAL HISTORY: Lives with his at home, but he has been in rehab facilities since 07/2016. Denies current smoking, drinking, and illicit drug use. REVIEW OF SYSTEMS: Constitutional: No malnutrition, weight loss, cachexia. Head: No recent traumatic brain or head injury. Skin: No edema, or rash. Ear: No infection. Eyes: No vision loss or color blindness. Nose: No bleeding or purulent discharges. Hearing: Hearing decrease. Neck: No recent injury. Cardiac: CAD, s/p CABG, Pacemaker Placement, HTN. Pulmonary: COPD, KAMILAH. GI: No GI ulcer, GI bleeding. Urinary/genital: UTI. Endocrinologic: Diabetes Mellitus, hypothyroidism, obesity. Skeletomuscular: No muscular atrophy, deformity. Neurological: see HP. Psychiatric: Denies drug use/abuse. Otherwise, not [id number] review of systems. PHYSICAL EXAMINATION: General appearance is sleepiness. HEENT: Normocephalic and nontraumatic. Eyes, nose, ears, and throat are unremarkable. Neck is supple. No lymphadenopathy. No crepitus. Cardiovascular: S1, S2, regular rate and rhythm. Pulmonary: decreased to auscultation bilaterally. Abdomen: Bowel sounds are positive. Extremities: No rash, lesions, or edema. No restriction of range of motion NEUROLOGICAL EXAMINATION: Sleepiness but arousable. Not oriented to time, but knows place and person. PERRL. EOMI. CN: no focal findings. Muscle tone: within normal. Muscle strength: 4 UE, 3+ LE. DTR: 1 Plantar reflex: Flexor response bilaterally Gait: not examined in bed. Sensory exam: no abnormal findings. Not able to access cerebellar signs due to not follow commands. F-T-N test not performed due to not follow commands. Objective Objective Vital Signs Date Time Temp Pulse Resp B/P Pulse Ox O2 Delivery O2 Flow Rate FiO2 11/28/16 13:07 Nasal Cannula 1.5 11/28/16 12:47 16 96 11/28/16 11:31 98.0 71 110/52 98.0 Intake and Output 11/28/16 06:59 Intake Total 650 ml Output Total 3050 ml Balance -2400 ml Intake Oral 650 ml Output Urine Total 3050 ml Vitals Signs Vitals VS - Last 72 Hours, by Label Date Time Temp Pulse Resp B/P Pulse Ox O2 Delivery O2 Flow Rate FiO2 11/28/16 13:07 Nasal Cannula 1.5 11/28/16 12:47 16 96 Nasal Cannula 2.0 11/28/16 11:47 18 96 Nasal Cannula 2.0 11/28/16 11:31 98.0 71 17 110/52 96 Nasal Cannula 2.0 98.0 11/28/16 09:19 77 111/54 11/28/16 09:18 77 111/54 11/28/16 08:00 Nasal Cannula 2.0 11/28/16 07:18 99.1 77 22 111/54 95 Nasal Cannula 2.0 99.1 11/28/16 07:07 Nasal Cannula 1.5 11/28/16 03:55 98.2 77 22 111/54 95 Nasal Cannula 2.0 98.2 11/28/16 00:05 Nasal Cannula 1.5 11/27/16 23:00 97.4 80 16 111/59 95 Nasal Cannula 2.0 97.4 11/27/16 22:40 78 111/55 11/27/16 22:32 79 109/56 11/27/16 20:00 Nasal Cannula 2.0 11/27/16 19:40 97.2 79 18 109/56 97 Nasal Cannula 2.0 97.2 11/27/16 18:21 Nasal Cannula 1.5 11/27/16 15:08 Nasal Cannula 11/27/16 15:00 98.9 79 22 104/55 93 Nasal Cannula 2.0 98.9 11/27/16 11:54 Nasal Cannula 1.5 11/27/16 10:16 77 19 100/59 91 Nasal Cannula 4.0 11/27/16 10:11 78 22 119/61 91 Nasal Cannula 4.0 11/27/16 09:05 76 137/65 11/27/16 09:05 76 137/65 11/27/16 08:33 95 Nasal Cannula 1.5 11/27/16 08:00 Nasal Cannula 2.0 11/27/16 07:00 97.6 76 18 137/65 95 Nasal Cannula 2.0 97.6 Laboratory Laboratory Laboratory Tests Test 11/27/16 17:07 11/27/16 20:51 11/28/16 05:30 11/28/16 07:17 Glucose (Fingerstick) 272mg/dL (70-99) 305mg/dL (70-99) 233mg/dL (70-99) White Blood Count 5.4x10^3/uL (4.0-11.0) Red Blood Count 3.44x10^6/uL (4.30-5.70) Hemoglobin 9.0g/dL (13.0-17.5) Hematocrit 27.0% (39.0-53.0) Mean Corpuscular Volume 78fL (79-100) Mean Corpuscular Hemoglobin 26pg (25-35) Mean Corpuscular Hemoglobin Concent 33g/dL (31-37) Red Cell Distribution Width 19.7% (11.5-14.5) Platelet Count 305x10^3/uL (140-400) Neutrophils (%) (Auto) 63% (31-73) Lymphocytes (%) (Auto) 16% (24-48) Monocytes (%) (Auto) 21% (0-9) Eosinophils (%) (Auto) 0% (0-3) Basophils (%) (Auto) 1% (0-3) Neutrophils # (Auto) 3.4x10^3uL (1.8-7.7) Lymphocytes # (Auto) 0.8x10^3/uL (1.0-4.8) Monocytes # (Auto) 1.1x10^3/uL (0.0-1.1) Eosinophils # (Auto) 0.0x10^3/uL (0.0-0.7) Basophils # (Auto) 0.0x10^3/uL (0.0-0.2) Segmented Neutrophils % 69% (35-66) Lymphocytes % 18% (24-48) Monocytes % 13% (0-10) Platelet Estimate Adequate (ADEQUATE) Hypochromasia Mod Anisocytosis Slight Erythrocyte Sedimentation Rate 123 (0-15) Sodium Level 132mmol/L (136-145) Potassium Level 4.3mmol/L (3.5-5.1) Chloride Level 97mmol/L (98-107) Carbon Dioxide Level 35mmol/L (21-32) Anion Gap 0 (6-14) Blood Urea Nitrogen 21mg/dL (8-26) Creatinine 1.1mg/dL (0.7-1.3) Estimated GFR (Cockcroft-Gault) 68.3 BUN/Creatinine Ratio 19 (6-20) Glucose Level 281mg/dL (70-99) Calcium Level 9.1mg/dL (8.5-10.1) Total Bilirubin 0.3mg/dL (0.2-1.0) Aspartate Amino Transf (AST/SGOT) 49U/L (15-37) Alanine Aminotransferase (ALT/SGPT) 25U/L (16-63) Alkaline Phosphatase 137U/L (46-116) Total Protein 6.3g/dL (6.4-8.2) Albumin 1.2g/dL (3.4-5.0) Albumin/Globulin Ratio 0.2 (1.0-1.7) Test 11/28/16 11:26 Glucose (Fingerstick) 267mg/dL (70-99) Microbiology 11/26/16 Blood Culture - Final, Complete 11/27/16 Gram Stain - Final, Complete 11/26/16 Urine Culture - Preliminary, Resulted 11/26/16 Urine Culture Result 1 (CHUCK) - Preliminary, Resulted Medication Medications Current Medications Lorazepam (Ativan) 1 mg PRN TID PRN PO ANXIETY; Start 11/28/16 at 11:45 Vancomycin HCl 1 each 1X ONCE MC ; Start 11/28/16 at 20:30; Stop 11/28/16 at 20 :31 Vancomycin HCl/ Sodium Chloride (Iv Sodium Chloride 0.9% 500ml Bag) 500 ml @ 250 mls/hr Q12H IV Last administered on 11/28/16t 09:22; Start 11/27/16 at 21: 00 Comment Review of Relevant I have reviewed the following items michelle (where applicable) has been applied. KAT ROSARIO MD Nov 28, 2016 15:05
--- NOTE | 2016-11-28 16:57 | PDOC ---
CARDIO Progress Notes Date and Time Date of Service 11/28/16 Time of Evaluation 1530 Subjective Subjective: No Chest Pain, No shortness of breath, No Palpitations, No Dizziness, Other Vitals Vitals Vital Signs Date Time Temp Pulse Resp B/P Pulse Ox O2 Delivery O2 Flow Rate FiO2 11/28/16 13:07 Nasal Cannula 1.5 11/28/16 12:47 16 96 11/28/16 11:31 98.0 71 110/52 98.0 Weight Weight [ ] Input and Output Intake and Output Intake and Output 11/28/16 06:59 Intake Total 650 ml Output Total 3050 ml Balance -2400 ml Intake Oral 650 ml Output Urine Total 3050 ml Laboratory Labs Laboratory Tests Test 11/27/16 17:07 11/27/16 20:51 11/28/16 05:30 11/28/16 07:17 Glucose (Fingerstick) 272mg/dL (70-99) 305mg/dL (70-99) 233mg/dL (70-99) White Blood Count 5.4x10^3/uL (4.0-11.0) Red Blood Count 3.44x10^6/uL (4.30-5.70) Hemoglobin 9.0g/dL (13.0-17.5) Hematocrit 27.0% (39.0-53.0) Mean Corpuscular Volume 78fL (79-100) Mean Corpuscular Hemoglobin 26pg (25-35) Mean Corpuscular Hemoglobin Concent 33g/dL (31-37) Red Cell Distribution Width 19.7% (11.5-14.5) Platelet Count 305x10^3/uL (140-400) Neutrophils (%) (Auto) 63% (31-73) Lymphocytes (%) (Auto) 16% (24-48) Monocytes (%) (Auto) 21% (0-9) Eosinophils (%) (Auto) 0% (0-3) Basophils (%) (Auto) 1% (0-3) Neutrophils # (Auto) 3.4x10^3uL (1.8-7.7) Lymphocytes # (Auto) 0.8x10^3/uL (1.0-4.8) Monocytes # (Auto) 1.1x10^3/uL (0.0-1.1) Eosinophils # (Auto) 0.0x10^3/uL (0.0-0.7) Basophils # (Auto) 0.0x10^3/uL (0.0-0.2) Segmented Neutrophils % 69% (35-66) Lymphocytes % 18% (24-48) Monocytes % 13% (0-10) Platelet Estimate Adequate (ADEQUATE) Hypochromasia Mod Anisocytosis Slight Erythrocyte Sedimentation Rate 123 (0-15) Sodium Level 132mmol/L (136-145) Potassium Level 4.3mmol/L (3.5-5.1) Chloride Level 97mmol/L (98-107) Carbon Dioxide Level 35mmol/L (21-32) Anion Gap 0 (6-14) Blood Urea Nitrogen 21mg/dL (8-26) Creatinine 1.1mg/dL (0.7-1.3) Estimated GFR (Cockcroft-Gault) 68.3 BUN/Creatinine Ratio 19 (6-20) Glucose Level 281mg/dL (70-99) Calcium Level 9.1mg/dL (8.5-10.1) Total Bilirubin 0.3mg/dL (0.2-1.0) Aspartate Amino Transf (AST/SGOT) 49U/L (15-37) Alanine Aminotransferase (ALT/SGPT) 25U/L (16-63) Alkaline Phosphatase 137U/L (46-116) Total Protein 6.3g/dL (6.4-8.2) Albumin 1.2g/dL (3.4-5.0) Albumin/Globulin Ratio 0.2 (1.0-1.7) Test 11/28/16 11:26 Glucose (Fingerstick) 267mg/dL (70-99) Microbiology Micro Microbiology 11/26/16 Blood Culture - Final, Complete 11/27/16 Gram Stain - Final, Complete 11/26/16 Urine Culture - Preliminary, Resulted 11/26/16 Urine Culture Result 1 (CHUCK) - Preliminary, Resulted Physical Exam HEENT: Neck Supple W Full Motion Chest: Symmetric LUNGS: Other (diminished bases ) Heart: S1S2, RRR (SR intermittent pacing no significant ectopies overnight) Abdomen: Soft N/T, Other (obese ) Extremities: Other (2+ bilateral LE pitting edema, bi LE wounds ) Neurology: follow commands, other (drowsy ) Assessment Assessment Review of [place] [facility] revealed 2D echo 08/19 with an EF of 60% and possible PFO, although study was technically difficult. CABG in 1994 with redo in 2006. History of angioplasty and stents in 2000 and 2007, all of which procedures were done in [facility] [place]. In 07/18 patient underwent a nuclear stress test which revealed septal ischemia. Cardiac cath was discussed, but given significant comorbidities and sedative lifestyle, medical management was recommended. Assessment 1. Chest pain, atypical 2. CAD; s/p CABG in with redo in 3. Chronic diastolic CHF; LVEF 60% 4. SSS s/p PPM ([employer]); interrogation with normal device function. No VT/ VF. 5. Hypertension; controlled 6. Hyperlipidemia; on statin 7. Chronic renal insufficiency; Cr 1.5 8. Dementia 9. Schizophrenia/ major depressive disorder 10. LE wounds; contemplating amputation Recommendations Appears compensated from a HF standpoint- continue optimization therapy. Continue secondary prevention measures including ASA, statin, BB, and Imdur. Continue medical management, given preserved LV function and significant comorbidities, dementia, and sedentary lifestyle in the absence of significant chest pain. Moderate surgical risk. Will follow along peripherally. Please call with questions. DARWIN BALDWIN APRN Nov 28, 2016 16:57
[2016-11-28 19:05] VITALS: BP 108/51
[2016-11-28] MEDS: DONEPEZIL HCL 10 MG TABLET. PO SCH (21:15)
[2016-11-28] MEDS: QUEtiapine 100 MG TABLET. PO SCH (21:15)
[2016-11-28] MEDS: ATORVASTATIN CALCIUM 40 MG TABLET. PO SCH (21:15)
[2016-11-28] MEDS: NORTRIPTYLINE 25 MG CAPSULE PO SCH (21:15)
[2016-11-28] MEDS: lamoTRIgine 100 MG TABLET. PO SCH (21:16)
[2016-11-28] MEDS: INSULIN DETEMIR 300 UNITS/3 ML INSULN.PEN. SQ SCH (21:24)
[2016-11-28 23:40] VITALS: BP 96/49
[2016-11-29] MEDS: ALBUTEROL SULFATE 2.5 MG/3 ML NEBU. NEB SCH ×4 (00:36→19:12)
--- NOTE | 2016-11-29 03:12 | PN ---
DATE: 11/28/2016 SUBJECTIVE: The patient is resting, slightly propped up, in no apparent respiratory distress. He is very lethargic, but arousable, opens eyes, tracks and responds appropriately and he woke up with chest pain; however, he did not want to take any pain medication. Apparently, he has eaten some food this morning, but has been very sleepy compared to yesterday. PHYSICAL EXAMINATION: GENERAL: When I examined him, he looked pale. No jaundice, cyanosis or thyromegaly. No jugular venous distention. No limb edema. VITAL SIGNS: His heart rate was 77, blood pressure was 111/54, temperature was 99.1, respiratory rate was 22 and oxygen saturation was 95% on 2 liters of oxygen. HEAD, EYES, EARS, NOSE AND THROAT: Normocephalic, atraumatic. NECK: Supple. HEART: Showed normal first and second heart sounds. No gallop, rub or murmur. CHEST: Clear to auscultation. No crepitation or rhonchi. ABDOMEN: Distended, soft, nontender. No guarding or rigidity. No organomegaly. All hernial orifices intact. Bowel sounds normal. NEUROLOGIC: He is very lethargic, but arousable. All cranial nerves intact. He moves upper extremities to much greater extent than lower extremities, mostly bed bound. Apparently, his left knee was drained from 2 sites. His intake over the last 24 hours was 200, output was 1650. LABORATORY DATA: As of this morning, his white cell count was 5400, hemoglobin 9, hematocrit 27, MCV 78 and platelet count of 305,000 with normal manual differential. His chemistry showed a serum sodium of 132, potassium 4.7, chloride 97, bicarbonate 35, anion gap of ____, BUN 21, creatinine 1.1, estimated GFR was 68 mL per minute. His glucose was 281, calcium was 9.1. Total bilirubin, AST, ALT, alkaline phosphatase normal. Total protein was 6.3, albumin 1.2. ASSESSMENT: 1. Chest pain with 3 sets of troponin less than 0.07 with myocardial infarction ruled out. 2. The patient has some form of arrhythmia; however, the device was interrogated and no evidence of ventricular tachycardia or ventricular fibrillation. 3. Coronary artery disease, status post coronary artery bypass graft. 4. Chronic systolic congestive heart failure. 5. Ischemic cardiomyopathy. 6. The patient has sick sinus syndrome, status post permanent pacemaker placement. 7. Hypertension, is well controlled. 8. Hyperlipidemia. 9. Hypothyroidism. 10. Chronic renal insufficiency. 11. The patient has a complex left leg fluid collection with hardware in place, bilateral lower extremity wounds. PLAN: To continue with IV antibiotics in the form of vancomycin as well as meropenem. Await the blood, urine and synovial fluid culture and sensitivity. The patient might require an echocardiogram given that the Staph aureus ____ urine culture is unusual unless there is hematogenous spread. PATTY CHRISTIAN MD DR: YUMI/harry JOB#: [id number] / [id number]
[2016-11-29 03:30] VITALS: BP 108/54
[2016-11-29] MEDS: MEROPENEM 1 GM in IV NORMAL SALINE 100ML 100 ML IV SCH ×3 (05:19→22:49)
[2016-11-29] MEDS: HYDROcodone/APAP 10/325 1 TAB TABLET PO PRN ×2 (05:23→10:19)
[2016-11-29] MEDS: HEPARIN PF for SUB-Q USE 5,000 UNIT/0.5 ML VIAL. SQ SCH ×3 (05:23→22:51)
[2016-11-29] MEDS: VANCOMYCIN 2 GM in IV NORMAL SALINE 500ML BAG 500 ML IV SCH (06:00)
[2016-11-29 07:44] VITALS: BP 104/53
[2016-11-29] MEDS: ASPIRIN 325 MG TABLET PO SCH (08:31)
[2016-11-29] MEDS: SENNOSIDES 8.6 MG TABLET PO SCH (08:31)
[2016-11-29] MEDS: LEVOTHYROXINE 137 MCG TABLET PO SCH (08:31)
[2016-11-29] MEDS: PANTOPRAZOLE 40 MG TABLET.DR. PO SCH (08:31)
[2016-11-29] MEDS: FENOFIBRATE,MICRONIZED 134 MG CAPSULE PO SCH (08:31)
[2016-11-29] MEDS: INSULIN ASPART 300 UNITS/3 ML INSULN.PEN SQ SCH ×3 (08:32→21:11)
[2016-11-29] MEDS: GABAPENTIN 400 MG CAPSULE. PO SCH (08:34)
[2016-11-29] MEDS: FLUoxetine HCL 20 MG CAPSULE PO SCH ×3 (08:35→21:00)
[2016-11-29] MEDS: ISOSORBIDE MONONITRATE ER 30 MG TAB.ER.24H PO SCH (08:35)
[2016-11-29] MEDS: DIVALPROEX EXTENDED RELEASE 500 MG TAB.ER.24H. PO SCH ×2 (08:36→21:01)
[2016-11-29] MEDS: LINAGLIPTIN 5 MG TABLET PO SCH (08:36)
[2016-11-29] MEDS: SPIRONOLACTONE 25 MG TABLET PO SCH (08:36)
[2016-11-29] MEDS: TORSEMIDE 20 MG TABLET. PO SCH ×2 (08:37→16:00)
[2016-11-29] MEDS: METOPROLOL TART IMMED RELEASE 50 MG TABLET. PO SCH ×2 (08:37→21:01)
[2016-11-29] MEDS: DICLOFENAC SODIUM 1% TOPICAL GEL 100GM TUBE. TP SCH ×4 (08:38→20:59)
[2016-11-29] MEDS: MAGNESIUM OXIDE 400 MG TABLET PO SCH (08:49)
--- NOTE | 2016-11-29 08:59 | PDOC ---
Infectious Disease Note Subjective Subjective c/o generalized aches, SALMERON and left knee pain No fever last 24 hours No BM ROS ROS GEN: Denies chills, sweats HEENT: Denies sore throat CV: Denies chest pain RESP: Denies shortness of air, cough GI: Denies n/v Vital Sign Vital Signs Vital Signs Date Time Temp Pulse Resp B/P Pulse Ox O2 Delivery O2 Flow Rate FiO2 11/29/16 08:37 73 110/56 11/29/16 07:44 99.0 16 96 Nasal Cannula 99.0 11/29/16 07:17 1.5 Physical Exam PHYSICAL EXAM GENERAL: Propped up in bed, eating HENT: neg sinus tenderness LUNGS: Clear HEART: S1S2 ABD: Obese, BS present, soft : Madden EXT: BLE trace edema. No cyanosis. Left knee warm. No redness SKIN: No rash IV: ok Labs Lab Laboratory Tests Test 11/28/16 11:26 11/28/16 16:15 11/28/16 20:15 11/28/16 21:21 Glucose (Fingerstick) 267mg/dL (70-99) 209mg/dL (70-99) 259mg/dL (70-99) Vancomycin Level Trough 24.9mcg/mL (10.0-20.0) Vancomycin Last Dose Date Vancomycin Last Dose Time Micro Left knee GRAM STAIN Final WBCS MANY RBCS FEW GRAM POSITIVE COCCI MANY COMMENTS SUGGESTIVE OF STREP BLOOD CULTURE Final GRAM POSITIVE COCCI IN CHAINS, SUGGESTIVE OF STREP, IN 1 OF 4 BOTTLES, TWO SETS DRAWN. URINE CULTURE Preliminary Preliminary report URINE CULTURE RES 1 Preliminary Staphylococcus aureus 50,000-100,000 colony forming units per mL Based on resistance to oxacillin this isolate would be resistant to all currently available beta-lactam antimicrobial agents, with the exception of the newer cephalosporins with anti-MRSA activity, such as Ceftaroline URINE CULTURE RES 2 Preliminary Enterococcus species 10,000-25,000 colony forming units per mL ANTIMICROBIAL SUSCEPTIBILITY Preliminary Comment S = Susceptible; I = Intermediate; R = Resistant P = Positive; N = Negative Antibiotic RSLT#1 RSLT#2 RSLT#3 RSLT#4 Ciprofloxacin R R Gentamicin S Levofloxacin R R Linezolid S Nitrofurantoin S S Oxacillin R Penicillin R S Rifampin S Tetracycline R R Trimethoprim/Sulfa S Vancomycin S S Objective Assessment Fever. better GPC suggestive of strep bacteremia. POA Complex left leg fluid collection with hardware in place. GPC suggestive of strep MRSA and enterococcus in urine. POA PCN/Clinda/Sulfa allergy Has tolerated Rocephin Bilateral LE wounds Arrhythmias Left ? opacity Severe protein malnutrition H/o strep anginosis/intermedius bacteremia Plan Plan of Care Vanc and Meropenem Await GPC ID f/u am labs Needs ECHO. Potential ROHIT as Staph aureus not typical pathogen for UTI Am concerned for hardware infection and anticipate need for I an D maybe potential hardware removal/amputation local wound care Attending Co-Sign The patient was seen and interviewed as well as examined at the bedside. The chart was reviewed. The case was discussed. Agree with the plan of care. RENEE SCHMIDT APRN Nov 29, 2016 08:59 LOWELL ROSAS MD Nov 29, 2016 13:47
[2016-11-29] MEDS: VITS A & D/LANOLIN TOPICAL OINTMENT 56GM TUBE. TP SCH ×3 (09:00→17:13)
[2016-11-29] MEDS: CARIPRAZINE HYDROCHLORIDE 3 MG PO SCH (09:00)
--- NOTE | 2016-11-29 09:42 | PDOC ---
ORTHO PROGRESS NOTES Subjective Knee pain unchanged, some thigh pain. Vitals Vital Signs Date Time Temp Pulse Resp B/P Pulse Ox O2 Delivery O2 Flow Rate FiO2 11/29/16 08:37 73 110/56 11/29/16 07:44 99.0 16 96 Nasal Cannula 99.0 11/29/16 07:17 1.5 Labs Laboratory Tests Test 11/27/16 10:15 11/27/16 12:10 11/27/16 12:35 11/27/16 17:07 Body Fluid Source Synovial Synovial Body Fluid Color Green Green Body Fluid Clarity Turbid Turbid Body Fluid Nucleated Cells 30030249/cmm 6681200/cmm Body Fluid Mononuclear WBCs (%) 5% 14% Body Fluid Polymorphonuclear Cells 95% 86% Body Fluid Total RBCs Counted 56744/cmm 242333/cmm Glucose (Fingerstick) 152mg/dL (70-99) 272mg/dL (70-99) Test 11/27/16 20:51 11/28/16 05:30 11/28/16 07:17 11/28/16 11:26 Glucose (Fingerstick) 305mg/dL (70-99) 233mg/dL (70-99) 267mg/dL (70-99) White Blood Count 5.4x10^3/uL (4.0-11.0) Red Blood Count 3.44x10^6/uL (4.30-5.70) Hemoglobin 9.0g/dL (13.0-17.5) Hematocrit 27.0% (39.0-53.0) Mean Corpuscular Volume 78fL (79-100) Mean Corpuscular Hemoglobin 26pg (25-35) Mean Corpuscular Hemoglobin Concent 33g/dL (31-37) Red Cell Distribution Width 19.7% (11.5-14.5) Platelet Count 305x10^3/uL (140-400) Neutrophils (%) (Auto) 63% (31-73) Lymphocytes (%) (Auto) 16% (24-48) Monocytes (%) (Auto) 21% (0-9) Eosinophils (%) (Auto) 0% (0-3) Basophils (%) (Auto) 1% (0-3) Neutrophils # (Auto) 3.4x10^3uL (1.8-7.7) Lymphocytes # (Auto) 0.8x10^3/uL (1.0-4.8) Monocytes # (Auto) 1.1x10^3/uL (0.0-1.1) Eosinophils # (Auto) 0.0x10^3/uL (0.0-0.7) Basophils # (Auto) 0.0x10^3/uL (0.0-0.2) Segmented Neutrophils % 69% (35-66) Lymphocytes % 18% (24-48) Monocytes % 13% (0-10) Platelet Estimate Adequate (ADEQUATE) Hypochromasia Mod Anisocytosis Slight Erythrocyte Sedimentation Rate 123 (0-15) Sodium Level 132mmol/L (136-145) Potassium Level 4.3mmol/L (3.5-5.1) Chloride Level 97mmol/L (98-107) Carbon Dioxide Level 35mmol/L (21-32) Anion Gap 0 (6-14) Blood Urea Nitrogen 21mg/dL (8-26) Creatinine 1.1mg/dL (0.7-1.3) Estimated GFR (Cockcroft-Gault) 68.3 BUN/Creatinine Ratio 19 (6-20) Glucose Level 281mg/dL (70-99) Calcium Level 9.1mg/dL (8.5-10.1) Total Bilirubin 0.3mg/dL (0.2-1.0) Aspartate Amino Transf (AST/SGOT) 49U/L (15-37) Alanine Aminotransferase (ALT/SGPT) 25U/L (16-63) Alkaline Phosphatase 137U/L (46-116) Total Protein 6.3g/dL (6.4-8.2) Albumin 1.2g/dL (3.4-5.0) Albumin/Globulin Ratio 0.2 (1.0-1.7) Test 11/28/16 16:15 11/28/16 20:15 11/28/16 21:21 Glucose (Fingerstick) 209mg/dL (70-99) 259mg/dL (70-99) Vancomycin Level Trough 24.9mcg/mL (10.0-20.0) Vancomycin Last Dose Date Vancomycin Last Dose Time Laboratory Tests Test 11/28/16 11:26 11/28/16 16:15 11/28/16 20:15 11/28/16 21:21 Glucose (Fingerstick) 267mg/dL (70-99) 209mg/dL (70-99) 259mg/dL (70-99) Vancomycin Level Trough 24.9mcg/mL (10.0-20.0) Vancomycin Last Dose Date Vancomycin Last Dose Time Notes A and A LLE: knee effusion, unchanged thigh fullness and tenderness Assessment and Plan Discussed his care with him and his via phone ALso reviewed imaging and discussed with Drs. Connor and Shana Due to the megaprosthesis in place, we are recommending transfer to ANIL STANTON II, MD Nov 29, 2016 09:42
[2016-11-29] MEDS: VANCOMYCIN PER PHARMACY MC PRN (10:23)
[2016-11-29 12:00] VITALS: BP 94/53
[2016-11-29] MEDS: LORazepam 1 MG TABLET PO PRN ×2 (12:05→17:39)
--- NOTE | 2016-11-29 14:58 | PDOC ---
PROGRESS NOTES Assessment Assessment Metabolic encephalopathy. Chest pain. UTI CAD, s/p CABG DM Hyperglycemia, glucose level 295 Hypoglycemia, glucose level 43. HTN COPD KAMILAH on BiPAP Hypothyroidism Pacemaker in site. Dementia Hx. Obesity. Wounds in bilateral LE and feet. Large fluid collection in left thigh, hematoma or abscess? RECOMMENDATIONS/PLAN: Treat medical and cardiac diseases. Continue ASA 325 mg daily. Continue Lipitor HS. Consult Surgery and other specialty for left thigh possible hematoma or abscess. OT/PT Discussed with his at bedside on 11/28. EEG on 11/25: Suggest mild to moderate encephalopathy. HCT on 11/24 and 11/26: No acute findings. MRI contraindicated due to pacemaker. HISTORY OF THE PRESENT ILLNESS: 61-y-old male patient with multiple medical and cardiac diseases developed symptoms of chest pain to be brought to the ER of [facility]. He was noted mental status changes, decreased response, overly sleepiness, so Neurology was called for contultation. His HCT showed no acute findings but cerebral atrophy. No focalized motor or sensory deficits noted. PAST MEDICAL HISTORY: Please see above. PAST SURGERY HISTORY: Pacemaker Placement, S/P CABG Tonsillectomy Appendectomy Cholecystectomy Knee surgery ALLERGY: Reviewed. MEDICATIONS: Refer to [facility] FAMILY HISTORY: CAD SOCIAL HISTORY: Lives with his at home, but he has been in rehab facilities since 07/2016. Denies current smoking, drinking, and illicit drug use. REVIEW OF SYSTEMS: Constitutional: No malnutrition, weight loss, cachexia. Head: No recent traumatic brain or head injury. Skin: No edema, or rash. Ear: No infection. Eyes: No vision loss or color blindness. Nose: No bleeding or purulent discharges. Hearing: Hearing decrease. Neck: No recent injury. Cardiac: CAD, s/p CABG, Pacemaker Placement, HTN. Pulmonary: COPD, KAMILAH. GI: No GI ulcer, GI bleeding. Urinary/genital: UTI. Endocrinologic: Diabetes Mellitus, hypothyroidism, obesity. Skeletomuscular: No muscular atrophy, deformity. Neurological: see HP. Psychiatric: Denies drug use/abuse. Otherwise, not -wubjr review of systems. PHYSICAL EXAMINATION: General appearance is awake.. HEENT: Normocephalic and nontraumatic. Eyes, nose, ears, and throat are unremarkable. Neck is supple. No lymphadenopathy. No crepitus. Cardiovascular: S1, S2, regular rate and rhythm. Pulmonary: decreased to auscultation bilaterally. Abdomen: Bowel sounds are positive. Extremities: No rash, lesions, or edema. No restriction of range of motion NEUROLOGICAL EXAMINATION: Awake. Able to understand some questions. Not oriented to time, but knows place and person. PERRL. EOMI. CN: no focal findings. Muscle tone: within normal. Muscle strength: 4+ UE, 3+ LE. DTR: 1 Plantar reflex: Flexor response bilaterally Gait: not examined in bed. Sensory exam: no abnormal findings. Not able to access cerebellar signs due to not follow commands. F-T-N test not performed due to not follow commands. Objective Objective Vital Signs Date Time Temp Pulse Resp B/P Pulse Ox O2 Delivery O2 Flow Rate FiO2 11/29/16 13:00 95 Nasal Cannula 1.5 11/29/16 12:00 69 22 94/53 11/29/16 07:44 99.0 99.0 Intake and Output 11/29/16 07:00 Intake Total 220 ml Output Total 1700 ml Balance -1480 ml Intake Oral 220 ml Output Urine Total 1700 ml Vitals Signs Vitals VS - Last 72 Hours, by Label Date Time Temp Pulse Resp B/P Pulse Ox O2 Delivery O2 Flow Rate FiO2 11/29/16 13:00 95 Nasal Cannula 1.5 11/29/16 12:00 69 22 94/53 96 Nasal Cannula 2.0 11/29/16 11:20 18 2.0 11/29/16 10:19 18 96 Nasal Cannula 2.0 11/29/16 08:37 73 110/56 11/29/16 08:35 73 104/53 11/29/16 08:00 Nasal Cannula 2.0 11/29/16 07:44 99.0 70 16 104/53 96 Nasal Cannula 99.0 11/29/16 07:17 97 Nasal Cannula 1.5 11/29/16 06:23 93 Nasal Cannula 11/29/16 05:23 18 94 Nasal Cannula 2.0 11/29/16 03:30 98.0 70 18 108/54 94 Nasal Cannula 2.0 98.0 11/29/16 00:36 98 Nasal Cannula 1.5 11/28/16 23:40 98.1 69 20 96/49 94 Nasal Cannula 98.1 11/28/16 21:15 70 108/51 11/28/16 19:30 Nasal Cannula 2.0 11/28/16 19:05 97.7 70 24 108/51 91 Nasal Cannula 2.0 97.7 11/28/16 15:00 98.1 62 13 98/58 96 Nasal Cannula 2.0 98.1 11/28/16 13:07 Nasal Cannula 1.5 11/28/16 11:47 18 96 Nasal Cannula 2.0 11/28/16 11:31 98.0 71 17 110/52 96 Nasal Cannula 2.0 98.0 11/28/16 09:19 77 111/54 11/28/16 09:18 77 111/54 11/28/16 08:00 Nasal Cannula 2.0 11/28/16 07:18 99.1 77 22 111/54 95 Nasal Cannula 2.0 99.1 11/28/16 07:07 Nasal Cannula 1.5 Laboratory Laboratory Laboratory Tests Test 11/28/16 16:15 11/28/16 20:15 11/28/16 21:21 11/29/16 07:46 Glucose (Fingerstick) 209mg/dL (70-99) 259mg/dL (70-99) 176mg/dL (70-99) Vancomycin Level Trough 24.9mcg/mL (10.0-20.0) Vancomycin Last Dose Date Vancomycin Last Dose Time Test 11/29/16 12:13 Glucose (Fingerstick) 224mg/dL (70-99) Microbiology 11/26/16 Blood Culture - Preliminary, Resulted 11/26/16 Blood Culture Result 1 (CHUCK) - Preliminary, Resulted 11/27/16 Gram Stain - Final, Complete 11/26/16 Urine Culture - Final, Complete 11/26/16 Urine Culture Result 1 (CHUCK) - Final, Complete Medication Medications Current Medications Vancomycin HCl 1 each 1X ONCE MC ; Start 12/01/16 at 11:30; Stop 12/01/16 at 11: 31 Vancomycin HCl 1 each 1 each 1X ONCE MC Last administered on 11/28/16t 20:30; Start 11/28/16 at 20:30; Stop 11/28/16 at 20:31; Status DC Vancomycin HCl/ Sodium Chloride (Iv Sodium Chloride 0.9% 500ml Bag) 500 ml @ 250 mls/hr Q18H IV Last administered on 11/29/16 06:00; Start 11/29/16 at 06: 00 Comment Review of Relevant I have reviewed the following items michelle (where applicable) has been applied. KAT ROSARIO MD Nov 29, 2016 14:58
[2016-11-29 15:00] VITALS: BP 110/53
[2016-11-29] MEDS ORDERED: DEXTROSE 50% 25 GM / 50ML DISP.SYRIN. IV PRN (16:45)
[2016-11-29] MEDS: oxyCODONE/APAP 5/325 1 TAB TABLET PO PRN (17:40)
[2016-11-29 19:50] VITALS: BP 151/58
[2016-11-29] MEDS: QUEtiapine 100 MG TABLET. PO SCH (20:59)
[2016-11-29] MEDS: ATORVASTATIN CALCIUM 40 MG TABLET. PO SCH (21:00)
[2016-11-29] MEDS: DONEPEZIL HCL 10 MG TABLET. PO SCH (21:00)
[2016-11-29] MEDS: NORTRIPTYLINE 25 MG CAPSULE PO SCH (21:00)
[2016-11-29] MEDS: lamoTRIgine 100 MG TABLET. PO SCH (21:00)
[2016-11-29] MEDS: INSULIN DETEMIR 300 UNITS/3 ML INSULN.PEN. SQ SCH (21:10)
[2016-11-29 23:00] VITALS: BP 117/58
[2016-11-30] MEDS: VANCOMYCIN 2 GM in IV NORMAL SALINE 500ML BAG 500 ML IV SCH (00:21)
[2016-11-30] MEDS: ALBUTEROL SULFATE 2.5 MG/3 ML NEBU. NEB SCH ×4 (00:49→19:34)
[2016-11-30 03:00] VITALS: BP 124/57
[2016-11-30] MEDS: HYDROcodone/APAP 10/325 1 TAB TABLET PO PRN ×3 (04:31→22:17)
[2016-11-30] MEDS: MEROPENEM 1 GM in IV NORMAL SALINE 100ML 100 ML IV SCH (06:12)
[2016-11-30] MEDS: HEPARIN PF for SUB-Q USE 5,000 UNIT/0.5 ML VIAL. SQ SCH ×3 (06:17→22:00)
[2016-11-30 06:52] VITALS: BP 114/59
[2016-11-30] MEDS: INSULIN ASPART 300 UNITS/3 ML INSULN.PEN SQ SCH ×5 (08:00→22:22)
[2016-11-30] MEDS: CARIPRAZINE HYDROCHLORIDE 3 MG PO SCH (08:59)
[2016-11-30] MEDS: TORSEMIDE 20 MG TABLET. PO SCH ×2 (09:13→16:45)
[2016-11-30] MEDS: GABAPENTIN 400 MG CAPSULE. PO SCH (09:13)
[2016-11-30] MEDS: LINAGLIPTIN 5 MG TABLET PO SCH (09:13)
[2016-11-30] MEDS: MAGNESIUM OXIDE 400 MG TABLET PO SCH (09:13)
[2016-11-30] MEDS: DIVALPROEX EXTENDED RELEASE 500 MG TAB.ER.24H. PO SCH ×2 (09:13→22:15)
[2016-11-30] MEDS: FENOFIBRATE,MICRONIZED 134 MG CAPSULE PO SCH (09:13)
[2016-11-30] MEDS: LEVOTHYROXINE 137 MCG TABLET PO SCH (09:13)
[2016-11-30] MEDS: FLUoxetine HCL 20 MG CAPSULE PO SCH ×3 (09:13→22:14)
[2016-11-30] MEDS: SPIRONOLACTONE 25 MG TABLET PO SCH (09:14)
[2016-11-30] MEDS: ISOSORBIDE MONONITRATE ER 30 MG TAB.ER.24H PO SCH (09:14)
[2016-11-30] MEDS: PANTOPRAZOLE 40 MG TABLET.DR. PO SCH (09:14)
[2016-11-30] MEDS: SENNOSIDES 8.6 MG TABLET PO SCH (09:15)
[2016-11-30] MEDS: VITS A & D/LANOLIN TOPICAL OINTMENT 56GM TUBE. TP SCH ×3 (09:16→21:00)
[2016-11-30] MEDS: METOPROLOL TART IMMED RELEASE 50 MG TABLET. PO SCH ×2 (09:59→22:16)
[2016-11-30] MEDS: DICLOFENAC SODIUM 1% TOPICAL GEL 100GM TUBE. TP SCH ×4 (10:00→21:00)
[2016-11-30] MEDS: ASPIRIN 325 MG TABLET PO SCH (10:00)
[2016-11-30 10:07] VITALS: BP 121/58
--- NOTE | 2016-11-30 11:21 | PDOC ---
Infectious Disease Note Subjective Subjective No fever last 24 hours Vital Sign Vital Signs Vital Signs Date Time Temp Pulse Resp B/P Pulse Ox O2 Delivery O2 Flow Rate FiO2 11/30/16 10:07 98.1 70 16 121/58 97 Nasal Cannula 2.0 98.1 Physical Exam PHYSICAL EXAM GENERAL: Propped up in bed, smiling, talking on the phone LUNGS: nonlabored HEART: S1S2 ABD: Obese, BS present, soft : Madden EXT: BLE trace edema. No cyanosis. Left knee warm. No redness SKIN: No rash IV: ok Labs Lab Laboratory Tests Test 11/29/16 12:13 11/29/16 16:41 11/29/16 20:55 11/30/16 08:21 Glucose (Fingerstick) 224mg/dL (70-99) 353mg/dL (70-99) 296mg/dL (70-99) 144mg/dL (70-99) Micro Left knee AEROBIC RES 1 Final Streptococcus anginosus group AEROBIC RES 2 Final Coagulase negative Staphylococcus species. BLOOD CULTURE Preliminary Streptococcus anginosus group URINE CULTURE Preliminary Preliminary report URINE CULTURE RES 1 Preliminary Staphylococcus aureus 50,000-100,000 colony forming units per mL Based on resistance to oxacillin this isolate would be resistant to all currently available beta-lactam antimicrobial agents, with the exception of the newer cephalosporins with anti-MRSA activity, such as Ceftaroline URINE CULTURE RES 2 Preliminary Enterococcus species 10,000-25,000 colony forming units per mL ANTIMICROBIAL SUSCEPTIBILITY Preliminary Comment S = Susceptible; I = Intermediate; R = Resistant P = Positive; N = Negative Antibiotic RSLT#1 RSLT#2 RSLT#3 RSLT#4 Ciprofloxacin R R Gentamicin S Levofloxacin R R Linezolid S Nitrofurantoin S S Oxacillin R Penicillin R S Rifampin S Tetracycline R R Trimethoprim/Sulfa S Vancomycin S S Objective Assessment Fever. better Strep anginosis bacteremia. POA Infected complex left leg fluid collection with hardware in place. s/p aspiration, 11/27. Strep anginosis and CoNS MRSA and enterococcus in urine. POA PCN/Clinda/Sulfa allergy Has tolerated Rocephin Bilateral LE wounds Arrhythmias Left ? opacity Severe protein malnutrition H/o strep anginosis/intermedius bacteremia Plan Plan of Care Vanc and Meropenem Vanc trough 24.9 f/u am labs Needs ECHO. Potential ROHIT as Staph aureus not typical pathogen for UTI Await I and D left knee. local wound care Attending Co-Sign The patient was seen and interviewed as well as examined at the bedside. The chart was reviewed. The case was discussed. Agree with the plan of care. RENEE SCHMIDT APRN Nov 30, 2016 11:21 LOWELL ROSAS MD Nov 30, 2016 12:45
[2016-11-30 14:17] VITALS: BP 126/59
--- NOTE | 2016-11-30 14:32 | PDOC ---
PROGRESS NOTES Assessment Assessment Metabolic encephalopathy. Chest pain. UTI CAD, s/p CABG DM Hyperglycemia, glucose level 295 Hypoglycemia, glucose level 43. HTN COPD KAMILAH on BiPAP Hypothyroidism Pacemaker in site. Dementia Hx. Obesity. Wounds in bilateral LE and feet. Bacteremia, strep anginosis in blood culture. Large left thigh infection. RECOMMENDATIONS/PLAN: Treat medical and cardiac diseases. Continue ASA 325 mg daily. Continue Lipitor HS. Continue ID treatment. OT/PT Discussed with his again at bedside on 11/29. EEG on 11/25: Suggest mild to moderate encephalopathy. HCT on 11/24 and 11/26: No acute findings. MRI contraindicated due to pacemaker. HISTORY OF THE PRESENT ILLNESS: 61-y-old male patient with multiple medical and cardiac diseases developed symptoms of chest pain to be brought to the ER of [facility]. He was noted mental status changes, decreased response, overly sleepiness, so Neurology was called for contultation. His HCT showed no acute findings but cerebral atrophy. No focalized motor or sensory deficits noted. PAST MEDICAL HISTORY: Please see above. PAST SURGERY HISTORY: Pacemaker Placement, S/P CABG Tonsillectomy Appendectomy Cholecystectomy Knee surgery ALLERGY: Reviewed. MEDICATIONS: Refer to [facility] FAMILY HISTORY: CAD SOCIAL HISTORY: Lives with his at home, but he has been in rehab facilities since 07/2016. Denies current smoking, drinking, and illicit drug use. REVIEW OF SYSTEMS: Constitutional: No malnutrition, weight loss, cachexia. Head: No recent traumatic brain or head injury. Skin: No edema, or rash. Ear: No infection. Eyes: No vision loss or color blindness. Nose: No bleeding or purulent discharges. Hearing: Hearing decrease. Neck: No recent injury. Cardiac: CAD, s/p CABG, Pacemaker Placement, HTN. Pulmonary: COPD, KAMILAH. GI: No GI ulcer, GI bleeding. Urinary/genital: UTI. Endocrinologic: Diabetes Mellitus, hypothyroidism, obesity. Skeletomuscular: No muscular atrophy, deformity. Neurological: see HP. Psychiatric: Denies drug use/abuse. Otherwise, not [id number] review of systems. PHYSICAL EXAMINATION: General appearance is awake.. HEENT: Normocephalic and nontraumatic. Eyes, nose, ears, and throat are unremarkable. Neck is supple. No lymphadenopathy. No crepitus. Cardiovascular: S1, S2, regular rate and rhythm. Pulmonary: decreased to auscultation bilaterally. Abdomen: Bowel sounds are positive. Extremities: No rash, lesions, or edema. No restriction of range of motion NEUROLOGICAL EXAMINATION: Sleepiness but arousable. Able to understand some questions. Not oriented to time, but knows place and person. PERRL. EOMI. CN: no focal findings. Muscle tone: within normal. Muscle strength: 4+ UE, 3+ LE. DTR: 1 Plantar reflex: Flexor response bilaterally Gait: not examined in bed. Sensory exam: no abnormal findings. No cerebellar signs elicited. F-T-N test not fine. Objective Objective Vital Signs Date Time Temp Pulse Resp B/P Pulse Ox O2 Delivery O2 Flow Rate FiO2 11/30/16 14:17 97.9 71 16 126/59 97 Nasal Cannula 2.0 97.9 Intake and Output 11/30/16 07:00 Intake Total 1260 ml Output Total 3600 ml Balance -2340 ml Intake Oral 460 ml IV Total 700 ml Other 100 ml Output Urine Total 3600 ml # Bowel Movements 1 Vitals Signs Vitals VS - Last 72 Hours, by Label Date Time Temp Pulse Resp B/P Pulse Ox O2 Delivery O2 Flow Rate FiO2 11/30/16 14:17 97.9 71 16 126/59 97 Nasal Cannula 2.0 97.9 11/30/16 13:52 16 Nasal Cannula 2.0 11/30/16 12:38 Nasal Cannula 1.5 11/30/16 10:07 98.1 70 16 121/58 97 Nasal Cannula 2.0 98.1 11/30/16 09:59 68 121/58 11/30/16 09:14 67 114/59 11/30/16 08:44 96 Nasal Cannula 1.5 11/30/16 08:00 Nasal Cannula 2.0 11/30/16 06:52 98.2 62 16 114/59 96 Nasal Cannula 2.0 98.2 11/30/16 05:31 16 Nasal Cannula 2.0 11/30/16 04:31 16 96 Nasal Cannula 2.0 11/30/16 03:00 97.7 64 16 124/57 95 Nasal Cannula 2.0 97.7 11/30/16 00:49 95 Nasal Cannula 1.5 11/29/16 23:00 97.6 62 16 117/58 95 Nasal Cannula 2.0 97.6 11/29/16 21:01 74 151/58 4/29/17 20:00 Nasal Cannula 2.0 11/29/16 19:50 99.2 74 16 151/58 Nasal Cannula 2.0 99.2 11/29/16 19:14 92 Nasal Cannula 1.5 11/29/16 18:40 16 Nasal Cannula 2.0 11/29/16 17:40 18 94 Nasal Cannula 2.0 11/29/16 15:00 98.2 74 22 110/53 93 Nasal Cannula 2.0 98.2 11/29/16 13:00 95 Nasal Cannula 1.5 11/29/16 12:00 69 22 94/53 96 Nasal Cannula 2.0 11/29/16 10:19 18 96 Nasal Cannula 2.0 11/29/16 08:37 73 110/56 11/29/16 08:35 73 104/53 11/29/16 08:00 Nasal Cannula 2.0 11/29/16 07:44 99.0 70 16 104/53 96 Nasal Cannula 99.0 11/29/16 07:17 97 Nasal Cannula 1.5 Laboratory Laboratory Laboratory Tests Test 11/29/16 16:41 11/29/16 20:55 11/30/16 08:21 11/30/16 11:35 Glucose (Fingerstick) 353mg/dL (70-99) 296mg/dL (70-99) 144mg/dL (70-99) 142mg/dL (70-99) Microbiology 11/26/16 Blood Culture - Preliminary, Resulted 11/26/16 Blood Culture Result 1 (CHUCK) - Preliminary, Resulted 11/27/16 Gram Stain - Final, Complete 11/26/16 Urine Culture - Final, Complete 11/26/16 Urine Culture Result 1 (CHUCK) - Final, Complete Medication Medications Current Medications Cefazolin Sodium 2 gm/Sodium Chloride 50 ml @ 100 mls/hr Q8HRS IV ; Start 11/30 at 14:00; Status UNV Cefazolin Sodium/ Dextrose (Ancef 2gm Premix) 50 ml @ 100 mls/hr Q8HRS IV Last administered on 11/30/16t 14:10; Start 11/30/16 at 14:00 Dextrose 12.5 gm 12.5 gm PRN Q15MIN PRN IV SEE COMMENTS; Start 11/29/16 at 16: 45 Insulin Aspart (Novolog) 0-5 UNITS TIDWMEALS SQ Last administered on 11/29/16t 16:55; Start 11/29/16 at 17:00 Vancomycin HCl 1 each 1X ONCE MC ; Start 12/01/16 at 11:30; Stop 12/01/16 at 11: 30; Status DC Comment Review of Relevant I have reviewed the following items michelle (where applicable) has been applied. KAT ROSARIO MD Nov 30, 2016 14:32
[2016-11-30] MEDS: LACTOBACILLUS ACIDOPH & BULGAR 1 TABLET. PO SCH (16:45)
[2016-11-30 19:00] VITALS: BP 110/55
--- NOTE | 2016-11-30 20:52 | PN ---
DATE: 11/30/2016 SUBJECTIVE: The patient is resting, slightly propped up in in bed, no apparent distress. Awake, alert, responding appropriately to questioning and denied any complaint. He skin pain by mouth. Scheduled incision and drainage of his left thigh. PHYSICAL EXAMINATION: GENERAL: When I examined him, he looked pale, no jaundice, cyanosis, or thyromegaly. No jugular venous distension. No limb edema. VITAL SIGNS: His heart rate was 70, blood pressure was 121/58, temperature was 98.1, respiratory rate was 16, and oxygen saturation was 97% on 2 liters of oxygen. HEAD, EYES, EARS, NOSE AND THROAT: Showed normocephalic, atraumatic. NECK: Supple. HEART: Showed normal first and second heart sounds with no gallop, rub or murmur. CHEST: Clear to auscultation. No crepitation or rhonchi. ABDOMEN: Distended, soft, nontender. NEUROLOGIC: He is definitely more awake today, alert, responding appropriately. The cranial nerves are intact. Moves upper extremities to much good extent than his lower extremities. His intake over the last 24 hours was 1220, output was 1700. LABORATORY DATA: His most recent lab work showed serum sodium 132, potassium 4.3, chloride 97, bicarbonate 35, anion gap of 0, BUN of 21, and creatinine 1.1. White cell count was 5400, hemoglobin 9, hematocrit 27, MCV 78 and platelet count 105,000. ASSESSMENT AND PLAN: 1. Chest pain with 3 sets of troponin less than 0.0 and myocardial infarction was ruled out. 2. The patient has some form of redness; however, the device was interrogated and there is no evidence of ventricular tachycardia or ventricular fibrillation. 3. Coronary artery disease status post coronary artery bypass graft surgery. 4. Chronic systolic congestive heart failure. 5. Sick sinus ischemic cardiomyopathy. 6. The patient has sick sinus syndrome, status post permanent pacemaker placement. 7. Hypertension, well controlled. 8. Hyperlipidemia. 9. Hypothyroidism. 10. Chronic renal insufficiency. 11. The patient has complex left leg fluid collection with hardware in place status post incision and aspiration of the left knee and also the collection on the medial aspect of the left thigh. He is scheduled for incision and drainage of his left tight today. Meanwhile, we will continue with IV vancomycin as well as meropenem, continue with ( ), monitor his blood sugars and adjust insulin as needed. PATTY CHRISTIAN MD DR: YUMI/harry JOB#: [id number] / [id number]
[2016-11-30] MEDS: QUEtiapine 100 MG TABLET. PO SCH (22:14)
[2016-11-30] MEDS: lamoTRIgine 100 MG TABLET. PO SCH (22:15)
[2016-11-30] MEDS: NORTRIPTYLINE 25 MG CAPSULE PO SCH (22:15)
[2016-11-30] MEDS: ATORVASTATIN CALCIUM 40 MG TABLET. PO SCH (22:15)
[2016-11-30] MEDS: DONEPEZIL HCL 10 MG TABLET. PO SCH (22:16)
[2016-11-30] MEDS: INSULIN DETEMIR 300 UNITS/3 ML INSULN.PEN. SQ SCH (22:22)
[2016-11-30 23:00] VITALS: BP 128/89
[2016-12-01] VITALS (9 sets, daily range): BP systolic 105–126; BP diastolic 56–76
[2016-12-01] MEDS: ALBUTEROL SULFATE 2.5 MG/3 ML NEBU. NEB SCH ×4 (00:07→20:39)
[2016-12-01] MEDS: LEVOTHYROXINE 137 MCG TABLET PO SCH (05:56)
[2016-12-01] MEDS: HEPARIN PF for SUB-Q USE 5,000 UNIT/0.5 ML VIAL. SQ SCH ×3 (05:56→21:52)
[2016-12-01] MEDS ORDERED: LIDOCAINE 1% 20 ML VIAL. ONE (06:41)
[2016-12-01] MEDS ORDERED: BUPIVACAINE MPF 0.5% 30 ML VIAL. ONE (06:41)
[2016-12-01 07:28] LABS: BASO % 0 % (0-3); EOS % 0 % (0-3); HEMATOCRIT 28.5 % (39.0-53.0); HEMOGLOBIN 9.1 g/dL (13.0-17.5); LYMPH # 1.6 x10^3/uL (1.0-4.8); LYMPH % 18 % (24-48); MEAN CORPUSCULAR HEMOGLOBIN 26 pg (25-35); MEAN CORPUSCULAR HGB CONC 32 g/dL (31-37); MEAN CORPUSCULAR VOLUME 80 fL (79-100); MONO % 11 % (0-9); NEUT % 71 % (31-73); PLATELET COUNT 400 x10^3/uL (140-400); RED BLOOD COUNT 3.57 x10^6/uL (4.30-5.70); RED CELL DISTRIBUTION WIDTH 19.7 % (11.5-14.5); WHITE BLOOD COUNT 9.1 x10^3/uL (4.0-11.0)
[2016-12-01] MEDS: PANTOPRAZOLE 40 MG TABLET.DR. PO SCH (07:30)
[2016-12-01 07:54] LABS: ALBUMIN 1.3 g/dL (3.4-5.0); ALBUMIN/GLOBULIN RATIO 0.3 (1.0-1.7); CALCIUM 9.1 mg/dL (8.5-10.1); GFR 76.2; POTASSIUM 4.1 mmol/L (3.5-5.1); TOTAL BILIRUBIN 0.3 mg/dL (0.2-1.0); TOTAL PROTEIN 6.4 g/dL (6.4-8.2)
[2016-12-01] MEDS: INSULIN ASPART 300 UNITS/3 ML INSULN.PEN SQ SCH ×5 (08:00→21:54)
[2016-12-01] MEDS: LACTOBACILLUS ACIDOPH & BULGAR 1 TABLET. PO SCH ×3 (08:00→17:12)
[2016-12-01] MEDS: SENNOSIDES 8.6 MG TABLET PO SCH (09:00)
[2016-12-01] MEDS: FLUoxetine HCL 20 MG CAPSULE PO SCH ×3 (09:00→21:37)
[2016-12-01] MEDS: ISOSORBIDE MONONITRATE ER 30 MG TAB.ER.24H PO SCH (09:00)
[2016-12-01] MEDS: SPIRONOLACTONE 25 MG TABLET PO SCH (09:00)
[2016-12-01] MEDS: MAGNESIUM OXIDE 400 MG TABLET PO SCH (09:00)
[2016-12-01] MEDS: METOPROLOL TART IMMED RELEASE 50 MG TABLET. PO SCH ×2 (09:00→21:38)
[2016-12-01] MEDS: CARIPRAZINE HYDROCHLORIDE 3 MG PO SCH (09:00)
[2016-12-01] MEDS: VITS A & D/LANOLIN TOPICAL OINTMENT 56GM TUBE. TP SCH ×3 (09:00→21:37)
[2016-12-01] MEDS: DIVALPROEX EXTENDED RELEASE 500 MG TAB.ER.24H. PO SCH ×2 (09:00→21:38)
[2016-12-01] MEDS: FENOFIBRATE,MICRONIZED 134 MG CAPSULE PO SCH (09:00)
[2016-12-01] MEDS: TORSEMIDE 20 MG TABLET. PO SCH ×2 (09:00→15:49)
[2016-12-01] MEDS: ASPIRIN 325 MG TABLET PO SCH (09:00)
[2016-12-01] MEDS: DICLOFENAC SODIUM 1% TOPICAL GEL 100GM TUBE. TP SCH ×4 (09:00→21:00)
[2016-12-01] MEDS: GABAPENTIN 400 MG CAPSULE. PO SCH (09:00)
[2016-12-01] MEDS: LINAGLIPTIN 5 MG TABLET PO SCH (09:00)
--- NOTE | 2016-12-01 09:00 | PDOC ---
Infectious Disease Note Subjective Subjective awake, says feeling good ROS ROS GEN: Denies fevers, chills, sweats HEENT: Denies blurred vision, sore throat CV: Denies chest pain RESP: Denies shortness of air, cough GI: Denies n/v/d NEURO: Denies confusion, dizziness MSK: Denies weakness, joint pain/swelling Vital Sign Vital Signs Vital Signs Date Time Temp Pulse Resp B/P Pulse Ox O2 Delivery O2 Flow Rate FiO2 12/01/16 07:31 97.6 89 20 105/76 92 Nasal Cannula 2.0 97.6 Physical Exam PHYSICAL EXAM GENERAL: NAD, Alert HEENT: PERRL, OC/OP NECK: Supple, no JVD, no LN LUNGS: Clear HEART: S1S2, no gallop, no murmur ABD: Soft, NT, no organomegaly, no rebound EXT: No edema, no cyanosis 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: Alert, oriented x 3, no focal neurologic deficit SKIN: No rash IV: ok Labs Lab Laboratory Tests Test 11/30/16 11:35 11/30/16 16:44 11/30/16 20:40 12/01/16 05:50 Glucose (Fingerstick) 142mg/dL (70-99) 276mg/dL (70-99) 337mg/dL (70-99) White Blood Count 9.1x10^3/uL (4.0-11.0) Red Blood Count 3.57x10^6/uL (4.30-5.70) Hemoglobin 9.1g/dL (13.0-17.5) Hematocrit 28.5% (39.0-53.0) Mean Corpuscular Volume 80fL (79-100) Mean Corpuscular Hemoglobin 26pg (25-35) Mean Corpuscular Hemoglobin Concent 32g/dL (31-37) Red Cell Distribution Width 19.7% (11.5-14.5) Platelet Count 400x10^3/uL (140-400) Neutrophils (%) (Auto) 71% (31-73) Lymphocytes (%) (Auto) 18% (24-48) Monocytes (%) (Auto) 11% (0-9) Eosinophils (%) (Auto) 0% (0-3) Basophils (%) (Auto) 0% (0-3) Neutrophils # (Auto) 6.5x10^3uL (1.8-7.7) Lymphocytes # (Auto) 1.6x10^3/uL (1.0-4.8) Monocytes # (Auto) 1.0x10^3/uL (0.0-1.1) Eosinophils # (Auto) 0.0x10^3/uL (0.0-0.7) Basophils # (Auto) 0.0x10^3/uL (0.0-0.2) Sodium Level 134mmol/L (136-145) Potassium Level 4.1mmol/L (3.5-5.1) Chloride Level 97mmol/L (98-107) Carbon Dioxide Level 35mmol/L (21-32) Anion Gap 2 (6-14) Blood Urea Nitrogen 17mg/dL (8-26) Creatinine 1.0mg/dL (0.7-1.3) Estimated GFR (Cockcroft-Gault) 76.2 BUN/Creatinine Ratio 17 (6-20) Glucose Level 250mg/dL (70-99) Calcium Level 9.1mg/dL (8.5-10.1) Total Bilirubin 0.3mg/dL (0.2-1.0) Aspartate Amino Transf (AST/SGOT) 66U/L (15-37) Alanine Aminotransferase (ALT/SGPT) 45U/L (16-63) Alkaline Phosphatase 143U/L (46-116) Total Protein 6.4g/dL (6.4-8.2) Albumin 1.3g/dL (3.4-5.0) Albumin/Globulin Ratio 0.3 (1.0-1.7) Test 12/01/16 07:24 Glucose (Fingerstick) 222mg/dL (70-99) Objective Assessment Fever. better Strep anginosis bacteremia. POA Infected complex left leg fluid collection with hardware in place. s/p aspiration, 11/27. Strep anginosis and CoNS MRSA and enterococcus in urine. POA PCN/Clinda/Sulfa allergy Has tolerated Rocephin Bilateral LE wounds Arrhythmias Left ? opacity Severe protein malnutrition H/o strep anginosis/intermedius bacteremia Plan Plan of Care cont cefazolin f/u am labs Needs ECHO. Await I and D left knee. local wound care surgery today for I and D of knee LOWELL ROSAS MD December 01, 2016 09:00
--- NOTE | 2016-12-01 10:01 | PDOC ---
PROGRESS NOTES Assessment Problems Medical Problems: (1) Chest pain Status: Acute Metabolic encephalopathy. Dementia Plan Will follow Subjective No complaints, wants to go home Objective Vital Signs Date Time Temp Pulse Resp B/P Pulse Ox O2 Delivery O2 Flow Rate FiO2 12/01/16 07:31 97.6 89 20 105/76 92 Nasal Cannula 2.0 97.6 Intake and Output 12/01/16 07:00 Output Total 3650 ml Balance -3650 ml Output Urine Total 3650 ml PHYSICAL EXAM Alert. Oriented to place and person. PERRL. EOMI. CN: no focal findings. Muscle tone: normal. Muscle strength: 4/5 DTR: 1+ Plantar reflex: flexor Gait: not examined in bed. Sensory exam: no abnormal findings. No cerebellar signs elicited. Review of Relevant I have reviewed the following items michelle (where applicable) has been applied. Labs Laboratory Tests Test 11/29/16 12:13 11/29/16 16:41 11/29/16 20:55 11/30/16 08:21 Glucose (Fingerstick) 224mg/dL (70-99) 353mg/dL (70-99) 296mg/dL (70-99) 144mg/dL (70-99) Test 11/30/16 11:35 11/30/16 16:44 11/30/16 20:40 12/01/16 05:50 Glucose (Fingerstick) 142mg/dL (70-99) 276mg/dL (70-99) 337mg/dL (70-99) White Blood Count 9.1x10^3/uL (4.0-11.0) Red Blood Count 3.57x10^6/uL (4.30-5.70) Hemoglobin 9.1g/dL (13.0-17.5) Hematocrit 28.5% (39.0-53.0) Mean Corpuscular Volume 80fL (79-100) Mean Corpuscular Hemoglobin 26pg (25-35) Mean Corpuscular Hemoglobin Concent 32g/dL (31-37) Red Cell Distribution Width 19.7% (11.5-14.5) Platelet Count 400x10^3/uL (140-400) Neutrophils (%) (Auto) 71% (31-73) Lymphocytes (%) (Auto) 18% (24-48) Monocytes (%) (Auto) 11% (0-9) Eosinophils (%) (Auto) 0% (0-3) Basophils (%) (Auto) 0% (0-3) Neutrophils # (Auto) 6.5x10^3uL (1.8-7.7) Lymphocytes # (Auto) 1.6x10^3/uL (1.0-4.8) Monocytes # (Auto) 1.0x10^3/uL (0.0-1.1) Eosinophils # (Auto) 0.0x10^3/uL (0.0-0.7) Basophils # (Auto) 0.0x10^3/uL (0.0-0.2) Sodium Level 134mmol/L (136-145) Potassium Level 4.1mmol/L (3.5-5.1) Chloride Level 97mmol/L (98-107) Carbon Dioxide Level 35mmol/L (21-32) Anion Gap 2 (6-14) Blood Urea Nitrogen 17mg/dL (8-26) Creatinine 1.0mg/dL (0.7-1.3) Estimated GFR (Cockcroft-Gault) 76.2 BUN/Creatinine Ratio 17 (6-20) Glucose Level 250mg/dL (70-99) Calcium Level 9.1mg/dL (8.5-10.1) Total Bilirubin 0.3mg/dL (0.2-1.0) Aspartate Amino Transf (AST/SGOT) 66U/L (15-37) Alanine Aminotransferase (ALT/SGPT) 45U/L (16-63) Alkaline Phosphatase 143U/L (46-116) Total Protein 6.4g/dL (6.4-8.2) Albumin 1.3g/dL (3.4-5.0) Albumin/Globulin Ratio 0.3 (1.0-1.7) Test 12/01/16 07:24 Glucose (Fingerstick) 222mg/dL (70-99) Laboratory Tests Test 11/30/16 11:35 11/30/16 16:44 11/30/16 20:40 12/01/16 05:50 Glucose (Fingerstick) 142mg/dL (70-99) 276mg/dL (70-99) 337mg/dL (70-99) White Blood Count 9.1x10^3/uL (4.0-11.0) Red Blood Count 3.57x10^6/uL (4.30-5.70) Hemoglobin 9.1g/dL (13.0-17.5) Hematocrit 28.5% (39.0-53.0) Mean Corpuscular Volume 80fL (79-100) Mean Corpuscular Hemoglobin 26pg (25-35) Mean Corpuscular Hemoglobin Concent 32g/dL (31-37) Red Cell Distribution Width 19.7% (11.5-14.5) Platelet Count 400x10^3/uL (140-400) Neutrophils (%) (Auto) 71% (31-73) Lymphocytes (%) (Auto) 18% (24-48) Monocytes (%) (Auto) 11% (0-9) Eosinophils (%) (Auto) 0% (0-3) Basophils (%) (Auto) 0% (0-3) Neutrophils # (Auto) 6.5x10^3uL (1.8-7.7) Lymphocytes # (Auto) 1.6x10^3/uL (1.0-4.8) Monocytes # (Auto) 1.0x10^3/uL (0.0-1.1) Eosinophils # (Auto) 0.0x10^3/uL (0.0-0.7) Basophils # (Auto) 0.0x10^3/uL (0.0-0.2) Sodium Level 134mmol/L (136-145) Potassium Level 4.1mmol/L (3.5-5.1) Chloride Level 97mmol/L (98-107) Carbon Dioxide Level 35mmol/L (21-32) Anion Gap 2 (6-14) Blood Urea Nitrogen 17mg/dL (8-26) Creatinine 1.0mg/dL (0.7-1.3) Estimated GFR (Cockcroft-Gault) 76.2 BUN/Creatinine Ratio 17 (6-20) Glucose Level 250mg/dL (70-99) Calcium Level 9.1mg/dL (8.5-10.1) Total Bilirubin 0.3mg/dL (0.2-1.0) Aspartate Amino Transf (AST/SGOT) 66U/L (15-37) Alanine Aminotransferase (ALT/SGPT) 45U/L (16-63) Alkaline Phosphatase 143U/L (46-116) Total Protein 6.4g/dL (6.4-8.2) Albumin 1.3g/dL (3.4-5.0) Albumin/Globulin Ratio 0.3 (1.0-1.7) Test 12/01/16 07:24 Glucose (Fingerstick) 222mg/dL (70-99) Microbiology 11/26/16 Blood Culture - Preliminary, Resulted 11/26/16 Blood Culture Result 1 (CHUCK) - Preliminary, Resulted 11/27/16 Gram Stain - Final, Complete 11/26/16 Urine Culture - Final, Complete 11/26/16 Urine Culture Result 1 (CHUCK) - Final, Complete Medications Current Medications Aspirin (Children'S Aspirin) 324 mg 1X ONCE PO Last administered on 11/24/16 15:02; Start 11/24/16 at 14:15; Stop 11/24/16 at 14:44; Status DC Ondansetron HCl (Zofran) 4 mg PRN Q8HRS PRN IV NAUSEA/VOMITING; Start 11/24/16 at 15:45; Stop 11/25/16 at 15:44; Status DC Nitroglycerin (Nitrostat) 0.4 mg PRN Q5MIN PRN SL CHEST PAIN; Start 11/24/16 at 15:45; Stop 11/25/16 at 15:44; Status DC Aspirin (Ceci Aspirin) 325 mg DAILY PO Last administered on 11/30/16 10:00; Start 11/25/16 at 09:00 Glucose (Insta-Glucose) 15 gm PRN DAILY PRN PO LOW GLUCOSE LEVEL PER PROTOCOL Last administered on 11/26/16 05:45; Start 11/25/16 at 01:30 Diclofenac Sodium (Voltaren) 2 martha QID TP Last administered on 11/30/16 16:56 ; Start 11/25/16 at 09:00 Divalproex Sodium (Depakote Er) 500 mg BID PO ; Start 11/25/16 at 09:00; Stop at 09:00; Status DC Donepezil HCl (Aricept) 10 mg HS PO ; Start 11/25/16 at 21:00; Stop 11/25/16 at 21:00; Status DC Gabapentin (Neurontin) 800 mg DAILY PO Last administered on 11/30/16 09:13; Start 11/25/16 at 09:00 Acetaminophen/ Hydrocodone Bitart (Lortab 10/325) 1 tab PRN QID PRN PO MODERATE PAIN Last administered on 11/30/16 22:17; Start 11/25/16 at 01:30 Lamotrigine (LaMICtal) 100 mg HS PO ; Start 11/25/16 at 21:00; Stop 11/25/16 at 21:00; Status DC Levothyroxine Sodium (Synthroid) 137 mcg DAILY07 PO Last administered on 09:13; Start 11/25/16 at 07:00 Linagliptin (Tradjenta) 5 mg DAILY PO Last administered on 11/30/16 09:13; Start 11/25/16 at 09:00 Lorazepam (Ativan) 1 mg TID PO Last administered on 11/28/16 09:17; Start at 09:00; Stop 11/28/16 at 11:32; Status DC Magnesium Oxide (Magnesium Oxide) 400 mg DAILY PO Last administered on 09:13; Start 11/25/16 at 09:00 Nortriptyline HCl (Pamelor) 25 mg QHS PO ; Start 11/25/16 at 21:00; Stop at 21:00; Status DC Oxycodone/ Acetaminophen (Percocet 5/325) 1 tab PRN Q6HRS PRN PO MILD PAIN Last administered on 11/29/16 17:40; Start 11/25/16 at 01:30 Pantoprazole Sodium (Protonix) 40 mg DAILYAC PO Last administered on 11/30/16 09:14; Start 11/25/16 at 07:30 Quetiapine Fumarate (SEROquel) 100 mg QHS PO ; Start 11/25/16 at 21:00; Stop at 21:00; Status DC Sennosides (Senna) 8.6 mg DAILY PO Last administered on 11/30/16 09:15; Start 11/25/16 at 09:00 Torsemide (Demadex) 20 mg BID94 PO Last administered on 11/30/16 16:45; Start 11/25/16 at 09:00 Non-Formulary Medication 15 mcg BID IH ; Start 11/25/16 at 09:00; Status UNV Non-Formulary Medication 3 mg DAILY PO ; Start 11/25/16 at 09:00 Fenofibrate (Lofibra) 134 mg DAILY PO Hypothyroidism Last administered on 09:13; Start 11/25/16 at 09:00 Non-Formulary Medication 1 cap TID PO ; Start 11/25/16 at 09:00; Stop 11/25/16 at 09:00; Status DC Insulin Aspart (Novolog) 10 units BID SQ Last administered on 11/25/16 21:41; Start 11/25/16 at 09:00; Stop 11/26/16 at 11:57; Status DC Non-Formulary Medication 50 unit QHS SQ ; Start 11/25/16 at 21:00; Stop at 21:00; Status DC Metoprolol Tartrate (Lopressor) 100 mg DAILY PO Last administered on 11/26/16 08:07; Start 11/25/16 at 09:00; Stop 11/26/16 at 13:58; Status DC Non-Formulary Medication 10 mg HS PO Atheroscletotic Heart Disease; Start at 21:00; Stop 11/25/16 at 21:00; Status DC Spironolactone (Aldactone) 100 mg DAILY PO Diuretic Last administered on 09:14; Start 11/25/16 at 09:00 Non-Formulary Medication 100 mg DAILY PO ; Start 11/25/16 at 09:00; Status UNV Divalproex Sodium (Depakote Er) 500 mg BID PO Last administered on 11/30/16 22 :15; Start 11/25/16 at 01:45 Donepezil HCl (Aricept) 10 mg HS PO Last administered on 11/30/16 22:16; Start 11/25/16 at 01:45 Lamotrigine (LaMICtal) 100 mg HS PO Last administered on 11/30/16 22:15; Start 11/25/16 at 01:45 Nortriptyline HCl (Pamelor) 25 mg QHS PO Last administered on 11/30/16 22:15; Start 11/25/16 at 01:45 Quetiapine Fumarate (SEROquel) 100 mg QHS PO Last administered on 11/30/16 22: 14; Start 11/25/16 at 01:45 Fluoxetine HCl (Prozac) 40 mg TID PO Last administered on 11/30/16 22:14; Start 11/25/16 at 02:00 Insulin Detemir (Levemir) 50 units QHS SQ Last administered on 11/25/16 21:41 ; Start 11/25/16 at 02:00; Stop 11/26/16 at 11:57; Status DC Atorvastatin Calcium (Lipitor) 40 mg HS PO Atheroscletotic Heart Disease Last administered on 11/30/16 22:15; Start 11/25/16 at 02:00 Albuterol Sulfate (Ventolin Neb Soln) 2.5 mg Q6H NEB Last administered on 07:26; Start 11/25/16 at 06:00 Heparin Sodium (Porcine) 5,000 unit Q8HRS SQ Last administered on 11/30/16 14: 06; Start 11/25/16 at 14:00 Vitamin A/Vitamin D (Vitamin A & D Ointment) 1 martha TID TP Last administered on 11/30/16 13:54; Start 11/25/16 at 21:00 Insulin Aspart (Novolog) 5 units BID SQ Last administered on 11/30/16 22:22; Start 11/26/16 at 21:00 Insulin Detemir (Levemir) 30 units QHS SQ Last administered on 11/30/16 22:22 ; Start 11/26/16 at 21:00 Dextrose (Dextrose 50%-Water Syringe) 12.5 gm PRN Q15MIN PRN IV SEE COMMENTS Last administered on 11/26/16 12:32; Start 11/26/16 at 12:15; Stop 11/30/16 at 10:30; Status DC Metoprolol Tartrate (Lopressor) 50 mg BID PO Last administered on 11/30/16 22: 16; Start 11/26/16 at 21:00 Isosorbide Mononitrate (Imdur) 30 mg DAILY PO Last administered on 11/30/16 09 :14; Start 11/26/16 at 15:00 Iohexol (Omnipaque 300 Mg/ml) 75 ml 1X ONCE IV Last administered on 11/26/16 15:57; Start 11/26/16 at 15:30; Stop 11/26/16 at 15:35; Status DC Info 1 each 1 each PRN DAILY PRN MC SEE COMMENTS; Start 11/26/16 at 15:45; Stop 11/28/16 at 15:44; Status DC Linezolid 300 ml @ 300 mls/hr Q12HR IV Last administered on 11/26/16 22:53; Start 11/26/16 at 21:00; Stop 11/27/16 at 08:00; Status DC Meropenem/Sodium Chloride (Merrem/Iv Sodium Chloride 0.9% 100ml) 100 ml @ 200 mls/hr Q8HRS IV Last administered on 11/30/16 06:12; Start 11/26/16 at 20:30; Stop 11/30/16 at 13:05; Status DC Acetaminophen (Tylenol) 650 mg PRN Q4HRS PRN PO fever Last administered on 20:35; Start 11/26/16 at 20:00 Vancomycin HCl 1 each 1 each PRN DAILY PRN MC SEE COMMENTS Last administered on 11/29/16 10:23; Start 11/27/16 at 08:00; Stop 11/30/16 at 13:36; Status DC Vancomycin HCl 2 gm/Sodium Chloride 500 ml @ 250 mls/hr 1X ONCE IV Last administered on 11/27/16 09:07; Start 11/27/16 at 09:00; Stop 11/27/16 at 10:59 ; Status DC Vancomycin HCl/ Sodium Chloride (Iv Sodium Chloride 0.9% 500ml Bag) 500 ml @ 250 mls/hr Q12H IV Last administered on 11/28/16 09:22; Start 11/27/16 at 21: 00; Stop 11/28/16 at 22:01; Status DC Vancomycin HCl 1 each 1X ONCE MC Last administered on 11/28/16 20:30; Start 11/28/16 at 20:30; Stop 11/28/16 at 20:31; Status DC Lidocaine/Sodium Bicarbonate (Buffered Lidocaine 1%) 20 ml STK-MED ONCE IJ ; Start 11/27/16 at 09:33; Stop 11/27/16 at 09:34; Status DC Midazolam HCl (Versed) 5 mg STK-MED ONCE .ROUTE ; Start 11/27/16 at 09:53; Stop 11/27/16 at 09:54; Status DC Fentanyl Citrate (Fentanyl 5ml Vial) 250 mcg STK-MED ONCE .ROUTE ; Start at 09:54; Stop 11/27/16 at 09:55; Status DC Lidocaine/Sodium Bicarbonate (Buffered Lidocaine 1%) 20 ml 1X ONCE IJ Last administered on 11/27/16 10:26; Start 11/27/16 at 10:00; Stop 11/27/16 at 10:06 ; Status DC Lidocaine HCl 5 ml 1X ONCE IJ ; Start 11/27/16 at 11:30; Stop 11/27/16 at 11:31 ; Status DC Lorazepam 1 mg 1 mg PRN TID PRN PO ANXIETY Last administered on 11/29/16 17:39 ; Start 11/28/16 at 11:45 Vancomycin HCl/ Sodium Chloride (Iv Sodium Chloride 0.9% 500ml Bag) 500 ml @ 250 mls/hr Q18H IV Last administered on 11/30/16 00:21; Start 11/29/16 at 06: 00; Stop 11/30/16 at 13:05; Status DC Vancomycin HCl 1 each 1X ONCE MC ; Start 12/01/16 at 11:30; Stop 12/01/16 at 11: 30; Status DC Insulin Aspart (Novolog) 0-5 UNITS TIDWMEALS SQ Last administered on 11/30/16 16:54; Start 11/29/16 at 17:00 Dextrose 12.5 gm 12.5 gm PRN Q15MIN PRN IV SEE COMMENTS; Start 11/29/16 at 16: 45 Cefazolin Sodium 2 gm/Sodium Chloride 50 ml @ 100 mls/hr Q8HRS IV ; Start 11/30 at 14:00; Status UNV Cefazolin Sodium/ Dextrose (Ancef 2gm Premix) 50 ml @ 100 mls/hr Q8HRS IV Last administered on 12/01/16 05:53; Start 11/30/16 at 14:00 Lactobacillus Acidophilus (Bacid, Constance-Bid) 1 tab TIDWMEALS PO Last administered on 11/30/16 16:45; Start 11/30/16 at 17:00 Bupivacaine HCl (Sensorcaine Mpf 0.5%) 30 ml STK-MED ONCE .ROUTE ; Start at 06:41; Stop 12/01/16 at 06:42; Status DC Lidocaine HCl 20 ml STK-MED ONCE .ROUTE ; Start 12/01/16 at 06:41; Stop 12/01/16 at 06:42; Status DC Active Scripts Active Reported Voltaren (Diclofenac Sodium) 100 Gm Gel..gram. 2 Gm TP QID Tradjenta (Linagliptin) 5 Mg Tablet 1 Tab PO DAILY Torsemide 20 Mg Tablet 40 Tab PO BID Spironolactone 100 Mg Tablet 1 Tab PO DAILY Seroquel (Quetiapine Fumarate) 100 Mg Tablet 1 Tab PO QHS Senna (Sennosides) 8.6 Mg Tablet 8.6 Mg PO DAILY Prozac (Fluoxetine Hcl) 40 Mg Capsule 1 Cap PO TID Protonix (Pantoprazole Sodium) 40 Mg Tablet.dr 40 Mg PO DAILY Oxycodone-Acetaminophen 5-325 (Oxycodone Hcl/Acetaminophen) 1 Each Tablet 1 Each PO PRN Q6HRS PRN Novolog (Insulin Aspart) 100 Unit/1 Ml Cartridge 10 Unit SQ BID Nortriptyline Hcl 25 Mg Capsule 50 Cap PO QHS Metoprolol Tartrate 100 Mg Tablet 100 Tab PO DAILY Magnesium Oxide 400 Mg Tablet 1 Tab PO DAILY Lorazepam 1 Mg Tablet 1 Tab PO TID Levothyroxine Sodium 137 Mcg Tablet 1 Tab PO DAILY Lantus Solostar (Insulin Glargine,Hum.rec.anlog) 100 Unit/1 Ml Insuln.pen 50 Unit SQ QHS Lamotrigine 100 Mg Tablet 1 Tab PO HS Hydrocodone-Apap 10-325 (Hydrocodone Bit/Acetaminophen) 1 Each Tablet 1 Tab PO QID PRN Glucose Gel (Dextrose) 38 Gm Gel..gram. 38 Gm PO Gabapentin 400 Mg Capsule 800 Mg PO DAILY [non] Fenofibrate (Fenofibrate Nanocrystallized) 145 Mg Tablet 1 Tab PO DAILY Donepezil Hcl 10 Mg Tablet 1 Tab PO HS Depakote Er (Divalproex Sodium) 500 Mg Tab.er.24h 2 Tab PO BID Rosuvastatin Calcium 10 Mg Tablet 10 Mg PO HS Coenzyme Q-10 (Ubidecarenone) 50 Mg Capsule 100 Mg PO DAILY Brovana (Arformoterol Tartrate) 15 Mcg/2 Ml Vial.neb 15 Mcg IH BID Vraylar (Cariprazine Hydrochloride) 3 Mg Capsule 3 Mg PO DAILY Aspirin 325 Mg Tablet 1 Tab PO DAILY Vitals/I & O Vital Sign - Last 24 Hours 11/30/16 11/30/16 11/30/16 11/30/16 09:59 10:07 12:38 13:52 Temp 98.1 98.1 Pulse 68 70 Resp 16 B/P 121/58 121/58 Pulse Ox 97 O2 Delivery Nasal Cannula Nasal Cannula Nasal Cannula O2 Flow Rate 2.0 1.5 2.0 11/30/16 11/30/16 11/30/16 11/30/16 14:17 14:55 19:00 19:35 Temp 97.9 98.5 97.9 98.5 Pulse 71 76 Resp 16 16 20 B/P 126/59 110/55 Pulse Ox 97 94 97 O2 Delivery Nasal Cannula Room Air Nasal Cannula Nasal Cannula O2 Flow Rate 2.0 2.0 2.0 1.5 11/30/16 11/30/16 11/30/16 11/30/16 20:00 22:16 22:17 23:00 Temp 98.4 98.4 Pulse 75 74 Resp 16 B/P 110/55 128/89 Pulse Ox 97 O2 Delivery Nasal Cannula Nasal Cannula Nasal Cannula O2 Flow Rate 2.0 2.0 12/01/16 12/01/16 12/01/16 12/01/16 00:08 03:00 07:17 07:26 Temp 98.0 98.4 98.0 98.4 Pulse 70 71 Resp 18 20 B/P 116/56 108/58 Pulse Ox 92 93 96 96 O2 Delivery BiPAP/CPAP Nasal Cannula Nasal Cannula BiPAP/CPAP O2 Flow Rate 2.0 2.0 2.0 2.0 12/01/16 07:31 Temp 97.6 97.6 Pulse 89 Resp 20 B/P 105/76 Pulse Ox 92 O2 Delivery Nasal Cannula O2 Flow Rate 2.0 Intake and Output 11/30/16 11/30/16 12/01/16 15:00 23:00 07:00 Output Total 1750 ml 1900 ml Balance -1750 ml -1900 ml JB SHEA MD December 01, 2016 10:01
[2016-12-01] MEDS ORDERED: PROPOFOL 20 ML IV ONE (11:16)
[2016-12-01] MEDS ORDERED: ONDANSETRON PF 4 MG/2 ML VIAL. ONE (11:16)
[2016-12-01] MEDS ORDERED: LIDOCAINE 2% 100 MG/5 ML SYRINGE. ONE (11:16)
[2016-12-01] MEDS ORDERED: FAMOTIDINE 20 MG/2 ML VIAL ONE (11:16)
[2016-12-01] MEDS ORDERED: fentaNYL PF VIAL 100 MCG/2 ML VIAL ONE (11:16)
[2016-12-01] MEDS ORDERED: DEXAMETHASONE SOD PHOS 20 MG/5 ML VIAL. ONE (11:16)
--- NOTE | 2016-12-01 11:22 | PDOC2 ---
PALLIATIVE CARE Palliative Care Note Palliative Care Consult requested by Dr. Ram to address goals of care Patient is in OR --I&D of right knee. Will attempt to meet tomorrow. LEESA DOMINGUEZ December 01, 2016 11:22
--- NOTE | 2016-12-01 12:06 | PDOC ---
BRIEF OPERATIVE NOTE Date: December 01, 2016 Pre-Op Diagnosis L knee infected megaprosthesis Post-Op Diagnosis same Procedure Performed I and D L knee/thigh Surgeon Karina Export Coordinator Herber Anesthesiologist Yahaira Anesthesia Type: General Blood Loss 50mL Specimens Obtained Cxs Findings 600mL gross purulence expressed from thigh/knee Complications none ANIL GARCIA II, MD December 01, 2016 12:06
[2016-12-01] MEDS ORDERED: SEVOFLURANE 61 TO 120 MINUTES. IH ONE (12:44)
[2016-12-01] MEDS: oxyCODONE/APAP 5/325 1 TAB TABLET PO PRN (15:50)
[2016-12-01] MEDS: NORTRIPTYLINE 25 MG CAPSULE PO SCH (21:36)
[2016-12-01] MEDS: DONEPEZIL HCL 10 MG TABLET. PO SCH (21:37)
[2016-12-01] MEDS: ATORVASTATIN CALCIUM 40 MG TABLET. PO SCH (21:38)
[2016-12-01] MEDS: QUEtiapine 100 MG TABLET. PO SCH (21:38)
[2016-12-01] MEDS: lamoTRIgine 100 MG TABLET. PO SCH (21:39)
[2016-12-01] MEDS: INSULIN DETEMIR 300 UNITS/3 ML INSULN.PEN. SQ SCH (21:53)
[2016-12-02] MEDS: DICLOFENAC SODIUM 1% TOPICAL GEL 100GM TUBE. TP SCH ×4 (00:58→21:00)
[2016-12-02 03:57] VITALS: BP 96/49
[2016-12-02 04:54] LABS: BASO % 0 % (0-3); EOS % 0 % (0-3); HEMATOCRIT 31.7 % (39.0-53.0); HEMOGLOBIN 9.8 g/dL (13.0-17.5); LYMPH # 2.1 x10^3/uL (1.0-4.8); LYMPH % 20 % (24-48); MEAN CORPUSCULAR HEMOGLOBIN 25 pg (25-35); MEAN CORPUSCULAR HGB CONC 31 g/dL (31-37); MEAN CORPUSCULAR VOLUME 81 fL (79-100); MONO % 9 % (0-9); NEUT % 71 % (31-73); PLATELET COUNT 420 x10^3/uL (140-400); RED BLOOD COUNT 3.94 x10^6/uL (4.30-5.70); RED CELL DISTRIBUTION WIDTH 19.9 % (11.5-14.5); WHITE BLOOD COUNT 10.5 x10^3/uL (4.0-11.0)
[2016-12-02] MEDS: HEPARIN PF for SUB-Q USE 5,000 UNIT/0.5 ML VIAL. SQ SCH ×3 (05:24→21:43)
[2016-12-02 05:28] LABS: ALBUMIN 1.5 g/dL (3.4-5.0); ALBUMIN/GLOBULIN RATIO 0.3 (1.0-1.7); CREATININE 1.1 mg/dL (0.7-1.3); GFR 68.3; POTASSIUM 4.6 mmol/L (3.5-5.1); TOTAL BILIRUBIN 0.3 mg/dL (0.2-1.0); TOTAL PROTEIN 5.8 g/dL (6.4-8.2)
--- NOTE | 2016-12-02 05:28 | PN ---
DATE: 12/01/2016 SUBJECTIVE: The patient is resting, slightly propped up in bed, in no apparent respiratory distress. He is awake and alert. He is scheduled for incision and drainage of his left knee and left thigh fluid collection. Nursing staff did not voice any concern. OBJECTIVE: GENERAL: On examining him today, he was pale, but no jaundice, cyanosis, or thyromegaly. No jugular venous distention. No limb edema. VITAL SIGNS: His heart rate was 75, blood pressure was 105/53, temperature was 97.3, respiratory rate was 16, and oxygen saturation was 93% on 2 liters of oxygen. The rest of clinical examination has not changed. His intake was 1260, output was 600. LABORATORY DATA: Showed a white cell count of 9100, hemoglobin 9.1, hematocrit 28.5, MCV 80 and platelet count 400,000. His chemistry showed a serum sodium 134, potassium 4.1, chloride 97, bicarbonate 35, anion gap of 2, BUN 17, creatinine 1. His estimated GFR was 76 mL per minute, his glucose was 250, calcium was ____. Total bilirubin and ALT normal. AST and alkaline phosphatase slightly elevated. Total protein was 6.4, albumin 1.3. ASSESSMENT: 1. Streptococcus anginosus bacteremia. 2. Infected complex left leg fluid collection with hardware in place, status post aspiration. 3. Methicillin-resistant Staphylococcus aureus, Enterococcus of urine. 4. Bilateral lower extremity wounds, 5. Arrhythmia. 6. Severe protein-calorie malnutrition. PLAN: Continue with IV antibiotic and continue with wound care. PATTY CHRISTIAN MD DR: YUMI/harry JOB#: [id number] / [id number]
[2016-12-02 07:00] VITALS: BP 103/48
[2016-12-02] MEDS: ALBUTEROL SULFATE 2.5 MG/3 ML NEBU. NEB SCH ×4 (07:13→18:00)
--- NOTE | 2016-12-02 08:25 | PDOC ---
ORTHO PROGRESS NOTES Subjective "my leg is 100% better" no new complaints Vitals Vital Signs Date Time Temp Pulse Resp B/P Pulse Ox O2 Delivery O2 Flow Rate FiO2 12/02/16 07:18 100 Nasal Cannula 2.0 12/02/16 07:00 97.9 76 14 103/48 97.9 Labs Laboratory Tests Test 11/30/16 11:35 11/30/16 16:44 11/30/16 20:40 12/01/16 05:50 Glucose (Fingerstick) 142mg/dL (70-99) 276mg/dL (70-99) 337mg/dL (70-99) White Blood Count 9.1x10^3/uL (4.0-11.0) Red Blood Count 3.57x10^6/uL (4.30-5.70) Hemoglobin 9.1g/dL (13.0-17.5) Hematocrit 28.5% (39.0-53.0) Mean Corpuscular Volume 80fL (79-100) Mean Corpuscular Hemoglobin 26pg (25-35) Mean Corpuscular Hemoglobin Concent 32g/dL (31-37) Red Cell Distribution Width 19.7% (11.5-14.5) Platelet Count 400x10^3/uL (140-400) Neutrophils (%) (Auto) 71% (31-73) Lymphocytes (%) (Auto) 18% (24-48) Monocytes (%) (Auto) 11% (0-9) Eosinophils (%) (Auto) 0% (0-3) Basophils (%) (Auto) 0% (0-3) Neutrophils # (Auto) 6.5x10^3uL (1.8-7.7) Lymphocytes # (Auto) 1.6x10^3/uL (1.0-4.8) Monocytes # (Auto) 1.0x10^3/uL (0.0-1.1) Eosinophils # (Auto) 0.0x10^3/uL (0.0-0.7) Basophils # (Auto) 0.0x10^3/uL (0.0-0.2) Sodium Level 134mmol/L (136-145) Potassium Level 4.1mmol/L (3.5-5.1) Chloride Level 97mmol/L (98-107) Carbon Dioxide Level 35mmol/L (21-32) Anion Gap 2 (6-14) Blood Urea Nitrogen 17mg/dL (8-26) Creatinine 1.0mg/dL (0.7-1.3) Estimated GFR (Cockcroft-Gault) 76.2 BUN/Creatinine Ratio 17 (6-20) Glucose Level 250mg/dL (70-99) Calcium Level 9.1mg/dL (8.5-10.1) Total Bilirubin 0.3mg/dL (0.2-1.0) Aspartate Amino Transf (AST/SGOT) 66U/L (15-37) Alanine Aminotransferase (ALT/SGPT) 45U/L (16-63) Alkaline Phosphatase 143U/L (46-116) Total Protein 6.4g/dL (6.4-8.2) Albumin 1.3g/dL (3.4-5.0) Albumin/Globulin Ratio 0.3 (1.0-1.7) Test 12/01/16 07:24 12/01/16 13:18 12/01/16 17:07 12/01/16 17:09 Glucose (Fingerstick) 222mg/dL (70-99) 139mg/dL (70-99) 231mg/dL (70-99) 213mg/dL (70-99) Test 12/01/16 21:25 12/02/16 04:30 12/02/16 07:39 Glucose (Fingerstick) 284mg/dL (70-99) 199mg/dL (70-99) White Blood Count 10.5x10^3/uL (4.0-11.0) Red Blood Count 3.94x10^6/uL (4.30-5.70) Hemoglobin 9.8g/dL (13.0-17.5) Hematocrit 31.7% (39.0-53.0) Mean Corpuscular Volume 81fL (79-100) Mean Corpuscular Hemoglobin 25pg (25-35) Mean Corpuscular Hemoglobin Concent 31g/dL (31-37) Red Cell Distribution Width 19.9% (11.5-14.5) Platelet Count 420x10^3/uL (140-400) Neutrophils (%) (Auto) 71% (31-73) Lymphocytes (%) (Auto) 20% (24-48) Monocytes (%) (Auto) 9% (0-9) Eosinophils (%) (Auto) 0% (0-3) Basophils (%) (Auto) 0% (0-3) Neutrophils # (Auto) 7.5x10^3uL (1.8-7.7) Lymphocytes # (Auto) 2.1x10^3/uL (1.0-4.8) Monocytes # (Auto) 0.9x10^3/uL (0.0-1.1) Eosinophils # (Auto) 0.0x10^3/uL (0.0-0.7) Basophils # (Auto) 0.0x10^3/uL (0.0-0.2) Sodium Level 135mmol/L (136-145) Potassium Level 4.6mmol/L (3.5-5.1) Chloride Level 98mmol/L (98-107) Carbon Dioxide Level 32mmol/L (21-32) Anion Gap 5 (6-14) Blood Urea Nitrogen 21mg/dL (8-26) Creatinine 1.1mg/dL (0.7-1.3) Estimated GFR (Cockcroft-Gault) 68.3 BUN/Creatinine Ratio 19 (6-20) Glucose Level 242mg/dL (70-99) Calcium Level 9.0mg/dL (8.5-10.1) Total Bilirubin 0.3mg/dL (0.2-1.0) Aspartate Amino Transf (AST/SGOT) 81U/L (15-37) Alanine Aminotransferase (ALT/SGPT) 43U/L (16-63) Alkaline Phosphatase 158U/L (46-116) Total Protein 5.8g/dL (6.4-8.2) Albumin 1.5g/dL (3.4-5.0) Albumin/Globulin Ratio 0.3 (1.0-1.7) Laboratory Tests Test 12/01/16 13:18 12/01/16 17:07 12/01/16 17:09 12/01/16 21:25 Glucose (Fingerstick) 139mg/dL (70-99) 231mg/dL (70-99) 213mg/dL (70-99) 284mg/dL (70-99) Test 12/02/16 04:30 12/02/16 07:39 White Blood Count 10.5x10^3/uL (4.0-11.0) Red Blood Count 3.94x10^6/uL (4.30-5.70) Hemoglobin 9.8g/dL (13.0-17.5) Hematocrit 31.7% (39.0-53.0) Mean Corpuscular Volume 81fL (79-100) Mean Corpuscular Hemoglobin 25pg (25-35) Mean Corpuscular Hemoglobin Concent 31g/dL (31-37) Red Cell Distribution Width 19.9% (11.5-14.5) Platelet Count 420x10^3/uL (140-400) Neutrophils (%) (Auto) 71% (31-73) Lymphocytes (%) (Auto) 20% (24-48) Monocytes (%) (Auto) 9% (0-9) Eosinophils (%) (Auto) 0% (0-3) Basophils (%) (Auto) 0% (0-3) Neutrophils # (Auto) 7.5x10^3uL (1.8-7.7) Lymphocytes # (Auto) 2.1x10^3/uL (1.0-4.8) Monocytes # (Auto) 0.9x10^3/uL (0.0-1.1) Eosinophils # (Auto) 0.0x10^3/uL (0.0-0.7) Basophils # (Auto) 0.0x10^3/uL (0.0-0.2) Sodium Level 135mmol/L (136-145) Potassium Level 4.6mmol/L (3.5-5.1) Chloride Level 98mmol/L (98-107) Carbon Dioxide Level 32mmol/L (21-32) Anion Gap 5 (6-14) Blood Urea Nitrogen 21mg/dL (8-26) Creatinine 1.1mg/dL (0.7-1.3) Estimated GFR (Cockcroft-Gault) 68.3 BUN/Creatinine Ratio 19 (6-20) Glucose Level 242mg/dL (70-99) Calcium Level 9.0mg/dL (8.5-10.1) Total Bilirubin 0.3mg/dL (0.2-1.0) Aspartate Amino Transf (AST/SGOT) 81U/L (15-37) Alanine Aminotransferase (ALT/SGPT) 43U/L (16-63) Alkaline Phosphatase 158U/L (46-116) Total Protein 5.8g/dL (6.4-8.2) Albumin 1.5g/dL (3.4-5.0) Albumin/Globulin Ratio 0.3 (1.0-1.7) Glucose (Fingerstick) 199mg/dL (70-99) Notes drain output reviewed A and A this am LLE: incision ok nv status unchanged Assessment and Plan palliative I and D L thigh/knee abx per ID care per Primary from my standpoint, ok to D/C ANIL GARCIA II, MD December 02, 2016 08:25
[2016-12-02] MEDS: ISOSORBIDE MONONITRATE ER 30 MG TAB.ER.24H PO SCH (09:00)
[2016-12-02] MEDS: METOPROLOL TART IMMED RELEASE 50 MG TABLET. PO SCH ×2 (09:00→21:00)
--- NOTE | 2016-12-02 09:14 | OP ---
DATE OF SURGERY: 12/01/2016 SURGEON: Kevin Garcia MD FOREMAN/PILE DRIVING AND ERECTION: Colby Craven. ANESTHESIA: General. PREOPERATIVE DIAGNOSIS: Infected left distal femur megaprosthesis. POSTOPERATIVE DIAGNOSIS: Infected left distal femur megaprosthesis. PROCEDURE PERFORMED: Irrigation and debridement of left knee and thigh fluid collection. FINDINGS: There was approximately 600-700 mL of gross purulence that was aspirated and removed during this procedure. The knee and thigh wounds were purulent collections that were continuous and were all one large collection. ESTIMATED BLOOD LOSS: 50 mL COMPLICATIONS: None. REASON FOR PROCEDURE: The patient is a very pleasant 61-year-old gentleman who developed thigh and knee pain approximately 6-8 weeks after his implantation of his left knee megaprosthesis in late 03/2015. He has had progressive pain and swelling at that area since then. He was admitted here for altered mental status and underwent a Cardiac, Neurology workup. Infectious Disease has been following him as well. Imaging revealed a large fluid collection and given his clinical findings, seemed consistent with an infection. 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 We therefore proceeded with the above surgery. DESCRIPTION OF PROCEDURE: The patient was greeted in the preoperative area by myself. Correct extremity was marked and verified. He was taken back to the operative suite and he was maintained on his routine antibiotics. Once in the OR, he was transferred gently supine to the OR table and secured to the bed after successful induction of general anesthesia. We then placed a nonsterile tourniquet to his left thigh and proceeded to prep and drape the left lower extremity in our usual sterile fashion. We then conducted our standard preoperative timeout. After this, we held this leg elevated while the prep was drying and I insufflated the tourniquet at this point. No Esmarch was used. After the tourniquet was insufflated, I made approximately an 8 cm incision over the proximal portion of his anterior midline skin incision for his knee replacement and dissected subcutaneous tissue with electrocautery until I identified the quadriceps tendon. I then incised the quad tendon and bone dissected. There was a fibrous layer underneath this and I incised this and this allowed a large amount of a yellow and greenish purulent material to erupt from the incision. After aspirating this out, I bluntly palpated along, could feel his megaprosthesis and I digitally explored his knee as well as the thigh fluid collection. I used a Krzysztof as well, but did not encounter any loculations. I then irrigated out his knee and this lateral thigh fluid collection with 3000 mL of sterile normal saline. We took cultures of this purulent material as it initially erupted from the incision. After this, we then closed the arthrotomy proximally with simple interrupted 0 PDS followed by inverted interrupted 2-0 for the subcutaneous tissue and celina for the skin. Prior to accomplishing wound closure, I placed a one-eighth inch Hemovac exiting from his lateral thigh, distal thigh incision. Also, prior to accomplishing wound closure, all counts were reported as correct x 2. No complications. The patient tolerated the surgery well. At the conclusion of surgery, he was awakened from anesthesia, transferred gently supine to the hospital bed and taken to PACU in a stable and extubated condition. Postop plan is to follow along with his clinical course. We will monitor drain output. Antibiotics will be continued per Infectious Disease. KEVIN GARCIA MD DR: ANTON/harry JOB#: [id number] / [id number] ASHWIN
[2016-12-02] MEDS: PANTOPRAZOLE 40 MG TABLET.DR. PO SCH (09:25)
[2016-12-02] MEDS: LEVOTHYROXINE 137 MCG TABLET PO SCH (09:25)
[2016-12-02] MEDS: DIVALPROEX EXTENDED RELEASE 500 MG TAB.ER.24H. PO SCH ×2 (09:25→21:04)
[2016-12-02] MEDS: SPIRONOLACTONE 25 MG TABLET PO SCH (09:26)
[2016-12-02] MEDS: MAGNESIUM OXIDE 400 MG TABLET PO SCH (09:26)
[2016-12-02] MEDS: SENNOSIDES 8.6 MG TABLET PO SCH (09:26)
[2016-12-02] MEDS: FLUoxetine HCL 20 MG CAPSULE PO SCH ×3 (09:26→21:02)
[2016-12-02] MEDS: LINAGLIPTIN 5 MG TABLET PO SCH (09:26)
[2016-12-02] MEDS: CARIPRAZINE HYDROCHLORIDE 3 MG PO SCH (09:27)
[2016-12-02] MEDS: FENOFIBRATE,MICRONIZED 134 MG CAPSULE PO SCH (09:27)
[2016-12-02] MEDS: ASPIRIN 325 MG TABLET PO SCH (09:27)
[2016-12-02] MEDS: GABAPENTIN 400 MG CAPSULE. PO SCH (09:27)
[2016-12-02] MEDS: LACTOBACILLUS ACIDOPH & BULGAR 1 TABLET. PO SCH ×3 (09:27→17:03)
[2016-12-02] MEDS: TORSEMIDE 20 MG TABLET. PO SCH ×2 (09:27→17:04)
[2016-12-02] MEDS: VITS A & D/LANOLIN TOPICAL OINTMENT 56GM TUBE. TP SCH ×3 (09:29→21:29)
[2016-12-02] MEDS: INSULIN ASPART 300 UNITS/3 ML INSULN.PEN SQ SCH ×5 (09:48→21:44)
--- NOTE | 2016-12-02 09:52 | PDOC ---
Infectious Disease Note Subjective Subjective awake, says feeling good ROS ROS GEN: Denies fevers, chills, sweats HEENT: Denies blurred vision, sore throat CV: Denies chest pain RESP: Denies shortness of air, cough GI: Denies n/v/d NEURO: Denies confusion, dizziness MSK: Denies weakness, joint pain/swelling Vital Sign Vital Signs Vital Signs Date Time Temp Pulse Resp B/P Pulse Ox O2 Delivery O2 Flow Rate FiO2 12/02/16 07:18 100 Nasal Cannula 2.0 12/02/16 07:00 97.9 76 14 103/48 97.9 Physical Exam PHYSICAL EXAM GENERAL: NAD, Alert HEENT: PERRL, OC/OP NECK: Supple, no JVD, no LN LUNGS: Clear HEART: S1S2, no gallop, no murmur ABD: Soft, NT, no organomegaly, no rebound EXT: No edema, no cyanosis MDS NURSE: Alert, oriented x 3, no focal neurologic deficit SKIN: No rash IV: ok Labs Lab Laboratory Tests Test 12/01/16 13:18 12/01/16 17:07 12/01/16 17:09 12/01/16 21:25 Glucose (Fingerstick) 139mg/dL (70-99) 231mg/dL (70-99) 213mg/dL (70-99) 284mg/dL (70-99) Test 12/02/16 04:30 12/02/16 07:39 White Blood Count 10.5x10^3/uL (4.0-11.0) Red Blood Count 3.94x10^6/uL (4.30-5.70) Hemoglobin 9.8g/dL (13.0-17.5) Hematocrit 31.7% (39.0-53.0) Mean Corpuscular Volume 81fL (79-100) Mean Corpuscular Hemoglobin 25pg (25-35) Mean Corpuscular Hemoglobin Concent 31g/dL (31-37) Red Cell Distribution Width 19.9% (11.5-14.5) Platelet Count 420x10^3/uL (140-400) Neutrophils (%) (Auto) 71% (31-73) Lymphocytes (%) (Auto) 20% (24-48) Monocytes (%) (Auto) 9% (0-9) Eosinophils (%) (Auto) 0% (0-3) Basophils (%) (Auto) 0% (0-3) Neutrophils # (Auto) 7.5x10^3uL (1.8-7.7) Lymphocytes # (Auto) 2.1x10^3/uL (1.0-4.8) Monocytes # (Auto) 0.9x10^3/uL (0.0-1.1) Eosinophils # (Auto) 0.0x10^3/uL (0.0-0.7) Basophils # (Auto) 0.0x10^3/uL (0.0-0.2) Sodium Level 135mmol/L (136-145) Potassium Level 4.6mmol/L (3.5-5.1) Chloride Level 98mmol/L (98-107) Carbon Dioxide Level 32mmol/L (21-32) Anion Gap 5 (6-14) Blood Urea Nitrogen 21mg/dL (8-26) Creatinine 1.1mg/dL (0.7-1.3) Estimated GFR (Cockcroft-Gault) 68.3 BUN/Creatinine Ratio 19 (6-20) Glucose Level 242mg/dL (70-99) Calcium Level 9.0mg/dL (8.5-10.1) Total Bilirubin 0.3mg/dL (0.2-1.0) Aspartate Amino Transf (AST/SGOT) 81U/L (15-37) Alanine Aminotransferase (ALT/SGPT) 43U/L (16-63) Alkaline Phosphatase 158U/L (46-116) Total Protein 5.8g/dL (6.4-8.2) Albumin 1.5g/dL (3.4-5.0) Albumin/Globulin Ratio 0.3 (1.0-1.7) Glucose (Fingerstick) 199mg/dL (70-99) Objective Assessment Fever. better Strep anginosis bacteremia. POA Infected complex left leg fluid collection with hardware in place. s/p aspiration, 11/27. Strep anginosis ,, s/p I and D , coag neg staph likely contaminant since it was only in one culture MRSA and enterococcus in urine. POA PCN/Clinda/Sulfa allergy Has tolerated Rocephin Bilateral LE wounds Arrhythmias Left ? opacity Severe protein malnutrition H/o strep anginosis/intermedius bacteremia Plan Plan of Care cont cefazolin f/u am labs local wound care LOWELL ROSAS MD December 02, 2016 09:52
[2016-12-02 11:00] VITALS: BP 84/40
--- NOTE | 2016-12-02 11:19 | PDOC ---
PROGRESS NOTES Assessment Problems Medical Problems: (1) Chest pain Status: Acute Metabolic encephalopathy. Dementia Status-post I&D left knee Plan Will follow Subjective No complaints Objective Vital Signs Date Time Temp Pulse Resp B/P Pulse Ox O2 Delivery O2 Flow Rate FiO2 12/02/16 09:00 76 103/48 12/02/16 07:18 100 Nasal Cannula 2.0 12/02/16 07:00 97.9 14 97.9 Intake and Output 12/02/16 07:00 Intake Total 1040 ml Output Total 4045 ml Balance -3005 ml Intake Oral 1040 ml Output Urine Total 3775 ml Drainage Total 270 ml PHYSICAL EXAM Alert. Oriented to Month, year, place and person. PERRL. EOMI. CN: no focal findings. Muscle tone: normal. Muscle strength: 4/5 DTR: 1+ Plantar reflex: flexor Gait: not examined in bed. Sensory exam: no abnormal findings. No cerebellar signs elicited. Review of Relevant I have reviewed the following items michelle (where applicable) has been applied. Labs Laboratory Tests Test 11/30/16 11:35 11/30/16 16:44 11/30/16 20:40 12/01/16 05:50 Glucose (Fingerstick) 142mg/dL (70-99) 276mg/dL (70-99) 337mg/dL (70-99) White Blood Count 9.1x10^3/uL (4.0-11.0) Red Blood Count 3.57x10^6/uL (4.30-5.70) Hemoglobin 9.1g/dL (13.0-17.5) Hematocrit 28.5% (39.0-53.0) Mean Corpuscular Volume 80fL (79-100) Mean Corpuscular Hemoglobin 26pg (25-35) Mean Corpuscular Hemoglobin Concent 32g/dL (31-37) Red Cell Distribution Width 19.7% (11.5-14.5) Platelet Count 400x10^3/uL (140-400) Neutrophils (%) (Auto) 71% (31-73) Lymphocytes (%) (Auto) 18% (24-48) Monocytes (%) (Auto) 11% (0-9) Eosinophils (%) (Auto) 0% (0-3) Basophils (%) (Auto) 0% (0-3) Neutrophils # (Auto) 6.5x10^3uL (1.8-7.7) Lymphocytes # (Auto) 1.6x10^3/uL (1.0-4.8) Monocytes # (Auto) 1.0x10^3/uL (0.0-1.1) Eosinophils # (Auto) 0.0x10^3/uL (0.0-0.7) Basophils # (Auto) 0.0x10^3/uL (0.0-0.2) Sodium Level 134mmol/L (136-145) Potassium Level 4.1mmol/L (3.5-5.1) Chloride Level 97mmol/L (98-107) Carbon Dioxide Level 35mmol/L (21-32) Anion Gap 2 (6-14) Blood Urea Nitrogen 17mg/dL (8-26) Creatinine 1.0mg/dL (0.7-1.3) Estimated GFR (Cockcroft-Gault) 76.2 BUN/Creatinine Ratio 17 (6-20) Glucose Level 250mg/dL (70-99) Calcium Level 9.1mg/dL (8.5-10.1) Total Bilirubin 0.3mg/dL (0.2-1.0) Aspartate Amino Transf (AST/SGOT) 66U/L (15-37) Alanine Aminotransferase (ALT/SGPT) 45U/L (16-63) Alkaline Phosphatase 143U/L (46-116) Total Protein 6.4g/dL (6.4-8.2) Albumin 1.3g/dL (3.4-5.0) Albumin/Globulin Ratio 0.3 (1.0-1.7) Test 12/01/16 07:24 12/01/16 13:18 12/01/16 17:07 12/01/16 17:09 Glucose (Fingerstick) 222mg/dL (70-99) 139mg/dL (70-99) 231mg/dL (70-99) 213mg/dL (70-99) Test 12/01/16 21:25 12/02/16 04:30 12/02/16 07:39 Glucose (Fingerstick) 284mg/dL (70-99) 199mg/dL (70-99) White Blood Count 10.5x10^3/uL (4.0-11.0) Red Blood Count 3.94x10^6/uL (4.30-5.70) Hemoglobin 9.8g/dL (13.0-17.5) Hematocrit 31.7% (39.0-53.0) Mean Corpuscular Volume 81fL (79-100) Mean Corpuscular Hemoglobin 25pg (25-35) Mean Corpuscular Hemoglobin Concent 31g/dL (31-37) Red Cell Distribution Width 19.9% (11.5-14.5) Platelet Count 420x10^3/uL (140-400) Neutrophils (%) (Auto) 71% (31-73) Lymphocytes (%) (Auto) 20% (24-48) Monocytes (%) (Auto) 9% (0-9) Eosinophils (%) (Auto) 0% (0-3) Basophils (%) (Auto) 0% (0-3) Neutrophils # (Auto) 7.5x10^3uL (1.8-7.7) Lymphocytes # (Auto) 2.1x10^3/uL (1.0-4.8) Monocytes # (Auto) 0.9x10^3/uL (0.0-1.1) Eosinophils # (Auto) 0.0x10^3/uL (0.0-0.7) Basophils # (Auto) 0.0x10^3/uL (0.0-0.2) Sodium Level 135mmol/L (136-145) Potassium Level 4.6mmol/L (3.5-5.1) Chloride Level 98mmol/L (98-107) Carbon Dioxide Level 32mmol/L (21-32) Anion Gap 5 (6-14) Blood Urea Nitrogen 21mg/dL (8-26) Creatinine 1.1mg/dL (0.7-1.3) Estimated GFR (Cockcroft-Gault) 68.3 BUN/Creatinine Ratio 19 (6-20) Glucose Level 242mg/dL (70-99) Calcium Level 9.0mg/dL (8.5-10.1) Total Bilirubin 0.3mg/dL (0.2-1.0) Aspartate Amino Transf (AST/SGOT) 81U/L (15-37) Alanine Aminotransferase (ALT/SGPT) 43U/L (16-63) Alkaline Phosphatase 158U/L (46-116) Total Protein 5.8g/dL (6.4-8.2) Albumin 1.5g/dL (3.4-5.0) Albumin/Globulin Ratio 0.3 (1.0-1.7) Laboratory Tests Test 12/01/16 13:18 12/01/16 17:07 12/01/16 17:09 12/01/16 21:25 Glucose (Fingerstick) 139mg/dL (70-99) 231mg/dL (70-99) 213mg/dL (70-99) 284mg/dL (70-99) Test 12/02/16 04:30 12/02/16 07:39 White Blood Count 10.5x10^3/uL (4.0-11.0) Red Blood Count 3.94x10^6/uL (4.30-5.70) Hemoglobin 9.8g/dL (13.0-17.5) Hematocrit 31.7% (39.0-53.0) Mean Corpuscular Volume 81fL (79-100) Mean Corpuscular Hemoglobin 25pg (25-35) Mean Corpuscular Hemoglobin Concent 31g/dL (31-37) Red Cell Distribution Width 19.9% (11.5-14.5) Platelet Count 420x10^3/uL (140-400) Neutrophils (%) (Auto) 71% (31-73) Lymphocytes (%) (Auto) 20% (24-48) Monocytes (%) (Auto) 9% (0-9) Eosinophils (%) (Auto) 0% (0-3) Basophils (%) (Auto) 0% (0-3) Neutrophils # (Auto) 7.5x10^3uL (1.8-7.7) Lymphocytes # (Auto) 2.1x10^3/uL (1.0-4.8) Monocytes # (Auto) 0.9x10^3/uL (0.0-1.1) Eosinophils # (Auto) 0.0x10^3/uL (0.0-0.7) Basophils # (Auto) 0.0x10^3/uL (0.0-0.2) Sodium Level 135mmol/L (136-145) Potassium Level 4.6mmol/L (3.5-5.1) Chloride Level 98mmol/L (98-107) Carbon Dioxide Level 32mmol/L (21-32) Anion Gap 5 (6-14) Blood Urea Nitrogen 21mg/dL (8-26) Creatinine 1.1mg/dL (0.7-1.3) Estimated GFR (Cockcroft-Gault) 68.3 BUN/Creatinine Ratio 19 (6-20) Glucose Level 242mg/dL (70-99) Calcium Level 9.0mg/dL (8.5-10.1) Total Bilirubin 0.3mg/dL (0.2-1.0) Aspartate Amino Transf (AST/SGOT) 81U/L (15-37) Alanine Aminotransferase (ALT/SGPT) 43U/L (16-63) Alkaline Phosphatase 158U/L (46-116) Total Protein 5.8g/dL (6.4-8.2) Albumin 1.5g/dL (3.4-5.0) Albumin/Globulin Ratio 0.3 (1.0-1.7) Glucose (Fingerstick) 199mg/dL (70-99) Microbiology 11/26/16 Blood Culture - Final, Complete 11/26/16 Blood Culture Result 1 (CHUCK) - Final, Complete 11/27/16 Gram Stain - Final, Complete 11/26/16 Urine Culture - Final, Complete 11/26/16 Urine Culture Result 1 (CHUCK) - Final, Complete Medications Current Medications Aspirin (Children'S Aspirin) 324 mg 1X ONCE PO Last administered on 11/24/16 15:02; Start 11/24/16 at 14:15; Stop 11/24/16 at 14:44; Status DC Ondansetron HCl (Zofran) 4 mg PRN Q8HRS PRN IV NAUSEA/VOMITING; Start 11/24/16 at 15:45; Stop 11/25/16 at 15:44; Status DC Nitroglycerin (Nitrostat) 0.4 mg PRN Q5MIN PRN SL CHEST PAIN; Start 11/24/16 at 15:45; Stop 11/25/16 at 15:44; Status DC Aspirin (Ceci Aspirin) 325 mg DAILY PO Last administered on 12/02/16 09:27; Start 11/25/16 at 09:00 Glucose (Insta-Glucose) 15 gm PRN DAILY PRN PO LOW GLUCOSE LEVEL PER PROTOCOL Last administered on 11/26/16 05:45; Start 11/25/16 at 01:30 Diclofenac Sodium (Voltaren) 2 martha QID TP Last administered on 12/01/16 21:00; Start 11/25/16 at 09:00 Divalproex Sodium (Depakote Er) 500 mg BID PO ; Start 11/25/16 at 09:00; Stop at 09:00; Status DC Donepezil HCl (Aricept) 10 mg HS PO ; Start 11/25/16 at 21:00; Stop 11/25/16 at 21:00; Status DC Gabapentin (Neurontin) 800 mg DAILY PO Last administered on 12/02/16 09:27; Start 11/25/16 at 09:00 Acetaminophen/ Hydrocodone Bitart (Lortab 10/325) 1 tab PRN QID PRN PO MODERATE PAIN Last administered on 11/30/16 22:17; Start 11/25/16 at 01:30 Lamotrigine (LaMICtal) 100 mg HS PO ; Start 11/25/16 at 21:00; Stop 11/25/16 at 21:00; Status DC Levothyroxine Sodium (Synthroid) 137 mcg DAILY07 PO Last administered on 09:25; Start 11/25/16 at 07:00 Linagliptin (Tradjenta) 5 mg DAILY PO Last administered on 12/02/16 09:26; Start 11/25/16 at 09:00 Lorazepam (Ativan) 1 mg TID PO Last administered on 11/28/16 09:17; Start at 09:00; Stop 11/28/16 at 11:32; Status DC Magnesium Oxide (Magnesium Oxide) 400 mg DAILY PO Last administered on 09:26; Start 11/25/16 at 09:00 Nortriptyline HCl (Pamelor) 25 mg QHS PO ; Start 11/25/16 at 21:00; Stop at 21:00; Status DC Oxycodone/ Acetaminophen (Percocet 5/325) 1 tab PRN Q6HRS PRN PO MILD PAIN Last administered on 12/01/16 15:50; Start 11/25/16 at 01:30 Pantoprazole Sodium (Protonix) 40 mg DAILYAC PO Last administered on 12/02/16 09:25; Start 11/25/16 at 07:30 Quetiapine Fumarate (SEROquel) 100 mg QHS PO ; Start 11/25/16 at 21:00; Stop at 21:00; Status DC Sennosides (Senna) 8.6 mg DAILY PO Last administered on 12/02/16 09:26; Start 11/25/16 at 09:00 Torsemide (Demadex) 20 mg BID94 PO Last administered on 12/02/16 09:; Start 11/25/16 at 09:00 Non-Formulary Medication 15 mcg BID IH ; Start 11/25/16 at 09:00; Status UNV Non-Formulary Medication 3 mg DAILY PO Last administered on 12/02/16 09:; Start 11/25/16 at 09:00 Fenofibrate (Lofibra) 134 mg DAILY PO Hypothyroidism Last administered on 09:; Start 11/25/16 at 09:00 Non-Formulary Medication 1 cap TID PO ; Start 11/25/16 at 09:00; Stop 11/25/16 at 09:00; Status DC Insulin Aspart (Novolog) 10 units BID SQ Last administered on 11/25/16 21:41; Start 11/25/16 at 09:00; Stop 11/26/16 at 11:57; Status DC Non-Formulary Medication 50 unit QHS SQ ; Start 11/25/16 at 21:00; Stop at 21:00; Status DC Metoprolol Tartrate (Lopressor) 100 mg DAILY PO Last administered on 11/26/16 08:07; Start 11/25/16 at 09:00; Stop 11/26/16 at 13:58; Status DC Non-Formulary Medication 10 mg HS PO Atheroscletotic Heart Disease; Start at 21:00; Stop 11/25/16 at 21:00; Status DC Spironolactone (Aldactone) 100 mg DAILY PO Diuretic Last administered on 09:26; Start 11/25/16 at 09:00 Non-Formulary Medication 100 mg DAILY PO ; Start 11/25/16 at 09:00; Status UNV Divalproex Sodium (Depakote Er) 500 mg BID PO Last administered on 12/02/16 09: 25; Start 11/25/16 at 01:45 Donepezil HCl (Aricept) 10 mg HS PO Last administered on 12/01/16 21:37; Start 11/25/16 at 01:45 Lamotrigine (LaMICtal) 100 mg HS PO Last administered on 12/01/16 21:39; Start 11/25/16 at 01:45 Nortriptyline HCl (Pamelor) 25 mg QHS PO Last administered on 12/01/16 21:36; Start 11/25/16 at 01:45 Quetiapine Fumarate (SEROquel) 100 mg QHS PO Last administered on 12/01/16 21: 38; Start 11/25/16 at 01:45 Fluoxetine HCl (Prozac) 40 mg TID PO Last administered on 12/02/16 09:26; Start 11/25/16 at 02:00 Insulin Detemir (Levemir) 50 units QHS SQ Last administered on 11/25/16 21:41 ; Start 11/25/16 at 02:00; Stop 11/26/16 at 11:57; Status DC Atorvastatin Calcium (Lipitor) 40 mg HS PO Atheroscletotic Heart Disease Last administered on 12/01/16 21:38; Start 11/25/16 at 02:00 Albuterol Sulfate (Ventolin Neb Soln) 2.5 mg Q6H NEB Last administered on 07:13; Start 11/25/16 at 06:00 Heparin Sodium (Porcine) 5,000 unit Q8HRS SQ Last administered on 12/02/16 05: 24; Start 11/25/16 at 14:00 Vitamin A/Vitamin D (Vitamin A & D Ointment) 1 martha TID TP Last administered on 12/02/16 09:29; Start 11/25/16 at 21:00 Insulin Aspart (Novolog) 5 units BID SQ Last administered on 12/02/16 09:49; Start 11/26/16 at 21:00 Insulin Detemir (Levemir) 30 units QHS SQ Last administered on 12/01/16 21:53; Start 11/26/16 at 21:00 Dextrose (Dextrose 50%-Water Syringe) 12.5 gm PRN Q15MIN PRN IV SEE COMMENTS Last administered on 11/26/16 12:32; Start 11/26/16 at 12:15; Stop 11/30/16 at 10:30; Status DC Metoprolol Tartrate (Lopressor) 50 mg BID PO Last administered on 12/01/16 21: 38; Start 11/26/16 at 21:00 Isosorbide Mononitrate (Imdur) 30 mg DAILY PO Last administered on 11/30/16 09 :14; Start 11/26/16 at 15:00 Iohexol (Omnipaque 300 Mg/ml) 75 ml 1X ONCE IV Last administered on 11/26/16 15:57; Start 11/26/16 at 15:30; Stop 11/26/16 at 15:35; Status DC Info 1 each 1 each PRN DAILY PRN MC SEE COMMENTS; Start 11/26/16 at 15:45; Stop 11/28/16 at 15:44; Status DC Linezolid 300 ml @ 300 mls/hr Q12HR IV Last administered on 11/26/16 22:53; Start 11/26/16 at 21:00; Stop 11/27/16 at 08:00; Status DC Meropenem/Sodium Chloride (Merrem/Iv Sodium Chloride 0.9% 100ml) 100 ml @ 200 mls/hr Q8HRS IV Last administered on 11/30/16 06:12; Start 11/26/16 at 20:30; Stop 11/30/16 at 13:05; Status DC Acetaminophen (Tylenol) 650 mg PRN Q4HRS PRN PO fever Last administered on 20:35; Start 11/26/16 at 20:00 Vancomycin HCl 1 each 1 each PRN DAILY PRN MC SEE COMMENTS Last administered on 11/29/16 10:23; Start 11/27/16 at 08:00; Stop 11/30/16 at 13:36; Status DC Vancomycin HCl 2 gm/Sodium Chloride 500 ml @ 250 mls/hr 1X ONCE IV Last administered on 11/27/16 09:07; Start 11/27/16 at 09:00; Stop 11/27/16 at 10:59 ; Status DC Vancomycin HCl/ Sodium Chloride (Iv Sodium Chloride 0.9% 500ml Bag) 500 ml @ 250 mls/hr Q12H IV Last administered on 11/28/16 09:22; Start 11/27/16 at 21: 00; Stop 11/28/16 at 22:01; Status DC Vancomycin HCl 1 each 1X ONCE MC Last administered on 11/28/16 20:30; Start 11/28/16 at 20:30; Stop 11/28/16 at 20:31; Status DC Lidocaine/Sodium Bicarbonate (Buffered Lidocaine 1%) 20 ml STK-MED ONCE IJ ; Start 11/27/16 at 09:33; Stop 11/27/16 at 09:34; Status DC Midazolam HCl (Versed) 5 mg STK-MED ONCE .ROUTE ; Start 11/27/16 at 09:53; Stop 11/27/16 at 09:54; Status DC Fentanyl Citrate (Fentanyl 5ml Vial) 250 mcg STK-MED ONCE .ROUTE ; Start at 09:54; Stop 11/27/16 at 09:55; Status DC Lidocaine/Sodium Bicarbonate (Buffered Lidocaine 1%) 20 ml 1X ONCE IJ Last administered on 11/27/16 10:26; Start 11/27/16 at 10:00; Stop 11/27/16 at 10:06 ; Status DC Lidocaine HCl 5 ml 1X ONCE IJ ; Start 11/27/16 at 11:30; Stop 11/27/16 at 11:31 ; Status DC Lorazepam 1 mg 1 mg PRN TID PRN PO ANXIETY Last administered on 11/29/16 17:39 ; Start 11/28/16 at 11:45 Vancomycin HCl/ Sodium Chloride (Iv Sodium Chloride 0.9% 500ml Bag) 500 ml @ 250 mls/hr Q18H IV Last administered on 11/30/16 00:21; Start 11/29/16 at 06: 00; Stop 11/30/16 at 13:05; Status DC Vancomycin HCl 1 each 1X ONCE MC ; Start 12/01/16 at 11:30; Stop 12/01/16 at 11: 30; Status DC Insulin Aspart (Novolog) 0-5 UNITS TIDWMEALS SQ Last administered on 12/02/16 09:48; Start 11/29/16 at 17:00 Dextrose 12.5 gm 12.5 gm PRN Q15MIN PRN IV SEE COMMENTS; Start 11/29/16 at 16: 45 Cefazolin Sodium 2 gm/Sodium Chloride 50 ml @ 100 mls/hr Q8HRS IV ; Start 11/30 at 14:00; Status UNV Cefazolin Sodium/ Dextrose (Ancef 2gm Premix) 50 ml @ 100 mls/hr Q8HRS IV Last administered on 12/02/16 05:20; Start 11/30/16 at 14:00 Lactobacillus Acidophilus (Bacid, Constance-Bid) 1 tab TIDWMEALS PO Last administered on 12/02/16 09:27; Start 11/30/16 at 17:00 Bupivacaine HCl (Sensorcaine Mpf 0.5%) 30 ml STK-MED ONCE .ROUTE Last administered on 12/01/16 12:26; Start 12/01/16 at 06:41; Stop 12/01/16 at 06:42; Status DC Lidocaine HCl 20 ml STK-MED ONCE .ROUTE Last administered on 12/01/16 12:26; Start 12/01/16 at 06:41; Stop 12/01/16 at 06:42; Status DC Lidocaine HCl 100 mg 100 mg STK-MED ONCE .ROUTE ; Start 12/01/16 at 11:16; Stop 12/01/16 at 11:17; Status DC Propofol (Diprivan) 20 ml @ As Directed STK-MED ONCE IV ; Start 12/01/16 at 11:16 ; Stop 12/01/16 at 11:17; Status DC Ondansetron HCl (Zofran) 4 mg STK-MED ONCE .ROUTE ; Start 12/01/16 at 11:16; Stop 12/01/16 at 11:17; Status DC Famotidine (Pepcid) 20 mg STK-MED ONCE .ROUTE ; Start 12/01/16 at 11:16; Stop 12/01/16 at 11:17; Status DC Dexamethasone Sodium Phosphate (Decadron) 20 mg STK-MED ONCE .ROUTE ; Start 12/01 at 11:16; Stop 12/01/16 at 11:17; Status DC Fentanyl Citrate (Fentanyl 2ml Vial) 100 mcg STK-MED ONCE .ROUTE ; Start at 11:16; Stop 12/01/16 at 11:17; Status DC Sevoflurane (Ultane) 60 ml STK-MED ONCE IH ; Start 12/01/16 at 12:44; Stop at 12:45; Status DC Active Scripts Active Reported Voltaren (Diclofenac Sodium) 100 Gm Gel..gram. 2 Gm TP QID Tradjenta (Linagliptin) 5 Mg Tablet 1 Tab PO DAILY Torsemide 20 Mg Tablet 40 Tab PO BID Spironolactone 100 Mg Tablet 1 Tab PO DAILY Seroquel (Quetiapine Fumarate) 100 Mg Tablet 1 Tab PO QHS Senna (Sennosides) 8.6 Mg Tablet 8.6 Mg PO DAILY Prozac (Fluoxetine Hcl) 40 Mg Capsule 1 Cap PO TID Protonix (Pantoprazole Sodium) 40 Mg Tablet.dr 40 Mg PO DAILY Oxycodone-Acetaminophen 5-325 (Oxycodone Hcl/Acetaminophen) 1 Each Tablet 1 Each PO PRN Q6HRS PRN Novolog (Insulin Aspart) 100 Unit/1 Ml Cartridge 10 Unit SQ BID Nortriptyline Hcl 25 Mg Capsule 50 Cap PO QHS Metoprolol Tartrate 100 Mg Tablet 100 Tab PO DAILY Magnesium Oxide 400 Mg Tablet 1 Tab PO DAILY Lorazepam 1 Mg Tablet 1 Tab PO TID Levothyroxine Sodium 137 Mcg Tablet 1 Tab PO DAILY Lantus Solostar (Insulin Glargine,Hum.rec.anlog) 100 Unit/1 Ml Insuln.pen 50 Unit SQ QHS Lamotrigine 100 Mg Tablet 1 Tab PO HS Hydrocodone-Apap 10-325 (Hydrocodone Bit/Acetaminophen) 1 Each Tablet 1 Tab PO QID PRN Glucose Gel (Dextrose) 38 Gm Gel..gram. 38 Gm PO Gabapentin 400 Mg Capsule 800 Mg PO DAILY [non] Fenofibrate (Fenofibrate Nanocrystallized) 145 Mg Tablet 1 Tab PO DAILY Donepezil Hcl 10 Mg Tablet 1 Tab PO HS Depakote Er (Divalproex Sodium) 500 Mg Tab.er.24h 2 Tab PO BID Rosuvastatin Calcium 10 Mg Tablet 10 Mg PO HS Coenzyme Q-10 (Ubidecarenone) 50 Mg Capsule 100 Mg PO DAILY Brovana (Arformoterol Tartrate) 15 Mcg/2 Ml Vial.neb 15 Mcg IH BID Vraylar (Cariprazine Hydrochloride) 3 Mg Capsule 3 Mg PO DAILY Aspirin 325 Mg Tablet 1 Tab PO DAILY Vitals/I & O Vital Sign - Last 24 Hours 12/01/16 12/01/16 12/01/16 12/01/16 13:04 13:19 13:20 13:34 Temp 97.7 97.4 97.7 97.4 Pulse 72 71 74 Resp 16 14 16 B/P 124/66 118/65 109/60 Pulse Ox 100 100 97 O2 Delivery Simple Mask Room Air Nasal Cannula Nasal Cannula O2 Flow Rate 10 2 2 12/01/16 12/01/16 12/01/16 12/01/16 13:49 14:04 14:19 15:00 Temp 98.8 98.8 Pulse 72 73 74 71 Resp 12 14 14 18 B/P 118/66 120/65 105/60 114/59 Pulse Ox 94 94 93 93 O2 Delivery Nasal Cannula Nasal Cannula Nasal Cannula Nasal Cannula O2 Flow Rate 2 2 2 2.0 12/01/16 12/01/16 12/01/16 12/01/16 15:30 15:50 16:00 16:04 Pulse 76 74 B/P 126/64 126/67 Pulse Ox 88 90 91 O2 Delivery Nasal Cannula Nasal Cannula Nasal Cannula Nasal Cannula O2 Flow Rate 2.0 2.0 2.0 2.0 12/01/16 12/01/16 12/01/16 12/01/16 16:30 19:30 20:30 20:39 Temp 97.5 97.5 Pulse 80 78 Resp 16 B/P 110/57 114/60 Pulse Ox 90 94 O2 Delivery Nasal Cannula Nasal Cannula Room Air Nasal Cannula O2 Flow Rate 2.0 2.0 2.0 12/01/16 12/01/16 12/02/16 12/02/16 21:38 23:29 03:57 07:00 Temp 98.2 98.0 97.9 98.2 98.0 97.9 Pulse 78 78 72 76 Resp 18 18 14 B/P 114/60 116/68 96/49 103/48 Pulse Ox 97 96 92 O2 Delivery Room Air Nasal Cannula Room Air O2 Flow Rate 2.0 12/02/16 12/02/16 12/02/16 07:18 09:00 09:00 Pulse 76 76 B/P 103/48 103/48 Pulse Ox 100 O2 Delivery Nasal Cannula O2 Flow Rate 2.0 Intake and Output 12/01/16 12/01/16 12/02/16 15:00 23:00 07:00 Intake Total 50 ml 680 ml 310 ml Output Total 1035 ml 1250 ml 1760 ml Balance -985 ml -570 ml -1450 ml JB SHEA MD December 02, 2016 11:19
[2016-12-02 15:00] VITALS: BP 97/48
[2016-12-02 19:00] VITALS: BP 103/43
[2016-12-02] MEDS: QUEtiapine 100 MG TABLET. PO SCH (21:01)
[2016-12-02] MEDS: DONEPEZIL HCL 10 MG TABLET. PO SCH (21:02)
[2016-12-02] MEDS: lamoTRIgine 100 MG TABLET. PO SCH (21:04)
[2016-12-02] MEDS: ATORVASTATIN CALCIUM 40 MG TABLET. PO SCH (21:05)
[2016-12-02] MEDS: NORTRIPTYLINE 25 MG CAPSULE PO SCH (21:05)
[2016-12-02] MEDS: INSULIN DETEMIR 300 UNITS/3 ML INSULN.PEN. SQ SCH (21:44)
[2016-12-02] MEDS: LORazepam 1 MG TABLET PO PRN (22:59)
[2016-12-02 23:00] VITALS: BP 111/58
--- NOTE | 2016-12-03 01:37 | PN ---
DATE: 12/02/2016 SUBJECTIVE: The patient is resting flat in bed comfortably in no apparent distress. Awake, alert. On questioning him, denies any complaint, in particular denies any pain. He underwent incision and drainage of his left thigh and his knee without any complication. OBJECTIVE: GENERAL: When I examined him, he looked well and was clearly in no apparent respiratory distress, pale, but no jaundice, cyanosis or thyromegaly. No jugular venous distension. No limb edema. VITAL SIGNS: His heart rate was 76, blood pressure was 103/48, temperature was 97.9, respiratory rate was 14 and oxygen saturation was 100% with ____ liters of oxygen. The rest of the clinical examination is stable and has not changed. His intake was 1040, output was 4000. LABORATORY DATA: As of this morning showed a white cell count of 10,500, hemoglobin 9.8, hematocrit 32, MCV 81, and platelet count of 220,000. His chemistry showed a serum sodium of 135, potassium 4.6, chloride 98, bicarbonate 32, anion gap of 5, BUN 21, creatinine 1.1, estimated GFR was 68 mL per minute. His total bilirubin is normal as well as ALT and AST. Alkaline phosphatase is slightly elevated. Total protein was 5.8, albumin 1.5. ASSESSMENT: 1. Streptococcal anginosus bacteremia. 2. Infected complex left leg fluid collection with hardware in place, status post aspiration on 11/27/2016 growing Streptococcus anginosus. He has MRSA Enterococcus in the urine. Bilateral lower extremity wounds, arrhythmia; however, the ____ of his pacemaker was normal with no evidence of ventricular tachycardia or ventricular fibrillation, severe protein- calorie malnutrition. PLAN: To continue with IV cefazolin. I have spoken with the disease case manager rn and the plan is to refer the patient to [facility] and if he qualifies, we will transfer and discharge him there tomorrow. PATTY CHRISTIAN MD DR: YUMI/harry JOB#: [id number] / [id number]
[2016-12-03] MEDS: HYDROcodone/APAP 10/325 1 TAB TABLET PO PRN ×2 (03:10→17:37)
[2016-12-03 03:20] VITALS: BP 130/73
[2016-12-03] MEDS: LEVOTHYROXINE 137 MCG TABLET PO SCH (06:13)
[2016-12-03] MEDS: HEPARIN PF for SUB-Q USE 5,000 UNIT/0.5 ML VIAL. SQ SCH ×3 (06:28→21:41)
[2016-12-03] MEDS: ALBUTEROL SULFATE 2.5 MG/3 ML NEBU. NEB SCH ×4 (06:50→19:18)
[2016-12-03 07:00] VITALS: BP 111/53
[2016-12-03] MEDS: PANTOPRAZOLE 40 MG TABLET.DR. PO SCH (07:30)
[2016-12-03] MEDS: INSULIN ASPART 300 UNITS/3 ML INSULN.PEN SQ SCH ×5 (08:00→21:17)
[2016-12-03] MEDS: LACTOBACILLUS ACIDOPH & BULGAR 1 TABLET. PO SCH ×3 (08:00→17:37)
[2016-12-03] MEDS: FLUoxetine HCL 20 MG CAPSULE PO SCH ×3 (09:00→20:40)
[2016-12-03] MEDS: SENNOSIDES 8.6 MG TABLET PO SCH (09:00)
[2016-12-03] MEDS: CARIPRAZINE HYDROCHLORIDE 3 MG PO SCH (09:00)
[2016-12-03] MEDS: FENOFIBRATE,MICRONIZED 134 MG CAPSULE PO SCH (09:00)
[2016-12-03] MEDS: ISOSORBIDE MONONITRATE ER 30 MG TAB.ER.24H PO SCH (09:00)
[2016-12-03] MEDS: LINAGLIPTIN 5 MG TABLET PO SCH (09:00)
[2016-12-03] MEDS: ASPIRIN 325 MG TABLET PO SCH (09:00)
[2016-12-03] MEDS: METOPROLOL TART IMMED RELEASE 50 MG TABLET. PO SCH ×2 (09:00→20:40)
[2016-12-03] MEDS: DICLOFENAC SODIUM 1% TOPICAL GEL 100GM TUBE. TP SCH ×4 (09:00→20:41)
[2016-12-03] MEDS: MAGNESIUM OXIDE 400 MG TABLET PO SCH (09:00)
[2016-12-03] MEDS: SPIRONOLACTONE 25 MG TABLET PO SCH (09:00)
[2016-12-03] MEDS: GABAPENTIN 400 MG CAPSULE. PO SCH (09:00)
[2016-12-03] MEDS: DIVALPROEX EXTENDED RELEASE 500 MG TAB.ER.24H. PO SCH ×3 (09:00→20:41)
[2016-12-03] MEDS: TORSEMIDE 20 MG TABLET. PO SCH ×2 (09:00→17:37)
[2016-12-03] MEDS: VITS A & D/LANOLIN TOPICAL OINTMENT 56GM TUBE. TP SCH ×3 (09:53→21:00)
[2016-12-03] MEDS: MORPHINE SULFATE 2 MG/ML DISP.SYRIN. IV PRN ×2 (09:53→13:31)
[2016-12-03 10:01] LABS: ANION GAP 1 (6-14); BLOOD UREA NITROGEN 21 mg/dL (8-26); BUN/CREATININE RATIO 21 (6-20); CALCIUM 9.5 mg/dL (8.5-10.1); CARBON DIOXIDE 36 mmol/L (21-32); CHLORIDE 98 mmol/L (98-107); GFR 76.2; GLUCOSE 184 mg/dL (70-99); POTASSIUM 3.8 mmol/L (3.5-5.1); SODIUM 135 mmol/L (136-145)
[2016-12-03 10:07] LABS: ALBUMIN 1.6 g/dL (3.4-5.0); ALBUMIN/GLOBULIN RATIO 0.3 (1.0-1.7); ALK PHOS 163 U/L (46-116); ALT (SGPT) 49 U/L (16-63); AST (SGOT) 106 U/L (15-37); MAGNESIUM 1.9 mg/dL (1.8-2.4); TOTAL BILIRUBIN 0.2 mg/dL (0.2-1.0)
--- NOTE | 2016-12-03 10:07 | PDOC ---
Infectious Disease Note Subjective Subjective just had seizure hence he is lethargic ROS ROS no n/v/d/pain Vital Sign Vital Signs Vital Signs Date Time Temp Pulse Resp B/P Pulse Ox O2 Delivery O2 Flow Rate FiO2 12/03/16 07:00 97.5 72 12 111/53 95 Nasal Cannula 2.0 97.5 Physical Exam PHYSICAL EXAM GENERAL: NAD, lethargic HEENT: PERRL, OC/OP NECK: Supple, no JVD, no LN LUNGS: Clear HEART: S1S2, no gallop, no murmur ABD: Soft, NT, no organomegaly, no rebound EXT: No edema, no cyanosis CANVAS REPAIRER: Alert, but lethargic SKIN: No rash IV: ok Labs Lab Laboratory Tests Test 12/02/16 11:28 12/02/16 16:31 12/02/16 20:55 12/03/16 07:15 Glucose (Fingerstick) 188mg/dL (70-99) 296mg/dL (70-99) 264mg/dL (70-99) 181mg/dL (70-99) Objective Assessment Fever. better Strep anginosis bacteremia. POA Infected complex left leg fluid collection with hardware in place. s/p aspiration, 11/27. Strep anginosis ,, s/p I and D , coag neg staph likely contaminant since it was only in one culture MRSA and enterococcus in urine. POA PCN/Clinda/Sulfa allergy Has tolerated Rocephin Bilateral LE wounds Arrhythmias Left ? opacity Severe protein malnutrition H/o strep anginosis/intermedius bacteremia Plan Plan of Care cont cefazolin ,, need 6 wks of iv and then keflex chronic suppressive for ever. f/u am labs local wound care ok to transfer to LTAC from ID stand point, will need to have f/u with us in 2 wks LOWELL ROSAS MD December 03, 2016 10:07
[2016-12-03 10:15] LABS: BASO % 0 % (0-3); EOS % 0 % (0-3); HEMATOCRIT 32.2 % (39.0-53.0); HEMOGLOBIN 10.4 g/dL (13.0-17.5); LYMPH % 24 % (24-48); MEAN CORPUSCULAR HEMOGLOBIN 26 pg (25-35); MEAN CORPUSCULAR HGB CONC 32 g/dL (31-37); MEAN CORPUSCULAR VOLUME 79 fL (79-100); MONO % 9 % (0-9); NEUT % 67 % (31-73); PLATELET COUNT 430 x10^3/uL (140-400); RED BLOOD COUNT 4.09 x10^6/uL (4.30-5.70); RED CELL DISTRIBUTION WIDTH 20.1 % (11.5-14.5); WHITE BLOOD COUNT 8.4 x10^3/uL (4.0-11.0)
--- NOTE | 2016-12-03 10:52 | EKG ---
[facility] [address] [place] [address] Test Date: 2016-12-03 Test Time: 09:14:21 Pat Name: ANNAMARIE WHITLOCK Department: Room: 438 Gender: M Ciso: : 1955 Requested By: PATTY CHRISTIAN Order Number: [id number] Reading MD: Lili Bartholomew Measurements Intervals [place] Rate: 77 P: 26 KS: 254 QRS: 19 QRSD: 102 T: 10 QT: 422 QTc: 480 Interpretive Statements SINUS RHYTHM PROLONGED [place] INTERVAL ABNORMAL ECG Electronically Signed On 12-03-2016 20:50:06 CDT by Lili Bartholomew
--- NOTE | 2016-12-03 10:55 | RAD ---
Indication possible seizure. Noncontrast imaging through the head was performed. Note is made of a previous examination one week ago. No acute or significant calvarial finding is seen. The visualized paranasal sinuses appear normal. There is no subdural or epidural hematoma. Underlying atrophy is noted. There is no hemorrhage. Acute finding is not seen. A significant change compared to the prior study is not seen. IMPRESSION: No acute intracranial finding PQRS Compliance Statement: One or more of the following individualized dose reduction techniques were utilized for this examination: 1. Automated exposure control 2. Adjustment of the mA and/or kV according to patient size 3. Use of iterative reconstruction technique
[2016-12-03 11:01] VITALS: BP 118/67
--- NOTE | 2016-12-03 11:40 | PDOC ---
PROGRESS NOTES Assessment Problems Medical Problems: (1) Chest pain Status: Acute Between my seeing him and writing this note, he had a possible seizure. In the past he has been diagnosed with psychogenic nonepileptic seizures. It was brief , but the patient was not fully awake when the nurse called me to report it Metabolic encephalopathy. Dementia Status-post I&D left knee Plan I ordered a head CT, done Continue current management Subjective No complaints Objective Vital Signs Date Time Temp Pulse Resp B/P Pulse Ox O2 Delivery O2 Flow Rate FiO2 12/03/16 11:01 96.8 80 16 118/67 97 Nasal Cannula 2.0 96.8 Intake and Output 12/03/16 07:00 Intake Total 170 ml Output Total 2845 ml Balance -2675 ml Intake Oral 120 ml IV Total 50 ml Output Urine Total 2675 ml Drainage Total 170 ml PHYSICAL EXAM Alert. Oriented to Month, year, place and person. PERRL. EOMI. CN: no focal findings. Muscle tone: normal. Muscle strength: 4/5 DTR: 1+ Plantar reflex: flexor Gait: not examined in bed. Sensory exam: no abnormal findings. No cerebellar signs elicited. Review of Relevant I have reviewed the following items michelle (where applicable) has been applied. Labs Laboratory Tests Test 12/01/16 13:18 12/01/16 17:07 12/01/16 17:09 12/01/16 21:25 Glucose (Fingerstick) 139mg/dL (70-99) 231mg/dL (70-99) 213mg/dL (70-99) 284mg/dL (70-99) Test 12/02/16 04:30 12/02/16 07:39 12/02/16 11:28 12/02/16 16:31 White Blood Count 10.5x10^3/uL (4.0-11.0) Red Blood Count 3.94x10^6/uL (4.30-5.70) Hemoglobin 9.8g/dL (13.0-17.5) Hematocrit 31.7% (39.0-53.0) Mean Corpuscular Volume 81fL (79-100) Mean Corpuscular Hemoglobin 25pg (25-35) Mean Corpuscular Hemoglobin Concent 31g/dL (31-37) Red Cell Distribution Width 19.9% (11.5-14.5) Platelet Count 420x10^3/uL (140-400) Neutrophils (%) (Auto) 71% (31-73) Lymphocytes (%) (Auto) 20% (24-48) Monocytes (%) (Auto) 9% (0-9) Eosinophils (%) (Auto) 0% (0-3) Basophils (%) (Auto) 0% (0-3) Neutrophils # (Auto) 7.5x10^3uL (1.8-7.7) Lymphocytes # (Auto) 2.1x10^3/uL (1.0-4.8) Monocytes # (Auto) 0.9x10^3/uL (0.0-1.1) Eosinophils # (Auto) 0.0x10^3/uL (0.0-0.7) Basophils # (Auto) 0.0x10^3/uL (0.0-0.2) Sodium Level 135mmol/L (136-145) Potassium Level 4.6mmol/L (3.5-5.1) Chloride Level 98mmol/L (98-107) Carbon Dioxide Level 32mmol/L (21-32) Anion Gap 5 (6-14) Blood Urea Nitrogen 21mg/dL (8-26) Creatinine 1.1mg/dL (0.7-1.3) Estimated GFR (Cockcroft-Gault) 68.3 BUN/Creatinine Ratio 19 (6-20) Glucose Level 242mg/dL (70-99) Calcium Level 9.0mg/dL (8.5-10.1) Total Bilirubin 0.3mg/dL (0.2-1.0) Aspartate Amino Transf (AST/SGOT) 81U/L (15-37) Alanine Aminotransferase (ALT/SGPT) 43U/L (16-63) Alkaline Phosphatase 158U/L (46-116) Total Protein 5.8g/dL (6.4-8.2) Albumin 1.5g/dL (3.4-5.0) Albumin/Globulin Ratio 0.3 (1.0-1.7) Glucose (Fingerstick) 199mg/dL (70-99) 188mg/dL (70-99) 296mg/dL (70-99) Test 12/02/16 20:55 12/03/16 07:15 12/03/16 09:40 12/03/16 11:22 Glucose (Fingerstick) 264mg/dL (70-99) 181mg/dL (70-99) 149mg/dL (70-99) White Blood Count 8.4x10^3/uL (4.0-11.0) Red Blood Count 4.09x10^6/uL (4.30-5.70) Hemoglobin 10.4g/dL (13.0-17.5) Hematocrit 32.2% (39.0-53.0) Mean Corpuscular Volume 79fL (79-100) Mean Corpuscular Hemoglobin 26pg (25-35) Mean Corpuscular Hemoglobin Concent 32g/dL (31-37) Red Cell Distribution Width 20.1% (11.5-14.5) Platelet Count 430x10^3/uL (140-400) Neutrophils (%) (Auto) 67% (31-73) Lymphocytes (%) (Auto) 24% (24-48) Monocytes (%) (Auto) 9% (0-9) Eosinophils (%) (Auto) 0% (0-3) Basophils (%) (Auto) 0% (0-3) Neutrophils # (Auto) 5.6x10^3uL (1.8-7.7) Lymphocytes # (Auto) 2.0x10^3/uL (1.0-4.8) Monocytes # (Auto) 0.8x10^3/uL (0.0-1.1) Eosinophils # (Auto) 0.0x10^3/uL (0.0-0.7) Basophils # (Auto) 0.0x10^3/uL (0.0-0.2) Sodium Level 135mmol/L (136-145) Potassium Level 3.8mmol/L (3.5-5.1) Chloride Level 98mmol/L (98-107) Carbon Dioxide Level 36mmol/L (21-32) Anion Gap 1 (6-14) Blood Urea Nitrogen 21mg/dL (8-26) Creatinine 1.0mg/dL (0.7-1.3) Estimated GFR (Cockcroft-Gault) 76.2 BUN/Creatinine Ratio 21 (6-20) Glucose Level 184mg/dL (70-99) Calcium Level 9.5mg/dL (8.5-10.1) Magnesium Level 1.9mg/dL (1.8-2.4) Total Bilirubin 0.2mg/dL (0.2-1.0) Aspartate Amino Transf (AST/SGOT) 106U/L (15-37) Alanine Aminotransferase (ALT/SGPT) 49U/L (16-63) Alkaline Phosphatase 163U/L (46-116) Total Protein 7.0g/dL (6.4-8.2) Albumin 1.6g/dL (3.4-5.0) Albumin/Globulin Ratio 0.3 (1.0-1.7) Valproic Acid (Depakene) Level 19mcg/mL (50-100) Valproic Acid Last Dose Date 12/02/16 Valproic Acid Last Dose Time 1999 Laboratory Tests Test 12/02/16 16:31 12/02/16 20:55 12/03/16 07:15 12/03/16 09:40 Glucose (Fingerstick) 296mg/dL (70-99) 264mg/dL (70-99) 181mg/dL (70-99) White Blood Count 8.4x10^3/uL (4.0-11.0) Red Blood Count 4.09x10^6/uL (4.30-5.70) Hemoglobin 10.4g/dL (13.0-17.5) Hematocrit 32.2% (39.0-53.0) Mean Corpuscular Volume 79fL (79-100) Mean Corpuscular Hemoglobin 26pg (25-35) Mean Corpuscular Hemoglobin Concent 32g/dL (31-37) Red Cell Distribution Width 20.1% (11.5-14.5) Platelet Count 430x10^3/uL (140-400) Neutrophils (%) (Auto) 67% (31-73) Lymphocytes (%) (Auto) 24% (24-48) Monocytes (%) (Auto) 9% (0-9) Eosinophils (%) (Auto) 0% (0-3) Basophils (%) (Auto) 0% (0-3) Neutrophils # (Auto) 5.6x10^3uL (1.8-7.7) Lymphocytes # (Auto) 2.0x10^3/uL (1.0-4.8) Monocytes # (Auto) 0.8x10^3/uL (0.0-1.1) Eosinophils # (Auto) 0.0x10^3/uL (0.0-0.7) Basophils # (Auto) 0.0x10^3/uL (0.0-0.2) Sodium Level 135mmol/L (136-145) Potassium Level 3.8mmol/L (3.5-5.1) Chloride Level 98mmol/L (98-107) Carbon Dioxide Level 36mmol/L (21-32) Anion Gap 1 (6-14) Blood Urea Nitrogen 21mg/dL (8-26) Creatinine 1.0mg/dL (0.7-1.3) Estimated GFR (Cockcroft-Gault) 76.2 BUN/Creatinine Ratio 21 (6-20) Glucose Level 184mg/dL (70-99) Calcium Level 9.5mg/dL (8.5-10.1) Magnesium Level 1.9mg/dL (1.8-2.4) Total Bilirubin 0.2mg/dL (0.2-1.0) Aspartate Amino Transf (AST/SGOT) 106U/L (15-37) Alanine Aminotransferase (ALT/SGPT) 49U/L (16-63) Alkaline Phosphatase 163U/L (46-116) Total Protein 7.0g/dL (6.4-8.2) Albumin 1.6g/dL (3.4-5.0) Albumin/Globulin Ratio 0.3 (1.0-1.7) Valproic Acid (Depakene) Level 19mcg/mL (50-100) Valproic Acid Last Dose Date 12/02/16 Valproic Acid Last Dose Time 2000 Test 12/03/16 11:22 Glucose (Fingerstick) 149mg/dL (70-99) Microbiology 11/26/16 Blood Culture - Final, Complete 11/26/16 Blood Culture Result 1 (CHUCK) - Final, Complete 11/27/16 Gram Stain - Final, Complete 11/26/16 Urine Culture - Final, Complete 11/26/16 Urine Culture Result 1 (CHUCK) - Final, Complete 12/01/16 Gram Stain - Final, Complete Medications Current Medications Aspirin (Children'S Aspirin) 324 mg 1X ONCE PO Last administered on 11/24/16 15:02; Start 11/24/16 at 14:15; Stop 11/24/16 at 14:44; Status DC Ondansetron HCl (Zofran) 4 mg PRN Q8HRS PRN IV NAUSEA/VOMITING; Start 11/24/16 at 15:45; Stop 11/25/16 at 15:44; Status DC Nitroglycerin (Nitrostat) 0.4 mg PRN Q5MIN PRN SL CHEST PAIN; Start 11/24/16 at 15:45; Stop 11/25/16 at 15:44; Status DC Aspirin (Ceci Aspirin) 325 mg DAILY PO Last administered on 12/02/16 09:27; Start 11/25/16 at 09:00 Glucose (Insta-Glucose) 15 gm PRN DAILY PRN PO LOW GLUCOSE LEVEL PER PROTOCOL Last administered on 11/26/16 05:45; Start 11/25/16 at 01:30 Diclofenac Sodium (Voltaren) 2 martha QID TP Last administered on 12/01/16 21:00; Start 11/25/16 at 09:00 Divalproex Sodium (Depakote Er) 500 mg BID PO ; Start 11/25/16 at 09:00; Stop at 09:00; Status DC Donepezil HCl (Aricept) 10 mg HS PO ; Start 11/25/16 at 21:00; Stop 11/25/16 at 21:00; Status DC Gabapentin (Neurontin) 800 mg DAILY PO Last administered on 12/02/16 09:27; Start 11/25/16 at 09:00 Acetaminophen/ Hydrocodone Bitart (Lortab 10/325) 1 tab PRN QID PRN PO MODERATE PAIN Last administered on 12/03/16 03:10; Start 11/25/16 at 01:30 Lamotrigine (LaMICtal) 100 mg HS PO ; Start 11/25/16 at 21:00; Stop 11/25/16 at 21:00; Status DC Levothyroxine Sodium (Synthroid) 137 mcg DAILY07 PO Last administered on 06:13; Start 11/25/16 at 07:00 Linagliptin (Tradjenta) 5 mg DAILY PO Last administered on 12/02/16 09:26; Start 11/25/16 at 09:00 Lorazepam (Ativan) 1 mg TID PO Last administered on 11/28/16 09:17; Start at 09:00; Stop 11/28/16 at 11:32; Status DC Magnesium Oxide (Magnesium Oxide) 400 mg DAILY PO Last administered on 09:26; Start 11/25/16 at 09:00 Nortriptyline HCl (Pamelor) 25 mg QHS PO ; Start 11/25/16 at 21:00; Stop at 21:00; Status DC Oxycodone/ Acetaminophen (Percocet 5/325) 1 tab PRN Q6HRS PRN PO MILD PAIN Last administered on 12/01/16 15:50; Start 11/25/16 at 01:30 Pantoprazole Sodium (Protonix) 40 mg DAILYAC PO Last administered on 12/02/16 09:25; Start 11/25/16 at 07:30 Quetiapine Fumarate (SEROquel) 100 mg QHS PO ; Start 11/25/16 at 21:00; Stop at 21:00; Status DC Sennosides (Senna) 8.6 mg DAILY PO Last administered on 12/02/16 09:26; Start 11/25/16 at 09:00 Torsemide (Demadex) 20 mg [id number] PO Last administered on 12/02/16 17:04; Start 11/25/16 at 09:00 Non-Formulary Medication 15 mcg BID IH ; Start 11/25/16 at 09:00; Status UNV Non-Formulary Medication 3 mg DAILY PO Last administered on 12/02/16 09:27; Start 11/25/16 at 09:00 Fenofibrate (Lofibra) 134 mg DAILY PO Hypothyroidism Last administered on 09:27; Start 11/25/16 at 09:00 Non-Formulary Medication 1 cap TID PO ; Start 11/25/16 at 09:00; Stop 11/25/16 at 09:00; Status DC Insulin Aspart (Novolog) 10 units BID SQ Last administered on 11/25/16 21:41; Start 11/25/16 at 09:00; Stop 11/26/16 at 11:57; Status DC Non-Formulary Medication 50 unit QHS SQ ; Start 11/25/16 at 21:00; Stop at 21:00; Status DC Metoprolol Tartrate (Lopressor) 100 mg DAILY PO Last administered on 11/26/16 08:07; Start 11/25/16 at 09:00; Stop 11/26/16 at 13:58; Status DC Non-Formulary Medication 10 mg HS PO Atheroscletotic Heart Disease; Start at 21:00; Stop 11/25/16 at 21:00; Status DC Spironolactone (Aldactone) 100 mg DAILY PO Diuretic Last administered on 09:26; Start 11/25/16 at 09:00 Non-Formulary Medication 100 mg DAILY PO ; Start 11/25/16 at 09:00; Status UNV Divalproex Sodium (Depakote Er) 500 mg BID PO Last administered on 12/02/16 21: 04; Start 11/25/16 at 01:45 Donepezil HCl (Aricept) 10 mg HS PO Last administered on 12/02/16 21:02; Start 11/25/16 at 01:45 Lamotrigine (LaMICtal) 100 mg HS PO Last administered on 12/02/16 21:04; Start 11/25/16 at 01:45 Nortriptyline HCl (Pamelor) 25 mg QHS PO Last administered on 12/02/16 21:05; Start 11/25/16 at 01:45 Quetiapine Fumarate (SEROquel) 100 mg QHS PO Last administered on 12/02/16 21: 01; Start 11/25/16 at 01:45 Fluoxetine HCl (Prozac) 40 mg TID PO Last administered on 12/02/16 21:02; Start 11/25/16 at 02:00 Insulin Detemir (Levemir) 50 units QHS SQ Last administered on 11/25/16 21:41 ; Start 11/25/16 at 02:00; Stop 11/26/16 at 11:57; Status DC Atorvastatin Calcium (Lipitor) 40 mg HS PO Atheroscletotic Heart Disease Last administered on 12/02/16 21:05; Start 11/25/16 at 02:00 Albuterol Sulfate (Ventolin Neb Soln) 2.5 mg Q6H NEB Last administered on 06:50; Start 11/25/16 at 06:00 Heparin Sodium (Porcine) 5,000 unit Q8HRS SQ Last administered on 12/03/16 06: 28; Start 11/25/16 at 14:00 Vitamin A/Vitamin D (Vitamin A & D Ointment) 1 martha TID TP Last administered on 12/03/16 09:53; Start 11/25/16 at 21:00 Insulin Aspart (Novolog) 5 units BID SQ Last administered on 12/03/16 09:58; Start 11/26/16 at 21:00 Insulin Detemir (Levemir) 30 units QHS SQ Last administered on 12/02/16 21:44; Start 11/26/16 at 21:00 Dextrose (Dextrose 50%-Water Syringe) 12.5 gm PRN Q15MIN PRN IV SEE COMMENTS Last administered on 11/26/16 12:32; Start 11/26/16 at 12:15; Stop 11/30/16 at 10:30; Status DC Metoprolol Tartrate (Lopressor) 50 mg BID PO Last administered on 12/01/16 21: 38; Start 11/26/16 at 21:00 Isosorbide Mononitrate (Imdur) 30 mg DAILY PO Last administered on 11/30/16 09 :14; Start 11/26/16 at 15:00 Iohexol (Omnipaque 300 Mg/ml) 75 ml 1X ONCE IV Last administered on 11/26/16 15:57; Start 11/26/16 at 15:30; Stop 11/26/16 at 15:35; Status DC Info 1 each 1 each PRN DAILY PRN MC SEE COMMENTS; Start 11/26/16 at 15:45; Stop 11/28/16 at 15:44; Status DC Linezolid 300 ml @ 300 mls/hr Q12HR IV Last administered on 11/26/16 22:53; Start 11/26/16 at 21:00; Stop 11/27/16 at 08:00; Status DC Meropenem/Sodium Chloride (Merrem/Iv Sodium Chloride 0.9% 100ml) 100 ml @ 200 mls/hr Q8HRS IV Last administered on 11/30/16 06:12; Start 11/26/16 at 20:30; Stop 11/30/16 at 13:05; Status DC Acetaminophen (Tylenol) 650 mg PRN Q4HRS PRN PO fever Last administered on 20:35; Start 11/26/16 at 20:00 Vancomycin HCl 1 each 1 each PRN DAILY PRN MC SEE COMMENTS Last administered on 11/29/16 10:23; Start 11/27/16 at 08:00; Stop 11/30/16 at 13:36; Status DC Vancomycin HCl 2 gm/Sodium Chloride 500 ml @ 250 mls/hr 1X ONCE IV Last administered on 11/27/16 09:07; Start 11/27/16 at 09:00; Stop 11/27/16 at 10:59 ; Status DC Vancomycin HCl/ Sodium Chloride (Iv Sodium Chloride 0.9% 500ml Bag) 500 ml @ 250 mls/hr Q12H IV Last administered on 11/28/16 09:22; Start 11/27/16 at 21: 00; Stop 11/28/16 at 22:01; Status DC Vancomycin HCl 1 each 1X ONCE MC Last administered on 11/28/16 20:30; Start 11/28/16 at 20:30; Stop 11/28/16 at 20:31; Status DC Lidocaine/Sodium Bicarbonate (Buffered Lidocaine 1%) 20 ml STK-MED ONCE IJ ; Start 11/27/16 at 09:33; Stop 11/27/16 at 09:34; Status DC Midazolam HCl (Versed) 5 mg STK-MED ONCE .ROUTE ; Start 11/27/16 at 09:53; Stop 11/27/16 at 09:54; Status DC Fentanyl Citrate (Fentanyl 5ml Vial) 250 mcg STK-MED ONCE .ROUTE ; Start at 09:54; Stop 11/27/16 at 09:55; Status DC Lidocaine/Sodium Bicarbonate (Buffered Lidocaine 1%) 20 ml 1X ONCE IJ Last administered on 11/27/16 10:26; Start 11/27/16 at 10:00; Stop 11/27/16 at 10:06 ; Status DC Lidocaine HCl 5 ml 1X ONCE IJ ; Start 11/27/16 at 11:30; Stop 11/27/16 at 11:31 ; Status DC Lorazepam 1 mg 1 mg PRN TID PRN PO ANXIETY Last administered on 12/02/16 22:59 ; Start 11/28/16 at 11:45 Vancomycin HCl/ Sodium Chloride (Iv Sodium Chloride 0.9% 500ml Bag) 500 ml @ 250 mls/hr Q18H IV Last administered on 11/30/16 00:21; Start 11/29/16 at 06: 00; Stop 11/30/16 at 13:05; Status DC Vancomycin HCl 1 each 1X ONCE MC ; Start 12/01/16 at 11:30; Stop 12/01/16 at 11: 30; Status DC Insulin Aspart (Novolog) 0-5 UNITS TIDWMEALS SQ Last administered on 12/02/16 17:08; Start 11/29/16 at 17:00 Dextrose 12.5 gm 12.5 gm PRN Q15MIN PRN IV SEE COMMENTS; Start 11/29/16 at 16: 45 Cefazolin Sodium 2 gm/Sodium Chloride 50 ml @ 100 mls/hr Q8HRS IV ; Start 11/30 at 14:00; Status UNV Cefazolin Sodium/ Dextrose (Ancef 2gm Premix) 50 ml @ 100 mls/hr Q8HRS IV Last administered on 12/03/16 06:13; Start 11/30/16 at 14:00 Lactobacillus Acidophilus (Bacid, Constance-Bid) 1 tab TIDWMEALS PO Last administered on 12/02/16 17:03; Start 11/30/16 at 17:00 Bupivacaine HCl (Sensorcaine Mpf 0.5%) 30 ml STK-MED ONCE .ROUTE Last administered on 12/01/16 12:26; Start 12/01/16 at 06:41; Stop 12/01/16 at 06:42; Status DC Lidocaine HCl 20 ml STK-MED ONCE .ROUTE Last administered on 12/01/16 12:26; Start 12/01/16 at 06:41; Stop 12/01/16 at 06:42; Status DC Lidocaine HCl 100 mg 100 mg STK-MED ONCE .ROUTE ; Start 12/01/16 at 11:16; Stop 12/01/16 at 11:17; Status DC Propofol (Diprivan) 20 ml @ As Directed STK-MED ONCE IV ; Start 12/01/16 at 11:16 ; Stop 12/01/16 at 11:17; Status DC Ondansetron HCl (Zofran) 4 mg STK-MED ONCE .ROUTE ; Start 12/01/16 at 11:16; Stop 12/01/16 at 11:17; Status DC Famotidine (Pepcid) 20 mg STK-MED ONCE .ROUTE ; Start 12/01/16 at 11:16; Stop 12/01/16 at 11:17; Status DC Dexamethasone Sodium Phosphate (Decadron) 20 mg STK-MED ONCE .ROUTE ; Start 12/01 at 11:16; Stop 12/01/16 at 11:17; Status DC Fentanyl Citrate (Fentanyl 2ml Vial) 100 mcg STK-MED ONCE .ROUTE ; Start at 11:16; Stop 12/01/16 at 11:17; Status DC Sevoflurane (Ultane) 60 ml STK-MED ONCE IH ; Start 12/01/16 at 12:44; Stop at 12:45; Status DC Morphine Sulfate 2 mg PRN Q4HRS PRN IV PAIN Last administered on 12/03/16t 09:53 ; Start 12/03/16 at 09:30 Active Scripts Active Reported Voltaren (Diclofenac Sodium) 100 Gm Gel..gram. 2 Gm TP QID Tradjenta (Linagliptin) 5 Mg Tablet 1 Tab PO DAILY Torsemide 20 Mg Tablet 40 Tab PO BID Spironolactone 100 Mg Tablet 1 Tab PO DAILY Seroquel (Quetiapine Fumarate) 100 Mg Tablet 1 Tab PO QHS Senna (Sennosides) 8.6 Mg Tablet 8.6 Mg PO DAILY Prozac (Fluoxetine Hcl) 40 Mg Capsule 1 Cap PO TID Protonix (Pantoprazole Sodium) 40 Mg Tablet.dr 40 Mg PO DAILY Oxycodone-Acetaminophen 5-325 (Oxycodone Hcl/Acetaminophen) 1 Each Tablet 1 Each PO PRN Q6HRS PRN Novolog (Insulin Aspart) 100 Unit/1 Ml Cartridge 10 Unit SQ BID Nortriptyline Hcl 25 Mg Capsule 50 Cap PO QHS Metoprolol Tartrate 100 Mg Tablet 100 Tab PO DAILY Magnesium Oxide 400 Mg Tablet 1 Tab PO DAILY Lorazepam 1 Mg Tablet 1 Tab PO TID Levothyroxine Sodium 137 Mcg Tablet 1 Tab PO DAILY Lantus Solostar (Insulin Glargine,Hum.rec.anlog) 100 Unit/1 Ml Insuln.pen 50 Unit SQ QHS Lamotrigine 100 Mg Tablet 1 Tab PO HS Hydrocodone-Apap 10-325 (Hydrocodone Bit/Acetaminophen) 1 Each Tablet 1 Tab PO QID PRN Glucose Gel (Dextrose) 38 Gm Gel..gram. 38 Gm PO Gabapentin 400 Mg Capsule 800 Mg PO DAILY [non] Fenofibrate (Fenofibrate Nanocrystallized) 145 Mg Tablet 1 Tab PO DAILY Donepezil Hcl 10 Mg Tablet 1 Tab PO HS Depakote Er (Divalproex Sodium) 500 Mg Tab.er.24h 2 Tab PO BID Rosuvastatin Calcium 10 Mg Tablet 10 Mg PO HS Coenzyme Q-10 (Ubidecarenone) 50 Mg Capsule 100 Mg PO DAILY Brovana (Arformoterol Tartrate) 15 Mcg/2 Ml Vial.neb 15 Mcg IH BID Vraylar (Cariprazine Hydrochloride) 3 Mg Capsule 3 Mg PO DAILY Aspirin 325 Mg Tablet 1 Tab PO DAILY Vitals/I & O Vital Sign - Last 24 Hours 12/02/16 12/02/16 12/02/16 12/02/16 12:50 15:00 19:00 19:19 Temp 98.6 98.6 Pulse 83 77 Resp 14 18 B/P 97/48 103/43 Pulse Ox 93 98 95 O2 Delivery Room Air Room Air Room Air Room Air 12/02/16 12/02/16 12/03/16 12/03/16 20:30 23:00 03:10 03:20 Temp 98.6 97.5 98.6 97.5 Pulse 82 88 Resp 19 18 B/P 111/58 130/73 Pulse Ox 95 95 95 O2 Delivery Room Air Room Air Nasal Cannula Room Air O2 Flow Rate 2.0 12/03/16 12/03/16 12/03/16 12/03/16 04:15 06:52 07:00 08:45 Temp 97.5 97.5 Pulse 72 Resp 12 B/P 111/53 Pulse Ox 95 97 95 O2 Delivery Nasal Cannula Nasal Cannula Nasal Cannula Nasal Cannula O2 Flow Rate 2.0 2.0 2.0 2.0 12/03/16 11:01 Temp 96.8 96.8 Pulse 80 Resp 16 B/P 118/67 Pulse Ox 97 O2 Delivery Nasal Cannula O2 Flow Rate 2.0 Intake and Output 12/02/16 12/02/16 12/03/16 15:00 23:00 07:00 Intake Total 120 ml 50 ml Output Total 750 ml 2095 ml Balance -630 ml -[address] today: Indication possible seizure. Noncontrast imaging through the head was performed. Note is made of a previous examination one week ago. No acute or significant calvarial finding is seen. The visualized paranasal sinuses appear normal. There is no subdural or epidural hematoma. Underlying atrophy is noted. There is no hemorrhage. Acute finding is not seen. A significant change compared to the prior study is not seen. IMPRESSION: No acute intracranial finding JB SHEA MD December 03, 2016 11:40
--- NOTE | 2016-12-03 11:45 | PDOC ---
ORTHO PROGRESS NOTES Subjective Edmar had a seizure this morning. He is not really talking right now Vitals Vital Signs Date Time Temp Pulse Resp B/P Pulse Ox O2 Delivery O2 Flow Rate FiO2 12/03/16 11:01 96.8 80 16 118/67 97 Nasal Cannula 2.0 96.8 Labs Laboratory Tests Test 12/01/16 13:18 12/01/16 17:07 12/01/16 17:09 12/01/16 21:25 Glucose (Fingerstick) 139mg/dL (70-99) 231mg/dL (70-99) 213mg/dL (70-99) 284mg/dL (70-99) Test 12/02/16 04:30 12/02/16 07:39 12/02/16 11:28 12/02/16 16:31 White Blood Count 10.5x10^3/uL (4.0-11.0) Red Blood Count 3.94x10^6/uL (4.30-5.70) Hemoglobin 9.8g/dL (13.0-17.5) Hematocrit 31.7% (39.0-53.0) Mean Corpuscular Volume 81fL (79-100) Mean Corpuscular Hemoglobin 25pg (25-35) Mean Corpuscular Hemoglobin Concent 31g/dL (31-37) Red Cell Distribution Width 19.9% (11.5-14.5) Platelet Count 420x10^3/uL (140-400) Neutrophils (%) (Auto) 71% (31-73) Lymphocytes (%) (Auto) 20% (24-48) Monocytes (%) (Auto) 9% (0-9) Eosinophils (%) (Auto) 0% (0-3) Basophils (%) (Auto) 0% (0-3) Neutrophils # (Auto) 7.5x10^3uL (1.8-7.7) Lymphocytes # (Auto) 2.1x10^3/uL (1.0-4.8) Monocytes # (Auto) 0.9x10^3/uL (0.0-1.1) Eosinophils # (Auto) 0.0x10^3/uL (0.0-0.7) Basophils # (Auto) 0.0x10^3/uL (0.0-0.2) Sodium Level 135mmol/L (136-145) Potassium Level 4.6mmol/L (3.5-5.1) Chloride Level 98mmol/L (98-107) Carbon Dioxide Level 32mmol/L (21-32) Anion Gap 5 (6-14) Blood Urea Nitrogen 21mg/dL (8-26) Creatinine 1.1mg/dL (0.7-1.3) Estimated GFR (Cockcroft-Gault) 68.3 BUN/Creatinine Ratio 19 (6-20) Glucose Level 242mg/dL (70-99) Calcium Level 9.0mg/dL (8.5-10.1) Total Bilirubin 0.3mg/dL (0.2-1.0) Aspartate Amino Transf (AST/SGOT) 81U/L (15-37) Alanine Aminotransferase (ALT/SGPT) 43U/L (16-63) Alkaline Phosphatase 158U/L (46-116) Total Protein 5.8g/dL (6.4-8.2) Albumin 1.5g/dL (3.4-5.0) Albumin/Globulin Ratio 0.3 (1.0-1.7) Glucose (Fingerstick) 199mg/dL (70-99) 188mg/dL (70-99) 296mg/dL (70-99) Test 12/02/16 20:55 12/03/16 07:15 12/03/16 09:40 12/03/16 11:22 Glucose (Fingerstick) 264mg/dL (70-99) 181mg/dL (70-99) 149mg/dL (70-99) White Blood Count 8.4x10^3/uL (4.0-11.0) Red Blood Count 4.09x10^6/uL (4.30-5.70) Hemoglobin 10.4g/dL (13.0-17.5) Hematocrit 32.2% (39.0-53.0) Mean Corpuscular Volume 79fL (79-100) Mean Corpuscular Hemoglobin 26pg (25-35) Mean Corpuscular Hemoglobin Concent 32g/dL (31-37) Red Cell Distribution Width 20.1% (11.5-14.5) Platelet Count 430x10^3/uL (140-400) Neutrophils (%) (Auto) 67% (31-73) Lymphocytes (%) (Auto) 24% (24-48) Monocytes (%) (Auto) 9% (0-9) Eosinophils (%) (Auto) 0% (0-3) Basophils (%) (Auto) 0% (0-3) Neutrophils # (Auto) 5.6x10^3uL (1.8-7.7) Lymphocytes # (Auto) 2.0x10^3/uL (1.0-4.8) Monocytes # (Auto) 0.8x10^3/uL (0.0-1.1) Eosinophils # (Auto) 0.0x10^3/uL (0.0-0.7) Basophils # (Auto) 0.0x10^3/uL (0.0-0.2) Sodium Level 135mmol/L (136-145) Potassium Level 3.8mmol/L (3.5-5.1) Chloride Level 98mmol/L (98-107) Carbon Dioxide Level 36mmol/L (21-32) Anion Gap 1 (6-14) Blood Urea Nitrogen 21mg/dL (8-26) Creatinine 1.0mg/dL (0.7-1.3) Estimated GFR (Cockcroft-Gault) 76.2 BUN/Creatinine Ratio 21 (6-20) Glucose Level 184mg/dL (70-99) Calcium Level 9.5mg/dL (8.5-10.1) Magnesium Level 1.9mg/dL (1.8-2.4) Total Bilirubin 0.2mg/dL (0.2-1.0) Aspartate Amino Transf (AST/SGOT) 106U/L (15-37) Alanine Aminotransferase (ALT/SGPT) 49U/L (16-63) Alkaline Phosphatase 163U/L (46-116) Total Protein 7.0g/dL (6.4-8.2) Albumin 1.6g/dL (3.4-5.0) Albumin/Globulin Ratio 0.3 (1.0-1.7) Valproic Acid (Depakene) Level 19mcg/mL (50-100) Valproic Acid Last Dose Date 12/02/16 Valproic Acid Last Dose Time 1999 Laboratory Tests Test 5/2/17 16:31 12/02/16 20:55 12/03/16 07:15 12/03/16 09:40 Glucose (Fingerstick) 296mg/dL (70-99) 264mg/dL (70-99) 181mg/dL (70-99) White Blood Count 8.4x10^3/uL (4.0-11.0) Red Blood Count 4.09x10^6/uL (4.30-5.70) Hemoglobin 10.4g/dL (13.0-17.5) Hematocrit 32.2% (39.0-53.0) Mean Corpuscular Volume 79fL (79-100) Mean Corpuscular Hemoglobin 26pg (25-35) Mean Corpuscular Hemoglobin Concent 32g/dL (31-37) Red Cell Distribution Width 20.1% (11.5-14.5) Platelet Count 430x10^3/uL (140-400) Neutrophils (%) (Auto) 67% (31-73) Lymphocytes (%) (Auto) 24% (24-48) Monocytes (%) (Auto) 9% (0-9) Eosinophils (%) (Auto) 0% (0-3) Basophils (%) (Auto) 0% (0-3) Neutrophils # (Auto) 5.6x10^3uL (1.8-7.7) Lymphocytes # (Auto) 2.0x10^3/uL (1.0-4.8) Monocytes # (Auto) 0.8x10^3/uL (0.0-1.1) Eosinophils # (Auto) 0.0x10^3/uL (0.0-0.7) Basophils # (Auto) 0.0x10^3/uL (0.0-0.2) Sodium Level 135mmol/L (136-145) Potassium Level 3.8mmol/L (3.5-5.1) Chloride Level 98mmol/L (98-107) Carbon Dioxide Level 36mmol/L (21-32) Anion Gap 1 (6-14) Blood Urea Nitrogen 21mg/dL (8-26) Creatinine 1.0mg/dL (0.7-1.3) Estimated GFR (Cockcroft-Gault) 76.2 BUN/Creatinine Ratio 21 (6-20) Glucose Level 184mg/dL (70-99) Calcium Level 9.5mg/dL (8.5-10.1) Magnesium Level 1.9mg/dL (1.8-2.4) Total Bilirubin 0.2mg/dL (0.2-1.0) Aspartate Amino Transf (AST/SGOT) 106U/L (15-37) Alanine Aminotransferase (ALT/SGPT) 49U/L (16-63) Alkaline Phosphatase 163U/L (46-116) Total Protein 7.0g/dL (6.4-8.2) Albumin 1.6g/dL (3.4-5.0) Albumin/Globulin Ratio 0.3 (1.0-1.7) Valproic Acid (Depakene) Level 19mcg/mL (50-100) Valproic Acid Last Dose Date 12/02/16 Valproic Acid Last Dose Time 2000 Test 12/03/16 11:22 Glucose (Fingerstick) 149mg/dL (70-99) Notes His incision is okay. Some dried bloody drainage. His drain output was reviewed. He does not answer asks questions or appropriately. Assessment and Plan Palliative I&D of left thigh abscess around derrek-prosthesis. Drain will be removed later today. No new recommendations per orthopedics ANIL GARCIA II, MD December 03, 2016 11:45
[2016-12-03 14:53] VITALS: BP 113/63
--- NOTE | 2016-12-03 15:37 | RAD ---
Portable chest, 12/03/2016: History: Check PICC placement Comparison is made to a study from 11/26/2016. There has been a previous median sternotomy. A left-sided transvenous pacemaker remains in place with 2 leads extending into the right heart. A right PICC has been inserted extending into the upper aspect of the superior vena cava. The depth of inspiration is suboptimal. The heart is probably within normal limits in size. A hazy density along the left heart border is unchanged again suggesting a prominent epicardial fat pad versus scarring. No acute pulmonary infiltrate is seen. There is no evidence of pleural fluid or pneumothorax. IMPRESSION: 1. Interval insertion of a right PICC extending into the upper aspect of the superior vena cava. 2. No other significant change since 11/26/2016.
[2016-12-03 19:39] VITALS: BP 112/58
[2016-12-03] MEDS: NORTRIPTYLINE 25 MG CAPSULE PO SCH (20:39)
[2016-12-03] MEDS: ATORVASTATIN CALCIUM 40 MG TABLET. PO SCH (20:40)
[2016-12-03] MEDS: lamoTRIgine 100 MG TABLET. PO SCH (20:41)
[2016-12-03] MEDS: DONEPEZIL HCL 10 MG TABLET. PO SCH (20:41)
[2016-12-03] MEDS: QUEtiapine 100 MG TABLET. PO SCH (20:41)
[2016-12-03] MEDS: INSULIN DETEMIR 300 UNITS/3 ML INSULN.PEN. SQ SCH (21:15)
[2016-12-03 23:03] VITALS: BP 106/50
--- NOTE | 2016-12-04 01:59 | PN ---
DATE: 12/03/2016 SUBJECTIVE: The patient is resting, slightly propped up in bed, in no apparent respiratory distress. He is awake, alert, but somewhat confused, looking up to the ceiling and does not really follow command, has what seems to be pill-rolling tremors in his right arm, somehow was unable to move his left upper extremity, seemed confused when I asked him to lift his left upper extremity. Nursing staff said that he has complained of chest pain, has what seemed to be a tonic-clonic seizures, although has not bitten his tongue and was not incontinent of bowel or bladder. PHYSICAL EXAMINATION: GENERAL: When I examined him, he looked pale, but no jaundice, cyanosis or thyromegaly. No jugular venous distention. No limb edema. VITAL SIGNS: His heart rate was 80, blood pressure was 118/67, temperature was 96.8, respiratory rate was 16, and oxygen saturation was 97% on 2 liters of oxygen. HEAD, EYES, EARS, NOSE AND THROAT: Showed normocephalic, atraumatic. NECK: Supple. HEART: Showed normal first and second heart sounds with no gallop, rub or murmur. CHEST: Clear to auscultation. No crepitation or rhonchi. ABDOMEN: Distended, soft, nontender. NEUROLOGIC: He was awake, alert, responds, but he is looking constantly to the ceiling, not tracking or he has what seems to be a pill-rolling tremor in his right upper extremity. He looks parkinsonian. He was unable to lift his left upper extremity. LABORATORY DATA: He apparently has had a CT scan of the head done as recommended by Dr. Alves. There is no acute significant calvarial finding seen. The visualized paranasal sinuses appeared normal. There is no subdural or epidural hematoma. Underlying atrophy is noted. There is no hemorrhage. Acute finding is not seen. Significant change compared to the prior study is not seen. His other lab work showed that his serum sodium was 135, potassium 3.8, chloride 98, bicarbonate 36, anion gap of 1, BUN 21, creatinine 1, estimated GFR was 76 mL per minute. His glucose was 184, calcium was 9.5, magnesium was 1.9. Total bilirubin and ALT were normal. Alkaline phosphatase and AST are elevated. His total protein is 7, albumin is 1.6. His white cell count is 8400, hemoglobin 10.4, hematocrit 32.2, MCV 79 and platelet count of 130,000. His prothrombin time was 16.3, INR 1.3. His synovial fluid Gram stain was unremarkable; however, in one of them shows gram-positive cocci, many. The synovial fluid showed growth of Streptococcus anginosus. ASSESSMENT: 1. Streptococcus anginosus bacteremia. 2. Infected complex left thigh fluid collection with hardware in place, status post aspiration on 11/27/2016 growing Streptococcus anginosus. 3. He has methicillin-resistant Staphylococcus aureus enterococcus growing in the urine culture. 4. Bilateral lower extremity wounds. 5. Arrhythmia. However, the interrogation of his ____ was normal and no evidence of ventricular tachycardia, ventricular fibrillation. 6. Severe protein-calorie malnutrition. PLAN: To continue with cefazolin. Apparently, the patient qualifies to be transferred to [facility]. However, insurance authorization still pending. PATTY CHRISTIAN MD DR: YUMI/harry JOB#: [id number] / [id number]
[2016-12-04 02:36] VITALS: BP 109/48
[2016-12-04] MEDS: HEPARIN PF for SUB-Q USE 5,000 UNIT/0.5 ML VIAL. SQ SCH ×3 (06:00→22:58)
[2016-12-04] MEDS: ALBUTEROL SULFATE 2.5 MG/3 ML NEBU. NEB SCH ×4 (06:59→20:31)
[2016-12-04 07:00] VITALS: BP 99/47
[2016-12-04] MEDS: LEVOTHYROXINE 137 MCG TABLET PO SCH (07:00)
--- NOTE | 2016-12-04 08:17 | PDOC ---
ORTHO PROGRESS NOTES Subjective Awake and conversant this morning. States that he is not in much pain Vitals Vital Signs Date Time Temp Pulse Resp B/P (MAP) Pulse Ox O2 Delivery O2 Flow Rate FiO2 12/04/16 06:59 98 Room Air 12/04/16 02:36 97.7 86 18 109/48 (68) 97.7 12/03/16 14:53 2.0 Labs Laboratory Tests Test 12/02/16 11:28 12/02/16 16:31 12/02/16 20:55 12/03/16 07:15 Glucose (Fingerstick) 188 mg/dL (70-99) 296 mg/dL (70-99) 264 mg/dL (70-99) 181 mg/dL (70-99) Test 12/03/16 09:40 12/03/16 11:22 12/03/16 16:21 12/03/16 21:00 White Blood Count 8.4 x10^3/uL (4.0-11.0) Red Blood Count 4.09 x10^6/uL (4.30-5.70) Hemoglobin 10.4 g/dL (13.0-17.5) Hematocrit 32.2 % (39.0-53.0) Mean Corpuscular Volume 79 fL (79-100) Mean Corpuscular Hemoglobin 26 pg (25-35) Mean Corpuscular Hemoglobin Concent 32 g/dL (31-37) Red Cell Distribution Width 20.1 % (11.5-14.5) Platelet Count 430 x10^3/uL (140-400) Neutrophils (%) (Auto) 67 % (31-73) Lymphocytes (%) (Auto) 24 % (24-48) Monocytes (%) (Auto) 9 % (0-9) Eosinophils (%) (Auto) 0 % (0-3) Basophils (%) (Auto) 0 % (0-3) Neutrophils # (Auto) 5.6 x10^3uL (1.8-7.7) Lymphocytes # (Auto) 2.0 x10^3/uL (1.0-4.8) Monocytes # (Auto) 0.8 x10^3/uL (0.0-1.1) Eosinophils # (Auto) 0.0 x10^3/uL (0.0-0.7) Basophils # (Auto) 0.0 x10^3/uL (0.0-0.2) Sodium Level 135 mmol/L (136-145) Potassium Level 3.8 mmol/L (3.5-5.1) Chloride Level 98 mmol/L (98-107) Carbon Dioxide Level 36 mmol/L (21-32) Anion Gap 1 (6-14) Blood Urea Nitrogen 21 mg/dL (8-26) Creatinine 1.0 mg/dL (0.7-1.3) Estimated GFR (Cockcroft-Gault) 76.2 BUN/Creatinine Ratio 21 (6-20) Glucose Level 184 mg/dL (70-99) Calcium Level 9.5 mg/dL (8.5-10.1) Magnesium Level 1.9 mg/dL (1.8-2.4) Total Bilirubin 0.2 mg/dL (0.2-1.0) Aspartate Amino Transf (AST/SGOT) 106 U/L (15-37) Alanine Aminotransferase (ALT/SGPT) 49 U/L (16-63) Alkaline Phosphatase 163 U/L (46-116) Troponin I Quantitative < 0.017 ng/mL (0.000-0.055) Total Protein 7.0 g/dL (6.4-8.2) Albumin 1.6 g/dL (3.4-5.0) Albumin/Globulin Ratio 0.3 (1.0-1.7) Valproic Acid (Depakene) Level 19 mcg/mL (50-100) Valproic Acid Last Dose Date 12/02/16 Valproic Acid Last Dose Time 1999 Glucose (Fingerstick) 149 mg/dL (70-99) 145 mg/dL (70-99) 325 mg/dL (70-99) Laboratory Tests Test 12/03/16 09:40 12/03/16 11:22 12/03/16 16:21 12/03/16 21:00 White Blood Count 8.4 x10^3/uL (4.0-11.0) Red Blood Count 4.09 x10^6/uL (4.30-5.70) Hemoglobin 10.4 g/dL (13.0-17.5) Hematocrit 32.2 % (39.0-53.0) Mean Corpuscular Volume 79 fL (79-100) Mean Corpuscular Hemoglobin 26 pg (25-35) Mean Corpuscular Hemoglobin Concent 32 g/dL (31-37) Red Cell Distribution Width 20.1 % (11.5-14.5) Platelet Count 430 x10^3/uL (140-400) Neutrophils (%) (Auto) 67 % (31-73) Lymphocytes (%) (Auto) 24 % (24-48) Monocytes (%) (Auto) 9 % (0-9) Eosinophils (%) (Auto) 0 % (0-3) Basophils (%) (Auto) 0 % (0-3) Neutrophils # (Auto) 5.6 x10^3uL (1.8-7.7) Lymphocytes # (Auto) 2.0 x10^3/uL (1.0-4.8) Monocytes # (Auto) 0.8 x10^3/uL (0.0-1.1) Eosinophils # (Auto) 0.0 x10^3/uL (0.0-0.7) Basophils # (Auto) 0.0 x10^3/uL (0.0-0.2) Sodium Level 135 mmol/L (136-145) Potassium Level 3.8 mmol/L (3.5-5.1) Chloride Level 98 mmol/L (98-107) Carbon Dioxide Level 36 mmol/L (21-32) Anion Gap 1 (6-14) Blood Urea Nitrogen 21 mg/dL (8-26) Creatinine 1.0 mg/dL (0.7-1.3) Estimated GFR (Cockcroft-Gault) 76.2 BUN/Creatinine Ratio 21 (6-20) Glucose Level 184 mg/dL (70-99) Calcium Level 9.5 mg/dL (8.5-10.1) Magnesium Level 1.9 mg/dL (1.8-2.4) Total Bilirubin 0.2 mg/dL (0.2-1.0) Aspartate Amino Transf (AST/SGOT) 106 U/L (15-37) Alanine Aminotransferase (ALT/SGPT) 49 U/L (16-63) Alkaline Phosphatase 163 U/L (46-116) Troponin I Quantitative < 0.017 ng/mL (0.000-0.055) Total Protein 7.0 g/dL (6.4-8.2) Albumin 1.6 g/dL (3.4-5.0) Albumin/Globulin Ratio 0.3 (1.0-1.7) Valproic Acid (Depakene) Level 19 mcg/mL (50-100) Valproic Acid Last Dose Date 12/02/16 Valproic Acid Last Dose Time 1999 Glucose (Fingerstick) 149 mg/dL (70-99) 145 mg/dL (70-99) 325 mg/dL (70-99) Notes A and A LLE: incision ok nv status unchanged Assessment and Plan palliative I and D for infected L knee megaprosthesis ok to D/C from my standpoint, f/u in clinic in 2 wks ANIL GARCIA II, MD December 04, 2016 08:17
[2016-12-04] MEDS: ASPIRIN 325 MG TABLET PO SCH (08:29)
[2016-12-04] MEDS: GABAPENTIN 400 MG CAPSULE. PO SCH (08:29)
[2016-12-04] MEDS: FLUoxetine HCL 20 MG CAPSULE PO SCH ×3 (08:30→22:39)
[2016-12-04] MEDS: LACTOBACILLUS ACIDOPH & BULGAR 1 TABLET. PO SCH ×3 (08:30→17:37)
[2016-12-04] MEDS: LINAGLIPTIN 5 MG TABLET PO SCH (08:31)
[2016-12-04] MEDS: SPIRONOLACTONE 25 MG TABLET PO SCH (08:32)
[2016-12-04] MEDS: CARIPRAZINE HYDROCHLORIDE 3 MG PO SCH (08:33)
[2016-12-04] MEDS: DIVALPROEX EXTENDED RELEASE 500 MG TAB.ER.24H. PO SCH ×2 (08:33→22:37)
[2016-12-04] MEDS: SENNOSIDES 8.6 MG TABLET PO SCH (08:33)
[2016-12-04] MEDS: TORSEMIDE 20 MG TABLET. PO SCH ×2 (08:33→15:17)
[2016-12-04] MEDS: FENOFIBRATE,MICRONIZED 134 MG CAPSULE PO SCH (08:34)
[2016-12-04] MEDS: MAGNESIUM OXIDE 400 MG TABLET PO SCH (08:34)
[2016-12-04] MEDS: PANTOPRAZOLE 40 MG TABLET.DR. PO SCH (08:35)
[2016-12-04] MEDS: INSULIN ASPART 300 UNITS/3 ML INSULN.PEN SQ SCH ×5 (08:42→23:01)
[2016-12-04] MEDS: METOPROLOL TART IMMED RELEASE 50 MG TABLET. PO SCH ×2 (08:43→21:00)
[2016-12-04] MEDS: ISOSORBIDE MONONITRATE ER 30 MG TAB.ER.24H PO SCH (08:44)
--- NOTE | 2016-12-04 09:09 | PDOC ---
Infectious Disease Note Subjective Subjective pt is feeling great, awake appropriate ROS ROS GEN: Denies fevers, chills, sweats HEENT: Denies blurred vision, sore throat CV: Denies chest pain RESP: Denies shortness of air, cough GI: Denies n/v/d NEURO: Denies confusion, dizziness MSK: Denies weakness, joint pain/swelling Vital Sign Vital Signs Vital Signs Date Time Temp Pulse Resp B/P (MAP) Pulse Ox O2 Delivery O2 Flow Rate FiO2 12/04/16 08:44 82 99/47 12/04/16 07:00 98.0 16 97 Room Air 98.0 12/03/16 14:53 2.0 Physical Exam PHYSICAL EXAM GENERAL: NAD, Alert HEENT: PERRL, OC/OP NECK: Supple, no JVD, no LN LUNGS: Clear HEART: S1S2, no gallop, no murmur ABD: Soft, NT, no organomegaly, no rebound EXT: No edema, no cyanosis,, knee dressing 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: Alert, oriented x 3, no focal neurologic deficit SKIN: No rash IV: ok Labs Lab Laboratory Tests Test 12/03/16 09:40 12/03/16 11:22 12/03/16 16:21 12/03/16 21:00 White Blood Count 8.4 x10^3/uL (4.0-11.0) Red Blood Count 4.09 x10^6/uL (4.30-5.70) Hemoglobin 10.4 g/dL (13.0-17.5) Hematocrit 32.2 % (39.0-53.0) Mean Corpuscular Volume 79 fL (79-100) Mean Corpuscular Hemoglobin 26 pg (25-35) Mean Corpuscular Hemoglobin Concent 32 g/dL (31-37) Red Cell Distribution Width 20.1 % (11.5-14.5) Platelet Count 430 x10^3/uL (140-400) Neutrophils (%) (Auto) 67 % (31-73) Lymphocytes (%) (Auto) 24 % (24-48) Monocytes (%) (Auto) 9 % (0-9) Eosinophils (%) (Auto) 0 % (0-3) Basophils (%) (Auto) 0 % (0-3) Neutrophils # (Auto) 5.6 x10^3uL (1.8-7.7) Lymphocytes # (Auto) 2.0 x10^3/uL (1.0-4.8) Monocytes # (Auto) 0.8 x10^3/uL (0.0-1.1) Eosinophils # (Auto) 0.0 x10^3/uL (0.0-0.7) Basophils # (Auto) 0.0 x10^3/uL (0.0-0.2) Sodium Level 135 mmol/L (136-145) Potassium Level 3.8 mmol/L (3.5-5.1) Chloride Level 98 mmol/L (98-107) Carbon Dioxide Level 36 mmol/L (21-32) Anion Gap 1 (6-14) Blood Urea Nitrogen 21 mg/dL (8-26) Creatinine 1.0 mg/dL (0.7-1.3) Estimated GFR (Cockcroft-Gault) 76.2 BUN/Creatinine Ratio 21 (6-20) Glucose Level 184 mg/dL (70-99) Calcium Level 9.5 mg/dL (8.5-10.1) Magnesium Level 1.9 mg/dL (1.8-2.4) Total Bilirubin 0.2 mg/dL (0.2-1.0) Aspartate Amino Transf (AST/SGOT) 106 U/L (15-37) Alanine Aminotransferase (ALT/SGPT) 49 U/L (16-63) Alkaline Phosphatase 163 U/L (46-116) Troponin I Quantitative < 0.017 ng/mL (0.000-0.055) Total Protein 7.0 g/dL (6.4-8.2) Albumin 1.6 g/dL (3.4-5.0) Albumin/Globulin Ratio 0.3 (1.0-1.7) Valproic Acid (Depakene) Level 19 mcg/mL (50-100) Valproic Acid Last Dose Date 12/02/16 Valproic Acid Last Dose Time 1999 Glucose (Fingerstick) 149 mg/dL (70-99) 145 mg/dL (70-99) 325 mg/dL (70-99) Test 12/04/16 07:57 Glucose (Fingerstick) 176 mg/dL (70-99) Objective Assessment Fever. better Strep anginosis bacteremia. POA Infected complex left leg fluid collection with hardware in place. s/p aspiration, 11/27. Strep anginosis ,, s/p I and D , coag neg staph likely contaminant since it was only in one culture MRSA and enterococcus in urine. POA PCN/Clinda/Sulfa allergy Has tolerated Rocephin Bilateral LE wounds Arrhythmias Left ? opacity Severe protein malnutrition H/o strep anginosis/intermedius bacteremia Plan Plan of Care cont cefazolin ,, need 6 wks of iv and then keflex chronic suppressive for ever. f/u am labs local wound care ok to transfer to LTAC from ID stand point, will need to have f/u with us in 2 wks LOWELL ROSAS MD December 04, 2016 09:09
[2016-12-04 11:00] VITALS: BP 101/41
[2016-12-04 15:00] VITALS: BP 112/65
[2016-12-04] MEDS: DICLOFENAC SODIUM 1% TOPICAL GEL 100GM TUBE. TP SCH ×4 (15:15→22:42)
[2016-12-04] MEDS: VITS A & D/LANOLIN TOPICAL OINTMENT 56GM TUBE. TP SCH ×2 (15:15→22:41)
--- NOTE | 2016-12-04 15:18 | PDOC ---
PROGRESS NOTES Assessment Problems Medical Problems: (1) Chest pain Status: Acute Psychogenic nonepileptic seizures, no recurrence Metabolic encephalopathy. Dementia Status-post I&D left knee Plan Continue current management Note he is on valproate and gabapentin, for psych disease Subjective no complaints Objective Vital Signs Date Time Temp Pulse Resp B/P (MAP) Pulse Ox O2 Delivery O2 Flow Rate FiO2 12/04/16 12:58 98 Room Air 12/04/16 11:00 98.1 72 18 101/41 (61) 98.1 12/04/16 08:00 2.0 Intake and Output 12/04/16 07:00 Intake Total 680 ml Output Total 1550 ml Balance -870 ml Intake Oral 680 ml Output Urine Total 1400 ml Drainage Total 150 ml # Bowel Movements 1 PHYSICAL EXAM Alert. Oriented to Month, year, place and person. Is aware of diagnosis of psychogenic non-epileptic seizures PERRL. EOMI. CN: no focal findings. Muscle tone: normal. Muscle strength: 4/5 DTR: 1+ Plantar reflex: flexor Gait: not examined in bed. Sensory exam: no abnormal findings. No cerebellar signs elicited. Review of Relevant I have reviewed the following items michelle (where applicable) has been applied. Labs Laboratory Tests Test 12/02/16 16:31 12/02/16 20:55 12/03/16 07:15 12/03/16 09:40 Glucose (Fingerstick) 296 mg/dL (70-99) 264 mg/dL (70-99) 181 mg/dL (70-99) White Blood Count 8.4 x10^3/uL (4.0-11.0) Red Blood Count 4.09 x10^6/uL (4.30-5.70) Hemoglobin 10.4 g/dL (13.0-17.5) Hematocrit 32.2 % (39.0-53.0) Mean Corpuscular Volume 79 fL (79-100) Mean Corpuscular Hemoglobin 26 pg (25-35) Mean Corpuscular Hemoglobin Concent 32 g/dL (31-37) Red Cell Distribution Width 20.1 % (11.5-14.5) Platelet Count 430 x10^3/uL (140-400) Neutrophils (%) (Auto) 67 % (31-73) Lymphocytes (%) (Auto) 24 % (24-48) Monocytes (%) (Auto) 9 % (0-9) Eosinophils (%) (Auto) 0 % (0-3) Basophils (%) (Auto) 0 % (0-3) Neutrophils # (Auto) 5.6 x10^3uL (1.8-7.7) Lymphocytes # (Auto) 2.0 x10^3/uL (1.0-4.8) Monocytes # (Auto) 0.8 x10^3/uL (0.0-1.1) Eosinophils # (Auto) 0.0 x10^3/uL (0.0-0.7) Basophils # (Auto) 0.0 x10^3/uL (0.0-0.2) Sodium Level 135 mmol/L (136-145) Potassium Level 3.8 mmol/L (3.5-5.1) Chloride Level 98 mmol/L (98-107) Carbon Dioxide Level 36 mmol/L (21-32) Anion Gap 1 (6-14) Blood Urea Nitrogen 21 mg/dL (8-26) Creatinine 1.0 mg/dL (0.7-1.3) Estimated GFR (Cockcroft-Gault) 76.2 BUN/Creatinine Ratio 21 (6-20) Glucose Level 184 mg/dL (70-99) Calcium Level 9.5 mg/dL (8.5-10.1) Magnesium Level 1.9 mg/dL (1.8-2.4) Total Bilirubin 0.2 mg/dL (0.2-1.0) Aspartate Amino Transf (AST/SGOT) 106 U/L (15-37) Alanine Aminotransferase (ALT/SGPT) 49 U/L (16-63) Alkaline Phosphatase 163 U/L (46-116) Troponin I Quantitative < 0.017 ng/mL (0.000-0.055) Total Protein 7.0 g/dL (6.4-8.2) Albumin 1.6 g/dL (3.4-5.0) Albumin/Globulin Ratio 0.3 (1.0-1.7) Valproic Acid (Depakene) Level 19 mcg/mL (50-100) Valproic Acid Last Dose Date 12/02/16 Valproic Acid Last Dose Time 2000 Test 12/03/16 11:22 12/03/16 16:21 12/03/16 21:00 12/04/16 07:57 Glucose (Fingerstick) 149 mg/dL (70-99) 145 mg/dL (70-99) 325 mg/dL (70-99) 176 mg/dL (70-99) Test 12/04/16 11:02 Glucose (Fingerstick) 219 mg/dL (70-99) Laboratory Tests Test 12/03/16 16:21 12/03/16 21:00 12/04/16 07:57 12/04/16 11:02 Glucose (Fingerstick) 145 mg/dL (70-99) 325 mg/dL (70-99) 176 mg/dL (70-99) 219 mg/dL (70-99) Microbiology 11/26/16 Blood Culture - Final, Complete 11/26/16 Blood Culture Result 1 (CHUCK) - Final, Complete 11/27/16 Gram Stain - Final, Complete 11/26/16 Urine Culture - Final, Complete 11/26/16 Urine Culture Result 1 (CHUCK) - Final, Complete 12/01/16 Gram Stain - Final, Complete Medications Current Medications Aspirin (Children'S Aspirin) 324 mg 1X ONCE PO Last administered on 11/24/16 15:02; Start 11/24/16 at 14:15; Stop 11/24/16 at 14:44; Status DC Ondansetron HCl (Zofran) 4 mg PRN Q8HRS PRN IV NAUSEA/VOMITING; Start 11/24/16 at 15:45; Stop 11/25/16 at 15:44; Status DC Nitroglycerin (Nitrostat) 0.4 mg PRN Q5MIN PRN SL CHEST PAIN; Start 11/24/16 at 15:45; Stop 11/25/16 at 15:44; Status DC Aspirin (Ceci Aspirin) 325 mg DAILY PO Last administered on 12/04/16 08:29; Start 11/25/16 at 09:00 Glucose (Insta-Glucose) 15 gm PRN DAILY PRN PO LOW GLUCOSE LEVEL PER PROTOCOL Last administered on 11/26/16 05:45; Start 11/25/16 at 01:30 Diclofenac Sodium (Voltaren) 2 martha QID TP Last administered on 12/04/16 15:15; Start 11/25/16 at 09:00 Divalproex Sodium (Depakote Er) 500 mg BID PO ; Start 11/25/16 at 09:00; Stop at 09:00; Status DC Donepezil HCl (Aricept) 10 mg HS PO ; Start 11/25/16 at 21:00; Stop 11/25/16 at 21:00; Status DC Gabapentin (Neurontin) 800 mg DAILY PO Last administered on 12/04/16 08:29; Start 11/25/16 at 09:00 Acetaminophen/ Hydrocodone Bitart (Lortab 10/325) 1 tab PRN QID PRN PO MODERATE PAIN Last administered on 12/03/16 17:37; Start 11/25/16 at 01:30 Lamotrigine (LaMICtal) 100 mg HS PO ; Start 11/25/16 at 21:00; Stop 11/25/16 at 21:00; Status DC Levothyroxine Sodium (Synthroid) 137 mcg DAILY07 PO Last administered on 07:00; Start 11/25/16 at 07:00 Linagliptin (Tradjenta) 5 mg DAILY PO Last administered on 12/04/16 08:31; Start 11/25/16 at 09:00 Lorazepam (Ativan) 1 mg TID PO Last administered on 11/28/16 09:17; Start at 09:00; Stop 11/28/16 at 11:32; Status DC Magnesium Oxide (Magnesium Oxide) 400 mg DAILY PO Last administered on 08:34; Start 11/25/16 at 09:00 Nortriptyline HCl (Pamelor) 25 mg QHS PO ; Start 11/25/16 at 21:00; Stop at 21:00; Status DC Oxycodone/ Acetaminophen (Percocet 5/325) 1 tab PRN Q6HRS PRN PO MILD PAIN Last administered on 12/01/16 15:50; Start 11/25/16 at 01:30 Pantoprazole Sodium (Protonix) 40 mg DAILYAC PO Last administered on 12/04/16 08:35; Start 11/25/16 at 07:30 Quetiapine Fumarate (SEROquel) 100 mg QHS PO ; Start 11/25/16 at 21:00; Stop at 21:00; Status DC Sennosides (Senna) 8.6 mg DAILY PO Last administered on 12/04/16 08:33; Start 11/25/16 at 09:00 Torsemide (Demadex) 20 mg [id number] PO Last administered on 12/04/16 08:33; Start 11/25/16 at 09:00 Non-Formulary Medication 15 mcg BID IH ; Start 11/25/16 at 09:00; Status UNV Non-Formulary Medication 3 mg DAILY PO Last administered on 12/04/16 08:33; Start 11/25/16 at 09:00 Fenofibrate (Lofibra) 134 mg DAILY PO Hypothyroidism Last administered on 08:34; Start 11/25/16 at 09:00 Non-Formulary Medication 1 cap TID PO ; Start 11/25/16 at 09:00; Stop 11/25/16 at 09:00; Status DC Insulin Aspart (Novolog) 10 units BID SQ Last administered on 11/25/16 21:41; Start 11/25/16 at 09:00; Stop 11/26/16 at 11:57; Status DC Non-Formulary Medication 50 unit QHS SQ ; Start 11/25/16 at 21:00; Stop at 21:00; Status DC Metoprolol Tartrate (Lopressor) 100 mg DAILY PO Last administered on 11/26/16 08:07; Start 11/25/16 at 09:00; Stop 11/26/16 at 13:58; Status DC Non-Formulary Medication 10 mg HS PO Atheroscletotic Heart Disease; Start at 21:00; Stop 11/25/16 at 21:00; Status DC Spironolactone (Aldactone) 100 mg DAILY PO Diuretic Last administered on 08:32; Start 11/25/16 at 09:00 Non-Formulary Medication 100 mg DAILY PO ; Start 11/25/16 at 09:00; Status UNV Divalproex Sodium (Depakote Er) 500 mg BID PO Last administered on 12/04/16 08: 33; Start 11/25/16 at 01:45 Donepezil HCl (Aricept) 10 mg HS PO Last administered on 12/03/16 20:41; Start 11/25/16 at 01:45 Lamotrigine (LaMICtal) 100 mg HS PO Last administered on 12/03/16 20:41; Start 11/25/16 at 01:45 Nortriptyline HCl (Pamelor) 25 mg QHS PO Last administered on 12/03/16 20:39; Start 11/25/16 at 01:45 Quetiapine Fumarate (SEROquel) 100 mg QHS PO Last administered on 12/03/16 20: 41; Start 11/25/16 at 01:45 Fluoxetine HCl (Prozac) 40 mg TID PO Last administered on 12/04/16 08:30; Start 11/25/16 at 02:00 Insulin Detemir (Levemir) 50 units QHS SQ Last administered on 11/25/16 21:41 ; Start 11/25/16 at 02:00; Stop 11/26/16 at 11:57; Status DC Atorvastatin Calcium (Lipitor) 40 mg HS PO Atheroscletotic Heart Disease Last administered on 12/03/16 20:40; Start 11/25/16 at 02:00 Albuterol Sulfate (Ventolin Neb Soln) 2.5 mg Q6H NEB Last administered on 12:58; Start 11/25/16 at 06:00 Heparin Sodium (Porcine) 5,000 unit Q8HRS SQ Last administered on 12/04/16 06: 00; Start 11/25/16 at 14:00 Vitamin A/Vitamin D (Vitamin A & D Ointment) 1 martha TID TP Last administered on 12/04/16 15:15; Start 11/25/16 at 21:00 Insulin Aspart (Novolog) 5 units BID SQ Last administered on 12/04/16 08:43; Start 11/26/16 at 21:00 Insulin Detemir (Levemir) 30 units QHS SQ Last administered on 12/03/16 21:15; Start 11/26/16 at 21:00 Dextrose (Dextrose 50%-Water Syringe) 12.5 gm PRN Q15MIN PRN IV SEE COMMENTS Last administered on 11/26/16 12:32; Start 11/26/16 at 12:15; Stop 11/30/16 at 10:30; Status DC Metoprolol Tartrate (Lopressor) 50 mg BID PO Last administered on 12/03/16 20: 40; Start 11/26/16 at 21:00 Isosorbide Mononitrate (Imdur) 30 mg DAILY PO Last administered on 11/30/16 09 :14; Start 11/26/16 at 15:00 Iohexol (Omnipaque 300 Mg/ml) 75 ml 1X ONCE IV Last administered on 11/26/16 15:57; Start 11/26/16 at 15:30; Stop 11/26/16 at 15:35; Status DC Info (Do NOT chart on this entry -- for MONITORING) 1 each PRN DAILY PRN MC SEE COMMENTS; Start 11/26/16 at 15:45; Stop 11/28/16 at 15:44; Status DC Linezolid 300 ml @ 300 mls/hr Q12HR IV Last administered on 11/26/16 22:53; Start 11/26/16 at 21:00; Stop 11/27/16 at 08:00; Status DC Meropenem 1 gm/ Sodium Chloride 100 ml @ 200 mls/hr Q8HRS IV Last administered on 11/30/16 06:12; Start 11/26/16 at 20:30; Stop 11/30/16 at 13:05 ; Status DC Acetaminophen (Tylenol) 650 mg PRN Q4HRS PRN PO fever Last administered on 20:35; Start 11/26/16 at 20:00 Vancomycin HCl (Vanco Per Pharmacy) 1 each PRN DAILY PRN MC SEE COMMENTS Last administered on 11/29/16 10:23; Start 11/27/16 at 08:00; Stop 11/30/16 at 13:36 ; Status DC Vancomycin HCl 2 gm/Sodium Chloride 500 ml @ 250 mls/hr 1X ONCE IV Last administered on 11/27/16 09:07; Start 11/27/16 at 09:00; Stop 11/27/16 at 10:59 ; Status DC Vancomycin HCl 2 gm/Sodium Chloride 500 ml @ 250 mls/hr Q12H IV Last administered on 11/28/16 09:22; Start 11/27/16 at 21:00; Stop 11/28/16 at 22:01 ; Status DC Vancomycin HCl 1 each 1X ONCE MC Last administered on 11/28/16 20:30; Start 11/28/16 at 20:30; Stop 11/28/16 at 20:31; Status DC Lidocaine/Sodium Bicarbonate (Buffered Lidocaine 1%) 20 ml STK-MED ONCE IJ ; Start 11/27/16 at 09:33; Stop 11/27/16 at 09:34; Status DC Midazolam HCl (Versed) 5 mg STK-MED ONCE .ROUTE ; Start 11/27/16 at 09:53; Stop 11/27/16 at 09:54; Status DC Fentanyl Citrate (Fentanyl 5ml Vial) 250 mcg STK-MED ONCE .ROUTE ; Start at 09:54; Stop 11/27/16 at 09:55; Status DC Lidocaine/Sodium Bicarbonate (Buffered Lidocaine 1%) 20 ml 1X ONCE IJ Last administered on 11/27/16 10:26; Start 11/27/16 at 10:00; Stop 11/27/16 at 10:06 ; Status DC Lidocaine HCl 5 ml 1X ONCE IJ ; Start 11/27/16 at 11:30; Stop 11/27/16 at 11:31 ; Status DC Lorazepam (Ativan) 1 mg PRN TID PRN PO ANXIETY Last administered on 12/02/16 22 :59; Start 11/28/16 at 11:45 Vancomycin HCl 2 gm/Sodium Chloride 500 ml @ 250 mls/hr Q18H IV Last administered on 11/30/16 00:21; Start 11/29/16 at 06:00; Stop 11/30/16 at 13:05 ; Status DC Vancomycin HCl 1 each 1X ONCE MC ; Start 12/01/16 at 11:30; Stop 12/01/16 at 11: 30; Status DC Insulin Aspart (Novolog) 0-5 UNITS TIDWMEALS SQ Last administered on 12/04/16 12:37; Start 11/29/16 at 17:00 Dextrose (Dextrose 50%-Water Syringe) 12.5 gm PRN Q15MIN PRN IV SEE COMMENTS; Start 11/29/16 at 16:45 Cefazolin Sodium 2 gm/Sodium Chloride 50 ml @ 100 mls/hr Q8HRS IV ; Start 11/30 at 14:00; Status UNV Cefazolin Sodium/ Dextrose 50 ml @ 100 mls/hr Q8HRS IV Last administered on 06:00; Start 11/30/16 at 14:00 Lactobacillus Acidophilus (Bacid, Constance-Bid) 1 tab TIDWMEALS PO Last administered on 12/04/16 12:30; Start 11/30/16 at 17:00 Bupivacaine HCl (Sensorcaine Mpf 0.5%) 30 ml STK-MED ONCE .ROUTE Last administered on 12/01/16 12:26; Start 12/01/16 at 06:41; Stop 12/01/16 at 06:42; Status DC Lidocaine HCl 20 ml STK-MED ONCE .ROUTE Last administered on 12/01/16 12:26; Start 12/01/16 at 06:41; Stop 12/01/16 at 06:42; Status DC Lidocaine HCl (Lidocaine HCl 2% Abboject) 100 mg STK-MED ONCE .ROUTE ; Start 12/01/16 at 11:16; Stop 12/01/16 at 11:17; Status DC Propofol 20 ml @ As Directed STK-MED ONCE IV ; Start 12/01/16 at 11:16; Stop 12/01 at 11:17; Status DC Ondansetron HCl (Zofran) 4 mg STK-MED ONCE .ROUTE ; Start 12/01/16 at 11:16; Stop 12/01/16 at 11:17; Status DC Famotidine (Pepcid) 20 mg STK-MED ONCE .ROUTE ; Start 12/01/16 at 11:16; Stop 12/01/16 at 11:17; Status DC Dexamethasone Sodium Phosphate (Decadron) 20 mg STK-MED ONCE .ROUTE ; Start 12/01 at 11:16; Stop 12/01/16 at 11:17; Status DC Fentanyl Citrate (Fentanyl 2ml Vial) 100 mcg STK-MED ONCE .ROUTE ; Start at 11:16; Stop 12/01/16 at 11:17; Status DC Sevoflurane (Ultane) 60 ml STK-MED ONCE IH ; Start 12/01/16 at 12:44; Stop at 12:45; Status DC Morphine Sulfate 2 mg PRN Q4HRS PRN IV PAIN Last administered on 12/03/16 13:31 ; Start 12/03/16 at 09:30 Active Scripts Active Reported Voltaren (Diclofenac Sodium) 100 Gm Gel..gram. 2 Gm TP QID Tradjenta (Linagliptin) 5 Mg Tablet 1 Tab PO DAILY Torsemide 20 Mg Tablet 40 Tab PO BID Spironolactone 100 Mg Tablet 1 Tab PO DAILY Seroquel (Quetiapine Fumarate) 100 Mg Tablet 1 Tab PO QHS Senna (Sennosides) 8.6 Mg Tablet 8.6 Mg PO DAILY Prozac (Fluoxetine Hcl) 40 Mg Capsule 1 Cap PO TID Protonix (Pantoprazole Sodium) 40 Mg Tablet.dr 40 Mg PO DAILY Oxycodone-Acetaminophen 5-325 (Oxycodone Hcl/Acetaminophen) 1 Each Tablet 1 Each PO PRN Q6HRS PRN Novolog (Insulin Aspart) 100 Unit/1 Ml Cartridge 10 Unit SQ BID Nortriptyline Hcl 25 Mg Capsule 50 Cap PO QHS Metoprolol Tartrate 100 Mg Tablet 100 Tab PO DAILY Magnesium Oxide 400 Mg Tablet 1 Tab PO DAILY Lorazepam 1 Mg Tablet 1 Tab PO TID Levothyroxine Sodium 137 Mcg Tablet 1 Tab PO DAILY Lantus Solostar (Insulin Glargine,Hum.rec.anlog) 100 Unit/1 Ml Insuln.pen 50 Unit SQ QHS Lamotrigine 100 Mg Tablet 1 Tab PO HS Hydrocodone-Apap 10-325 (Hydrocodone Bit/Acetaminophen) 1 Each Tablet 1 Tab PO QID PRN Glucose Gel (Dextrose) 38 Gm Gel..gram. 38 Gm PO Gabapentin 400 Mg Capsule 800 Mg PO DAILY [non] Fenofibrate (Fenofibrate Nanocrystallized) 145 Mg Tablet 1 Tab PO DAILY Donepezil Hcl 10 Mg Tablet 1 Tab PO HS Depakote Er (Divalproex Sodium) 500 Mg Tab.er.24h 2 Tab PO BID Rosuvastatin Calcium 10 Mg Tablet 10 Mg PO HS Coenzyme Q-10 (Ubidecarenone) 50 Mg Capsule 100 Mg PO DAILY Brovana (Arformoterol Tartrate) 15 Mcg/2 Ml Vial.neb 15 Mcg IH BID Vraylar (Cariprazine Hydrochloride) 3 Mg Capsule 3 Mg PO DAILY Aspirin 325 Mg Tablet 1 Tab PO DAILY Vitals/I & O Vital Sign - Last 24 Hours 12/03/16 12/03/16 12/03/16 12/03/16 19:18 19:39 20:40 23:03 Temp 97.5 97.7 97.5 97.7 Pulse 93 93 100 Resp 18 18 B/P (MAP) 112/58 (76) 112/58 106/50 (68) Pulse Ox 95 93 O2 Delivery Room Air Room Air Room Air 12/04/16 12/04/16 12/04/16 12/04/16 02:36 06:59 07:00 08:00 Temp 97.7 98.0 97.7 98.0 Pulse 86 77 Resp 18 16 B/P (MAP) 109/48 (68) 99/47 (64) Pulse Ox 94 98 97 O2 Delivery Room Air Room Air Room Air Nasal Cannula O2 Flow Rate 2.0 12/04/16 12/04/16 12/04/16 12/04/16 08:43 08:44 11:00 12:58 Temp 98.1 98.1 Pulse 86 82 72 Resp 18 B/P (MAP) 99/47 99/47 101/41 (61) Pulse Ox 90 98 O2 Delivery Room Air Room Air Intake and Output 12/03/16 12/03/16 12/04/16 15:00 23:00 07:00 Intake Total 460 ml 220 ml Output Total 275 ml 150 ml 1125 ml Balance -275 ml 310 ml -905 ml JB SHEA MD December 04, 2016 15:18
[2016-12-04 19:00] VITALS: BP 112/60
[2016-12-04] MEDS: lamoTRIgine 100 MG TABLET. PO SCH (22:36)
[2016-12-04] MEDS: DONEPEZIL HCL 10 MG TABLET. PO SCH (22:36)
[2016-12-04] MEDS: QUEtiapine 100 MG TABLET. PO SCH (22:38)
[2016-12-04] MEDS: NORTRIPTYLINE 25 MG CAPSULE PO SCH (22:39)
[2016-12-04] MEDS: ATORVASTATIN CALCIUM 40 MG TABLET. PO SCH (22:40)
[2016-12-04 23:00] VITALS: BP 118/50
[2016-12-04] MEDS: INSULIN DETEMIR 300 UNITS/3 ML INSULN.PEN. SQ SCH (23:02)
--- NOTE | 2016-12-04 23:49 | PN ---
DATE: 12/04/2016 SUBJECTIVE: The patient is resting, slightly propped up in bed, in no apparent distress. Awake, alert, complaining that his left leg is more swollen. He underwent incision and drainage of his left thigh and knee and apparently, the dressing is too tight. He is already on heparin and has had ____ Doppler ultrasound that was negative for DVT. He qualified to be transferred to [facility]; however, we are waiting for the insurance authorization for the transfer. PHYSICAL EXAMINATION: GENERAL: On examining him, he looked pale, but no jaundice, cyanosis or thyromegaly. No jugular venous distention. No limb edema. VITAL SIGNS: His heart rate was 72, blood pressure was 101/41, temperature was 98.1, respiratory rate was 18 and oxygen saturation was 90%. HEAD, EYES, EARS, NOSE AND THROAT: Showed normocephalic, atraumatic. NECK: Supple. HEART: Showed normal first and second heart sounds. No gallop, rub or murmur. CHEST: Clear to auscultation. No crepitation or rhonchi. ABDOMEN: Distended, soft, nontender. No guarding or rigidity. No organomegaly. All hernial orifices intact. Bowel sounds normal. NEUROLOGIC: He was awake, alert, responding appropriately. Cranial nerves intact. He moves upper extremities to much greater extent than lower extremities. He is mostly bed bound. His intake over the last 24 hours was 680, output was ____. LABORATORY DATA: His most recent white cell count was 8400, hemoglobin 10, hematocrit 32, MCV 79 and platelet count of ____. His chemistry showed a serum sodium 135, potassium 3.8, chloride 98, bicarbonate 36, anion gap of 1, BUN 21, creatinine 1, estimated GFR was 76 mL per minute. His glucose was 184, calcium was 9.5, magnesium was 1.9. Total bilirubin and ALT are normal. AST and alkaline phosphatase slightly elevated. His total protein 7, albumin is 1.6. ASSESSMENT: Infected left knee megaprosthesis, status post incision and drainage; Streptococcus anginosus bacteremia; methicillin-resistant Staphylococcus aureus, Enterococcus infection in the urine; bilateral lower extremity wounds and severe protein-calorie malnutrition. PLAN: To continue with IV cefazolin for a total of 6 weeks, awaiting the authorization by insurance to be transferred to [facility]. PATTY CHRISTIAN MD DR: YUMI/harry JOB#: [id number] / [id number]
[2016-12-05] MEDS: ALBUTEROL SULFATE 2.5 MG/3 ML NEBU. NEB SCH ×4 (00:23→20:36)
[2016-12-05 03:00] VITALS: BP 101/57
[2016-12-05] MEDS: HEPARIN PF for SUB-Q USE 5,000 UNIT/0.5 ML VIAL. SQ SCH ×3 (06:35→22:00)
[2016-12-05 07:00] VITALS: BP 117/63
[2016-12-05 07:03] LABS: BASO % 1 % (0-3); EOS % 0 % (0-3); HEMATOCRIT 29.8 % (39.0-53.0); HEMOGLOBIN 9.4 g/dL (13.0-17.5); LYMPH # 1.5 x10^3/uL (1.0-4.8); LYMPH % 22 % (24-48); MEAN CORPUSCULAR HEMOGLOBIN 26 pg (25-35); MEAN CORPUSCULAR HGB CONC 32 g/dL (31-37); MEAN CORPUSCULAR VOLUME 81 fL (79-100); MONO % 5 % (0-9); NEUT % 72 % (31-73); PLATELET COUNT 395 x10^3/uL (140-400); RED BLOOD COUNT 3.69 x10^6/uL (4.30-5.70); RED CELL DISTRIBUTION WIDTH 20.1 % (11.5-14.5); WHITE BLOOD COUNT 6.8 x10^3/uL (4.0-11.0)
[2016-12-05 07:23] LABS: GFR 76.2; POTASSIUM 3.4 mmol/L (3.5-5.1)
[2016-12-05] MEDS: FENOFIBRATE,MICRONIZED 134 MG CAPSULE PO SCH (08:17)
[2016-12-05] MEDS: ASPIRIN 325 MG TABLET PO SCH (08:18)
[2016-12-05] MEDS: GABAPENTIN 400 MG CAPSULE. PO SCH (08:18)
[2016-12-05] MEDS: METOPROLOL TART IMMED RELEASE 50 MG TABLET. PO SCH ×2 (08:18→21:00)
[2016-12-05] MEDS: MAGNESIUM OXIDE 400 MG TABLET PO SCH (08:18)
[2016-12-05] MEDS: SENNOSIDES 8.6 MG TABLET PO SCH (08:19)
[2016-12-05] MEDS: PANTOPRAZOLE 40 MG TABLET.DR. PO SCH (08:19)
[2016-12-05] MEDS: SPIRONOLACTONE 25 MG TABLET PO SCH (08:19)
[2016-12-05] MEDS: LEVOTHYROXINE 137 MCG TABLET PO SCH (08:19)
[2016-12-05] MEDS: DIVALPROEX EXTENDED RELEASE 500 MG TAB.ER.24H. PO SCH ×2 (08:19→22:22)
[2016-12-05] MEDS: LINAGLIPTIN 5 MG TABLET PO SCH (08:19)
[2016-12-05] MEDS: CARIPRAZINE HYDROCHLORIDE 3 MG PO SCH (08:20)
[2016-12-05] MEDS: FLUoxetine HCL 20 MG CAPSULE PO SCH ×3 (08:20→22:23)
[2016-12-05] MEDS: TORSEMIDE 20 MG TABLET. PO SCH ×2 (08:20→17:20)
[2016-12-05] MEDS: LACTOBACILLUS ACIDOPH & BULGAR 1 TABLET. PO SCH ×3 (08:20→17:20)
[2016-12-05] MEDS: VITS A & D/LANOLIN TOPICAL OINTMENT 56GM TUBE. TP SCH ×3 (08:21→22:26)
[2016-12-05] MEDS: DICLOFENAC SODIUM 1% TOPICAL GEL 100GM TUBE. TP SCH ×4 (08:21→22:20)
[2016-12-05] MEDS: INSULIN ASPART 300 UNITS/3 ML INSULN.PEN SQ SCH ×5 (08:29→21:00)
[2016-12-05] MEDS: ISOSORBIDE MONONITRATE ER 30 MG TAB.ER.24H PO SCH (09:00)
--- NOTE | 2016-12-05 09:00 | PDOC ---
Infectious Disease Note Subjective Subjective pt is feeling great, awake appropriate ROS ROS GEN: Denies fevers, chills, sweats HEENT: Denies blurred vision, sore throat CV: Denies chest pain RESP: Denies shortness of air, cough GI: Denies n/v/d NEURO: Denies confusion, dizziness Vital Sign Vital Signs Vital Signs Date Time Temp Pulse Resp B/P (MAP) Pulse Ox O2 Delivery O2 Flow Rate FiO2 12/05/16 08:18 79 117/63 12/05/16 07:07 Room Air 12/05/16 07:00 97.1 18 93 97.1 12/04/16 20:00 2.0 Physical Exam PHYSICAL EXAM GENERAL: NAD, Alert HEENT: PERRL, OC/OP NECK: Supple, no JVD, no LN LUNGS: Clear HEART: S1S2, no gallop, no murmur ABD: Soft, NT, no organomegaly, no rebound EXT: No edema, no cyanosis [employer]: Alert, oriented x 3, no focal neurologic deficit SKIN: No rash IV: ok Labs Lab Laboratory Tests Test 12/04/16 11:02 12/04/16 16:38 12/04/16 20:23 12/05/16 06:30 Glucose (Fingerstick) 219 mg/dL (70-99) 236 mg/dL (70-99) 293 mg/dL (70-99) White Blood Count 6.8 x10^3/uL (4.0-11.0) Red Blood Count 3.69 x10^6/uL (4.30-5.70) Hemoglobin 9.4 g/dL (13.0-17.5) Hematocrit 29.8 % (39.0-53.0) Mean Corpuscular Volume 81 fL (79-100) Mean Corpuscular Hemoglobin 26 pg (25-35) Mean Corpuscular Hemoglobin Concent 32 g/dL (31-37) Red Cell Distribution Width 20.1 % (11.5-14.5) Platelet Count 395 x10^3/uL (140-400) Neutrophils (%) (Auto) 72 % (31-73) Lymphocytes (%) (Auto) 22 % (24-48) Monocytes (%) (Auto) 5 % (0-9) Eosinophils (%) (Auto) 0 % (0-3) Basophils (%) (Auto) 1 % (0-3) Neutrophils # (Auto) 4.9 x10^3uL (1.8-7.7) Lymphocytes # (Auto) 1.5 x10^3/uL (1.0-4.8) Monocytes # (Auto) 0.4 x10^3/uL (0.0-1.1) Eosinophils # (Auto) 0.0 x10^3/uL (0.0-0.7) Basophils # (Auto) 0.0 x10^3/uL (0.0-0.2) Sodium Level 137 mmol/L (136-145) Potassium Level 3.4 mmol/L (3.5-5.1) Chloride Level 100 mmol/L (98-107) Carbon Dioxide Level 37 mmol/L (21-32) Anion Gap 0 (6-14) Blood Urea Nitrogen 15 mg/dL (8-26) Creatinine 1.0 mg/dL (0.7-1.3) Estimated GFR (Cockcroft-Gault) 76.2 Glucose Level 235 mg/dL (70-99) Calcium Level 9.0 mg/dL (8.5-10.1) Test 12/05/16 08:04 Glucose (Fingerstick) 204 mg/dL (70-99) Objective Assessment Fever. better Strep anginosis bacteremia. POA Infected complex left leg fluid collection with hardware in place. s/p aspiration, 11/27. Strep anginosis ,, s/p I and D , coag neg staph likely contaminant since it was only in one culture MRSA and enterococcus in urine. POA PCN/Clinda/Sulfa allergy Has tolerated Rocephin Bilateral LE wounds Arrhythmias Left ? opacity Severe protein malnutrition H/o strep anginosis/intermedius bacteremia Plan Plan of Care cont cefazolin ,, need 6 wks of iv and then keflex chronic suppressive for ever. f/u am labs local wound care ok to transfer to LTAC from ID stand point, will need to have f/u with us in 2 wks LOWELL ROSAS MD December 05, 2016 09:00
--- NOTE | 2016-12-05 11:02 | PDOC ---
COLLINS DARNELL [employer] 12/05/16 1102: ORTHO PROGRESS NOTES Subjective Edmar is doing well. Denies pain. Denies fever flulike symptoms. He has been nonweightbearing. Anticipates being discharged to rehabilitation today or tomorrow. no complaints Vitals Vital Signs Date Time Temp Pulse Resp B/P (MAP) Pulse Ox O2 Delivery O2 Flow Rate FiO2 12/05/16 08:18 79 117/63 12/05/16 07:07 Room Air 12/05/16 07:00 97.1 18 93 97.1 12/04/16 20:00 2.0 Labs Laboratory Tests Test 12/03/16 11:22 12/03/16 16:21 12/03/16 21:00 12/04/16 07:57 Glucose (Fingerstick) 149 mg/dL (70-99) 145 mg/dL (70-99) 325 mg/dL (70-99) 176 mg/dL (70-99) Test 12/04/16 11:02 12/04/16 16:38 12/04/16 20:23 12/05/16 06:30 Glucose (Fingerstick) 219 mg/dL (70-99) 236 mg/dL (70-99) 293 mg/dL (70-99) White Blood Count 6.8 x10^3/uL (4.0-11.0) Red Blood Count 3.69 x10^6/uL (4.30-5.70) Hemoglobin 9.4 g/dL (13.0-17.5) Hematocrit 29.8 % (39.0-53.0) Mean Corpuscular Volume 81 fL (79-100) Mean Corpuscular Hemoglobin 26 pg (25-35) Mean Corpuscular Hemoglobin Concent 32 g/dL (31-37) Red Cell Distribution Width 20.1 % (11.5-14.5) Platelet Count 395 x10^3/uL (140-400) Neutrophils (%) (Auto) 72 % (31-73) Lymphocytes (%) (Auto) 22 % (24-48) Monocytes (%) (Auto) 5 % (0-9) Eosinophils (%) (Auto) 0 % (0-3) Basophils (%) (Auto) 1 % (0-3) Neutrophils # (Auto) 4.9 x10^3uL (1.8-7.7) Lymphocytes # (Auto) 1.5 x10^3/uL (1.0-4.8) Monocytes # (Auto) 0.4 x10^3/uL (0.0-1.1) Eosinophils # (Auto) 0.0 x10^3/uL (0.0-0.7) Basophils # (Auto) 0.0 x10^3/uL (0.0-0.2) Sodium Level 137 mmol/L (136-145) Potassium Level 3.4 mmol/L (3.5-5.1) Chloride Level 100 mmol/L (98-107) Carbon Dioxide Level 37 mmol/L (21-32) Anion Gap 0 (6-14) Blood Urea Nitrogen 15 mg/dL (8-26) Creatinine 1.0 mg/dL (0.7-1.3) Estimated GFR (Cockcroft-Gault) 76.2 Glucose Level 235 mg/dL (70-99) Calcium Level 9.0 mg/dL (8.5-10.1) Test 12/05/16 08:04 Glucose (Fingerstick) 204 mg/dL (70-99) Laboratory Tests Test 12/04/16 11:02 12/04/16 16:38 12/04/16 20:23 12/05/16 06:30 Glucose (Fingerstick) 219 mg/dL (70-99) 236 mg/dL (70-99) 293 mg/dL (70-99) White Blood Count 6.8 x10^3/uL (4.0-11.0) Red Blood Count 3.69 x10^6/uL (4.30-5.70) Hemoglobin 9.4 g/dL (13.0-17.5) Hematocrit 29.8 % (39.0-53.0) Mean Corpuscular Volume 81 fL (79-100) Mean Corpuscular Hemoglobin 26 pg (25-35) Mean Corpuscular Hemoglobin Concent 32 g/dL (31-37) Red Cell Distribution Width 20.1 % (11.5-14.5) Platelet Count 395 x10^3/uL (140-400) Neutrophils (%) (Auto) 72 % (31-73) Lymphocytes (%) (Auto) 22 % (24-48) Monocytes (%) (Auto) 5 % (0-9) Eosinophils (%) (Auto) 0 % (0-3) Basophils (%) (Auto) 1 % (0-3) Neutrophils # (Auto) 4.9 x10^3uL (1.8-7.7) Lymphocytes # (Auto) 1.5 x10^3/uL (1.0-4.8) Monocytes # (Auto) 0.4 x10^3/uL (0.0-1.1) Eosinophils # (Auto) 0.0 x10^3/uL (0.0-0.7) Basophils # (Auto) 0.0 x10^3/uL (0.0-0.2) Sodium Level 137 mmol/L (136-145) Potassium Level 3.4 mmol/L (3.5-5.1) Chloride Level 100 mmol/L (98-107) Carbon Dioxide Level 37 mmol/L (21-32) Anion Gap 0 (6-14) Blood Urea Nitrogen 15 mg/dL (8-26) Creatinine 1.0 mg/dL (0.7-1.3) Estimated GFR (Cockcroft-Gault) 76.2 Glucose Level 235 mg/dL (70-99) Calcium Level 9.0 mg/dL (8.5-10.1) Test 12/05/16 08:04 Glucose (Fingerstick) 204 mg/dL (70-99) Notes Patient is awake and alert sitting up in bed. Breathing unlabored, no acute distress. Mild edema and joint effusion left knee. No tenderness. No erythema. Incision is well approximated no drainage. Closed with celina. Neurovascular intact left lower extremity. Assessment and Plan Ok to DC when medically stable chronic suppression for knee injection ANIL GARCIA II, MD 12/05/16 1423: COLLINS DARNELL APRN December 05, 2016 11:02 ANIL GARCIA II, MD December 05, 2016 14:23
[2016-12-05 11:17] VITALS: BP 104/51
--- NOTE | 2016-12-05 12:04 | PDOC ---
PROGRESS NOTES Assessment Problems Medical Problems: (1) Chest pain Status: Acute Psychogenic nonepileptic seizures, no recurrence Metabolic encephalopathy. Dementia Status-post I&D left knee Plan Continue current management Note he is on valproate and gabapentin, for psych disease Subjective No complaints Objective Vital Signs Date Time Temp Pulse Resp B/P (MAP) Pulse Ox O2 Delivery O2 Flow Rate FiO2 12/05/16 11:36 Room Air 12/05/16 11:17 96.8 67 18 104/51 (68) 97 96.8 12/04/16 20:00 2.0 Intake and Output 12/05/16 07:00 Intake Total 240 ml Output Total 2075 ml Balance -1835 ml Intake Oral 240 ml Output Urine Total 2075 ml Stool Total 0 ml PHYSICAL EXAM Alert. Oriented to Month, year, place and person. PERRL. EOMI. CN: no focal findings. Muscle tone: normal. Muscle strength: 4/5 DTR: 1+ Plantar reflex: flexor Gait: not examined in bed. Sensory exam: no abnormal findings. No cerebellar signs elicited. Review of Relevant I have reviewed the following items michelle (where applicable) has been applied. Labs Laboratory Tests Test 12/03/16 16:21 12/03/16 21:00 12/04/16 07:57 12/04/16 11:02 Glucose (Fingerstick) 145 mg/dL (70-99) 325 mg/dL (70-99) 176 mg/dL (70-99) 219 mg/dL (70-99) Test 12/04/16 16:38 12/04/16 20:23 12/05/16 06:30 12/05/16 08:04 Glucose (Fingerstick) 236 mg/dL (70-99) 293 mg/dL (70-99) 204 mg/dL (70-99) White Blood Count 6.8 x10^3/uL (4.0-11.0) Red Blood Count 3.69 x10^6/uL (4.30-5.70) Hemoglobin 9.4 g/dL (13.0-17.5) Hematocrit 29.8 % (39.0-53.0) Mean Corpuscular Volume 81 fL (79-100) Mean Corpuscular Hemoglobin 26 pg (25-35) Mean Corpuscular Hemoglobin Concent 32 g/dL (31-37) Red Cell Distribution Width 20.1 % (11.5-14.5) Platelet Count 395 x10^3/uL (140-400) Neutrophils (%) (Auto) 72 % (31-73) Lymphocytes (%) (Auto) 22 % (24-48) Monocytes (%) (Auto) 5 % (0-9) Eosinophils (%) (Auto) 0 % (0-3) Basophils (%) (Auto) 1 % (0-3) Neutrophils # (Auto) 4.9 x10^3uL (1.8-7.7) Lymphocytes # (Auto) 1.5 x10^3/uL (1.0-4.8) Monocytes # (Auto) 0.4 x10^3/uL (0.0-1.1) Eosinophils # (Auto) 0.0 x10^3/uL (0.0-0.7) Basophils # (Auto) 0.0 x10^3/uL (0.0-0.2) Sodium Level 137 mmol/L (136-145) Potassium Level 3.4 mmol/L (3.5-5.1) Chloride Level 100 mmol/L (98-107) Carbon Dioxide Level 37 mmol/L (21-32) Anion Gap 0 (6-14) Blood Urea Nitrogen 15 mg/dL (8-26) Creatinine 1.0 mg/dL (0.7-1.3) Estimated GFR (Cockcroft-Gault) 76.2 Glucose Level 235 mg/dL (70-99) Calcium Level 9.0 mg/dL (8.5-10.1) Test 12/05/16 11:27 Glucose (Fingerstick) 177 mg/dL (70-99) Laboratory Tests Test 12/04/16 16:38 12/04/16 20:23 12/05/16 06:30 12/05/16 08:04 Glucose (Fingerstick) 236 mg/dL (70-99) 293 mg/dL (70-99) 204 mg/dL (70-99) White Blood Count 6.8 x10^3/uL (4.0-11.0) Red Blood Count 3.69 x10^6/uL (4.30-5.70) Hemoglobin 9.4 g/dL (13.0-17.5) Hematocrit 29.8 % (39.0-53.0) Mean Corpuscular Volume 81 fL (79-100) Mean Corpuscular Hemoglobin 26 pg (25-35) Mean Corpuscular Hemoglobin Concent 32 g/dL (31-37) Red Cell Distribution Width 20.1 % (11.5-14.5) Platelet Count 395 x10^3/uL (140-400) Neutrophils (%) (Auto) 72 % (31-73) Lymphocytes (%) (Auto) 22 % (24-48) Monocytes (%) (Auto) 5 % (0-9) Eosinophils (%) (Auto) 0 % (0-3) Basophils (%) (Auto) 1 % (0-3) Neutrophils # (Auto) 4.9 x10^3uL (1.8-7.7) Lymphocytes # (Auto) 1.5 x10^3/uL (1.0-4.8) Monocytes # (Auto) 0.4 x10^3/uL (0.0-1.1) Eosinophils # (Auto) 0.0 x10^3/uL (0.0-0.7) Basophils # (Auto) 0.0 x10^3/uL (0.0-0.2) Sodium Level 137 mmol/L (136-145) Potassium Level 3.4 mmol/L (3.5-5.1) Chloride Level 100 mmol/L (98-107) Carbon Dioxide Level 37 mmol/L (21-32) Anion Gap 0 (6-14) Blood Urea Nitrogen 15 mg/dL (8-26) Creatinine 1.0 mg/dL (0.7-1.3) Estimated GFR (Cockcroft-Gault) 76.2 Glucose Level 235 mg/dL (70-99) Calcium Level 9.0 mg/dL (8.5-10.1) Test 12/05/16 11:27 Glucose (Fingerstick) 177 mg/dL (70-99) Microbiology 11/26/16 Blood Culture - Final, Complete 11/26/16 Blood Culture Result 1 (CHUCK) - Final, Complete 11/27/16 Gram Stain - Final, Complete 11/26/16 Urine Culture - Final, Complete 11/26/16 Urine Culture Result 1 (CHUCK) - Final, Complete 12/01/16 Gram Stain - Final, Complete Medications Current Medications Aspirin (Children'S Aspirin) 324 mg 1X ONCE PO Last administered on 11/24/16 15:02; Start 11/24/16 at 14:15; Stop 11/24/16 at 14:44; Status DC Ondansetron HCl (Zofran) 4 mg PRN Q8HRS PRN IV NAUSEA/VOMITING; Start 11/24/16 at 15:45; Stop 11/25/16 at 15:44; Status DC Nitroglycerin (Nitrostat) 0.4 mg PRN Q5MIN PRN SL CHEST PAIN; Start 11/24/16 at 15:45; Stop 11/25/16 at 15:44; Status DC Aspirin (Ceci Aspirin) 325 mg DAILY PO Last administered on 12/05/16 08:18; Start 11/25/16 at 09:00 Glucose (Insta-Glucose) 15 gm PRN DAILY PRN PO LOW GLUCOSE LEVEL PER PROTOCOL Last administered on 11/26/16 05:45; Start 11/25/16 at 01:30 Diclofenac Sodium (Voltaren) 2 martha QID TP Last administered on 12/05/16 08:21; Start 11/25/16 at 09:00 Divalproex Sodium (Depakote Er) 500 mg BID PO ; Start 11/25/16 at 09:00; Stop at 09:00; Status DC Donepezil HCl (Aricept) 10 mg HS PO ; Start 11/25/16 at 21:00; Stop 11/25/16 at 21:00; Status DC Gabapentin (Neurontin) 800 mg DAILY PO Last administered on 12/05/16 08:18; Start 11/25/16 at 09:00 Acetaminophen/ Hydrocodone Bitart (Lortab 10/325) 1 tab PRN QID PRN PO MODERATE PAIN Last administered on 12/03/16 17:37; Start 11/25/16 at 01:30 Lamotrigine (LaMICtal) 100 mg HS PO ; Start 11/25/16 at 21:00; Stop 11/25/16 at 21:00; Status DC Levothyroxine Sodium (Synthroid) 137 mcg DAILY07 PO Last administered on 08:19; Start 11/25/16 at 07:00 Linagliptin (Tradjenta) 5 mg DAILY PO Last administered on 12/05/16 08:19; Start 11/25/16 at 09:00 Lorazepam (Ativan) 1 mg TID PO Last administered on 11/28/16 09:17; Start at 09:00; Stop 11/28/16 at 11:32; Status DC Magnesium Oxide (Magnesium Oxide) 400 mg DAILY PO Last administered on 08:18; Start 11/25/16 at 09:00 Nortriptyline HCl (Pamelor) 25 mg QHS PO ; Start 11/25/16 at 21:00; Stop at 21:00; Status DC Oxycodone/ Acetaminophen (Percocet 5/325) 1 tab PRN Q6HRS PRN PO MILD PAIN Last administered on 12/01/16 15:50; Start 11/25/16 at 01:30 Pantoprazole Sodium (Protonix) 40 mg DAILYAC PO Last administered on 12/05/16 08:19; Start 11/25/16 at 07:30 Quetiapine Fumarate (SEROquel) 100 mg QHS PO ; Start 11/25/16 at 21:00; Stop at 21:00; Status DC Sennosides (Senna) 8.6 mg DAILY PO Last administered on 12/05/16 08:19; Start 11/25/16 at 09:00 Torsemide (Demadex) 20 mg [id number] PO Last administered on 12/05/16 08:20; Start 11/25/16 at 09:00 Non-Formulary Medication 15 mcg BID IH ; Start 11/25/16 at 09:00; Status UNV Non-Formulary Medication 3 mg DAILY PO Last administered on 12/05/16 08:20; Start 11/25/16 at 09:00 Fenofibrate (Lofibra) 134 mg DAILY PO Hypothyroidism Last administered on 08:17; Start 11/25/16 at 09:00 Non-Formulary Medication 1 cap TID PO ; Start 11/25/16 at 09:00; Stop 11/25/16 at 09:00; Status DC Insulin Aspart (Novolog) 10 units BID SQ Last administered on 11/25/16 21:41; Start 11/25/16 at 09:00; Stop 11/26/16 at 11:57; Status DC Non-Formulary Medication 50 unit QHS SQ ; Start 11/25/16 at 21:00; Stop at 21:00; Status DC Metoprolol Tartrate (Lopressor) 100 mg DAILY PO Last administered on 11/26/16 08:07; Start 11/25/16 at 09:00; Stop 11/26/16 at 13:58; Status DC Non-Formulary Medication 10 mg HS PO Atheroscletotic Heart Disease; Start at 21:00; Stop 11/25/16 at 21:00; Status DC Spironolactone (Aldactone) 100 mg DAILY PO Diuretic Last administered on 08:19; Start 11/25/16 at 09:00 Non-Formulary Medication 100 mg DAILY PO ; Start 11/25/16 at 09:00; Status UNV Divalproex Sodium (Depakote Er) 500 mg BID PO Last administered on 12/05/16 08: 19; Start 11/25/16 at 01:45 Donepezil HCl (Aricept) 10 mg HS PO Last administered on 12/04/16 22:36; Start 11/25/16 at 01:45 Lamotrigine (LaMICtal) 100 mg HS PO Last administered on 12/04/16 22:36; Start 11/25/16 at 01:45 Nortriptyline HCl (Pamelor) 25 mg QHS PO Last administered on 12/04/16 22:39; Start 11/25/16 at 01:45 Quetiapine Fumarate (SEROquel) 100 mg QHS PO Last administered on 12/04/16 22: 38; Start 11/25/16 at 01:45 Fluoxetine HCl (Prozac) 40 mg TID PO Last administered on 12/05/16 08:20; Start 11/25/16 at 02:00 Insulin Detemir (Levemir) 50 units QHS SQ Last administered on 11/25/16 21:41 ; Start 11/25/16 at 02:00; Stop 11/26/16 at 11:57; Status DC Atorvastatin Calcium (Lipitor) 40 mg HS PO Atheroscletotic Heart Disease Last administered on 12/04/16 22:40; Start 11/25/16 at 02:00 Albuterol Sulfate (Ventolin Neb Soln) 2.5 mg Q6H NEB Last administered on 11:36; Start 11/25/16 at 06:00 Heparin Sodium (Porcine) 5,000 unit Q8HRS SQ Last administered on 12/05/16 06: 35; Start 11/25/16 at 14:00 Vitamin A/Vitamin D (Vitamin A & D Ointment) 1 martha TID TP Last administered on 12/05/16 08:21; Start 11/25/16 at 21:00 Insulin Aspart (Novolog) 5 units BID SQ Last administered on 12/05/16 08:29; Start 11/26/16 at 21:00 Insulin Detemir (Levemir) 30 units QHS SQ Last administered on 12/04/16 23:02; Start 11/26/16 at 21:00 Dextrose (Dextrose 50%-Water Syringe) 12.5 gm PRN Q15MIN PRN IV SEE COMMENTS Last administered on 11/26/16 12:32; Start 11/26/16 at 12:15; Stop 11/30/16 at 10:30; Status DC Metoprolol Tartrate (Lopressor) 50 mg BID PO Last administered on 12/05/16 08: 18; Start 11/26/16 at 21:00 Isosorbide Mononitrate (Imdur) 30 mg DAILY PO Last administered on 11/30/16 09 :14; Start 11/26/16 at 15:00 Iohexol (Omnipaque 300 Mg/ml) 75 ml 1X ONCE IV Last administered on 11/26/16 15:57; Start 11/26/16 at 15:30; Stop 11/26/16 at 15:35; Status DC Info (Do NOT chart on this entry -- for MONITORING) 1 each PRN DAILY PRN MC SEE COMMENTS; Start 11/26/16 at 15:45; Stop 11/28/16 at 15:44; Status DC Linezolid 300 ml @ 300 mls/hr Q12HR IV Last administered on 11/26/16 22:53; Start 11/26/16 at 21:00; Stop 11/27/16 at 08:00; Status DC Meropenem 1 gm/ Sodium Chloride 100 ml @ 200 mls/hr Q8HRS IV Last administered on 11/30/16 06:12; Start 11/26/16 at 20:30; Stop 11/30/16 at 13:05 ; Status DC Acetaminophen (Tylenol) 650 mg PRN Q4HRS PRN PO fever Last administered on 20:35; Start 11/26/16 at 20:00 Vancomycin HCl (Vanco Per Pharmacy) 1 each PRN DAILY PRN MC SEE COMMENTS Last administered on 11/29/16 10:23; Start 11/27/16 at 08:00; Stop 11/30/16 at 13:36 ; Status DC Vancomycin HCl 2 gm/Sodium Chloride 500 ml @ 250 mls/hr 1X ONCE IV Last administered on 11/27/16 09:07; Start 11/27/16 at 09:00; Stop 11/27/16 at 10:59 ; Status DC Vancomycin HCl 2 gm/Sodium Chloride 500 ml @ 250 mls/hr Q12H IV Last administered on 11/28/16 09:22; Start 11/27/16 at 21:00; Stop 11/28/16 at 22:01 ; Status DC Vancomycin HCl 1 each 1X ONCE MC Last administered on 11/28/16 20:30; Start 11/28/16 at 20:30; Stop 11/28/16 at 20:31; Status DC Lidocaine/Sodium Bicarbonate (Buffered Lidocaine 1%) 20 ml STK-MED ONCE IJ ; Start 11/27/16 at 09:33; Stop 11/27/16 at 09:34; Status DC Midazolam HCl (Versed) 5 mg STK-MED ONCE .ROUTE ; Start 11/27/16 at 09:53; Stop 11/27/16 at 09:54; Status DC Fentanyl Citrate (Fentanyl 5ml Vial) 250 mcg STK-MED ONCE .ROUTE ; Start at 09:54; Stop 11/27/16 at 09:55; Status DC Lidocaine/Sodium Bicarbonate (Buffered Lidocaine 1%) 20 ml 1X ONCE IJ Last administered on 11/27/16 10:26; Start 11/27/16 at 10:00; Stop 11/27/16 at 10:06 ; Status DC Lidocaine HCl 5 ml 1X ONCE IJ ; Start 11/27/16 at 11:30; Stop 11/27/16 at 11:31 ; Status DC Lorazepam (Ativan) 1 mg PRN TID PRN PO ANXIETY Last administered on 12/02/16 22 :59; Start 11/28/16 at 11:45 Vancomycin HCl 2 gm/Sodium Chloride 500 ml @ 250 mls/hr Q18H IV Last administered on 11/30/16 00:21; Start 11/29/16 at 06:00; Stop 11/30/16 at 13:05 ; Status DC Vancomycin HCl 1 each 1X ONCE MC ; Start 12/01/16 at 11:30; Stop 12/01/16 at 11: 30; Status DC Insulin Aspart (Novolog) 0-5 UNITS TIDWMEALS SQ Last administered on 12/05/16 08:29; Start 11/29/16 at 17:00 Dextrose (Dextrose 50%-Water Syringe) 12.5 gm PRN Q15MIN PRN IV SEE COMMENTS; Start 11/29/16 at 16:45 Cefazolin Sodium 2 gm/Sodium Chloride 50 ml @ 100 mls/hr Q8HRS IV ; Start 11/30 at 14:00; Status UNV Cefazolin Sodium/ Dextrose 50 ml @ 100 mls/hr Q8HRS IV Last administered on 06:34; Start 11/30/16 at 14:00 Lactobacillus Acidophilus (Bacid, Constance-Bid) 1 tab TIDWMEALS PO Last administered on 12/05/16 08:20; Start 11/30/16 at 17:00 Bupivacaine HCl (Sensorcaine Mpf 0.5%) 30 ml STK-MED ONCE .ROUTE Last administered on 12/01/16 12:26; Start 12/01/16 at 06:41; Stop 12/01/16 at 06:42; Status DC Lidocaine HCl 20 ml STK-MED ONCE .ROUTE Last administered on 12/01/16 12:26; Start 12/01/16 at 06:41; Stop 12/01/16 at 06:42; Status DC Lidocaine HCl (Lidocaine HCl 2% Abboject) 100 mg STK-MED ONCE .ROUTE ; Start 12/01/16 at 11:16; Stop 12/01/16 at 11:17; Status DC Propofol 20 ml @ As Directed STK-MED ONCE IV ; Start 12/01/16 at 11:16; Stop 12/01 at 11:17; Status DC Ondansetron HCl (Zofran) 4 mg STK-MED ONCE .ROUTE ; Start 12/01/16 at 11:16; Stop 12/01/16 at 11:17; Status DC Famotidine (Pepcid) 20 mg STK-MED ONCE .ROUTE ; Start 12/01/16 at 11:16; Stop 12/01/16 at 11:17; Status DC Dexamethasone Sodium Phosphate (Decadron) 20 mg STK-MED ONCE .ROUTE ; Start 12/01 at 11:16; Stop 12/01/16 at 11:17; Status DC Fentanyl Citrate (Fentanyl 2ml Vial) 100 mcg STK-MED ONCE .ROUTE ; Start at 11:16; Stop 12/01/16 at 11:17; Status DC Sevoflurane (Ultane) 60 ml STK-MED ONCE IH ; Start 12/01/16 at 12:44; Stop at 12:45; Status DC Morphine Sulfate 2 mg PRN Q4HRS PRN IV PAIN Last administered on 12/03/16t 13:31 ; Start 12/03/16 at 09:30 Active Scripts Active Reported Voltaren (Diclofenac Sodium) 100 Gm Gel..gram. 2 Gm TP QID Tradjenta (Linagliptin) 5 Mg Tablet 1 Tab PO DAILY Torsemide 20 Mg Tablet 40 Tab PO BID Spironolactone 100 Mg Tablet 1 Tab PO DAILY Seroquel (Quetiapine Fumarate) 100 Mg Tablet 1 Tab PO QHS Senna (Sennosides) 8.6 Mg Tablet 8.6 Mg PO DAILY Prozac (Fluoxetine Hcl) 40 Mg Capsule 1 Cap PO TID Protonix (Pantoprazole Sodium) 40 Mg Tablet.dr 40 Mg PO DAILY Oxycodone-Acetaminophen 5-325 (Oxycodone Hcl/Acetaminophen) 1 Each Tablet 1 Each PO PRN Q6HRS PRN Novolog (Insulin Aspart) 100 Unit/1 Ml Cartridge 10 Unit SQ BID Nortriptyline Hcl 25 Mg Capsule 50 Cap PO QHS Metoprolol Tartrate 100 Mg Tablet 100 Tab PO DAILY Magnesium Oxide 400 Mg Tablet 1 Tab PO DAILY Lorazepam 1 Mg Tablet 1 Tab PO TID Levothyroxine Sodium 137 Mcg Tablet 1 Tab PO DAILY Lantus Solostar (Insulin Glargine,Hum.rec.anlog) 100 Unit/1 Ml Insuln.pen 50 Unit SQ QHS Lamotrigine 100 Mg Tablet 1 Tab PO HS Hydrocodone-Apap 10-325 (Hydrocodone Bit/Acetaminophen) 1 Each Tablet 1 Tab PO QID PRN Glucose Gel (Dextrose) 38 Gm Gel..gram. 38 Gm PO Gabapentin 400 Mg Capsule 800 Mg PO DAILY [non] Fenofibrate (Fenofibrate Nanocrystallized) 145 Mg Tablet 1 Tab PO DAILY Donepezil Hcl 10 Mg Tablet 1 Tab PO HS Depakote Er (Divalproex Sodium) 500 Mg Tab.er.24h 2 Tab PO BID Rosuvastatin Calcium 10 Mg Tablet 10 Mg PO HS Coenzyme Q-10 (Ubidecarenone) 50 Mg Capsule 100 Mg PO DAILY Brovana (Arformoterol Tartrate) 15 Mcg/2 Ml Vial.neb 15 Mcg IH BID Vraylar (Cariprazine Hydrochloride) 3 Mg Capsule 3 Mg PO DAILY Aspirin 325 Mg Tablet 1 Tab PO DAILY Vitals/I & O Vital Sign - Last 24 Hours 12/04/16 12/04/16 12/04/16 12/04/16 12:58 15:00 19:00 20:00 Temp 97.3 97.9 97.3 97.9 Pulse 80 79 Resp 18 18 B/P (MAP) 112/65 (81) 112/60 (77) Pulse Ox 98 97 96 O2 Delivery Room Air Room Air Room Air Nasal Cannula O2 Flow Rate 2.0 12/04/16 12/04/16 12/04/16 12/05/16 20:32 21:00 23:00 00:22 Temp 97.3 97.3 Pulse 82 83 Resp 18 B/P (MAP) 118/50 118/50 (72) Pulse Ox 95 93 O2 Delivery Room Air Room Air Room Air 12/05/16 12/05/16 12/05/16 12/05/16 03:00 07:00 07:07 08:18 Temp 97.5 97.1 97.5 97.1 Pulse 78 81 79 Resp 18 18 B/P (MAP) 101/57 (72) 117/63 (81) 117/63 Pulse Ox 92 93 O2 Delivery Room Air Room Air Room Air 12/05/16 12/05/16 11:17 11:36 Temp 96.8 96.8 Pulse 67 Resp 18 B/P (MAP) 104/51 (68) Pulse Ox 97 O2 Delivery Room Air Room Air Intake and Output 12/04/16 12/04/16 12/05/16 15:00 23:00 07:00 Intake Total 120 ml 120 ml Output Total 975 ml 1100 ml Balance -855 ml -980 ml JB SHEA MD December 05, 2016 12:04
[2016-12-05 15:40] VITALS: BP 94/52
[2016-12-05 19:45] VITALS: BP 105/60
[2016-12-05] MEDS: INSULIN DETEMIR 300 UNITS/3 ML INSULN.PEN. SQ SCH (21:00)
[2016-12-05] MEDS: DONEPEZIL HCL 10 MG TABLET. PO SCH (22:20)
[2016-12-05] MEDS: QUEtiapine 100 MG TABLET. PO SCH (22:22)
[2016-12-05] MEDS: ATORVASTATIN CALCIUM 40 MG TABLET. PO SCH (22:24)
[2016-12-05] MEDS: lamoTRIgine 100 MG TABLET. PO SCH (22:26)
[2016-12-05] MEDS: NORTRIPTYLINE 25 MG CAPSULE PO SCH (22:30)
[2016-12-05 23:16] VITALS: BP 101/50
[2016-12-06] MEDS: ALBUTEROL SULFATE 2.5 MG/3 ML NEBU. NEB SCH ×4 (01:43→19:49)
--- NOTE | 2016-12-06 02:57 | PN ---
DATE: 12/05/2016 SUBJECTIVE: The patient is resting slightly propped up in bed, in no apparent respiratory distress, definitely more awake today, responding appropriately. OBJECTIVE: GENERAL: On examining him, he was pale, but no jaundice, cyanosis or thyromegaly. No jugular venous distention. No limb edema. VITAL SIGNS: His heart rate was 79, blood pressure 117/63, temperature was 97.1, respiratory rate was 18 and oxygen saturation was 93%. The rest of clinical examination is stable and unremarkable. His intake was 680, output was 1550. LABORATORY DATA: As of this morning showed a serum sodium of 137, potassium 3.4, chloride 100, bicarbonate 37, anion gap of 0, BUN 15, creatinine 1, estimated GFR was 76 mL per minute. His white cell count was 6800, hemoglobin 9.4, hematocrit 30, MCV 81 and platelet count of 395,000. ASSESSMENT: 1. Streptococcus anginosus bacteremia. 2. Infected complex left leg fluid collection with hardware in place, status post aspiration, status post incision and drainage. 3. Methicillin-resistant Staphylococcus aureus, Enterococcus in urine. 4. Bilateral lower extremity wounds. 5. Severe protein-calorie malnutrition. PLAN: To continue cefazolin 1 gram IV q.8 hourly, needs 6 weeks of IV and then Keflex chronic suppressive ____ for fever forever. Continue with local wound care. Continue with nutritional support. We will wait for the ____ discussion with the ____ loss control representative. PATTY CHRISTIAN MD DR: YUMI/harry JOB#: [id number] / [id number]
[2016-12-06 03:15] VITALS: BP 102/49
[2016-12-06] MEDS: HEPARIN PF for SUB-Q USE 5,000 UNIT/0.5 ML VIAL. SQ SCH ×3 (06:38→22:39)
[2016-12-06 07:00] VITALS: BP 112/63
[2016-12-06] MEDS: LACTOBACILLUS ACIDOPH & BULGAR 1 TABLET. PO SCH ×3 (08:08→17:58)
[2016-12-06] MEDS: LEVOTHYROXINE 137 MCG TABLET PO SCH (08:08)
[2016-12-06] MEDS: PANTOPRAZOLE 40 MG TABLET.DR. PO SCH (08:08)
[2016-12-06] MEDS: INSULIN ASPART 300 UNITS/3 ML INSULN.PEN SQ SCH ×5 (08:20→21:58)
[2016-12-06] MEDS: SENNOSIDES 8.6 MG TABLET PO SCH (09:00)
[2016-12-06] MEDS: ASPIRIN 325 MG TABLET PO SCH (10:58)
[2016-12-06] MEDS: LINAGLIPTIN 5 MG TABLET PO SCH (10:59)
[2016-12-06] MEDS: MAGNESIUM OXIDE 400 MG TABLET PO SCH (10:59)
[2016-12-06] MEDS: FLUoxetine HCL 20 MG CAPSULE PO SCH ×3 (10:59→21:40)
[2016-12-06 11:00] VITALS: BP 107/53
[2016-12-06] MEDS: SPIRONOLACTONE 25 MG TABLET PO SCH (11:00)
[2016-12-06] MEDS: METOPROLOL TART IMMED RELEASE 50 MG TABLET. PO SCH ×2 (11:00→21:40)
[2016-12-06] MEDS: DIVALPROEX EXTENDED RELEASE 500 MG TAB.ER.24H. PO SCH ×2 (11:00→21:32)
[2016-12-06] MEDS: ISOSORBIDE MONONITRATE ER 30 MG TAB.ER.24H PO SCH (11:01)
[2016-12-06] MEDS: GABAPENTIN 400 MG CAPSULE. PO SCH (11:01)
[2016-12-06] MEDS: TORSEMIDE 20 MG TABLET. PO SCH ×2 (11:01→17:58)
[2016-12-06] MEDS: CARIPRAZINE HYDROCHLORIDE 3 MG PO SCH (11:02)
[2016-12-06] MEDS: FENOFIBRATE,MICRONIZED 134 MG CAPSULE PO SCH (11:02)
[2016-12-06] MEDS: DICLOFENAC SODIUM 1% TOPICAL GEL 100GM TUBE. TP SCH ×4 (11:06→21:00)
[2016-12-06] MEDS: VITS A & D/LANOLIN TOPICAL OINTMENT 56GM TUBE. TP SCH ×3 (11:06→22:35)
[2016-12-06 15:00] VITALS: BP 99/57
[2016-12-06 19:00] VITALS: BP 105/59
[2016-12-06] MEDS: QUEtiapine 100 MG TABLET. PO SCH (21:32)
[2016-12-06] MEDS: NORTRIPTYLINE 25 MG CAPSULE PO SCH (21:41)
[2016-12-06] MEDS: DONEPEZIL HCL 10 MG TABLET. PO SCH (21:42)
[2016-12-06] MEDS: ATORVASTATIN CALCIUM 40 MG TABLET. PO SCH (21:42)
[2016-12-06] MEDS: lamoTRIgine 100 MG TABLET. PO SCH (21:42)
[2016-12-06] MEDS: INSULIN DETEMIR 300 UNITS/3 ML INSULN.PEN. SQ SCH (21:57)
[2016-12-06 23:13] VITALS: BP 132/60
[2016-12-07 03:23] VITALS: BP 107/56
--- NOTE | 2016-12-07 04:28 | PN ---
DATE: 12/06/2016 SUBJECTIVE: The patient is resting, slightly propped up in bed, awake, alert. On questioning him, he denied any complaint. The nursing staff did not voice any concern and stated that he had an uneventful night. PHYSICAL EXAMINATION: GENERAL: On examining him, he looked pale. No jaundice, cyanosis, or thyromegaly. No jugular venous distention. No limb edema. VITAL SIGNS: His heart rate was 78, blood pressure 112/63, temperature was 97.5, respiratory rate was 20, and oxygen saturation was 98% on room air. HEAD, EYES, EARS, NOSE AND THROAT: Showed normocephalic, atraumatic. NECK: Supple. HEART: Showed normal first and second heart sounds with no gallop, rub or murmur. CHEST: Clear to auscultation. No crepitation or rhonchi. ABDOMEN: Distended, soft, nontender. NEUROLOGIC: He is awake, alert, responding appropriately. Cranial nerves intact. He moves his upper extremities ____. His left lower extremity is swollen with the incision in the medial aspect of the left thigh covered with dressing. His intake over the last 24 hours was 3330, output was 2250. Blood sugar is reasonably, although not optimally, controlled. LABORATORY DATA: His most recent white cell count was 6800, hemoglobin 9.4, hematocrit 29.8, MCV 81 and platelet count ____. His most recent BUN was 15, creatinine 1. ASSESSMENT: 1. Streptococcus anginosus bacteremia. 2. Infected complex left leg fluid collection with hardware in place, status post aspiration, status post incision and drainage. 3. Methicillin-resistant Staphylococcus aureus, Enterococcus ____ urine culture. 4. Bilateral lower extremity wounds. 5. Severe protein-calorie malnutrition. 6. Other medical problems include type 2 diabetes mellitus, coronary artery disease, status post CABG x 2 and stent deployment, hypertension, pseudoseizures, morbid obesity, chronic obstructive pulmonary disease, hypothyroidism, schizoaffective disorder, Alzheimer disease of early onset. PLAN: To continue with IV antibiotic. Continue to monitor his blood sugar and adjust insulin as needed. Continue with pain management, wound care. Continue with DVT prophylaxis and await the approval by the insurance company to be transferred to either an LTAC and/or fdc facility. PATTY CHRISTIAN MD DR: Arielle JOB#: [id number] / [id number]
[2016-12-07] MEDS: ALBUTEROL SULFATE 2.5 MG/3 ML NEBU. NEB SCH ×4 (06:00→23:48)
[2016-12-07] MEDS: HEPARIN PF for SUB-Q USE 5,000 UNIT/0.5 ML VIAL. SQ SCH ×3 (06:44→21:46)
[2016-12-07 07:00] VITALS: BP 120/59
[2016-12-07 10:50] VITALS: BP 123/48
[2016-12-07] MEDS: PANTOPRAZOLE 40 MG TABLET.DR. PO SCH (10:50)
[2016-12-07] MEDS: ISOSORBIDE MONONITRATE ER 30 MG TAB.ER.24H PO SCH (10:51)
[2016-12-07] MEDS: FENOFIBRATE,MICRONIZED 134 MG CAPSULE PO SCH (10:51)
[2016-12-07] MEDS: GABAPENTIN 400 MG CAPSULE. PO SCH (10:51)
[2016-12-07] MEDS: MAGNESIUM OXIDE 400 MG TABLET PO SCH (10:52)
[2016-12-07] MEDS: SPIRONOLACTONE 25 MG TABLET PO SCH (10:52)
[2016-12-07] MEDS: LINAGLIPTIN 5 MG TABLET PO SCH (10:52)
[2016-12-07] MEDS: FLUoxetine HCL 20 MG CAPSULE PO SCH ×3 (10:52→21:37)
[2016-12-07] MEDS: LEVOTHYROXINE 137 MCG TABLET PO SCH (10:52)
[2016-12-07] MEDS: TORSEMIDE 20 MG TABLET. PO SCH ×2 (10:52→17:32)
[2016-12-07] MEDS: DIVALPROEX EXTENDED RELEASE 500 MG TAB.ER.24H. PO SCH ×2 (10:52→21:39)
[2016-12-07] MEDS: ASPIRIN 325 MG TABLET PO SCH (10:52)
[2016-12-07] MEDS: LACTOBACILLUS ACIDOPH & BULGAR 1 TABLET. PO SCH ×3 (10:52→17:32)
[2016-12-07] MEDS: SENNOSIDES 8.6 MG TABLET PO SCH (10:52)
[2016-12-07] MEDS: METOPROLOL TART IMMED RELEASE 50 MG TABLET. PO SCH ×2 (10:53→21:38)
[2016-12-07] MEDS: CARIPRAZINE HYDROCHLORIDE 3 MG PO SCH (10:53)
[2016-12-07] MEDS: INSULIN ASPART 300 UNITS/3 ML INSULN.PEN SQ SCH ×5 (11:01→21:45)
[2016-12-07] MEDS: DICLOFENAC SODIUM 1% TOPICAL GEL 100GM TUBE. TP SCH ×4 (11:04→21:00)
[2016-12-07] MEDS: VITS A & D/LANOLIN TOPICAL OINTMENT 56GM TUBE. TP SCH ×3 (11:06→21:40)
[2016-12-07 14:43] VITALS: BP 100/45
--- NOTE | 2016-12-07 14:50 | PDOC ---
PROGRESS NOTES Subjective Subjective Problems overnight:resting comfortably in bed no complaints Objective Vital Signs Vital Signs Date Time Temp Pulse Resp B/P (MAP) Pulse Ox O2 Delivery O2 Flow Rate FiO2 12/07/16 14:43 95.7 72 18 100/45 (63) 94 Room Air 95.7 12/07/16 07:40 2.0 Physical Exam i/d wound closed with celina on thigh Labs Laboratory Tests Test 12/05/16 17:03 12/05/16 20:43 12/06/16 08:07 12/06/16 11:50 Glucose (Fingerstick) 256 mg/dL (70-99) 272 mg/dL (70-99) 177 mg/dL (70-99) 193 mg/dL (70-99) Test 12/06/16 16:57 12/06/16 20:36 12/07/16 07:21 12/07/16 10:02 Glucose (Fingerstick) 251 mg/dL (70-99) 206 mg/dL (70-99) 189 mg/dL (70-99) 241 mg/dL (70-99) Test 12/07/16 12:37 Glucose (Fingerstick) 212 mg/dL (70-99) Laboratory Tests Test 12/06/16 16:57 12/06/16 20:36 12/07/16 07:21 12/07/16 10:02 Glucose (Fingerstick) 251 mg/dL (70-99) 206 mg/dL (70-99) 189 mg/dL (70-99) 241 mg/dL (70-99) Test 12/07/16 12:37 Glucose (Fingerstick) 212 mg/dL (70-99) Assessment Assessment POD# [], S/P [i/d thigh infection] Problems: Plan Plan of Care continue suppressive ABx and supportive medical care JERRY ROSADO MD December 07, 2016 14:50
[2016-12-07 19:22] VITALS: BP 127/50
[2016-12-07] MEDS: NORTRIPTYLINE 25 MG CAPSULE PO SCH (21:37)
[2016-12-07] MEDS: ATORVASTATIN CALCIUM 40 MG TABLET. PO SCH (21:39)
[2016-12-07] MEDS: lamoTRIgine 100 MG TABLET. PO SCH (21:39)
[2016-12-07] MEDS: QUEtiapine 100 MG TABLET. PO SCH (21:39)
[2016-12-07] MEDS: DONEPEZIL HCL 10 MG TABLET. PO SCH (21:42)
[2016-12-07] MEDS: INSULIN DETEMIR 300 UNITS/3 ML INSULN.PEN. SQ SCH (21:44)
--- NOTE | 2016-12-07 22:55 | PN ---
DATE: 12/07/2016 SUBJECTIVE: The patient is resting, slightly propped up in bed, in no apparent distress, awake, alert. On questioning him, denied any complaint. The nursing staff did not voice any concerns that he had an uneventful night. PHYSICAL EXAMINATION: GENERAL: When examining him, he looked pale, no jaundice, cyanosis or thyromegaly. No jugular venous distention. No limb edema. VITAL SIGNS: His heart rate was 70, blood pressure 120/59, temperature was 97.9, respiratory rate was 18 and oxygen saturation was 97% on 2 liters of oxygen. Rest of clinical examination is stable. His intake was 2300, output was ____. LABORATORY DATA: His lab work was done this morning. ASSESSMENT: 1. Streptococcus anginosus bacteremia. 2. Infected complex left leg fluid collection with hardware in place, status post aspiration, status post incision and drainage. 3. Methicillin-resistant Staphylococcus aureus, Enterococcus growth in the urine culture. 4. Bilateral lower extremity wounds. 5. Severe protein-calorie malnutrition. 6. Type 2 diabetes mellitus. 7. Coronary artery disease status post CABG x 2 and stent deployment 8. Hypertension. 9. Morbid obesity. 10. Chronic obstructive pulmonary disease. 11. Hypothyroidism. 12. Schizoaffective disorder. 13. Alzheimer disease of early onset. PLAN: Obviously continue with IV antibiotic. Continue to monitor his blood sugars and adjust insulin as needed. Continue with pain management and wound care. Continue with DVT prophylaxis. PATTY CHRISTIAN MD DR: YUMI/harry JOB#: [id number] / [id number]
[2016-12-07 23:20] VITALS: BP 129/63
[2016-12-08 03:29] VITALS: BP 103/46
[2016-12-08] MEDS: LEVOTHYROXINE 137 MCG TABLET PO SCH (05:10)
[2016-12-08] MEDS: PANTOPRAZOLE 40 MG TABLET.DR. PO SCH (05:10)
[2016-12-08] MEDS: HEPARIN PF for SUB-Q USE 5,000 UNIT/0.5 ML VIAL. SQ SCH ×2 (05:12→13:19)
[2016-12-08 05:57] LABS: ALBUMIN 1.7 g/dL (3.4-5.0); ALBUMIN/GLOBULIN RATIO 0.4 (1.0-1.7); CREATININE 0.9 mg/dL (0.7-1.3); GFR 86.1; POTASSIUM 3.6 mmol/L (3.5-5.1); TOTAL BILIRUBIN 0.2 mg/dL (0.2-1.0); TOTAL PROTEIN 6.1 g/dL (6.4-8.2)
[2016-12-08 06:15] LABS: C-REACTIVE PROTEIN 22.1 mg/L (0-3.3)
[2016-12-08 06:47] LABS: BASO % 0 % (0-3); EOS % 0 % (0-3); HEMATOCRIT 28.1 % (39.0-53.0); HEMOGLOBIN 9.2 g/dL (13.0-17.5); LYMPH % 10 % (24-48); MEAN CORPUSCULAR HEMOGLOBIN 26 pg (25-35); MEAN CORPUSCULAR HGB CONC 33 g/dL (31-37); MEAN CORPUSCULAR VOLUME 80 fL (79-100); MONO % 4 % (0-9); NEUT % 86 % (31-73); PLATELET COUNT 352 x10^3/uL (140-400); RED BLOOD COUNT 3.51 x10^6/uL (4.30-5.70); RED CELL DISTRIBUTION WIDTH 20.1 % (11.5-14.5); WHITE BLOOD COUNT 9.8 x10^3/uL (4.0-11.0)
[2016-12-08 07:00] VITALS: BP 110/55
[2016-12-08] MEDS: ALBUTEROL SULFATE 2.5 MG/3 ML NEBU. NEB SCH ×2 (07:39→12:55)
[2016-12-08] MEDS: METOPROLOL TART IMMED RELEASE 50 MG TABLET. PO SCH (09:00)
[2016-12-08] MEDS: SPIRONOLACTONE 25 MG TABLET PO SCH (09:00)
[2016-12-08] MEDS: SENNOSIDES 8.6 MG TABLET PO SCH (09:00)
[2016-12-08] MEDS: CARIPRAZINE HYDROCHLORIDE 3 MG PO SCH (09:00)
[2016-12-08] MEDS: FLUoxetine HCL 20 MG CAPSULE PO SCH ×2 (09:06→13:18)
[2016-12-08] MEDS: LACTOBACILLUS ACIDOPH & BULGAR 1 TABLET. PO SCH ×3 (09:06→17:00)
[2016-12-08] MEDS: MAGNESIUM OXIDE 400 MG TABLET PO SCH (09:06)
[2016-12-08] MEDS: ASPIRIN 325 MG TABLET PO SCH (09:06)
[2016-12-08] MEDS: GABAPENTIN 400 MG CAPSULE. PO SCH (09:06)
[2016-12-08] MEDS: FENOFIBRATE,MICRONIZED 134 MG CAPSULE PO SCH (09:06)
[2016-12-08] MEDS: LINAGLIPTIN 5 MG TABLET PO SCH (09:07)
[2016-12-08] MEDS: TORSEMIDE 20 MG TABLET. PO SCH ×2 (09:07→16:00)
[2016-12-08] MEDS: ISOSORBIDE MONONITRATE ER 30 MG TAB.ER.24H PO SCH (09:07)
[2016-12-08] MEDS: DIVALPROEX EXTENDED RELEASE 500 MG TAB.ER.24H. PO SCH (09:07)
[2016-12-08] MEDS: VITS A & D/LANOLIN TOPICAL OINTMENT 56GM TUBE. TP SCH ×2 (09:09→14:00)
[2016-12-08] MEDS: DICLOFENAC SODIUM 1% TOPICAL GEL 100GM TUBE. TP SCH ×3 (09:09→17:00)
[2016-12-08] MEDS: INSULIN ASPART 300 UNITS/3 ML INSULN.PEN SQ SCH ×4 (09:21→17:00)
[2016-12-08 10:47] LABS: PLT ESTIMATE ADEQUATE (ADEQUATE)
[2016-12-08 10:48] LABS: ANISOCYTOSIS MOD
[2016-12-08 11:00] VITALS: BP 116/55
--- NOTE | 2016-12-08 15:08 | PDOC ---
PROGRESS NOTES Assessment Assessment Metabolic encephalopathy. Chest pain. UTI CAD, s/p CABG DM Hyperglycemia, glucose level 295 Hypoglycemia, glucose level 43. HTN COPD KAMILAH on BiPAP Hypothyroidism Pacemaker in site. Dementia Hx. Obesity. Wounds in bilateral LE and feet. Bacteremia, strep anginosis in blood culture. Large left thigh infection. RECOMMENDATIONS/PLAN: Treat medical and cardiac diseases. Continue ASA 325 mg daily. Continue Lipitor HS. Continue ID treatment. OT/PT Discussed with his again at bedside on 12/08/16. EEG on 11/25: Suggest mild to moderate encephalopathy. HCT on 11/24 and 11/26: No acute findings. MRI contraindicated due to pacemaker. PAST MEDICAL HISTORY: Please see above. PAST SURGERY HISTORY: Pacemaker Placement, S/P CABG Tonsillectomy Appendectomy Cholecystectomy Knee surgery ALLERGY: Reviewed. MEDICATIONS: Refer to [facility] FAMILY HISTORY: CAD SOCIAL HISTORY: Lives with his at home, but he has been in rehab facilities since 07/2016. Denies current smoking, drinking, and illicit drug use. REVIEW OF SYSTEMS: Constitutional: No malnutrition, weight loss, cachexia. Head: No recent traumatic brain or head injury. Skin: No edema, or rash. Ear: No infection. Eyes: No vision loss or color blindness. Nose: No bleeding or purulent discharges. Hearing: Hearing decrease. Neck: No recent injury. Cardiac: CAD, s/p CABG, Pacemaker Placement, HTN. Pulmonary: COPD, KAMILAH. GI: No GI ulcer, GI bleeding. Urinary/genital: UTI. Endocrinologic: Diabetes Mellitus, hypothyroidism, obesity. Skeletomuscular: No muscular atrophy, deformity. Neurological: see HP. Psychiatric: Denies drug use/abuse. Otherwise, not [id number] review of systems. PHYSICAL EXAMINATION: General appearance is awake. HEENT: Normocephalic and nontraumatic. Eyes, nose, ears, and throat are unremarkable. Neck is supple. No lymphadenopathy. No crepitus. Cardiovascular: S1, S2, regular rate and rhythm. Pulmonary: decreased to auscultation bilaterally. Abdomen: Bowel sounds are positive. Extremities: No rash, lesions, or edema. No restriction of range of motion NEUROLOGICAL EXAMINATION: Awake. Oriented to time, place and person, but reaction was slow. PERRL. EOMI. CN: no focal findings. Muscle tone: within normal. Muscle strength: 4+ UE, 3+ LE. DTR: 1 Plantar reflex: Flexor response bilaterally Gait: Unable to walk. Sensory exam: no abnormal findings. No cerebellar signs elicited. F-T-N test fine. Objective Objective Vital Signs Date Time Temp Pulse Resp B/P (MAP) Pulse Ox O2 Delivery O2 Flow Rate FiO2 12/08/16 12:55 97 Room Air 12/08/16 11:00 98.1 75 16 116/55 (75) 98.1 12/07/16 07:40 2.0 Intake and Output 12/08/16 07:00 Intake Total 480 ml Output Total 1500 ml Balance -1020 ml Intake Oral 480 ml Output Urine Total 1500 ml # Bowel Movements 3 Vitals Signs Vitals VS - Last 72 Hours, by Label Date Time Temp Pulse Resp B/P (MAP) Pulse Ox O2 Delivery O2 Flow Rate FiO2 12/08/16 12:55 97 Room Air 12/08/16 11:00 98.1 75 16 116/55 (75) 97 Room Air 98.1 12/08/16 09:07 77 110/55 12/08/16 09:00 77 110/55 12/08/16 08:00 Room Air 12/08/16 07:40 Room Air 12/08/16 07:00 98.3 77 16 110/55 (73) 96 Room Air 98.3 12/08/16 03:29 98.1 74 18 103/46 (65) 95 Room Air 98.1 12/07/16 23:48 Room Air 12/07/16 23:20 97.7 90 18 129/63 (85) 96 Room Air 97.7 12/07/16 21:38 85 127/50 12/07/16 20:00 Room Air 12/07/16 19:22 97.7 85 18 127/50 (75) 97 Room Air 97.7 12/07/16 18:08 Room Air 12/07/16 14:43 95.7 72 18 100/45 (63) 94 Room Air 95.7 12/07/16 11:31 Room Air 12/07/16 10:53 78 123/48 12/07/16 10:51 78 123/48 12/07/16 10:50 97.9 78 20 123/48 (73) 93 Room Air 97.9 12/07/16 07:40 Nasal Cannula 2.0 12/07/16 07:03 97 Room Air 12/07/16 07:00 97.9 70 18 120/59 (79) 90 Room Air 97.9 Laboratory Laboratory Laboratory Tests Test 12/07/16 16:48 12/07/16 20:42 12/08/16 05:20 12/08/16 07:37 Glucose (Fingerstick) 240 mg/dL (70-99) 258 mg/dL (70-99) 158 mg/dL (70-99) White Blood Count 9.8 x10^3/uL (4.0-11.0) Red Blood Count 3.51 x10^6/uL (4.30-5.70) Hemoglobin 9.2 g/dL (13.0-17.5) Hematocrit 28.1 % (39.0-53.0) Mean Corpuscular Volume 80 fL (79-100) Mean Corpuscular Hemoglobin 26 pg (25-35) Mean Corpuscular Hemoglobin Concent 33 g/dL (31-37) Red Cell Distribution Width 20.1 % (11.5-14.5) Platelet Count 352 x10^3/uL (140-400) Neutrophils (%) (Auto) 86 % (31-73) Lymphocytes (%) (Auto) 10 % (24-48) Monocytes (%) (Auto) 4 % (0-9) Eosinophils (%) (Auto) 0 % (0-3) Basophils (%) (Auto) 0 % (0-3) Neutrophils # (Auto) 8.4 x10^3uL (1.8-7.7) Lymphocytes # (Auto) 1.0 x10^3/uL (1.0-4.8) Monocytes # (Auto) 0.3 x10^3/uL (0.0-1.1) Eosinophils # (Auto) 0.0 x10^3/uL (0.0-0.7) Basophils # (Auto) 0.0 x10^3/uL (0.0-0.2) Segmented Neutrophils % 88 % (35-66) Band Neutrophils % 2 % (0-9) Lymphocytes % 8 % (24-48) Monocytes % 2 % (0-10) Platelet Estimate Adequate (ADEQUATE) Anisocytosis Mod Erythrocyte Sedimentation Rate 78 (0-15) Sodium Level 139 mmol/L (136-145) Potassium Level 3.6 mmol/L (3.5-5.1) Chloride Level 102 mmol/L (98-107) Carbon Dioxide Level 33 mmol/L (21-32) Anion Gap 4 (6-14) Blood Urea Nitrogen 14 mg/dL (8-26) Creatinine 0.9 mg/dL (0.7-1.3) Estimated GFR (Cockcroft-Gault) 86.1 BUN/Creatinine Ratio 16 (6-20) Glucose Level 218 mg/dL (70-99) Calcium Level 9.0 mg/dL (8.5-10.1) Total Bilirubin 0.2 mg/dL (0.2-1.0) Aspartate Amino Transf (AST/SGOT) 41 U/L (15-37) Alanine Aminotransferase (ALT/SGPT) 26 U/L (16-63) Alkaline Phosphatase 146 U/L (46-116) C-Reactive Protein, Quantitative 22.1 mg/L (0-3.3) Total Protein 6.1 g/dL (6.4-8.2) Albumin 1.7 g/dL (3.4-5.0) Albumin/Globulin Ratio 0.4 (1.0-1.7) Test 12/08/16 11:15 Glucose (Fingerstick) 177 mg/dL (70-99) Microbiology 11/26/16 Blood Culture - Final, Complete 11/26/16 Blood Culture Result 1 (CHUCK) - Final, Complete 11/27/16 Gram Stain - Final, Complete 11/26/16 Urine Culture - Final, Complete 11/26/16 Urine Culture Result 1 (CHUCK) - Final, Complete 12/01/16 Gram Stain - Final, Complete Comment Review of Relevant I have reviewed the following items michelle (where applicable) has been applied. KAT ROSARIO MD December 08, 2016 15:07
--- NOTE | 2016-12-09 02:55 | DS ---
DATE OF DISCHARGE: 12/08/2016 HOSPITAL COURSE: The patient is a 61-year-old male patient who was [facility] and was admitted with altered mental status and also chest pain. He has had 3 sets of cardiac enzymes that ruled out myocardial infarction; however, he was found to have an infected left knee prosthesis and a left thigh abscess, was also found to have a urinary tract infection. He did grow Streptococcus anginosus from his blood culture and also from the left knee and left thigh abscess, has also grown methicillin-resistant Staphylococcus aureus and enterococcus in his urine culture. He was seen in consultation by the Infectious Disease specialist, general surgeon, orthopedic surgeon and there were plans for him to be transported to [facility] with ____ amputating his left lower extremity; however, the patient did not agree to that and would like to continue with IV antibiotic and therefore, he was started on IV cefazolin 1 gram IV q.8 hourly as per Infectious Disease recommendation. This obviously should be given for almost 6 weeks and to follow with the Infectious Disease and the orthopedic surgeon. His left thigh abscess was incised and drained and his left knee was also drained by the interventional radiologist. He was seen by the wound care team for his bilateral lower extremity wounds and as he remained stable and after I spoke with [facility], they said that they would be capable of taking care of him and administering antibiotic 3 times a day. The patient himself was agreeable to this arrangement and therefore, a decision was made to discharge him back to [facility]. PHYSICAL EXAMINATION: GENERAL: When I saw him today, he looked well and was clearly in no apparent respiratory distress, slightly pale, but no jaundice, cyanosis or thyromegaly. No jugular venous distention. No limb edema. VITAL SIGNS: His heart rate was 77, blood pressure was 110/55, temperature was 98.3, respiratory rate was 16 and oxygen saturation was 96%. The rest of clinical exam is stable and has not really changed. LABORATORY DATA: His lab work this morning showed a white cell count of 9800, hemoglobin 9.2, hematocrit 28, MCV 80 and a platelet count of 352,000. His chemistry showed a serum sodium of 139, potassium 3.6, chloride 102, bicarbonate 33, anion gap of 4, BUN 14, creatinine 0.9, estimated GFR was 86 mL per minute. His glucose was 118, calcium was 9. Total bilirubin and ALT were normal. AST and alkaline phosphatase slightly elevated. His C-reactive protein was 22.1. Total protein was 6.1, albumin was 1.7. His urine culture has grown Staphylococcus aureus and enterococcus species and blood culture showed growth of Streptococcus anginosus. DISCHARGE MEDICATIONS: The patient was discharged to [facility] to continue on cefazolin sodium 1 gram IV every 8 hours, arformoterol or Brovana 15 mcg/2 mL by nebulizer twice a day, aspirin 325 mg once a day, cariprazine hydrochloride or Vraylar 3 mg daily, diclofenac sodium or Voltaren Gel 2 grams topically ____ 4 times a day, divalproex 1000 mg p.o. b.i.d., Aricept 10 mg once a day, fenofibrate 145 mg once a day, gabapentin 800 mg daily. He is on NovoLog 10 units subcutaneously b.i.d., Lantus insulin ____ units at bedtime. He is on lamotrigine 100 mg at bedtime, levothyroxine 137 mcg once a day, linagliptin or Tradjenta 5 mg once a day, magnesium oxide 400 mg daily, metoprolol 100 mg once a day, nortriptyline 50 mg at bedtime and oxycodone/APAP 5/325 one tablet every 6 hours, quetiapine fumarate or Seroquel 100 mg once a day at bedtime, rosuvastatin or Crestor 10 mg at bedtime, spironolactone 100 mg once a day, ____ 40 mg twice a day and Coenzyme Q10 50 mg once a day. ASSESSMENT: 1. Streptococcus anginosus bacteremia. 2. Infected complex left leg fluid collection with hardware in place, status post aspiration, status post incision and drainage. 3. Methicillin-resistant Staphylococcus aureus and enterococcus growth in the urine culture. 4. Bilateral lower extremity wounds. 5. Severe protein-calorie malnutrition with a serum albumin of only 1.7 g/dL. 6. Type 2 diabetes mellitus. 7. Coronary artery disease, status post coronary artery bypass graft x 2 and stent deployment. 8. Hypertension. 9. Morbid obesity. 10. Chronic obstructive pulmonary disease. 11. Hypothyroidism. 12. Schizoaffective disorder. 13. Alzheimer disease of early onset. PATTY CHRISTIAN MD DR: Arielle JOB#: [id number] / [id number]
== END 2016-12-08 17:05 | DRG 500 ==
LOC: ER 14:35 → 2 SOUTH 15:40 → 4 NORTH 12-01 14:20
PROVIDERS: ADMIT Internal Medicine; ATTEND Internal Medicine
PROC: 0S9D3ZX Drainage of Left Knee Joint, Percutaneous Approach, Diagnostic (ICD-10-PCS; 2016-11-27)
PROC: 0S9D0ZX Drainage of Left Knee Joint, Open Approach, Diagnostic (ICD-10-PCS; 2016-12-01)
PROC: 0J9P0ZX Drainage of Left Lower Leg Subcutaneous Tissue and Fascia, Open Approach, Diagnostic (ICD-10-PCS; 2016-12-01)
PROC: 0JDP0ZZ Extraction of Left Lower Leg Subcutaneous Tissue and Fascia, Open Approach (ICD-10-PCS; principal; 2016-12-01 10:00)
PROC: 02HV33Z Insertion of Infusion Device into Superior Vena Cava, Percutaneous Approach (ICD-10-PCS; 2016-12-03)
DX: T84.54XA Infection and inflammatory reaction due to internal left knee prosthesis, initial encounter (principal); A41.9 Sepsis, unspecified organism; E43 Unspecified severe protein-calorie malnutrition; G93.41 Metabolic encephalopathy; N39.0 Urinary tract infection, site not specified; I13.0 Hypertensive heart and chronic kidney disease with heart failure and stage 1 through stage 4 chronic kidney disease, or unspecified chronic kidney disease; I50.42 Chronic combined systolic (congestive) and diastolic (congestive) heart failure; Z68.41 Body mass index [BMI] 40.0-44.9, adult; L02.416 Cutaneous abscess of left lower limb; E66.01 Morbid (severe) obesity due to excess calories; E11.22 Type 2 diabetes mellitus with diabetic chronic kidney disease; E78.5 Hyperlipidemia, unspecified; E11.649 Type 2 diabetes mellitus with hypoglycemia without coma; E11.43 Type 2 diabetes mellitus with diabetic autonomic (poly)neuropathy; E11.65 Type 2 diabetes mellitus with hyperglycemia; F02.80 Dementia in other diseases classified elsewhere, unspecified severity, without behavioral disturbance, psychotic disturbance, mood disturbance, and anxiety; F25.9 Schizoaffective disorder, unspecified; F32.9 Major depressive disorder, single episode, unspecified; Z51.5 Encounter for palliative care; G30.0 Alzheimer's disease with early onset; I25.10 Atherosclerotic heart disease of native coronary artery without angina pectoris; I25.5 Ischemic cardiomyopathy; J44.9 Chronic obstructive pulmonary disease, unspecified; K21.9 Gastro-esophageal reflux disease without esophagitis; K31.84 Gastroparesis; L89.90 Pressure ulcer of unspecified site, unspecified stage; N18.3 Chronic kidney disease, stage 3 (moderate); I49.5 Sick sinus syndrome; Z96.652 Presence of left artificial knee joint; M19.90 Unspecified osteoarthritis, unspecified site; G89.4 Chronic pain syndrome; A49.02 Methicillin resistant Staphylococcus aureus infection, unspecified site; F44.5 Conversion disorder with seizures or convulsions; Y83.1 Surgical operation with implant of artificial internal device as the cause of abnormal reaction of the patient, or of later complication, without mention of misadventure at the time of the procedure; E03.9 Hypothyroidism, unspecified; Z79.4 Long term (current) use of insulin; Z79.82 Long term (current) use of aspirin; Z82.49 Family history of ischemic heart disease and other diseases of the circulatory system; Z82.5 Family history of asthma and other chronic lower respiratory diseases; Z86.14 Personal history of Methicillin resistant Staphylococcus aureus infection; Z86.73 Personal history of transient ischemic attack (TIA), and cerebral infarction without residual deficits; Z87.891 Personal history of nicotine dependence; Z88.2 Allergy status to sulfonamides; Z91.81 History of falling; Z95.0 Presence of cardiac pacemaker; Z95.1 Presence of aortocoronary bypass graft; Z98.1 Arthrodesis status; Z87.828 Personal history of other (healed) physical injury and trauma; Z95.5 Presence of coronary angioplasty implant and graft; Z88.1 Allergy status to other antibiotic agents; Z88.0 Allergy status to penicillin; Z88.8 Allergy status to other drugs, medicaments and biological substances; Z68.35 Body mass index [BMI] 35.0-35.9, adult; Z90.49 Acquired absence of other specified parts of digestive tract
CPT/HCPCS: 10022; 36415; 36600; 70450; 71010; 73552; 73590; 73701; 76942; 80048; 80053; 80061; 80076; 80164; 80202; 81001; 82140; 82553; 82607; 82805; 82947; 83690; 83735; 83880; 84443; 84484; 85007; 85027; 85610; 85651; 86140; 87040; 87071; 87075; 87086; 87186; 87205; 87324; 89050; 93005; 93971; 94250; 94640; 94760; 95816; A4215; C1729; C1892; C1894; G0481; J0690; J1100; J1815; J2020; J2185; J2270; J2405; J2704; J3010; J3370; J3490; J7040; J7042; Q9967; S0028; 97110; 97530; 97535; 99285-25

== ENCOUNTER 2017-01-10 19:26 | Emergency (ER) | payer MEDICARE ==
[~2017-01-10] VITALS: Ht 182.9 cm; Wt 129.3 kg
[~2017-01-10 19:26] MED LIST: ARFO15VI IH; ASPI325T8 PO; CARI3CAP PO; DEXT38GE2 PO; DICL100G18 TP; DIVA500T4 PO; DONE10TA7 PO; FENO145T2 PO; FLUO40CA9 PO; GABA400C7 PO; HYDR-2766 PO; INSU100C4 SQ; INSU100I13 SQ; LAMO100T PO; LEVO137T3 PO; LINA5TAB4 PO; LORA1TAB PO; MAGN400T3 PO; METO100T2 PO; NORT25CA PO; OXYC1TAB7 PO; PANT40TA3 PO; QUET100T4 PO; ROSUVASTATIN CA10 M1 PO; SENN-79 PO; SPIR100T2 PO; TORS20TA2 PO; UBID50CA25 PO; non
[2017-01-10 19:34] VITALS: BP 109/55
[2017-01-10] MEDS ORDERED: fentaNYL PF VIAL 100 MCG/2 ML VIAL IV ONE (20:00)
[2017-01-10] MEDS ORDERED: ONDANSETRON PF 4 MG/2 ML VIAL. IV ONE (20:00)
[2017-01-10] MEDS ORDERED: TETANUS AND DIPHTHERIA TOX/PF 0.5 ML DISP.SYRIN. VAX IM ONE (20:00)
--- NOTE | 2017-01-10 20:11 | ED.ADGEN ---
Past Medical History Past Medical History: COPD, Diabetes-Type II, Hypertension, MRSA Additional Past Medical Histor: SLEEP APNEA,ALZHEIMER'S,SCHIZOEFFECTIVE DISORDER Past Surgical History: Coronary Bypass Surgery Additional Past Surgical Histo: CABG X2,BACK X2,L THIGH/KNEE RECONSTRUCTION Additional Information: stopped in 96 Alcohol Use: None Drug Use: None Adult General Chief Complaint Chief Complaint: MECHANICAL FALL HPI HPI Patient is a 61 year old male [facility] patient who presents with mechanical fall from wheelchair and facial injury. Patient states he was turning and injury position himself in a wheelchair when he lost his balance and fell fair report cracking his upper denture plate and cracking his nose. Patient denies loss of consciousness or feeling dazed. He reports facial pain and neck pain. He denies any medical symptoms prior to his fall. Patient is on daily Lovenox injections. No other acute symptoms or complaints. Patient is an insulin-dependent diabetic and is currently been treated for left leg/foot ulcer and is on IV antibiotics with a PICC line in place. Review of Systems Review of Systems ROS as per HPI. Current Medications Current Medications Current Medications Medications (Trade) Dose Ordered Sig/Tamra Start Time Stop Time Status Last Admin Dose Admin Fentanyl Citrate (Fentanyl 2ml Vial) 75 mcg 1X ONCE 01/10/17 20:00 01/10/17 20:01 DC 01/10/17 20:08 75 MCG Ondansetron HCl (Zofran) 4 mg 1X ONCE 01/10/17 20:00 01/10/17 20:01 DC 01/10/17 20:07 4 MG Tetanus/ Diphtheria Toxoids (Tenivac Syringe) 0.5 ml ONCE ONCE 01/10/17 20:00 01/10/17 20:01 DC 01/10/17 20:33 0.5 ML Allergies Allergies Allergies Coded Allergies Type Severity Reaction Last Updated Verified Penicillins Allergy Intermediate 11/29/16 Yes Sulfa (Sulfonamide Antibiotics) Allergy Intermediate 11/26/16 Yes clindamycin Allergy Intermediate 11/26/16 Yes lisinopril Allergy Intermediate 11/26/16 Yes I S O L A T I O N *CONTACT* Allergy Unknown 12/01/16 Yes Physical Exam Physical Exam Constitutional: No acute distress, cervical spine collar in place HENT: Normocephalic, atraumatic, bilateral external ears normal, oropharynx moist, broken prosthetic tooth on the upper denture, nose, the bridge deformity with abrasion, no active bleeding. Eyes: PERRLA, EOMI. Neck: Normal range of motion, no tenderness, cervical spine collar in place. Cardiovascular:Heart rate regular rhythm, no murmur. Lungs & Thorax: Bilateral breath sounds clear to auscultation Abdomen: Bowel sounds normal, soft, no tenderness, no masses, no pulsatile masses. Skin: Warm, dry, no erythema, no rash. Back: No tenderness. Extremities: Left leg/foot, wound bandaged. Right upper extremity, PICC line. Neurologic: Alert and oriented X 2, normal motor function, normal sensory function, no focal deficits noted. Psychologic: Affect, pleasant. Current Patient Data Vital Signs Vital Signs Date Time Temp Pulse Resp B/P (MAP) Pulse Ox O2 Delivery O2 Flow Rate FiO2 01/10/17 20:08 16 93 Room Air 01/10/17 19:34 98.3 74 109/55 (73) 98.3 Lab Values Laboratory Tests Test 01/10/17 20:02 Glucose (Fingerstick) 190 mg/dL (70-99) H EKG EKG [] Radiology/Procedures Radiology/Procedures [CT head/maxillofacial/cervical spine: No acute intracranial injury, no bony maxillofacial injury, no acute cervical spine injury, chronic cervical spine findings reviewed. Course & Med Decision Making Course & Med Decision Making Pertinent Labs and Imaging studies reviewed. (See chart for details) [BS 190. Tetanus updated. CT imaging reviewed. Typical CHI given. Patient referred to his PCP to review CT cervical spine findings consideration of future neurosurgical referral.] Dragon Disclaimer Dragon Disclaimer This electronic medical record was generated, in whole or in part, using a voice recognition dictation system. JERRY WARREN DO Jan 10, 2017 20:11
--- NOTE | 2017-01-10 20:20 | RAD ---
PQRS STATEMENT: One or more of the following in the visualized dose reduction techniques were utilized for this study: 1. Automatic exposure control, 2. Adjustment of the mA and/or kV according to patient size, 3. Use of iterative reconstruction technique CT HEAD INDICATION: trauma; pt fell out of wheelchair; head and neck pain COMPARISON: None Available. TECHNIQUE: 5 mm contiguous axial images were obtained from the skull base to the vertex in both bone and soft tissue algorithm. FINDINGS: No abnormal attenuation within the brain parenchyma. No evidence of acute intracranial hemorrhage. No extra-axial fluid collections. No mass effect or midline shift. Ventricular size is appropriate. Basal cisterns are patent. No fractures identified.Fox-white differentiation is preserved.Globes and orbits are within normal limits. Visualized paranasal sinuses and mastoid air cells are clear. IMPRESSION: No acute intracranial abnormality. CT CERVICAL SPINE INDICATION: trauma; pt fell out of wheelchair; head and neck pain COMPARISON: None Available. Technique: 2.5 mm contiguous axial images were obtained from the skull base through the cervicothoracic junction in both bone and soft tissue algorithm. Additional sagittal and coronal reconstructions were also performed. FINDINGS: There is no cervical spine fracture. The occipital condyles articulate normally with the lateral masses of C1. Cervical spine alignment is within normal limits. There is no perching of the facets. Vertebral body heights are well-maintained. There is multilevel degenerative disc height loss and facet arthropathy. At C2-3 there is moderate right foraminal stenosis from facet arthropathy. At C3-C4 there is a discussed by complex and uncovertebral hypertrophy and also facet arthropathy causing moderate bilateral foraminal stenosis. At C4-C5 there is a prominent discussed by complex which causes moderate stenosis of the central canal and probably causes mass effect upon the cord. There is also mild bilateral facet arthropathy. At C5-C6 there is moderate right foraminal stenosis from facet and uncovertebral hypertrophy. At C6-C7 there is no spinal stenosis. IMPRESSION: Negative for cervical spine fracture. At the level of C4-C5 there is a prominent discussed by complex which causes moderate narrowing of the spinal canal and likely causes significant mass effect upon the cord. Other degenerative changes per level as above. Electronically signed by: Max Silva MD (01/10/2017 8:17 PM)
--- NOTE | 2017-01-10 20:37 | RAD ---
CT MAXILLOFACIAL INDICATION: facial pain after falling out of wheelchair COMPARISON: None Available. Technique: 2.5 mm contiguous axial images were obtained from the level of the mandible through the level of the orbits. Additional coronal reconstructions were performed. PQRS STATEMENT: One or more of the following in the visualized dose reduction techniques were utilized for this study: 1. Automatic exposure control, 2. Adjustment of the mA and/or kV according to patient size, 3. Use of iterative reconstruction technique FINDINGS:No soft tissue swelling is identified. No fractures are seen. There are no abnormalities identified involving either globe. The retro-orbital fat is preserved. No enlargement of the extraocular muscles. Visualized paranasal sinuses and mastoid air cells are clear. Osteomeatal units are patent bilaterally. Temporomandibular joints are unremarkable. Visualized supervisor functional testing spaces are unremarkable. Visualized intracranial contents are within normal limits. IMPRESSION: No evidence for facial fracture. Electronically signed by: Max Silva MD (01/10/2017 8:34 PM)
--- NOTE | 2017-01-11 03:12 | ACF ---
Admission Forms Criteria PAIN MANAGEMENT GR Clinical Indications for Admission to Inpatient Care (Place 'X' for any and all applicable criteria): Hospital admission is needed for appropriate care of the patient because of 1 or more of the following are present (1)(2)(3)(4)(5): [X]I. Severe pain requiring acute inpatient management as indicated by 1 or more of the following (2)(5)(10): [ ]a) Continuous or frequent (eg, every 2 to 4 hours) parenteral analgesics required [A] [X]b) Necessity (ie, alternative approaches not effective) for analgesic regimen that can only be performed or initiated in inpatient setting [ ]II. Pain causing debilitation to the point of inability to function or be supported at any other level of care [ ]III. Severe side effects from pain medications as indicated by ANY ONE of the following (12)(13)(14)(15): [ ]a) Uncontrollable seizures [ ]b) Cardiac arrhythmias of immediate concern [ ]c) Dehydration that is severe or persistent [ ]d) Vomiting that is severe or persistent [ ]e) Altered mental status that is severe or persistent [ ]f) Obstipation with inadequate GI function to maintain nutrition The original [employer] content created by [employer] has been revised. The portions of the content which have been revised are identified through the use of italic text or in bold, and [employer] has neither reviewed nor approved the modified material. All other unmodified content is copyright [employer]. Please see references footnoted in the original [employer] edition 2016 Admission Criteria Met?: Yes DENAE ROMAN Jan 11, 2017 03:12
[2017-01-13] MEDS ORDERED: LACT1CAP24 PO (04:29)
[2017-01-13] MEDS ORDERED: METO50TA2 PO (04:29)
[2017-01-13] MEDS ORDERED: INSU100I17 SQ (04:29)
[2017-01-13] MEDS ORDERED: ISOS30TA4 PO (04:29)
[2017-01-13] MEDS ORDERED: NITR0.4T22 SL (04:29)
[2017-01-13] MEDS ORDERED: ALBU2.5V5 NEB (04:29)
[2017-01-13] MEDS ORDERED: ATOR40TA59 PO (04:29)
[2017-01-13] MEDS ORDERED: ACET325T9 PO (04:29)
[2017-01-13] MEDS ORDERED: FLUT1DIS3 IH (04:29)
[2017-01-13] MEDS ORDERED: UBID50CA25 PO (04:29)
[2017-01-13] MEDS ORDERED: UBID100T5 PO (04:29)
[2017-01-13] MEDS ORDERED: NYST15PO9 TP (04:29)
[2017-01-13] MEDS ORDERED: INSU100I27 SQ (04:29)
[2017-01-13] MEDS ORDERED: VANC125C2 PO (04:29)
[2017-01-13] MEDS ORDERED: HEPA500022 SQ (04:29)
== END 2017-01-10 22:03 | disposition home or self-care (01) ==
LOC: ER 19:26
DX: S02.5XXA Fracture of tooth (traumatic), initial encounter for closed fracture (principal); S00.31XA Abrasion of nose, initial encounter; M54.2 Cervicalgia; J44.9 Chronic obstructive pulmonary disease, unspecified; E11.9 Type 2 diabetes mellitus without complications; I10 Essential (primary) hypertension; G47.30 Sleep apnea, unspecified; G30.9 Alzheimer's disease, unspecified; F02.80 Dementia in other diseases classified elsewhere, unspecified severity, without behavioral disturbance, psychotic disturbance, mood disturbance, and anxiety; Z86.14 Personal history of Methicillin resistant Staphylococcus aureus infection; Z95.1 Presence of aortocoronary bypass graft; Z88.0 Allergy status to penicillin; Z79.4 Long term (current) use of insulin; Z88.1 Allergy status to other antibiotic agents; Z88.2 Allergy status to sulfonamides; Z88.8 Allergy status to other drugs, medicaments and biological substances; Z91.041 Radiographic dye allergy status; W05.0XXA Fall from non-moving wheelchair, initial encounter; Y93.89 Activity, other specified; Y92.89 Other specified places as the place of occurrence of the external cause; Y99.8 Other external cause status
CPT/HCPCS: 70450; 70486; 72125; 82962; 90471; 90714; 96374; 96375; 99284; J2405; J3010

== ENCOUNTER 2017-02-03 14:17 | Inpatient (IN) | payer MEDICARE, OTHER ==
[~2017-02-03] VITALS: Ht 182.9 cm; Wt 118.8 kg
[~2017-02-03 14:17] MED LIST changes: +ACET325T9 PO; +ALBU2.5V5 NEB; +ATOR40TA59 PO; +FLUT1DIS3 IH; +HEPA500022 SQ; +INSU100I17 SQ; +INSU100I27 SQ; +ISOS30TA4 PO; +LACT1CAP24 PO; +METO50TA2 PO; +NITR0.4T22 SL; +NYST15PO9 TP; +UBID100T5 PO; +VANC125C2 PO
[2017-02-03] MEDS ORDERED: fentaNYL PF VIAL 100 MCG/2 ML VIAL IV ONE (14:45)
[2017-02-03] MEDS ORDERED: fentaNYL PF VIAL 100 MCG/2 ML VIAL IV PRN (14:45)
[2017-02-03 15:00] LABS: BASO % 1 % (0-3); EOS % 2 % (0-3); HEMATOCRIT 33.8 % (39.0-53.0); HEMOGLOBIN 10.9 g/dL (13.0-17.5); LYMPH # 1.1 x10^3/uL (1.0-4.8); LYMPH % 19 % (24-48); MEAN CORPUSCULAR HEMOGLOBIN 28 pg (25-35); MEAN CORPUSCULAR HGB CONC 32 g/dL (31-37); MEAN CORPUSCULAR VOLUME 86 fL (79-100); MONO % 10 % (0-9); NEUT % 68 % (31-73); PLATELET COUNT 269 x10^3/uL (140-400); RED BLOOD COUNT 3.91 x10^6/uL (4.30-5.70); RED CELL DISTRIBUTION WIDTH 16.4 % (11.5-14.5); WHITE BLOOD COUNT 5.9 x10^3/uL (4.0-11.0)
[2017-02-03 15:13] LABS: CALCIUM 8.8 mg/dL (8.5-10.1); CREATININE 1.2 mg/dL (0.7-1.3); GFR 61.8; POTASSIUM 4.5 mmol/L (3.5-5.1)
[2017-02-03] MEDS ORDERED: ONDANSETRON PF 4 MG/2 ML VIAL. IV ONE (15:15)
[2017-02-03 15:18] LABS: ALBUMIN 2.7 g/dL (3.4-5.0); ALBUMIN/GLOBULIN RATIO 0.6 (1.0-1.7); TOTAL BILIRUBIN 0.2 mg/dL (0.2-1.0)
[2017-02-03 15:24] LABS: BILIRUBIN,URINE NEGATIVE (NEG); GLUCOSE,URINE 250 mg/dL (NEG); NITRITE,URINE NEGATIVE (NEG); PROTEIN,URINE NEGATIVE (NEG-TRACE); UROBILINOGEN,URINE 0.2 mg/dL (0.2 mg/dL)
[2017-02-03 15:30] LABS: BACTERIA,URINE 0 /HPF (0-FEW); RBC,URINE 0 /HPF (0-2); SQUAMOUS EPITHELIAL CELL,UR OCC /LPF; WBC,URINE 0 /HPF (0-4)
--- NOTE | 2017-02-03 15:58 | PHYS DOC ---
Past Medical History Past Medical History: COPD, Diabetes-Type II, Hypertension, MRSA Additional Past Medical Histor: SLEEP APNEA,ALZHEIMER'S,SCHIZOEFFECTIVE DISORDER Past Surgical History: Coronary Bypass Surgery Additional Past Surgical Histo: CABG X2,BACK X2,L THIGH/KNEE RECONSTRUCTION Alcohol Use: None Drug Use: None Adult General Chief Complaint Chief Complaint: LOWER EXT PAIN HPI HPI Patient is a 61 year old male brought to the ED by EMS from his [facility] with the complaint of altered mental status, increased somnolence. On arrival, the patient's actual complaint is of increasingly severe left leg pain. The patient has been dealing with left leg infection including cellulitis and infection of a knee prosthesis, for several weeks. He complains of increasing pain, redness, swelling, recently. Patient's contributes to the history. 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 He has had MRSA and also "strep B" of the left leg. He has been on antibiotics and has developed C. difficile. At this time, he is on cefazolin and also oral vancomycin. His last stool was a formed stool yesterday. The patient's complaint is only severe left leg pain at this time. PCP Dr. Christian Review of Systems Review of Systems Constitutional: He is not sure if he has had fever, he has been chilly Eyes: Denies change in visual acuity, redness, or eye pain [] HENT: Denies nasal congestion or sore throat [] Respiratory: Denies cough or shortness of breath [] Cardiovascular: Denies chest pain GI: He has had nausea but no vomiting, no diarrhea : Denies dysuria or hematuria [] Musculoskeletal: Terrible left leg pain today Integument: Denies rash or skin lesions [] Neurologic: Denies headache, focal weakness or sensory changes [] Current Medications Current Medications Current Medications Medications (Trade) Dose Ordered Sig/Tamra Start Time Stop Time Status Last Admin Dose Admin Fentanyl Citrate (Fentanyl 2ml Vial) 100 mcg 1X ONCE 02/03/17 14:45 02/03/17 14:46 DC 02/03/17 15:00 100 MCG Insulin Aspart (NovoLOG) 6 units TIDAC 02/03/17 16:30 Ondansetron HCl (Zofran) 4 mg 1X ONCE 02/03/17 15:15 02/03/17 15:16 DC 02/03/17 14:58 4 MG Allergies Allergies Allergies Coded Allergies Type Severity Reaction Last Updated Verified Penicillins Allergy Intermediate 01/12/17 Yes Sulfa (Sulfonamide Antibiotics) Allergy Intermediate 01/12/17 Yes clindamycin Allergy Intermediate 01/12/17 Yes lisinopril Allergy Intermediate 01/12/17 Yes I S O L A T I O N *CONTACT* Allergy Unknown 01/12/17 Yes Physical Exam Physical Exam Constitutional: Well developed, well nourished, no acute distress, non-toxic appearance. Alert and mentating normally although his eyes are closed unless spoken to HENT: Normocephalic, atraumatic, bilateral external ears normal, oropharynx moist, nose normal. [] Eyes: conjunctiva normal, no discharge. [] Neck: Normal range of motion, no stridor. [] Cardiovascular:Heart rate regular rhythm, no murmur [] Lungs & Thorax: Bilateral breath sounds clear to auscultation [] Abdomen: Bowel sounds normal, soft, no tenderness, nondistended, no masses, no pulsatile masses. Abdominal wall ecchymosis consistent with insulin injections. Skin: Warm, dry, no erythema, no rash. [] Extremities: Left leg has a below the knee stockinette dressing with a taped dressing to the heel and a Velcro sheepskin splint. All of this was removed for evaluation. The patient's knee is somewhat swollen but does not appear red or tense. There is erythema and mild to moderate swelling of the lower leg between the knee and the ankle, mostly pretibial, does not significantly involve the calf, it does not appear to me to be a DVT. The foot has no clinical cellulitis , but there is a large, full-thickness lesion on the heel that appears to be a deeper treated heel ulcer which is having a fairly large amount of purulent drainage. Neurologic: Alert and oriented X 3, normal motor function, normal sensory function, no focal deficits noted. [] Current Patient Data Vital Signs Vital Signs Date Time Temp Pulse Resp B/P (MAP) Pulse Ox O2 Delivery O2 Flow Rate FiO2 02/03/17 15:00 13 100 Nasal Cannula 3.0 02/03/17 14:20 97.6 66 124/60 (81) 97.6 Lab Values Laboratory Tests Test 02/03/17 14:30 02/03/17 15:10 02/03/17 15:17 White Blood Count 5.9 x10^3/uL (4.0-11.0) Red Blood Count 3.91 x10^6/uL (4.30-5.70) L Hemoglobin 10.9 g/dL (13.0-17.5) L Hematocrit 33.8 % (39.0-53.0) L Mean Corpuscular Volume 86 fL (79-100) Mean Corpuscular Hemoglobin 28 pg (25-35) Mean Corpuscular Hemoglobin Concent 32 g/dL (31-37) Red Cell Distribution Width 16.4 % (11.5-14.5) H Platelet Count 269 x10^3/uL (140-400) Neutrophils (%) (Auto) 68 % (31-73) Lymphocytes (%) (Auto) 19 % (24-48) L Monocytes (%) (Auto) 10 % (0-9) H Eosinophils (%) (Auto) 2 % (0-3) Basophils (%) (Auto) 1 % (0-3) Neutrophils # (Auto) 4.0 x10^3uL (1.8-7.7) Lymphocytes # (Auto) 1.1 x10^3/uL (1.0-4.8) Monocytes # (Auto) 0.6 x10^3/uL (0.0-1.1) Eosinophils # (Auto) 0.1 x10^3/uL (0.0-0.7) Basophils # (Auto) 0.0 x10^3/uL (0.0-0.2) Sodium Level 139 mmol/L (136-145) Potassium Level 4.5 mmol/L (3.5-5.1) Chloride Level 102 mmol/L (98-107) Carbon Dioxide Level 31 mmol/L (21-32) Anion Gap 6 (6-14) Blood Urea Nitrogen 22 mg/dL (8-26) Creatinine 1.2 mg/dL (0.7-1.3) Estimated GFR (Cockcroft-Gault) 61.8 BUN/Creatinine Ratio 18 (6-20) Glucose Level 264 mg/dL (70-99) H Calcium Level 8.8 mg/dL (8.5-10.1) Total Bilirubin 0.2 mg/dL (0.2-1.0) Aspartate Amino Transferase (AST) 17 U/L (15-37) Alanine Aminotransferase (ALT) 14 U/L (16-63) L Alkaline Phosphatase 128 U/L (46-116) H Total Protein 7.0 g/dL (6.4-8.2) Albumin 2.7 g/dL (3.4-5.0) L Albumin/Globulin Ratio 0.6 (1.0-1.7) L Prothrombin Time 13.0 SEC (11.7-14.0) Prothrombin Time INR 1.0 (0.8-1.1) PTT 30 SEC (24-38) Lactic Acid Level 1.1 mmol/L (0.4-2.0) Urine Collection Type Unknown Urine Color Yellow Urine Clarity Clear Urine pH 6.0 Urine Specific [place] 1.010 Urine Protein Negative mg/dL (NEG-TRACE) Urine Glucose (UA) 250 mg/dL (NEG) Urine Ketones (Stick) Negative mg/dL (NEG) Urine Blood Negative (NEG) Urine Nitrite Negative (NEG) Urine Bilirubin Negative (NEG) Urine Urobilinogen Dipstick 0.2 mg/dL (0.2 mg/dL) Urine Leukocyte Esterase Negative (NEG) Urine RBC 0 /HPF (0-2) Urine WBC 0 /HPF (0-4) Urine Squamous Epithelial Cells Occ /LPF Urine Bacteria 0 /HPF (0-FEW) Urine Hyaline Casts Moderate /HPF Laboratory Tests 02/03/17 14:30 Laboratory Tests 02/03/17 14:30 EKG EKG 12-lead EKG read by me. Sinus rhythm. Heart rate 67. There are no acute ST or T wave changes indicative of ischemia or infarction. No STEMI. 1444 [] Radiology/Procedures Radiology/Procedures [] Course & Med Decision Making Course & Med Decision Making Pertinent Labs and Imaging studies reviewed. (See chart for details) 61-year-old male with a chronic infection of his left leg brought from his [facility] by EMS with the initial chief complaint of altered mental status. Here, he is oriented 3 but he is in a lot of pain. Discussing with the patient and his , his pain, redness and swelling have worsened significantly over the last couple of days. They're concerned that his infection is worse. Today he is afebrile with a normal white count. I agree that his exam is concerning for cellulitis. I discussed the case with JOAQUÍN Galindo, who will see the patient in the hospital. He advised to continue current antibiotics at this time and he will sort this out tomorrow. I discussed the case with , the patient's PCP, who will admit him. I wrote bridge orders. The patient was given IV fentanyl in the emergency department for pain which did help his pain quite a bit. [] Dragon Disclaimer Dragon Disclaimer This electronic medical record was generated, in whole or in part, using a voice recognition dictation system. Departure Departure Impression: Primary Impression: Cellulitis of left leg Additional Impression: Decubitus ulcer, heel, left, unstageable Disposition: 09 ADMITTED INPATIENT Admitting Physician: Bishop Christian Condition: STABLE Referrals: BISHOP CHRISTIAN MD (PCP) Problem Qualifiers TAPAN MACIAS MD Feb 03, 2017 15:58
[2017-02-03] MEDS ORDERED: ONDANSETRON PF 4 MG/2 ML VIAL. IV PRN (16:15)
--- NOTE | 2017-02-03 16:23 | ACF ---
Admission Forms Criteria CELLULITIS Clinical Indications for Admission to Inpatient Care (Place 'X' for any and all applicable criteria): Admission is indicated for ANY ONE of the following(1)(2)(3)(4)(5): [X ]I. Limb-threatening infection [ ]II. High-risk comorbid condition as indicated by ANY ONE of the following: [ ]a) Uncontrolled diabetes (eg, HbA1c greater than 10% (0.1)) [ ]b) Cirrhosis [ ]c) Neutropenia [ ]d) Asplenia [ ]e) Immunosuppression [ ]f) Symptomatic heart failure [ ]III. Failure of outpatient therapy as indicated by ALL of the following: [ ]a) Progression or no improvement after adequate trial (minimum of 48 hours, with longer period for stable lower extremity infection) [ ]b) Adequate antibiotic regimen as indicated by use of ANY ONE of the following: [ ]i) First-generation cephalosporin (e.g., cephalexin) [ ]ii) Antistaphylococcal penicillin (e.g., dicloxacillin) [ ]iii) Penicillin-allergic patient regimen (clindamycin, extended-spectrum fluoroquinolone, or doxycycline) [ ]iv) Resistant organism (eg, methicillin-resistant Staphylococcus aureus) regimen (6) [ ]c) Outpatient intravenous therapy regimen is not appropriate due to ANY ONE of the following. (7)(8)(9)(10): [ ]i) It was tried and was not successful (eg, progression of infection). [ ]ii) It is not available or cannot be arranged in a clinically appropriate time frame (e.g., the next day). [ ]iii) Clinical presentation (eg, acuity of infection, rapidity of progression, confirmed or suspected bacteremia) is judged to require ALL of the following: [ ]1) Immediate initiation of intravenous therapy ( eg, cannot wait for next day) [ ]2) Intensity of patient monitoring and observation (eg, vital sign measurement, checks for infection progression) that cannot be provided at other than inpatient level of care [X ]IV. Mental status changes [ ]V. Bacteremia [ ]. Hemodynamic instability [ ]VII. Suspected necrotizing soft tissue infection (e.g., gas in tissue)(11)( 12) [ ]VIII. Orbital infection (13)(14) [ ]IX. Associated surgical procedure (e.g., abscess drainage, debridement) not amenable to outpatient, emergency department, or observation care [ ]X. Cutaneous gangrene [ ]XI. High fever (temperature greater than 39.5 degrees C (103.1 degrees F) (oral)) not responsive to outpatient, emergency department, or observation care therapy [X ]XIII. Inpatient admission required rather than observation care (Also use Cellulitis: Observation Care as appropriate) because of ANY ONE of the following : [ ]a) Periorbital or perineal infection that is severe or worsening [X ]b) Severe pain requiring acute inpatient management [ ]c) IV fluid to replace significant ongoing (e.g., for over 24 hours) losses (greater than 3L/m2 per day) [ ]d) Compartment syndrome monitoring (17) [ ]e) Strict or protective (eg, laminar flow) isolation [ ]f) Urgent debridement or skin grafting [ ]g) Bone or joint debridement [ ]h) Immediate inpatient surgery [ ]i) Other condition, treatment or monitoring requiring inpatient admission Extended stay beyond goal length of stay may be needed for (1)(18): [ ]a) Necrotizing soft tissue infection or fasciitis [ ]b) Gram-negative infection [ ]c) Methicillin-resistant Staphylococcal aureus (MRSA) infection [ ]d) Peripheral venous insufficiency with cellulitis [ ]e) Extensive edema [ ]f) Sepsis or continued Hemodynamic instability [ ]g) Continued high fever or mental status change [ ]h) Bacteremia [ ]i) Active serious comorbid conditions ( eg, heart failure, renal insufficiency) The original [employer] content created by [facility] has been revised. The portions of the content which have been revised are identified through the use of italic text or in bold, and [facility] has neither reviewed nor approved the modified material. All other unmodified content is copyright [facility] Please see references footnoted in the original [facility] [employer] edition 2016 Admission Criteria Met?: Yes HEATHER COSTA Feb 03, 2017 16:23
[2017-02-03 17:15] VITALS: BP_SYST 127; BP_SYST 129; BP_DIAS 59; BP_DIAS 76
[2017-02-03] MEDS: fentaNYL PF VIAL 100 MCG/2 ML VIAL IV PRN ×2 (18:04→19:49)
[2017-02-03] MEDS ORDERED: ZINC50TA33 PO (18:37)
[2017-02-03] MEDS ORDERED: ASCO500T3 PO (18:37)
[2017-02-03] MEDS ORDERED: FLUT12HF3 IH (18:37)
[2017-02-03] MEDS ORDERED: CEPH500T PO (18:37)
[2017-02-03] MEDS: INSULIN ASPART 300 UNITS/3 ML INSULN.PEN SQ SCH (18:52)
[2017-02-03 19:37] VITALS: BP 116/60
[2017-02-03] MEDS ORDERED: ACETAMINOPHEN 325 MG TABLET. PO PRN (20:15)
[2017-02-03] MEDS ORDERED: NITROGLYCERIN SUBLINGUAL 0.4 MG BOTTLE OF 25. SL PRN (20:15)
[2017-02-03] MEDS: HEPARIN PF for SUB-Q USE 5,000 UNIT/0.5 ML VIAL. SQ SCH (21:00)
[2017-02-03] MEDS: VANCOMYCIN 125 MG/2.5 ML ORAL SOLUTION. PO SCH (21:06)
[2017-02-03] MEDS: NYSTATIN TOPICAL POWDER 15GM BOTTLE. TP SCH (21:06)
[2017-02-03] MEDS: DICLOFENAC SODIUM 1% TOPICAL GEL 100GM TUBE. TP SCH (21:06)
[2017-02-03] MEDS: METOPROLOL TART IMMED RELEASE 50 MG TABLET. PO SCH (21:07)
[2017-02-03] MEDS: FLUoxetine HCL 20 MG CAPSULE PO SCH (21:07)
[2017-02-03] MEDS: oxyCODONE/APAP 5/325 1 TAB TABLET PO PRN (21:07)
[2017-02-03] MEDS: lamoTRIgine 100 MG TABLET. PO SCH (21:07)
[2017-02-03] MEDS: ATORVASTATIN CALCIUM 40 MG TABLET. PO SCH (21:07)
[2017-02-03] MEDS: DONEPEZIL HCL 10 MG TABLET. PO SCH (21:07)
[2017-02-03] MEDS: QUEtiapine 100 MG TABLET. PO SCH (21:07)
[2017-02-03] MEDS: DIVALPROEX EXTENDED RELEASE 500 MG TAB.ER.24H. PO SCH (21:08)
[2017-02-03] MEDS: NORTRIPTYLINE 25 MG CAPSULE PO SCH (21:08)
[2017-02-03] MEDS: INSULIN DETEMIR 300 UNITS/3 ML INSULN.PEN. SQ SCH (21:18)
[2017-02-03 23:20] VITALS: BP 131/60
[2017-02-04 03:33] VITALS: BP 114/54
[2017-02-04] MEDS: oxyCODONE/APAP 5/325 1 TAB TABLET PO PRN ×4 (05:20→17:06)
[2017-02-04] MEDS: LEVOTHYROXINE 137 MCG TABLET PO SCH (06:13)
--- NOTE | 2017-02-04 06:57 | EKG ---
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
[2017-02-04 07:00] VITALS: BP 104/52
[2017-02-04] MEDS: ALBUTEROL SULFATE 2.5 MG/3 ML NEBU. NEB SCH ×4 (07:08→19:13)
[2017-02-04] MEDS: VANCOMYCIN 125 MG/2.5 ML ORAL SOLUTION. PO SCH ×4 (08:24→21:21)
[2017-02-04] MEDS: ZINC SULFATE 220 MG CAPSULE. PO SCH (08:25)
[2017-02-04] MEDS: GABAPENTIN 400 MG CAPSULE. PO SCH (08:25)
[2017-02-04] MEDS: LACTOBACILLUS ACIDOPH & BULGAR 1 TABLET. PO SCH ×3 (08:26→17:00)
[2017-02-04] MEDS: ASPIRIN 325 MG TABLET PO SCH (08:26)
[2017-02-04] MEDS: PANTOPRAZOLE 40 MG TABLET.DR. PO SCH (08:26)
[2017-02-04] MEDS: DIVALPROEX EXTENDED RELEASE 500 MG TAB.ER.24H. PO SCH ×2 (08:27→21:22)
[2017-02-04] MEDS: MAGNESIUM OXIDE 400 MG TABLET PO SCH (08:27)
[2017-02-04] MEDS: FENOFIBRATE,MICRONIZED 134 MG CAPSULE PO SCH (08:27)
[2017-02-04] MEDS: SENNOSIDES 8.6 MG TABLET PO SCH (08:34)
[2017-02-04] MEDS: ASCORBIC ACID 500 MG TABLET PO SCH (08:34)
[2017-02-04] MEDS: ISOSORBIDE MONONITRATE ER 30 MG TAB.ER.24H PO SCH (08:34)
[2017-02-04] MEDS: FLUoxetine HCL 20 MG CAPSULE PO SCH ×3 (08:35→21:22)
[2017-02-04] MEDS: LINAGLIPTIN 5 MG TABLET PO SCH (08:35)
[2017-02-04] MEDS: SPIRONOLACTONE 25 MG TABLET PO SCH (08:36)
[2017-02-04] MEDS: METOPROLOL TART IMMED RELEASE 50 MG TABLET. PO SCH ×2 (08:36→21:23)
[2017-02-04] MEDS: TORSEMIDE 20 MG TABLET. PO SCH ×2 (08:36→14:06)
[2017-02-04] MEDS: NYSTATIN TOPICAL POWDER 15GM BOTTLE. TP SCH ×2 (08:37→21:23)
[2017-02-04] MEDS: DICLOFENAC SODIUM 1% TOPICAL GEL 100GM TUBE. TP SCH ×4 (08:37→21:21)
[2017-02-04] MEDS: HEPARIN PF for SUB-Q USE 5,000 UNIT/0.5 ML VIAL. SQ SCH ×3 (08:51→21:28)
[2017-02-04] MEDS: INSULIN ASPART 300 UNITS/3 ML INSULN.PEN SQ SCH ×7 (08:52→17:00)
[2017-02-04] MEDS: CARIPRAZINE HYDROCHLORIDE 3 MG PO SCH (09:00)
[2017-02-04] MEDS ORDERED: NON FORMULARY ITEM (Ubidecarenone (Coenzyme Q10) 100 MG) PO SCH (09:00)
--- NOTE | 2017-02-04 09:04 | PDOC2 ---
IM Consult Referring physician Dr Ram for antibiotic management Date of Admission DATE: 02/04/17 TIME: 08:58 Chief Complaint Chief Complaint This year old male has been admitted with a chief complaint of . left leg pain and confusion , also said he had fever Problems: Past Medical History Cardiovascular: CAD, CHF, HTN, SC, Hyperlipidemia, Other Pulmonary: COPD CENTRAL NERVOUS SYSTEM: Other GI: GERD, Other Heme/Onc: No pertinent hx Hepatobiliary: No pertinent hx Psych: Depression, Schizophrenia Musculoskeletal: Osteoarthritis, Other Infectious disease: No pertinent hx Renal/: Chronic renal insuff Endocrine: Diabetes, Hypothyroidism, Other Past Surgical History Past Surgical History: Pacemaker, Appendectomy, Cholecystectomy, Total knee replacement, Tonsillectomy, Other Past Family History Family History: Coronary Artery Disease Past Social History PSH neg for smoking, etoh, drugs [facility] resident Review of Symptoms Review of Symptoms General ROS: positive for - Psychological ROS: negative Ophthalmic ROS: negative ENT ROS: negative Allergy and Immunology ROS: negative Hematology and Lymphatic: negative Endocrine ROS: negative Respiratory ROS: no cold, cough, dyspnea. Cardiovascular ROS: no chest pain or dyspnea on exertion Gastrointestinal ROS: no abdominal pain, change in bowel habits, or black or bloody stools Genito-Urinary ROS: no dysuria, trouble voiding, or hematuria Musculoskeletal ROS: no pain Neurological ROS: negative Dermatological ROS: no rash Medications Current Medications Acetaminophen (Tylenol) 650 mg PRN Q4HRS PRN PO MILD PAIN / TEMP; Start at 20:15 Albuterol Sulfate (Ventolin Neb Soln) 2.5 mg RTQID NEB Last administered on 02/04 07:08; Start 02/04/17 at 08:00 Ascorbic Acid (Vitamin C) 500 mg DAILY PO Last administered on 02/04/17 08:34; Start 02/04/17 at 09:00 Aspirin (Ceci Aspirin) 325 mg [id number] PO Last administered on 02/04/17 08: 26; Start 02/04/17 at 08:00 Atorvastatin Calcium (Lipitor) 40 mg QHS PO Last administered on 02/03/17 21:07 ; Start 02/03/17 at 21:00 Cefazolin Sodium 50 ml @ 100 mls/hr 1X ONCE IV Last administered on 02/03/17 16:51; Start 02/03/17 at 16:45; Stop 02/03/17 at 17:14; Status DC Cefazolin Sodium 50 ml @ 100 mls/hr TID IV ; Start 02/03/17 at 21:00; Status UNV Cefazolin Sodium 1 gm/Sodium Chloride 50 ml @ 100 mls/hr Q8HRS IV Last administered on 02/04/17 05:19; Start 02/03/17 at 23:00 Diclofenac Sodium (Voltaren) 2 martha QID TP Last administered on 02/04/17 08:37; Start 02/03/17 at 21:00 Divalproex Sodium (Depakote Er) 1,000 mg BID PO Last administered on 02/04/17 08:27; Start 02/03/17 at 21:00 Donepezil HCl (Aricept) 10 mg HS PO Last administered on 02/03/17 21:07; Start 02/03/17 at 21:00 Fenofibrate (Lofibra) 134 mg DAILY PO Last administered on 02/04/17 08:27; Start 02/04/17 at 09:00 Fentanyl Citrate (Fentanyl 2ml Vial) 50 mcg PRN Q15MIN PRN IV PAIN GREATER THAN 3/10 Last administered on 02/03/17 16:19; Start 02/03/17 at 14:45; Stop 02/04 at 14:44 Fentanyl Citrate (Fentanyl 2ml Vial) 50 mcg PRN Q1HR PRN IV PAIN Last administered on 02/03/17 19:49; Start 02/03/17 at 16:15; Stop 02/04/17 at 16:14 Fentanyl Citrate (Fentanyl 2ml Vial) 100 mcg 1X ONCE IV Last administered on 15:00; Start 02/03/17 at 14:45; Stop 02/03/17 at 14:46; Status DC Fluoxetine HCl (PROzac) 40 mg TID PO Last administered on 02/04/17 08:35; Start 02/03/17 at 21:00 Gabapentin (Neurontin) 800 mg DAILY PO Last administered on 02/04/17 08:25; Start 02/04/17 at 09:00 Heparin Sodium (Porcine) (Heparin Sq) 5,000 unit TID SQ Last administered on 08:51; Start 02/03/17 at 21:00 Insulin Aspart (NovoLOG) 6 units TIDAC SQ Last administered on 02/04/17 08:52; Start 02/03/17 at 16:30 Insulin Aspart (NovoLOG) 15 units TIDAC SQ Last administered on 02/04/17 08:52 ; Start 02/04/17 at 07:30 Insulin Detemir (Levemir) 30 units HS SQ Last administered on 02/03/17 21:18; Start 02/03/17 at 21:00 Isosorbide Mononitrate (Imdur) 30 mg DAILY PO Last administered on 02/04/17 08: 34; Start 02/04/17 at 09:00 Lactobacillus Acidophilus (Bacid, Constance-Bid) 1 tab TIDWMEALS PO Last administered on 02/04/17 08:26; Start 02/04/17 at 08:00 Lamotrigine (LaMICtal) 100 mg HS PO Last administered on 02/03/17 21:07; Start 02/03/17 at 21:00 Levothyroxine Sodium (Synthroid) 137 mcg DAILY07 PO Last administered on 06:13; Start 02/04/17 at 07:00 Linagliptin (Tradjenta) 5 mg DAILY PO Last administered on 02/04/17 08:35; Start 02/04/17 at 09:00 Magnesium Oxide (Magnesium Oxide) 400 mg DAILY PO Last administered on 08:27; Start 02/04/17 at 09:00 Metoprolol Tartrate (Lopressor) 50 mg BID PO Last administered on 02/03/17 21: 07; Start 02/03/17 at 21:00 Nitroglycerin (Nitrostat) 0.4 mg PRN Q5MIN PRN SL CHEST PAIN; Start 02/03/17 at 20:15 Non-Formulary Medication 3 mg DAILY PO ; Start 02/04/17 at 09:00; Status UNV Non-Formulary Medication 100 mg DAILY PO ; Start 02/04/17 at 09:00; Status UNV Nortriptyline HCl (Pamelor) 25 mg QHS PO Last administered on 02/03/17 21:08; Start 02/03/17 at 21:00 Nystatin (Nystop) 1 martha BID TP Last administered on 02/04/17 08:37; Start at 21:00 Ondansetron HCl (Zofran) 4 mg 1X ONCE IV Last administered on 02/03/17 14:58; Start 02/03/17 at 15:15; Stop 02/03/17 at 15:16; Status DC Ondansetron HCl (Zofran) 4 mg PRN Q8HRS PRN IV NAUSEA/VOMITING; Start 02/03/17 at 16:15; Stop 02/04/17 at 16:14 Oxycodone/ Acetaminophen (Percocet 5/325) 2 tab PRN Q6HRS PRN PO PAIN Last administered on 02/04/17 05:20; Start 02/03/17 at 20:15 Pantoprazole Sodium (Protonix) 40 mg DAILYAC PO Last administered on 02/04/17 08:26; Start 02/04/17 at 07:30 Quetiapine Fumarate (SEROquel) 100 mg QHS PO Last administered on 02/03/17 21: 07; Start 02/03/17 at 21:00 Sennosides (Senna) 8.6 mg DAILY PO ; Start 02/04/17 at 09:00 Spironolactone (Aldactone) 100 mg DAILY PO Last administered on 02/04/17 08:36 ; Start 02/04/17 at 09:00 Torsemide (Demadex) 20 mg [id number] PO ; Start 02/04/17 at 09:00 Vancomycin HCl 125 mg [id number] PO Last administered on 02/04/17 08:24; Start 02/03/17 at 21:00 Zinc Sulfate (Orazinc) 220 mg DAILY PO Last administered on 02/04/17 08:25; Start 02/04/17 at 09:00 Allergy Allergies Coded Allergies Type Severity Reaction Last Updated Verified Penicillins Allergy Intermediate 01/12/17 Yes Sulfa (Sulfonamide Antibiotics) Allergy Intermediate 01/12/17 Yes clindamycin Allergy Intermediate 01/12/17 Yes lisinopril Allergy Intermediate 01/12/17 Yes I S O L A T I O N *CONTACT* Allergy Unknown 01/12/17 Yes Physical Exam Physical Exam General appearance - alert,well appearing, and in no distress and oriented to person, place, and time Mental Status - alert, oriented to person, place, and time, affect appropriate to mood Head - normal Chest - clear to auscultation, no wheezes, rales or rhonchi, symmetric air entry Heart - S1 and S2 normal Abdomen - soft, nontender, nondistended, no masses or organomegaly Neurological - alert and oriented Musculoskeletal - no muscular tenderness noted Extremities - no pedal edema,, left thigh with painful palation, no swelling, no redness Skin - warm and dry Labs Laboratory Tests Test 02/03/17 14:30 02/03/17 15:10 02/03/17 15:17 02/03/17 15:56 White Blood Count 5.9 x10^3/uL (4.0-11.0) Red Blood Count 3.91 x10^6/uL (4.30-5.70) Hemoglobin 10.9 g/dL (13.0-17.5) Hematocrit 33.8 % (39.0-53.0) Mean Corpuscular Volume 86 fL (79-100) Mean Corpuscular Hemoglobin 28 pg (25-35) Mean Corpuscular Hemoglobin Concent 32 g/dL (31-37) Red Cell Distribution Width 16.4 % (11.5-14.5) Platelet Count 269 x10^3/uL (140-400) Neutrophils (%) (Auto) 68 % (31-73) Lymphocytes (%) (Auto) 19 % (24-48) Monocytes (%) (Auto) 10 % (0-9) Eosinophils (%) (Auto) 2 % (0-3) Basophils (%) (Auto) 1 % (0-3) Neutrophils # (Auto) 4.0 x10^3uL (1.8-7.7) Lymphocytes # (Auto) 1.1 x10^3/uL (1.0-4.8) Monocytes # (Auto) 0.6 x10^3/uL (0.0-1.1) Eosinophils # (Auto) 0.1 x10^3/uL (0.0-0.7) Basophils # (Auto) 0.0 x10^3/uL (0.0-0.2) Sodium Level 139 mmol/L (136-145) Potassium Level 4.5 mmol/L (3.5-5.1) Chloride Level 102 mmol/L (98-107) Carbon Dioxide Level 31 mmol/L (21-32) Anion Gap 6 (6-14) Blood Urea Nitrogen 22 mg/dL (8-26) Creatinine 1.2 mg/dL (0.7-1.3) Estimated GFR (Cockcroft-Gault) 61.8 BUN/Creatinine Ratio 18 (6-20) Glucose Level 264 mg/dL (70-99) Calcium Level 8.8 mg/dL (8.5-10.1) Total Bilirubin 0.2 mg/dL (0.2-1.0) Aspartate Amino Transf (AST/SGOT) 17 U/L (15-37) Alanine Aminotransferase (ALT/SGPT) 14 U/L (16-63) Alkaline Phosphatase 128 U/L (46-116) Total Protein 7.0 g/dL (6.4-8.2) Albumin 2.7 g/dL (3.4-5.0) Albumin/Globulin Ratio 0.6 (1.0-1.7) Prothrombin Time 13.0 SEC (11.7-14.0) Prothromb Time International Ratio 1.0 (0.8-1.1) Activated Partial Thromboplast Time 30 SEC (24-38) Lactic Acid Level 1.1 mmol/L (0.4-2.0) Urine Collection Type Unknown Urine Color Yellow Urine Clarity Clear Urine pH 6.0 Urine Specific [place] 1.010 Urine Protein Negative mg/dL (NEG-TRACE) Urine Glucose (UA) 250 mg/dL (NEG) Urine Ketones (Stick) Negative mg/dL (NEG) Urine Blood Negative (NEG) Urine Nitrite Negative (NEG) Urine Bilirubin Negative (NEG) Urine Urobilinogen Dipstick 0.2 mg/dL (0.2 mg/dL) Urine Leukocyte Esterase Negative (NEG) Urine RBC 0 /HPF (0-2) Urine WBC 0 /HPF (0-4) Urine Squamous Epithelial Cells Occ /LPF Urine Bacteria 0 /HPF (0-FEW) Urine Hyaline Casts Moderate /HPF Glucose (Fingerstick) 251 mg/dL (70-99) Test 02/03/17 17:27 02/03/17 20:55 02/04/17 07:25 Glucose (Fingerstick) 245 mg/dL (70-99) 292 mg/dL (70-99) 222 mg/dL (70-99) Laboratory Tests Test 02/03/17 14:30 02/03/17 15:10 02/03/17 15:17 02/03/17 15:56 White Blood Count 5.9 x10^3/uL (4.0-11.0) Red Blood Count 3.91 x10^6/uL (4.30-5.70) Hemoglobin 10.9 g/dL (13.0-17.5) Hematocrit 33.8 % (39.0-53.0) Mean Corpuscular Volume 86 fL (79-100) Mean Corpuscular Hemoglobin 28 pg (25-35) Mean Corpuscular Hemoglobin Concent 32 g/dL (31-37) Red Cell Distribution Width 16.4 % (11.5-14.5) Platelet Count 269 x10^3/uL (140-400) Neutrophils (%) (Auto) 68 % (31-73) Lymphocytes (%) (Auto) 19 % (24-48) Monocytes (%) (Auto) 10 % (0-9) Eosinophils (%) (Auto) 2 % (0-3) Basophils (%) (Auto) 1 % (0-3) Neutrophils # (Auto) 4.0 x10^3uL (1.8-7.7) Lymphocytes # (Auto) 1.1 x10^3/uL (1.0-4.8) Monocytes # (Auto) 0.6 x10^3/uL (0.0-1.1) Eosinophils # (Auto) 0.1 x10^3/uL (0.0-0.7) Basophils # (Auto) 0.0 x10^3/uL (0.0-0.2) Sodium Level 139 mmol/L (136-145) Potassium Level 4.5 mmol/L (3.5-5.1) Chloride Level 102 mmol/L (98-107) Carbon Dioxide Level 31 mmol/L (21-32) Anion Gap 6 (6-14) Blood Urea Nitrogen 22 mg/dL (8-26) Creatinine 1.2 mg/dL (0.7-1.3) Estimated GFR (Cockcroft-Gault) 61.8 BUN/Creatinine Ratio 18 (6-20) Glucose Level 264 mg/dL (70-99) Calcium Level 8.8 mg/dL (8.5-10.1) Total Bilirubin 0.2 mg/dL (0.2-1.0) Aspartate Amino Transf (AST/SGOT) 17 U/L (15-37) Alanine Aminotransferase (ALT/SGPT) 14 U/L (16-63) Alkaline Phosphatase 128 U/L (46-116) Total Protein 7.0 g/dL (6.4-8.2) Albumin 2.7 g/dL (3.4-5.0) Albumin/Globulin Ratio 0.6 (1.0-1.7) Prothrombin Time 13.0 SEC (11.7-14.0) Prothromb Time International Ratio 1.0 (0.8-1.1) Activated Partial Thromboplast Time 30 SEC (24-38) Lactic Acid Level 1.1 mmol/L (0.4-2.0) Urine Collection Type Unknown Urine Color Yellow Urine Clarity Clear Urine pH 6.0 Urine Specific [place] 1.010 Urine Protein Negative mg/dL (NEG-TRACE) Urine Glucose (UA) 250 mg/dL (NEG) Urine Ketones (Stick) Negative mg/dL (NEG) Urine Blood Negative (NEG) Urine Nitrite Negative (NEG) Urine Bilirubin Negative (NEG) Urine Urobilinogen Dipstick 0.2 mg/dL (0.2 mg/dL) Urine Leukocyte Esterase Negative (NEG) Urine RBC 0 /HPF (0-2) Urine WBC 0 /HPF (0-4) Urine Squamous Epithelial Cells Occ /LPF Urine Bacteria 0 /HPF (0-FEW) Urine Hyaline Casts Moderate /HPF Glucose (Fingerstick) 251 mg/dL (70-99) Test 02/03/17 17:27 02/03/17 20:55 02/04/17 07:25 Glucose (Fingerstick) 245 mg/dL (70-99) 292 mg/dL (70-99) 222 mg/dL (70-99) Vitals Vital Signs Date Time Temp Pulse Resp B/P (MAP) Pulse Ox O2 Delivery O2 Flow Rate FiO2 02/04/17 08:36 66 104/52 02/04/17 07:11 98 Nasal Cannula 2.0 02/04/17 07:00 97.4 18 97.4 Assessment Assessment Left thigh/knee infection with strep anginosus Left thigh and hip pain CAD h/o C diff DM Plan Plan cont cefazolin and po vancomycin now pt is ready for amputation says sec to pain, (he did not want before ) await surgical input LOWELL ROSAS MD Feb 04, 2017 09:04
[2017-02-04 11:00] VITALS: BP 114/51
[2017-02-04] MEDS ORDERED: DEXTROSE 50% 25 GM / 50ML DISP.SYRIN. IV PRN (11:45)
--- NOTE | 2017-02-04 13:05 | PDOC1 ---
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 He was seen bu ID/Orthopedics multiple times and the recommendation was for surgery and transfer to [facility] for the amputation Past Medical History Cardiovascular: CAD, CHF, HTN, DE, Hyperlipidemia, Other Pulmonary: COPD CENTRAL NERVOUS SYSTEM: Other GI: GERD, Other Heme/Onc: No pertinent hx Hepatobiliary: No pertinent hx Psych: Depression, Schizophrenia Musculoskeletal: Osteoarthritis, Other Infectious disease: No pertinent hx Renal/: Chronic renal insuff Endocrine: Diabetes, Hypothyroidism, Other Past Surgical History Past Surgical History: Pacemaker, Appendectomy, Cholecystectomy, Total knee replacement, Tonsillectomy, Other Family History Family History: Coronary Artery Disease Social History ALCOHOL: none Drugs: None Current Problem List Problem List Problems Medical Problems: (1) Cellulitis of left leg Status: Acute (2) Decubitus ulcer, heel, left, unstageable Status: Acute Problems: Current Medications Current Medications Current Medications Fentanyl Citrate (Fentanyl 2ml Vial) 50 mcg PRN Q15MIN PRN IV PAIN GREATER THAN 3/10 Last administered on 02/03/17 16:19; Start 02/03/17 at 14:45; Stop 02/04 at 14:44 Fentanyl Citrate (Fentanyl 2ml Vial) 100 mcg 1X ONCE IV Last administered on 15:00; Start 02/03/17 at 14:45; Stop 02/03/17 at 14:46; Status DC Ondansetron HCl (Zofran) 4 mg 1X ONCE IV Last administered on 02/03/17 14:58; Start 02/03/17 at 15:15; Stop 02/03/17 at 15:16; Status DC Insulin Aspart (NovoLOG) 6 units TIDAC SQ Last administered on 02/04/17 08:52; Start 02/03/17 at 16:30; Stop 02/04/17 at 11:46; Status DC Ondansetron HCl (Zofran) 4 mg PRN Q8HRS PRN IV NAUSEA/VOMITING; Start 02/03/17 at 16:15; Stop 02/04/17 at 16:14 Fentanyl Citrate (Fentanyl 2ml Vial) 50 mcg PRN Q1HR PRN IV PAIN Last administered on 02/03/17 19:49; Start 02/03/17 at 16:15; Stop 02/04/17 at 16:14 Cefazolin Sodium 50 ml @ 100 mls/hr TID IV ; Start 02/03/17 at 21:00; Status UNV Cefazolin Sodium 50 ml @ 100 mls/hr 1X ONCE IV Last administered on 02/03/17 16:51; Start 02/03/17 at 16:45; Stop 02/03/17 at 17:14; Status DC Cefazolin Sodium 1 gm/Sodium Chloride 50 ml @ 100 mls/hr Q8HRS IV Last administered on 02/04/17 05:19; Start 02/03/17 at 23:00 Acetaminophen (Tylenol) 650 mg PRN Q4HRS PRN PO MILD PAIN / TEMP; Start at 20:15 Albuterol Sulfate (Ventolin Neb Soln) 2.5 mg RTQID NEB Last administered on 02/04 10:57; Start 02/04/17 at 08:00 Ascorbic Acid (Vitamin C) 500 mg DAILY PO Last administered on 02/04/17 08:34; Start 02/04/17 at 09:00 Aspirin (Ceci Aspirin) 325 mg [id number] PO Last administered on 02/04/17 08: 26; Start 02/04/17 at 08:00 Atorvastatin Calcium (Lipitor) 40 mg QHS PO Last administered on 02/03/17 21:07 ; Start 02/03/17 at 21:00 Diclofenac Sodium (Voltaren) 2 carly QID TP Last administered on 02/04/17 08:37; Start 02/03/17 at 21:00 Divalproex Sodium (Depakote Er) 1,000 mg BID PO Last administered on 02/04/17 08:27; Start 02/03/17 at 21:00 Donepezil HCl (Aricept) 10 mg HS PO Last administered on 02/03/17 21:07; Start 02/03/17 at 21:00 Gabapentin (Neurontin) 800 mg DAILY PO Last administered on 02/04/17 08:25; Start 02/04/17 at 09:00 Heparin Sodium (Porcine) (Heparin Sq) 5,000 unit TID SQ Last administered on 08:51; Start 02/03/17 at 21:00 Insulin Detemir (Levemir) 30 units HS SQ Last administered on 02/03/17 21:18; Start 02/03/17 at 21:00 Isosorbide Mononitrate (Imdur) 30 mg DAILY PO Last administered on 02/04/17 08: 34; Start 02/04/17 at 09:00 Lamotrigine (LaMICtal) 100 mg HS PO Last administered on 02/03/17 21:07; Start 02/03/17 at 21:00 Levothyroxine Sodium (Synthroid) 137 mcg DAILY07 PO Last administered on 06:13; Start 02/04/17 at 07:00 Linagliptin (Tradjenta) 5 mg DAILY PO Last administered on 02/04/17 08:35; Start 02/04/17 at 09:00 Magnesium Oxide (Magnesium Oxide) 400 mg DAILY PO Last administered on 08:27; Start 02/04/17 at 09:00 Metoprolol Tartrate (Lopressor) 50 mg BID PO Last administered on 02/03/17 21: 07; Start 02/03/17 at 21:00 Nitroglycerin (Nitrostat) 0.4 mg PRN Q5MIN PRN SL CHEST PAIN; Start 02/03/17 at 20:15 Nortriptyline HCl (Pamelor) 25 mg QHS PO Last administered on 02/03/17 21:08; Start 02/03/17 at 21:00 Nystatin (Nystop) 1 carly BID TP Last administered on 02/04/17 08:37; Start at 21:00 Oxycodone/ Acetaminophen (Percocet 5/325) 2 tab PRN Q6HRS PRN PO PAIN Last administered on 02/04/17 05:20; Start 02/03/17 at 20:15; Stop 02/04/17 at 09:22; Status DC Pantoprazole Sodium (Protonix) 40 mg DAILYAC PO Last administered on 02/04/17 08:26; Start 02/04/17 at 07:30 Quetiapine Fumarate (SEROquel) 100 mg QHS PO Last administered on 02/03/17 21: 07; Start 02/03/17 at 21:00 Sennosides (Senna) 8.6 mg DAILY PO ; Start 02/04/17 at 09:00 Torsemide (Demadex) 20 mg [id number] PO ; Start 02/04/17 at 09:00 Non-Formulary Medication 3 mg DAILY PO ; Start 02/04/17 at 09:00; Status UNV Fenofibrate (Lofibra) 134 mg DAILY PO Last administered on 02/04/17 08:27; Start 02/04/17 at 09:00 Fluoxetine HCl (PROzac) 40 mg TID PO Last administered on 02/04/17 08:35; Start 02/03/17 at 21:00 Insulin Aspart (NovoLOG) 15 units TIDAC SQ Last administered on 02/04/17 08:52 ; Start 02/04/17 at 07:30 Lactobacillus Acidophilus (Bacid, Constance-Bid) 1 tab TIDWMEALS PO Last administered on 02/04/17 12:46; Start 02/04/17 at 08:00 Spironolactone (Aldactone) 100 mg DAILY PO Last administered on 02/04/17 08:36 ; Start 02/04/17 at 09:00 Non-Formulary Medication 100 mg DAILY PO ; Start 02/04/17 at 09:00; Status UNV Vancomycin HCl 125 mg [id number] PO Last administered on 02/04/17 12:46; Start 02/03/17 at 21:00 Zinc Sulfate (Orazinc) 220 mg DAILY PO Last administered on 02/04/17 08:25; Start 02/04/17 at 09:00 Oxycodone/ Acetaminophen (Percocet 5/325) 2 tab PRN Q4HRS PRN PO PAIN Last administered on 02/04/17 09:41; Start 02/04/17 at 09:22 Insulin Aspart (NovoLOG) 0-7 UNITS TIDWMEALS SQ ; Start 02/04/17 at 12:00 Dextrose (Dextrose 50%-Water Syringe) 12.5 gm PRN Q15MIN PRN IV SEE COMMENTS; Start 02/04/17 at 11:45 Active Scripts Active Reported Zinc (Zinc Amino Acid Chelate) 50 Mg Tablet 50 Mg PO DAILY Ascorbic Acid 500 Mg Tablet 500 Mg PO DAILY Cephalexin 500 Mg Tablet 1 Tab PO QID Advair Hfa 230-21 Mcg Inhaler (Fluticasone/Salmeterol) 12 Gm Hfa.aer.ad 1 Inh IH BID Vancomycin Hcl 125 Mg Capsule 125 Mg PO QID Nystatin 15 Gm Powder 1 Carly TP BID Novolog Flexpen (Insulin Aspart) 100 Unit/1 Ml Insuln.pen 1 Unit SQ NITROGLYCERIN SubLingual (Nitroglycerin) 0.4 Mg Tab.subl 0.4 Mg SL PRN Q5MIN PRN Levemir Flextouch (Insulin Detemir) 100 Unit/1 Ml Insuln.pen 30 Unit SQ HS Acidophilus Lactobacillus (Lactobacillus Acidophilus) 1 Each Capsule 1 Each PO TIDWMEALS Isosorbide Mononitrate Er (Isosorbide Mononitrate) 30 Mg Tab.er.24h 1 Tab PO DAILY Heparin Sod 5,000 Unit/ 0.5 Ml (Heparin Sodium,Porcine/Pf) 5,000 Unit/0.5 Ml Vial 5,000 Unit SQ TID Coenzyme Q10 (Ubidecarenone) 100 Mg Tablet 100 Mg PO DAILY Atorvastatin Calcium 40 Mg Tablet 1 Tab PO QHS Albuterol Sulfate Neb Soln (Albuterol Sulfate) 2.5 Mg/3 Ml Vial.neb 1 Vial NEB QID Tylenol (Acetaminophen) 325 Mg Tablet 650 Mg PO PRN Q4HRS PRN Metoprolol Tartrate 50 Mg Tablet 1 Tab PO BID Voltaren (Diclofenac Sodium) 100 Gm Gel..gram. 2 Gm TP QID Tradjenta (Linagliptin) 5 Mg Tablet 1 Tab PO DAILY Torsemide 20 Mg Tablet 20 Tab PO BID Spironolactone 100 Mg Tablet 1 Tab PO DAILY Seroquel (Quetiapine Fumarate) 100 Mg Tablet 1 Tab PO QHS Senna (Sennosides) 8.6 Mg Tablet 8.6 Mg PO DAILY Prozac (Fluoxetine Hcl) 40 Mg Capsule 1 Cap PO TID Protonix (Pantoprazole Sodium) 40 Mg Tablet.dr 40 Mg PO DAILY Oxycodone-Acetaminophen 5-325 (Oxycodone Hcl/Acetaminophen) 1 Each Tablet 2 Each PO PRN Q6HRS PRN Novolog (Insulin Aspart) 100 Unit/1 Ml Cartridge 15 Unit SQ TIDBFRMEAL Nortriptyline Hcl 25 Mg Capsule 25 Mg PO QHS Magnesium Oxide 400 Mg Tablet 1 Tab PO DAILY Levothyroxine Sodium 137 Mcg Tablet 1 Tab PO DAILY Lamotrigine 100 Mg Tablet 1 Tab PO HS Glucose Gel (Dextrose) 38 Gm Gel..gram. 38 Gm PO Gabapentin 400 Mg Capsule 800 Mg PO DAILY Fenofibrate (Fenofibrate Nanocrystallized) 145 Mg Tablet 1 Tab PO DAILY Donepezil Hcl 10 Mg Tablet 1 Tab PO HS Depakote Er (Divalproex Sodium) 500 Mg Tab.er.24h 2 Tab PO BID Vraylar (Cariprazine Hydrochloride) 3 Mg Capsule 3 Mg PO DAILY Aspirin 325 Mg Tablet 1 Tab PO DAILY Allergies Allergies: Coded Allergies: Penicillins (Verified Allergy, Intermediate, 01/12/17) HAS TOLERATED ROCEPHIN Sulfa (Sulfonamide Antibiotics) (Verified Allergy, Intermediate, 01/12/17) clindamycin (Verified Allergy, Intermediate, 01/12/17) lisinopril (Verified Allergy, Intermediate, 01/12/17) I S O L A T I O N *CONTACT* (Verified Allergy, Unknown, 01/12/17) mrsa ROS Musculoskeletal: Yes Joint Pain, Yes Joint Swelling, Yes Muscle Pain Physical Exam General: Alert, Oriented X3, Cooperative Extremities: Other (swollen LLE) Vitals Vitals Vital Signs Date Time Temp Pulse Resp B/P (MAP) Pulse Ox O2 Delivery O2 Flow Rate FiO2 02/04/17 11:00 98.0 65 18 114/51 (72) 96 Room Air 98.0 02/04/17 10:57 2.0 Labs Labs Laboratory Tests Test 02/03/17 14:30 02/03/17 15:10 02/03/17 15:17 02/03/17 15:56 White Blood Count 5.9 x10^3/uL (4.0-11.0) Red Blood Count 3.91 x10^6/uL (4.30-5.70) Hemoglobin 10.9 g/dL (13.0-17.5) Hematocrit 33.8 % (39.0-53.0) Mean Corpuscular Volume 86 fL (79-100) Mean Corpuscular Hemoglobin 28 pg (25-35) Mean Corpuscular Hemoglobin Concent 32 g/dL (31-37) Red Cell Distribution Width 16.4 % (11.5-14.5) Platelet Count 269 x10^3/uL (140-400) Neutrophils (%) (Auto) 68 % (31-73) Lymphocytes (%) (Auto) 19 % (24-48) Monocytes (%) (Auto) 10 % (0-9) Eosinophils (%) (Auto) 2 % (0-3) Basophils (%) (Auto) 1 % (0-3) Neutrophils # (Auto) 4.0 x10^3uL (1.8-7.7) Lymphocytes # (Auto) 1.1 x10^3/uL (1.0-4.8) Monocytes # (Auto) 0.6 x10^3/uL (0.0-1.1) Eosinophils # (Auto) 0.1 x10^3/uL (0.0-0.7) Basophils # (Auto) 0.0 x10^3/uL (0.0-0.2) Sodium Level 139 mmol/L (136-145) Potassium Level 4.5 mmol/L (3.5-5.1) Chloride Level 102 mmol/L (98-107) Carbon Dioxide Level 31 mmol/L (21-32) Anion Gap 6 (6-14) Blood Urea Nitrogen 22 mg/dL (8-26) Creatinine 1.2 mg/dL (0.7-1.3) Estimated GFR (Cockcroft-Gault) 61.8 BUN/Creatinine Ratio 18 (6-20) Glucose Level 264 mg/dL (70-99) Calcium Level 8.8 mg/dL (8.5-10.1) Total Bilirubin 0.2 mg/dL (0.2-1.0) Aspartate Amino Transf (AST/SGOT) 17 U/L (15-37) Alanine Aminotransferase (ALT/SGPT) 14 U/L (16-63) Alkaline Phosphatase 128 U/L (46-116) Total Protein 7.0 g/dL (6.4-8.2) Albumin 2.7 g/dL (3.4-5.0) Albumin/Globulin Ratio 0.6 (1.0-1.7) Prothrombin Time 13.0 SEC (11.7-14.0) Prothromb Time International Ratio 1.0 (0.8-1.1) Activated Partial Thromboplast Time 30 SEC (24-38) Lactic Acid Level 1.1 mmol/L (0.4-2.0) Urine Collection Type Unknown Urine Color Yellow Urine Clarity Clear Urine pH 6.0 Urine Specific [place] 1.010 Urine Protein Negative mg/dL (NEG-TRACE) Urine Glucose (UA) 250 mg/dL (NEG) Urine Ketones (Stick) Negative mg/dL (NEG) Urine Blood Negative (NEG) Urine Nitrite Negative (NEG) Urine Bilirubin Negative (NEG) Urine Urobilinogen Dipstick 0.2 mg/dL (0.2 mg/dL) Urine Leukocyte Esterase Negative (NEG) Urine RBC 0 /HPF (0-2) Urine WBC 0 /HPF (0-4) Urine Squamous Epithelial Cells Occ /LPF Urine Bacteria 0 /HPF (0-FEW) Urine Hyaline Casts Moderate /HPF Glucose (Fingerstick) 251 mg/dL (70-99) Test 02/03/17 17:27 02/03/17 20:55 02/04/17 07:25 02/04/17 11:11 Glucose (Fingerstick) 245 mg/dL (70-99) 292 mg/dL (70-99) 222 mg/dL (70-99) 203 mg/dL (70-99) Laboratory Tests Test 02/03/17 14:30 02/03/17 15:10 02/03/17 15:17 02/03/17 15:56 White Blood Count 5.9 x10^3/uL (4.0-11.0) Red Blood Count 3.91 x10^6/uL (4.30-5.70) Hemoglobin 10.9 g/dL (13.0-17.5) Hematocrit 33.8 % (39.0-53.0) Mean Corpuscular Volume 86 fL (79-100) Mean Corpuscular Hemoglobin 28 pg (25-35) Mean Corpuscular Hemoglobin Concent 32 g/dL (31-37) Red Cell Distribution Width 16.4 % (11.5-14.5) Platelet Count 269 x10^3/uL (140-400) Neutrophils (%) (Auto) 68 % (31-73) Lymphocytes (%) (Auto) 19 % (24-48) Monocytes (%) (Auto) 10 % (0-9) Eosinophils (%) (Auto) 2 % (0-3) Basophils (%) (Auto) 1 % (0-3) Neutrophils # (Auto) 4.0 x10^3uL (1.8-7.7) Lymphocytes # (Auto) 1.1 x10^3/uL (1.0-4.8) Monocytes # (Auto) 0.6 x10^3/uL (0.0-1.1) Eosinophils # (Auto) 0.1 x10^3/uL (0.0-0.7) Basophils # (Auto) 0.0 x10^3/uL (0.0-0.2) Sodium Level 139 mmol/L (136-145) Potassium Level 4.5 mmol/L (3.5-5.1) Chloride Level 102 mmol/L (98-107) Carbon Dioxide Level 31 mmol/L (21-32) Anion Gap 6 (6-14) Blood Urea Nitrogen 22 mg/dL (8-26) Creatinine 1.2 mg/dL (0.7-1.3) Estimated GFR (Cockcroft-Gault) 61.8 BUN/Creatinine Ratio 18 (6-20) Glucose Level 264 mg/dL (70-99) Calcium Level 8.8 mg/dL (8.5-10.1) Total Bilirubin 0.2 mg/dL (0.2-1.0) Aspartate Amino Transf (AST/SGOT) 17 U/L (15-37) Alanine Aminotransferase (ALT/SGPT) 14 U/L (16-63) Alkaline Phosphatase 128 U/L (46-116) Total Protein 7.0 g/dL (6.4-8.2) Albumin 2.7 g/dL (3.4-5.0) Albumin/Globulin Ratio 0.6 (1.0-1.7) Prothrombin Time 13.0 SEC (11.7-14.0) Prothromb Time International Ratio 1.0 (0.8-1.1) Activated Partial Thromboplast Time 30 SEC (24-38) Lactic Acid Level 1.1 mmol/L (0.4-2.0) Urine Collection Type Unknown Urine Color Yellow Urine Clarity Clear Urine pH 6.0 Urine Specific [place] 1.010 Urine Protein Negative mg/dL (NEG-TRACE) Urine Glucose (UA) 250 mg/dL (NEG) Urine Ketones (Stick) Negative mg/dL (NEG) Urine Blood Negative (NEG) Urine Nitrite Negative (NEG) Urine Bilirubin Negative (NEG) Urine Urobilinogen Dipstick 0.2 mg/dL (0.2 mg/dL) Urine Leukocyte Esterase Negative (NEG) Urine RBC 0 /HPF (0-2) Urine WBC 0 /HPF (0-4) Urine Squamous Epithelial Cells Occ /LPF Urine Bacteria 0 /HPF (0-FEW) Urine Hyaline Casts Moderate /HPF Glucose (Fingerstick) 251 mg/dL (70-99) Test 02/03/17 17:27 02/03/17 20:55 02/04/17 07:25 02/04/17 11:11 Glucose (Fingerstick) 245 mg/dL (70-99) 292 mg/dL (70-99) 222 mg/dL (70-99) 203 mg/dL (70-99) VTE Prophylaxis Ordered VTE Prophylaxis Devices: Yes VTE Pharmacological Prophylaxi: Yes (HEPARIN) PATTY CHRISTIAN MD Feb 04, 2017 13:05
--- NOTE | 2017-02-04 13:14 | PDOC ---
SUBJECTIVE Subjective Severe pain in his left lower extremity OBJECTIVE Objective Markedly swollen left lower extremity due infection with streptococcal angisus Vital Signs Vital Signs Date Time Temp Pulse Resp B/P (MAP) Pulse Ox O2 Delivery O2 Flow Rate FiO2 02/04/17 11:00 98.0 65 18 114/51 (72) 96 Room Air 98.0 02/04/17 10:57 Nasal Cannula 2.0 02/04/17 10:45 Nasal Cannula 2.0 02/04/17 09:41 Nasal Cannula 2.0 02/04/17 08:36 66 104/52 02/04/17 08:34 66 104/52 02/04/17 07:40 Nasal Cannula 2.0 02/04/17 07:11 98 Nasal Cannula 2.0 02/04/17 07:00 97.4 66 18 104/52 (69) 96 Room Air 97.4 02/04/17 06:20 92 Nasal Cannula 2.0 02/04/17 05:20 18 92 Nasal Cannula 2.0 02/04/17 03:33 98.1 64 18 114/54 (74) 91 Nasal Cannula 98.1 02/03/17 23:20 97.5 65 18 131/60 (83) 98 Nasal Cannula 97.5 02/03/17 21:07 17 99 Nasal Cannula 2.0 02/03/17 21:07 63 116/60 02/03/17 20:19 18 99 Nasal Cannula 2.0 02/03/17 20:00 Nasal Cannula 2.0 02/03/17 19:49 18 99 2.0 02/03/17 19:37 97.1 63 18 116/60 (78) 99 Room Air 97.1 02/03/17 19:33 Nasal Cannula 2.0 02/03/17 18:04 Room Air 02/03/17 17:15 97.5 66 22 127/76 (93) 100 Nasal Cannula 3.0 97.5 02/03/17 17:15 97.5 66 20 129/59 (82) 100 Nasal Cannula 3.0 97.5 02/03/17 16:50 62 13 102/55 (71) 100 Nasal Cannula 3.0 02/03/17 16:19 21 100 Nasal Cannula 3.0 02/03/17 16:00 62 9 107/57 (74) 100 Nasal Cannula 3.0 02/03/17 15:30 64 9 120/57 (78) Nasal Cannula 3.0 02/03/17 15:00 66 17 122/58 (79) Nasal Cannula 3.0 02/03/17 15:00 13 100 Nasal Cannula 3.0 02/03/17 14:20 97.6 66 13 124/60 (81) 96 Room Air 97.6 I & O Intake and Output 02/04/17 07:00 Intake Total 700 ml Output Total 0 ml Balance 700 ml Intake Oral 700 ml Output Urine Total 0 ml # Voids 2 PHYSICAL EXAM Physical Exam Resting cofortably in bed VSS ASSESSMENT/PLAN Assessment/Plan Chronic infection of left knee prosthesis severe pain Orthopedic surgoens recommended amputation but [facility] did not recommend that Problems: COMMENT Lab Laboratory Tests Test 02/03/17 14:30 02/03/17 15:10 02/03/17 15:17 02/03/17 15:56 White Blood Count 5.9 x10^3/uL (4.0-11.0) Red Blood Count 3.91 x10^6/uL (4.30-5.70) Hemoglobin 10.9 g/dL (13.0-17.5) Hematocrit 33.8 % (39.0-53.0) Mean Corpuscular Volume 86 fL (79-100) Mean Corpuscular Hemoglobin 28 pg (25-35) Mean Corpuscular Hemoglobin Concent 32 g/dL (31-37) Red Cell Distribution Width 16.4 % (11.5-14.5) Platelet Count 269 x10^3/uL (140-400) Neutrophils (%) (Auto) 68 % (31-73) Lymphocytes (%) (Auto) 19 % (24-48) Monocytes (%) (Auto) 10 % (0-9) Eosinophils (%) (Auto) 2 % (0-3) Basophils (%) (Auto) 1 % (0-3) Neutrophils # (Auto) 4.0 x10^3uL (1.8-7.7) Lymphocytes # (Auto) 1.1 x10^3/uL (1.0-4.8) Monocytes # (Auto) 0.6 x10^3/uL (0.0-1.1) Eosinophils # (Auto) 0.1 x10^3/uL (0.0-0.7) Basophils # (Auto) 0.0 x10^3/uL (0.0-0.2) Sodium Level 139 mmol/L (136-145) Potassium Level 4.5 mmol/L (3.5-5.1) Chloride Level 102 mmol/L (98-107) Carbon Dioxide Level 31 mmol/L (21-32) Anion Gap 6 (6-14) Blood Urea Nitrogen 22 mg/dL (8-26) Creatinine 1.2 mg/dL (0.7-1.3) Estimated GFR (Cockcroft-Gault) 61.8 BUN/Creatinine Ratio 18 (6-20) Glucose Level 264 mg/dL (70-99) Calcium Level 8.8 mg/dL (8.5-10.1) Total Bilirubin 0.2 mg/dL (0.2-1.0) Aspartate Amino Transf (AST/SGOT) 17 U/L (15-37) Alanine Aminotransferase (ALT/SGPT) 14 U/L (16-63) Alkaline Phosphatase 128 U/L (46-116) Total Protein 7.0 g/dL (6.4-8.2) Albumin 2.7 g/dL (3.4-5.0) Albumin/Globulin Ratio 0.6 (1.0-1.7) Prothrombin Time 13.0 SEC (11.7-14.0) Prothromb Time International Ratio 1.0 (0.8-1.1) Activated Partial Thromboplast Time 30 SEC (24-38) Lactic Acid Level 1.1 mmol/L (0.4-2.0) Urine Collection Type Unknown Urine Color Yellow Urine Clarity Clear Urine pH 6.0 Urine Specific [place] 1.010 Urine Protein Negative mg/dL (NEG-TRACE) Urine Glucose (UA) 250 mg/dL (NEG) Urine Ketones (Stick) Negative mg/dL (NEG) Urine Blood Negative (NEG) Urine Nitrite Negative (NEG) Urine Bilirubin Negative (NEG) Urine Urobilinogen Dipstick 0.2 mg/dL (0.2 mg/dL) Urine Leukocyte Esterase Negative (NEG) Urine RBC 0 /HPF (0-2) Urine WBC 0 /HPF (0-4) Urine Squamous Epithelial Cells Occ /LPF Urine Bacteria 0 /HPF (0-FEW) Urine Hyaline Casts Moderate /HPF Glucose (Fingerstick) 251 mg/dL (70-99) Test 7/4/17 17:27 02/03/17 20:55 02/04/17 07:25 02/04/17 11:11 Glucose (Fingerstick) 245 mg/dL (70-99) 292 mg/dL (70-99) 222 mg/dL (70-99) 203 mg/dL (70-99) PATTY CHRISTIAN MD Feb 04, 2017 13:14
[2017-02-04] MEDS: fentaNYL PF VIAL 100 MCG/2 ML VIAL IV PRN ×2 (14:15→21:44)
[2017-02-04 15:00] VITALS: BP 111/49
--- NOTE | 2017-02-04 15:41 | PDOC2 ---
CONSULT Date of Consult Date of Consult DATE: 02/04/17 TIME: 14:59 Reason for Consult Reason for Consult: Left lower extremity infected orthopedic hardware Referring Physician Referring Physician: Dr Yo RIZZO Identification/Chief Complaint Chief Complaint Left lower extremity pain and swelling Problems: History of Present Illness Reason for Visit: This is a very pleasant 61-year-old male with complicated history of left lower extremity orthopedic reconstruction. The patient has developed infection surrounding his implanted hardware. He has been referred to [facility] orthopedic surgery department several times with no definitive solution offered. Vascular surgery was asked to see the patient in regards to this problem and to assist with decision making on how to move forward. The patient has no specific vascular surgery problems other than open heel ulcerations which are granulating nicely. He has an intact arterial blood flow and really denies any other symptoms consistent with arterial insufficiency. Past Medical History Cardiovascular: CAD, CHF, HTN, [place], Hyperlipidemia, Other Pulmonary: COPD CENTRAL NERVOUS SYSTEM: Other GI: GERD, Other Heme/Onc: No pertinent hx Hepatobiliary: No pertinent hx Psych: Depression, Schizophrenia Musculoskeletal: Osteoarthritis, Other Infectious disease: No pertinent hx Renal/: Chronic renal insuff Endocrine: Diabetes, Hypothyroidism, Other Past Surgical History Past Surgical History: Pacemaker, Appendectomy, Cholecystectomy, Total hip replacement, Total knee replacement, Tonsillectomy, Other Family History Family History: Coronary Artery Disease Social History ALCOHOL: none Drugs: None Lives: Care Home Current Problem List Problem List Problems Medical Problems: (1) Cellulitis of left leg Status: Acute (2) Decubitus ulcer, heel, left, unstageable Status: Acute Current Medications Current Medications Current Medications Fentanyl Citrate (Fentanyl 2ml Vial) 50 mcg PRN Q15MIN PRN IV PAIN GREATER THAN 3/10 Last administered on 02/03/17 16:19; Start 02/03/17 at 14:45; Stop 02/04 at 14:44; Status DC Fentanyl Citrate (Fentanyl 2ml Vial) 100 mcg 1X ONCE IV Last administered on 15:00; Start 02/03/17 at 14:45; Stop 02/03/17 at 14:46; Status DC Ondansetron HCl (Zofran) 4 mg 1X ONCE IV Last administered on 02/03/17 14:58; Start 02/03/17 at 15:15; Stop 02/03/17 at 15:16; Status DC Insulin Aspart (NovoLOG) 6 units TIDAC SQ Last administered on 02/04/17 08:52; Start 02/03/17 at 16:30; Stop 02/04/17 at 11:46; Status DC Ondansetron HCl (Zofran) 4 mg PRN Q8HRS PRN IV NAUSEA/VOMITING; Start 02/03/17 at 16:15; Stop 02/04/17 at 16:14 Fentanyl Citrate (Fentanyl 2ml Vial) 50 mcg PRN Q1HR PRN IV PAIN Last administered on 02/04/17 14:15; Start 02/03/17 at 16:15; Stop 02/04/17 at 16:14 Cefazolin Sodium 50 ml @ 100 mls/hr TID IV ; Start 02/03/17 at 21:00; Status UNV Cefazolin Sodium 50 ml @ 100 mls/hr 1X ONCE IV Last administered on 02/03/17 16:51; Start 02/03/17 at 16:45; Stop 02/03/17 at 17:14; Status DC Cefazolin Sodium 1 gm/Sodium Chloride 50 ml @ 100 mls/hr Q8HRS IV Last administered on 02/04/17 14:05; Start 02/03/17 at 23:00 Acetaminophen (Tylenol) 650 mg PRN Q4HRS PRN PO MILD PAIN / TEMP; Start at 20:15 Albuterol Sulfate (Ventolin Neb Soln) 2.5 mg RTQID NEB Last administered on 02/04 10:57; Start 02/04/17 at 08:00 Ascorbic Acid (Vitamin C) 500 mg DAILY PO Last administered on 02/04/17 08:34; Start 02/04/17 at 09:00 Aspirin (Ceci Aspirin) 325 mg [id number] PO Last administered on 02/04/17 08: 26; Start 02/04/17 at 08:00 Atorvastatin Calcium (Lipitor) 40 mg QHS PO Last administered on 02/03/17 21:07 ; Start 02/03/17 at 21:00 Diclofenac Sodium (Voltaren) 2 carly QID TP Last administered on 02/04/17 13:01; Start 02/03/17 at 21:00 Divalproex Sodium (Depakote Er) 1,000 mg BID PO Last administered on 02/04/17 08:27; Start 02/03/17 at 21:00 Donepezil HCl (Aricept) 10 mg HS PO Last administered on 02/03/17 21:07; Start 02/03/17 at 21:00 Gabapentin (Neurontin) 800 mg DAILY PO Last administered on 02/04/17 08:25; Start 02/04/17 at 09:00 Heparin Sodium (Porcine) (Heparin Sq) 5,000 unit TID SQ Last administered on 14:14; Start 02/03/17 at 21:00 Insulin Detemir (Levemir) 30 units HS SQ Last administered on 02/03/17 21:18; Start 02/03/17 at 21:00 Isosorbide Mononitrate (Imdur) 30 mg DAILY PO Last administered on 02/04/17 08: 34; Start 02/04/17 at 09:00 Lamotrigine (LaMICtal) 100 mg HS PO Last administered on 02/03/17 21:07; Start 02/03/17 at 21:00 Levothyroxine Sodium (Synthroid) 137 mcg DAILY07 PO Last administered on 06:13; Start 02/04/17 at 07:00 Linagliptin (Tradjenta) 5 mg DAILY PO Last administered on 02/04/17 08:35; Start 02/04/17 at 09:00 Magnesium Oxide (Magnesium Oxide) 400 mg DAILY PO Last administered on 08:27; Start 02/04/17 at 09:00 Metoprolol Tartrate (Lopressor) 50 mg BID PO Last administered on 02/03/17 21: 07; Start 02/03/17 at 21:00 Nitroglycerin (Nitrostat) 0.4 mg PRN Q5MIN PRN SL CHEST PAIN; Start 02/03/17 at 20:15 Nortriptyline HCl (Pamelor) 25 mg QHS PO Last administered on 02/03/17 21:08; Start 02/03/17 at 21:00 Nystatin (Nystop) 1 carly BID TP Last administered on 02/04/17 08:37; Start at 21:00 Oxycodone/ Acetaminophen (Percocet 5/325) 2 tab PRN Q6HRS PRN PO PAIN Last administered on 02/04/17 05:20; Start 02/03/17 at 20:15; Stop 02/04/17 at 09:22; Status DC Pantoprazole Sodium (Protonix) 40 mg DAILYAC PO Last administered on 02/04/17 08:26; Start 02/04/17 at 07:30 Quetiapine Fumarate (SEROquel) 100 mg QHS PO Last administered on 02/03/17 21: 07; Start 02/03/17 at 21:00 Sennosides (Senna) 8.6 mg DAILY PO ; Start 02/04/17 at 09:00 Torsemide (Demadex) 20 mg [id number] PO Last administered on 02/04/17 14:06; Start 02/04/17 at 09:00 Non-Formulary Medication 3 mg DAILY PO ; Start 02/04/17 at 09:00; Status UNV Fenofibrate (Lofibra) 134 mg DAILY PO Last administered on 02/04/17 08:27; Start 02/04/17 at 09:00 Fluoxetine HCl (PROzac) 40 mg TID PO Last administered on 02/04/17 14:06; Start 02/03/17 at 21:00 Insulin Aspart (NovoLOG) 15 units TIDAC SQ Last administered on 02/04/17 12:58 ; Start 02/04/17 at 07:30 Lactobacillus Acidophilus (Bacid, Constance-Bid) 1 tab TIDWMEALS PO Last administered on 02/04/17 12:46; Start 02/04/17 at 08:00 Spironolactone (Aldactone) 100 mg DAILY PO Last administered on 02/04/17 08:36 ; Start 02/04/17 at 09:00 Non-Formulary Medication 100 mg DAILY PO ; Start 02/04/17 at 09:00; Status UNV Vancomycin HCl 125 mg [id number] PO Last administered on 02/04/17 12:46; Start 02/03/17 at 21:00 Zinc Sulfate (Orazinc) 220 mg DAILY PO Last administered on 02/04/17 08:25; Start 02/04/17 at 09:00 Oxycodone/ Acetaminophen (Percocet 5/325) 2 tab PRN Q4HRS PRN PO PAIN Last administered on 02/04/17 14:05; Start 02/04/17 at 09:22 Insulin Aspart (NovoLOG) 0-7 UNITS TIDWMEALS SQ Last administered on 02/04/17 12:59; Start 02/04/17 at 12:00 Dextrose (Dextrose 50%-Water Syringe) 12.5 gm PRN Q15MIN PRN IV SEE COMMENTS; Start 02/04/17 at 11:45 Active Scripts Active Reported Zinc (Zinc Amino Acid Chelate) 50 Mg Tablet 50 Mg PO DAILY Ascorbic Acid 500 Mg Tablet 500 Mg PO DAILY Cephalexin 500 Mg Tablet 1 Tab PO QID Advair Hfa 230-21 Mcg Inhaler (Fluticasone/Salmeterol) 12 Gm Hfa.aer.ad 1 Inh IH BID Vancomycin Hcl 125 Mg Capsule 125 Mg PO QID Nystatin 15 Gm Powder 1 Carly TP BID Novolog Flexpen (Insulin Aspart) 100 Unit/1 Ml Insuln.pen 1 Unit SQ NITROGLYCERIN SubLingual (Nitroglycerin) 0.4 Mg Tab.subl 0.4 Mg SL PRN Q5MIN PRN Levemir Flextouch (Insulin Detemir) 100 Unit/1 Ml Insuln.pen 30 Unit SQ HS Acidophilus Lactobacillus (Lactobacillus Acidophilus) 1 Each Capsule 1 Each PO TIDWMEALS Isosorbide Mononitrate Er (Isosorbide Mononitrate) 30 Mg Tab.er.24h 1 Tab PO DAILY Heparin Sod 5,000 Unit/ 0.5 Ml (Heparin Sodium,Porcine/Pf) 5,000 Unit/0.5 Ml Vial 5,000 Unit SQ TID Coenzyme Q10 (Ubidecarenone) 100 Mg Tablet 100 Mg PO DAILY Atorvastatin Calcium 40 Mg Tablet 1 Tab PO QHS Albuterol Sulfate Neb Soln (Albuterol Sulfate) 2.5 Mg/3 Ml Vial.neb 1 Vial NEB QID Tylenol (Acetaminophen) 325 Mg Tablet 650 Mg PO PRN Q4HRS PRN Metoprolol Tartrate 50 Mg Tablet 1 Tab PO BID Voltaren (Diclofenac Sodium) 100 Gm Gel..gram. 2 Gm TP QID Tradjenta (Linagliptin) 5 Mg Tablet 1 Tab PO DAILY Torsemide 20 Mg Tablet 20 Tab PO BID Spironolactone 100 Mg Tablet 1 Tab PO DAILY Seroquel (Quetiapine Fumarate) 100 Mg Tablet 1 Tab PO QHS Senna (Sennosides) 8.6 Mg Tablet 8.6 Mg PO DAILY Prozac (Fluoxetine Hcl) 40 Mg Capsule 1 Cap PO TID Protonix (Pantoprazole Sodium) 40 Mg Tablet.dr 40 Mg PO DAILY Oxycodone-Acetaminophen 5-325 (Oxycodone Hcl/Acetaminophen) 1 Each Tablet 2 Each PO PRN Q6HRS PRN Novolog (Insulin Aspart) 100 Unit/1 Ml Cartridge 15 Unit SQ TIDBFRMEAL Nortriptyline Hcl 25 Mg Capsule 25 Mg PO QHS Magnesium Oxide 400 Mg Tablet 1 Tab PO DAILY Levothyroxine Sodium 137 Mcg Tablet 1 Tab PO DAILY Lamotrigine 100 Mg Tablet 1 Tab PO HS Glucose Gel (Dextrose) 38 Gm Gel..gram. 38 Gm PO Gabapentin 400 Mg Capsule 800 Mg PO DAILY Fenofibrate (Fenofibrate Nanocrystallized) 145 Mg Tablet 1 Tab PO DAILY Donepezil Hcl 10 Mg Tablet 1 Tab PO HS Depakote Er (Divalproex Sodium) 500 Mg Tab.er.24h 2 Tab PO BID Vraylar (Cariprazine Hydrochloride) 3 Mg Capsule 3 Mg PO DAILY Aspirin 325 Mg Tablet 1 Tab PO DAILY Allergies Allergies: Coded Allergies: Penicillins (Verified Allergy, Intermediate, 01/12/17) HAS TOLERATED ROCEPHIN Sulfa (Sulfonamide Antibiotics) (Verified Allergy, Intermediate, 01/12/17) clindamycin (Verified Allergy, Intermediate, 01/12/17) lisinopril (Verified Allergy, Intermediate, 01/12/17) I S O L A T I O N *CONTACT* (Verified Allergy, Unknown, 01/12/17) mrsa ROS Musculoskeletal: Yes Gait Disturbance, Yes Joint Pain, Yes Joint Stiffness, Yes Joint Swelling, Yes Muscle Pain (adjacent to hardware), Yes Muscular Weakness, Yes Pain In: (left lower extremity from hip to level of knee), Yes Swelling In:, Yes Other Skin: Yes Dry Skin, Yes Eczema, Yes Hair Changes, Yes Lumps, Yes Mole Changes, Yes Mottling, Yes Nail Changes, Yes Pruritus, Yes Rash, Yes Skin Lesion Changes , Yes Other (open decubitus ulcerations of bilateral heels), Yes Acne Physical Exam General: Alert, Oriented X3, Cooperative, No acute distress HEENT: Atraumatic, PERRLA, EOMI Lungs: Clear to auscultation, Normal air movement Heart: Normal S1, Normal S2, No murmurs Abdomen: Normal bowel sounds, No tenderness, No hepatosplenomegaly, No masses Extremities: No clubbing, No cyanosis, Other (pain and tenderness overlying upper thigh and proximal and distal left knee) Skin: No rashes, Other (heel ulcerations bilaterally which appear healthy with positive granulation tissue) Neuro: Strength at 5/5 X4 ext, Normal tone, Sensation intact, Cranial nerves 3- 12 NL Psych/Mental Status: Mental status NL, Mood NL MUSCULOSKELETAL: Abnormal exam of left Vitals VITALS Vital Signs Date Time Temp Pulse Resp B/P (MAP) Pulse Ox O2 Delivery O2 Flow Rate FiO2 02/04/17 14:15 Nasal Cannula 2.0 02/04/17 11:00 98.0 65 18 114/51 (72) 96 98.0 Labs Labs Laboratory Tests Test 02/03/17 14:30 02/03/17 15:10 02/03/17 15:17 02/03/17 15:56 White Blood Count 5.9 x10^3/uL (4.0-11.0) Red Blood Count 3.91 x10^6/uL (4.30-5.70) Hemoglobin 10.9 g/dL (13.0-17.5) Hematocrit 33.8 % (39.0-53.0) Mean Corpuscular Volume 86 fL (79-100) Mean Corpuscular Hemoglobin 28 pg (25-35) Mean Corpuscular Hemoglobin Concent 32 g/dL (31-37) Red Cell Distribution Width 16.4 % (11.5-14.5) Platelet Count 269 x10^3/uL (140-400) Neutrophils (%) (Auto) 68 % (31-73) Lymphocytes (%) (Auto) 19 % (24-48) Monocytes (%) (Auto) 10 % (0-9) Eosinophils (%) (Auto) 2 % (0-3) Basophils (%) (Auto) 1 % (0-3) Neutrophils # (Auto) 4.0 x10^3uL (1.8-7.7) Lymphocytes # (Auto) 1.1 x10^3/uL (1.0-4.8) Monocytes # (Auto) 0.6 x10^3/uL (0.0-1.1) Eosinophils # (Auto) 0.1 x10^3/uL (0.0-0.7) Basophils # (Auto) 0.0 x10^3/uL (0.0-0.2) Sodium Level 139 mmol/L (136-145) Potassium Level 4.5 mmol/L (3.5-5.1) Chloride Level 102 mmol/L (98-107) Carbon Dioxide Level 31 mmol/L (21-32) Anion Gap 6 (6-14) Blood Urea Nitrogen 22 mg/dL (8-26) Creatinine 1.2 mg/dL (0.7-1.3) Estimated GFR (Cockcroft-Gault) 61.8 BUN/Creatinine Ratio 18 (6-20) Glucose Level 264 mg/dL (70-99) Calcium Level 8.8 mg/dL (8.5-10.1) Total Bilirubin 0.2 mg/dL (0.2-1.0) Aspartate Amino Transf (AST/SGOT) 17 U/L (15-37) Alanine Aminotransferase (ALT/SGPT) 14 U/L (16-63) Alkaline Phosphatase 128 U/L (46-116) Total Protein 7.0 g/dL (6.4-8.2) Albumin 2.7 g/dL (3.4-5.0) Albumin/Globulin Ratio 0.6 (1.0-1.7) Prothrombin Time 13.0 SEC (11.7-14.0) Prothromb Time International Ratio 1.0 (0.8-1.1) Activated Partial Thromboplast Time 30 SEC (24-38) Lactic Acid Level 1.1 mmol/L (0.4-2.0) Urine Collection Type Unknown Urine Color Yellow Urine Clarity Clear Urine pH 6.0 Urine Specific [place] 1.010 Urine Protein Negative mg/dL (NEG-TRACE) Urine Glucose (UA) 250 mg/dL (NEG) Urine Ketones (Stick) Negative mg/dL (NEG) Urine Blood Negative (NEG) Urine Nitrite Negative (NEG) Urine Bilirubin Negative (NEG) Urine Urobilinogen Dipstick 0.2 mg/dL (0.2 mg/dL) Urine Leukocyte Esterase Negative (NEG) Urine RBC 0 /HPF (0-2) Urine WBC 0 /HPF (0-4) Urine Squamous Epithelial Cells Occ /LPF Urine Bacteria 0 /HPF (0-FEW) Urine Hyaline Casts Moderate /HPF Glucose (Fingerstick) 251 mg/dL (70-99) Test 02/03/17 17:25 02/03/17 17:27 02/03/17 20:55 02/04/17 07:25 Nasal Screen MRSA (PCR) Positive (Negative) Glucose (Fingerstick) 245 mg/dL (70-99) 292 mg/dL (70-99) 222 mg/dL (70-99) Test 02/04/17 11:11 Glucose (Fingerstick) 203 mg/dL (70-99) Laboratory Tests Test 02/03/17 15:10 02/03/17 15:17 02/03/17 15:56 02/03/17 17:25 Prothrombin Time 13.0 SEC (11.7-14.0) Prothromb Time International Ratio 1.0 (0.8-1.1) Activated Partial Thromboplast Time 30 SEC (24-38) Lactic Acid Level 1.1 mmol/L (0.4-2.0) Urine Collection Type Unknown Urine Color Yellow Urine Clarity Clear Urine pH 6.0 Urine Specific [place] 1.010 Urine Protein Negative mg/dL (NEG-TRACE) Urine Glucose (UA) 250 mg/dL (NEG) Urine Ketones (Stick) Negative mg/dL (NEG) Urine Blood Negative (NEG) Urine Nitrite Negative (NEG) Urine Bilirubin Negative (NEG) Urine Urobilinogen Dipstick 0.2 mg/dL (0.2 mg/dL) Urine Leukocyte Esterase Negative (NEG) Urine RBC 0 /HPF (0-2) Urine WBC 0 /HPF (0-4) Urine Squamous Epithelial Cells Occ /LPF Urine Bacteria 0 /HPF (0-FEW) Urine Hyaline Casts Moderate /HPF Glucose (Fingerstick) 251 mg/dL (70-99) Nasal Screen MRSA (PCR) Positive (Negative) Test 02/03/17 17:27 02/03/17 20:55 02/04/17 07:25 02/04/17 11:11 Glucose (Fingerstick) 245 mg/dL (70-99) 292 mg/dL (70-99) 222 mg/dL (70-99) 203 mg/dL (70-99) Assessment/Plan Assessment/Plan Left lower extremity infected orthopedic hardware--the patient has a complicated problem involving infection of his orthopedic hardware extending from the hip through the level of the left knee. The patient has been sent to [facility] and not offered definitive solution. I was able to discuss the case with the orthopedic surgeons at [facility] and they stated that the patient was offered a high disarticulation amputation. At the time he was refusing this surgery. Currently the [facility] does not have complex joint reconstruction surgeons. Their recommendation was referral to complex joint reconstruction specialist within the city for consideration of orthopedic hardware removal versus amputation. I did discuss the case with Dr. Alas and updated him on the status. I discussed the case with Dr. Collins with orthopedic surgery who knows the patient well. He states that there are no reconstruction options and at this stage high disarticulation amputation is the only option. [facility] orthopedic surgery indicated that they are open to offering this to the patient after their discussion with my partner Dr. Padilla. This problem is not a vascular surgery problem as his blood flow is intact to both lower extremities. His heel decubitus ulcerations are granulating and he should continue local wound care with aqua cell Silver and PRAFO boots to maintain no pressure to his heels while nonambulatory. Appropriate specialized bed should also be considered so that the patient does not developed a decubitus ulceration of his tailbone. Arrangements should be made to transfer the patient back to the [facility] for definitive amputation. The patient understands the situation and is agreeable to proceeding with this surgery. At this point vascular surgery will sign off as there are no active vascular surgical problems. Please do not hesitate to contact us if there are any questions or concerns regarding his care as they pertain to his arterial or venous circulation. Sathya Lopez DO, FACS, RPVI [employer] Server of Vascular Surgery [facility] SATHYA LOPEZ DO Feb 04, 2017 15:41
[2017-02-04 19:00] VITALS: BP 142/82
[2017-02-04] MEDS: lamoTRIgine 100 MG TABLET. PO SCH (21:22)
[2017-02-04] MEDS: QUEtiapine 100 MG TABLET. PO SCH (21:22)
[2017-02-04] MEDS: NORTRIPTYLINE 25 MG CAPSULE PO SCH (21:22)
[2017-02-04] MEDS: ATORVASTATIN CALCIUM 40 MG TABLET. PO SCH (21:22)
[2017-02-04] MEDS: DONEPEZIL HCL 10 MG TABLET. PO SCH (21:23)
[2017-02-04] MEDS: INSULIN DETEMIR 300 UNITS/3 ML INSULN.PEN. SQ SCH (21:29)
[2017-02-04 23:00] VITALS: BP 115/50
[2017-02-05 03:00] VITALS: BP 111/71
[2017-02-05 04:32] LABS: HEMATOCRIT 32.2 % (39.0-53.0); HEMOGLOBIN 10.4 g/dL (13.0-17.5); RED BLOOD COUNT 3.71 x10^6/uL (4.30-5.70); RED CELL DISTRIBUTION WIDTH 16.6 % (11.5-14.5); WHITE BLOOD COUNT 5.5 x10^3/uL (4.0-11.0)
[2017-02-05 04:59] LABS: ALBUMIN 2.4 g/dL (3.4-5.0); ALBUMIN/GLOBULIN RATIO 0.6 (1.0-1.7); CALCIUM 8.3 mg/dL (8.5-10.1); CREATININE 1.1 mg/dL (0.7-1.3); GFR 68.3; POTASSIUM 4.8 mmol/L (3.5-5.1); TOTAL BILIRUBIN 0.1 mg/dL (0.2-1.0); TOTAL PROTEIN 6.6 g/dL (6.4-8.2)
[2017-02-05] MEDS: LEVOTHYROXINE 137 MCG TABLET PO SCH (06:09)
[2017-02-05] MEDS: PANTOPRAZOLE 40 MG TABLET.DR. PO SCH (06:09)
[2017-02-05] MEDS: ALBUTEROL SULFATE 2.5 MG/3 ML NEBU. NEB SCH ×4 (07:14→20:30)
[2017-02-05 07:15] VITALS: BP 124/60
--- NOTE | 2017-02-05 08:52 | PDOC ---
Infectious Disease Note Subjective Subjective awake, feeling good ROS ROS GEN: Denies fevers, chills, sweats HEENT: Denies blurred vision, sore throat CV: Denies chest pain RESP: Denies shortness of air, cough GI: Denies n/v/d NEURO: Denies confusion, dizziness MSK: Denies weakness, joint pain/swelling Vital Sign Vital Signs Vital Signs Date Time Temp Pulse Resp B/P (MAP) Pulse Ox O2 Delivery O2 Flow Rate FiO2 02/05/17 07:15 96 Nasal Cannula 2.0 02/05/17 07:15 98.8 73 20 124/60 (81) 98.8 Physical Exam PHYSICAL EXAM GENERAL: NAD, Alert HEENT: PERRL, OC/OP NECK: Supple, no JVD, no LN LUNGS: Clear HEART: S1S2, no gallop, no murmur ABD: Soft, NT, no organomegaly, no rebound EXT: No edema, no cyanosis [employer]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, oriented x 3, no focal neurologic deficit SKIN: No rash IV: ok Labs Lab Laboratory Tests Test 02/04/17 11:11 02/04/17 16:03 02/04/17 20:34 02/05/17 04:00 Glucose (Fingerstick) 203 mg/dL (70-99) 196 mg/dL (70-99) 263 mg/dL (70-99) White Blood Count 5.5 x10^3/uL (4.0-11.0) Red Blood Count 3.71 x10^6/uL (4.30-5.70) Hemoglobin 10.4 g/dL (13.0-17.5) Hematocrit 32.2 % (39.0-53.0) Mean Corpuscular Volume 87 fL (79-100) Mean Corpuscular Hemoglobin 28 pg (25-35) Mean Corpuscular Hemoglobin Concent 32 g/dL (31-37) Red Cell Distribution Width 16.6 % (11.5-14.5) Platelet Count 255 x10^3/uL (140-400) Sodium Level 139 mmol/L (136-145) Potassium Level 4.8 mmol/L (3.5-5.1) Chloride Level 102 mmol/L (98-107) Carbon Dioxide Level 33 mmol/L (21-32) Anion Gap 4 (6-14) Blood Urea Nitrogen 19 mg/dL (8-26) Creatinine 1.1 mg/dL (0.7-1.3) Estimated GFR (Cockcroft-Gault) 68.3 BUN/Creatinine Ratio 17 (6-20) Glucose Level 237 mg/dL (70-99) Calcium Level 8.3 mg/dL (8.5-10.1) Total Bilirubin 0.1 mg/dL (0.2-1.0) Aspartate Amino Transf (AST/SGOT) 18 U/L (15-37) Alanine Aminotransferase (ALT/SGPT) 12 U/L (16-63) Alkaline Phosphatase 111 U/L (46-116) Total Protein 6.6 g/dL (6.4-8.2) Albumin 2.4 g/dL (3.4-5.0) Albumin/Globulin Ratio 0.6 (1.0-1.7) Test 02/05/17 07:11 Glucose (Fingerstick) 194 mg/dL (70-99) Micro BC neg Objective Assessment Left thigh/knee infection with strep anginosus Left thigh and hip pain CAD h/o C diff DM Plan Plan of Care cont cefazolin and po vanc pt to go to [facility] for amputation. LOWELL ROSAS MD Feb 05, 2017 08:52
[2017-02-05] MEDS: CARIPRAZINE HYDROCHLORIDE 3 MG PO SCH (09:00)
[2017-02-05] MEDS: MAGNESIUM OXIDE 400 MG TABLET PO SCH (09:17)
[2017-02-05] MEDS: FENOFIBRATE,MICRONIZED 134 MG CAPSULE PO SCH (09:17)
[2017-02-05] MEDS: GABAPENTIN 400 MG CAPSULE. PO SCH (09:18)
[2017-02-05] MEDS: ISOSORBIDE MONONITRATE ER 30 MG TAB.ER.24H PO SCH (09:18)
[2017-02-05] MEDS: SPIRONOLACTONE 25 MG TABLET PO SCH (09:19)
[2017-02-05] MEDS: METOPROLOL TART IMMED RELEASE 50 MG TABLET. PO SCH ×2 (09:19→21:16)
[2017-02-05] MEDS: DIVALPROEX EXTENDED RELEASE 500 MG TAB.ER.24H. PO SCH ×2 (09:20→21:15)
[2017-02-05] MEDS: LINAGLIPTIN 5 MG TABLET PO SCH (09:20)
[2017-02-05] MEDS: ASPIRIN 325 MG TABLET PO SCH (09:20)
[2017-02-05] MEDS: FLUoxetine HCL 20 MG CAPSULE PO SCH ×3 (09:20→21:16)
[2017-02-05] MEDS: ZINC SULFATE 220 MG CAPSULE. PO SCH (09:21)
[2017-02-05] MEDS: LACTOBACILLUS ACIDOPH & BULGAR 1 TABLET. PO SCH ×3 (09:21→16:51)
[2017-02-05] MEDS: TORSEMIDE 20 MG TABLET. PO SCH ×2 (09:21→12:57)
[2017-02-05] MEDS: SENNOSIDES 8.6 MG TABLET PO SCH (09:21)
[2017-02-05] MEDS: VANCOMYCIN 125 MG/2.5 ML ORAL SOLUTION. PO SCH ×4 (09:21→21:15)
[2017-02-05] MEDS: fentaNYL PF VIAL 100 MCG/2 ML VIAL IV PRN ×4 (09:22→16:52)
[2017-02-05] MEDS: ASCORBIC ACID 500 MG TABLET PO SCH (09:22)
[2017-02-05] MEDS: INSULIN ASPART 300 UNITS/3 ML INSULN.PEN SQ SCH ×6 (09:31→18:41)
[2017-02-05] MEDS: NYSTATIN TOPICAL POWDER 15GM BOTTLE. TP SCH ×2 (10:05→21:15)
[2017-02-05] MEDS: DICLOFENAC SODIUM 1% TOPICAL GEL 100GM TUBE. TP SCH ×4 (10:05→21:00)
[2017-02-05] MEDS: HEPARIN PF for SUB-Q USE 5,000 UNIT/0.5 ML VIAL. SQ SCH ×3 (10:13→21:23)
[2017-02-05 11:02] VITALS: BP 130/58
[2017-02-05] MEDS: oxyCODONE/APAP 5/325 1 TAB TABLET PO PRN ×2 (12:58→16:51)
--- NOTE | 2017-02-05 14:12 | PDOC ---
PROGRESS NOTES Subjective Subjective Resting in his recliner in NAD He was asleep but arousable He continue to c/o pain in his LLE Objective Objective Vital Signs Date Time Temp Pulse Resp B/P (MAP) Pulse Ox O2 Delivery O2 Flow Rate FiO2 02/05/17 12:58 96 Nasal Cannula 2.0 02/05/17 11:02 98.1 70 18 130/58 (82) 98.1 Intake and Output 02/05/17 07:00 Intake Total 250 ml Output Total 2150 ml Balance -1900 ml Intake Oral 250 ml Output Urine Total 2150 ml # Bowel Movements 1 Physical Exam Physical Exam Abdomen: Normal bowel sounds Heart: Regular rate, Normal S1, Normal S2 Extremities: Other (MARKEDLY SWOLLEN lle) General: Alert, Oriented X3, Cooperative HEENT: Atraumatic, PERRLA, EOMI Lungs: Clear to auscultation MUSCULOSKELETAL: Other (infected left knee prosthsis) Neck: Supple Neuro: Other (mostly bed bound chair bound) Psych/Mental Status: Mental status NL Skin: Other (LLE edema) Assessment Assessment Problems Medical Problems: (1) Cellulitis of left leg Status: Acute (2) Decubitus ulcer, heel, left, unstageable Status: Acute Plan Plan of Care Continue with I V antibiotics continue with pain management monitor Blood sugar I will contac Dr Duenas at [facility] regarding surgery Comment Review of Relevant I have reviewed the following items michelle (where applicable) has been applied. Labs Laboratory Tests Test 02/03/17 14:30 02/03/17 15:10 02/03/17 15:17 02/03/17 15:56 White Blood Count 5.9 x10^3/uL (4.0-11.0) Red Blood Count 3.91 x10^6/uL (4.30-5.70) Hemoglobin 10.9 g/dL (13.0-17.5) Hematocrit 33.8 % (39.0-53.0) Mean Corpuscular Volume 86 fL (79-100) Mean Corpuscular Hemoglobin 28 pg (25-35) Mean Corpuscular Hemoglobin Concent 32 g/dL (31-37) Red Cell Distribution Width 16.4 % (11.5-14.5) Platelet Count 269 x10^3/uL (140-400) Neutrophils (%) (Auto) 68 % (31-73) Lymphocytes (%) (Auto) 19 % (24-48) Monocytes (%) (Auto) 10 % (0-9) Eosinophils (%) (Auto) 2 % (0-3) Basophils (%) (Auto) 1 % (0-3) Neutrophils # (Auto) 4.0 x10^3uL (1.8-7.7) Lymphocytes # (Auto) 1.1 x10^3/uL (1.0-4.8) Monocytes # (Auto) 0.6 x10^3/uL (0.0-1.1) Eosinophils # (Auto) 0.1 x10^3/uL (0.0-0.7) Basophils # (Auto) 0.0 x10^3/uL (0.0-0.2) Sodium Level 139 mmol/L (136-145) Potassium Level 4.5 mmol/L (3.5-5.1) Chloride Level 102 mmol/L (98-107) Carbon Dioxide Level 31 mmol/L (21-32) Anion Gap 6 (6-14) Blood Urea Nitrogen 22 mg/dL (8-26) Creatinine 1.2 mg/dL (0.7-1.3) Estimated GFR (Cockcroft-Gault) 61.8 BUN/Creatinine Ratio 18 (6-20) Glucose Level 264 mg/dL (70-99) Calcium Level 8.8 mg/dL (8.5-10.1) Total Bilirubin 0.2 mg/dL (0.2-1.0) Aspartate Amino Transf (AST/SGOT) 17 U/L (15-37) Alanine Aminotransferase (ALT/SGPT) 14 U/L (16-63) Alkaline Phosphatase 128 U/L (46-116) Total Protein 7.0 g/dL (6.4-8.2) Albumin 2.7 g/dL (3.4-5.0) Albumin/Globulin Ratio 0.6 (1.0-1.7) Prothrombin Time 13.0 SEC (11.7-14.0) Prothromb Time International Ratio 1.0 (0.8-1.1) Activated Partial Thromboplast Time 30 SEC (24-38) Lactic Acid Level 1.1 mmol/L (0.4-2.0) Urine Collection Type Unknown Urine Color Yellow Urine Clarity Clear Urine pH 6.0 Urine Specific [place] 1.010 Urine Protein Negative mg/dL (NEG-TRACE) Urine Glucose (UA) 250 mg/dL (NEG) Urine Ketones (Stick) Negative mg/dL (NEG) Urine Blood Negative (NEG) Urine Nitrite Negative (NEG) Urine Bilirubin Negative (NEG) Urine Urobilinogen Dipstick 0.2 mg/dL (0.2 mg/dL) Urine Leukocyte Esterase Negative (NEG) Urine RBC 0 /HPF (0-2) Urine WBC 0 /HPF (0-4) Urine Squamous Epithelial Cells Occ /LPF Urine Bacteria 0 /HPF (0-FEW) Urine Hyaline Casts Moderate /HPF Glucose (Fingerstick) 251 mg/dL (70-99) Test 02/03/17 17:25 02/03/17 17:27 02/03/17 20:55 02/04/17 07:25 Nasal Screen MRSA (PCR) Positive (Negative) Glucose (Fingerstick) 245 mg/dL (70-99) 292 mg/dL (70-99) 222 mg/dL (70-99) Test 02/04/17 11:11 02/04/17 16:03 02/04/17 20:34 02/05/17 04:00 Glucose (Fingerstick) 203 mg/dL (70-99) 196 mg/dL (70-99) 263 mg/dL (70-99) White Blood Count 5.5 x10^3/uL (4.0-11.0) Red Blood Count 3.71 x10^6/uL (4.30-5.70) Hemoglobin 10.4 g/dL (13.0-17.5) Hematocrit 32.2 % (39.0-53.0) Mean Corpuscular Volume 87 fL (79-100) Mean Corpuscular Hemoglobin 28 pg (25-35) Mean Corpuscular Hemoglobin Concent 32 g/dL (31-37) Red Cell Distribution Width 16.6 % (11.5-14.5) Platelet Count 255 x10^3/uL (140-400) Sodium Level 139 mmol/L (136-145) Potassium Level 4.8 mmol/L (3.5-5.1) Chloride Level 102 mmol/L (98-107) Carbon Dioxide Level 33 mmol/L (21-32) Anion Gap 4 (6-14) Blood Urea Nitrogen 19 mg/dL (8-26) Creatinine 1.1 mg/dL (0.7-1.3) Estimated GFR (Cockcroft-Gault) 68.3 BUN/Creatinine Ratio 17 (6-20) Glucose Level 237 mg/dL (70-99) Calcium Level 8.3 mg/dL (8.5-10.1) Total Bilirubin 0.1 mg/dL (0.2-1.0) Aspartate Amino Transf (AST/SGOT) 18 U/L (15-37) Alanine Aminotransferase (ALT/SGPT) 12 U/L (16-63) Alkaline Phosphatase 111 U/L (46-116) Total Protein 6.6 g/dL (6.4-8.2) Albumin 2.4 g/dL (3.4-5.0) Albumin/Globulin Ratio 0.6 (1.0-1.7) Test 02/05/17 07:11 02/05/17 11:44 Glucose (Fingerstick) 194 mg/dL (70-99) 175 mg/dL (70-99) Laboratory Tests Test 02/04/17 16:03 02/04/17 20:34 02/05/17 04:00 02/05/17 07:11 Glucose (Fingerstick) 196 mg/dL (70-99) 263 mg/dL (70-99) 194 mg/dL (70-99) White Blood Count 5.5 x10^3/uL (4.0-11.0) Red Blood Count 3.71 x10^6/uL (4.30-5.70) Hemoglobin 10.4 g/dL (13.0-17.5) Hematocrit 32.2 % (39.0-53.0) Mean Corpuscular Volume 87 fL (79-100) Mean Corpuscular Hemoglobin 28 pg (25-35) Mean Corpuscular Hemoglobin Concent 32 g/dL (31-37) Red Cell Distribution Width 16.6 % (11.5-14.5) Platelet Count 255 x10^3/uL (140-400) Sodium Level 139 mmol/L (136-145) Potassium Level 4.8 mmol/L (3.5-5.1) Chloride Level 102 mmol/L (98-107) Carbon Dioxide Level 33 mmol/L (21-32) Anion Gap 4 (6-14) Blood Urea Nitrogen 19 mg/dL (8-26) Creatinine 1.1 mg/dL (0.7-1.3) Estimated GFR (Cockcroft-Gault) 68.3 BUN/Creatinine Ratio 17 (6-20) Glucose Level 237 mg/dL (70-99) Calcium Level 8.3 mg/dL (8.5-10.1) Total Bilirubin 0.1 mg/dL (0.2-1.0) Aspartate Amino Transf (AST/SGOT) 18 U/L (15-37) Alanine Aminotransferase (ALT/SGPT) 12 U/L (16-63) Alkaline Phosphatase 111 U/L (46-116) Total Protein 6.6 g/dL (6.4-8.2) Albumin 2.4 g/dL (3.4-5.0) Albumin/Globulin Ratio 0.6 (1.0-1.7) Test 02/05/17 11:44 Glucose (Fingerstick) 175 mg/dL (70-99) Microbiology 02/03/17 Blood Culture - Preliminary, Resulted NO GROWTH AFTER 1 DAY Medications Current Medications Fentanyl Citrate (Fentanyl 2ml Vial) 50 mcg PRN Q15MIN PRN IV PAIN GREATER THAN 3/10 Last administered on 02/03/17 16:19; Start 02/03/17 at 14:45; Stop 02/04 at 14:44; Status DC Fentanyl Citrate (Fentanyl 2ml Vial) 100 mcg 1X ONCE IV Last administered on 15:00; Start 02/03/17 at 14:45; Stop 02/03/17 at 14:46; Status DC Ondansetron HCl (Zofran) 4 mg 1X ONCE IV Last administered on 02/03/17 14:58; Start 02/03/17 at 15:15; Stop 02/03/17 at 15:16; Status DC Insulin Aspart (NovoLOG) 6 units TIDAC SQ Last administered on 02/04/17 08:52; Start 02/03/17 at 16:30; Stop 02/04/17 at 11:46; Status DC Ondansetron HCl (Zofran) 4 mg PRN Q8HRS PRN IV NAUSEA/VOMITING; Start 02/03/17 at 16:15; Stop 02/04/17 at 16:14; Status DC Fentanyl Citrate (Fentanyl 2ml Vial) 50 mcg PRN Q1HR PRN IV PAIN Last administered on 02/04/17 14:15; Start 02/03/17 at 16:15; Stop 02/04/17 at 16:14; Status DC Cefazolin Sodium 50 ml @ 100 mls/hr TID IV ; Start 02/03/17 at 21:00; Status UNV Cefazolin Sodium 50 ml @ 100 mls/hr 1X ONCE IV Last administered on 02/03/17 16:51; Start 02/03/17 at 16:45; Stop 02/03/17 at 17:14; Status DC Cefazolin Sodium 1 gm/Sodium Chloride 50 ml @ 100 mls/hr Q8HRS IV Last administered on 02/05/17 06:13; Start 02/03/17 at 23:00 Acetaminophen (Tylenol) 650 mg PRN Q4HRS PRN PO MILD PAIN / TEMP; Start at 20:15 Albuterol Sulfate (Ventolin Neb Soln) 2.5 mg RTQID NEB Last administered on 02/05 11:00; Start 02/04/17 at 08:00 Ascorbic Acid (Vitamin C) 500 mg DAILY PO Last administered on 02/05/17 09:22; Start 02/04/17 at 09:00 Aspirin (Ceci Aspirin) 325 mg [id number] PO Last administered on 02/05/17 09: 20; Start 02/04/17 at 08:00 Atorvastatin Calcium (Lipitor) 40 mg QHS PO Last administered on 02/04/17 21:22 ; Start 02/03/17 at 21:00 Diclofenac Sodium (Voltaren) 2 carly QID TP Last administered on 02/05/17 13:29; Start 02/03/17 at 21:00 Divalproex Sodium (Depakote Er) 1,000 mg BID PO Last administered on 02/05/17 09:20; Start 02/03/17 at 21:00 Donepezil HCl (Aricept) 10 mg HS PO Last administered on 02/04/17 21:23; Start 02/03/17 at 21:00 Gabapentin (Neurontin) 800 mg DAILY PO Last administered on 02/05/17 09:18; Start 02/04/17 at 09:00 Heparin Sodium (Porcine) (Heparin Sq) 5,000 unit TID SQ Last administered on 10:13; Start 02/03/17 at 21:00 Insulin Detemir (Levemir) 30 units HS SQ Last administered on 02/04/17 21:29; Start 02/03/17 at 21:00 Isosorbide Mononitrate (Imdur) 30 mg DAILY PO Last administered on 02/05/17 09: 18; Start 02/04/17 at 09:00 Lamotrigine (LaMICtal) 100 mg HS PO Last administered on 02/04/17 21:22; Start 02/03/17 at 21:00 Levothyroxine Sodium (Synthroid) 137 mcg DAILY07 PO Last administered on 06:09; Start 02/04/17 at 07:00 Linagliptin (Tradjenta) 5 mg DAILY PO Last administered on 02/05/17 09:20; Start 02/04/17 at 09:00 Magnesium Oxide (Magnesium Oxide) 400 mg DAILY PO Last administered on 09:17; Start 02/04/17 at 09:00 Metoprolol Tartrate (Lopressor) 50 mg BID PO Last administered on 02/05/17 09: 19; Start 02/03/17 at 21:00 Nitroglycerin (Nitrostat) 0.4 mg PRN Q5MIN PRN SL CHEST PAIN; Start 02/03/17 at 20:15 Nortriptyline HCl (Pamelor) 25 mg QHS PO Last administered on 02/04/17 21:22; Start 02/03/17 at 21:00 Nystatin (Nystop) 1 carly BID TP Last administered on 02/05/17 10:05; Start at 21:00 Oxycodone/ Acetaminophen (Percocet 5/325) 2 tab PRN Q6HRS PRN PO PAIN Last administered on 02/04/17 05:20; Start 02/03/17 at 20:15; Stop 02/04/17 at 09:22; Status DC Pantoprazole Sodium (Protonix) 40 mg DAILYAC PO Last administered on 02/05/17 06:09; Start 02/04/17 at 07:30 Quetiapine Fumarate (SEROquel) 100 mg QHS PO Last administered on 02/04/17 21: 22; Start 02/03/17 at 21:00 Sennosides (Senna) 8.6 mg DAILY PO Last administered on 02/05/17 09:21; Start 02/04/17 at 09:00 Torsemide (Demadex) 20 mg [id number] PO Last administered on 02/05/17 12:57; Start 02/04/17 at 09:00 Non-Formulary Medication 3 mg DAILY PO ; Start 02/04/17 at 09:00; Status UNV Fenofibrate (Lofibra) 134 mg DAILY PO Last administered on 02/05/17 09:17; Start 02/04/17 at 09:00 Fluoxetine HCl (PROzac) 40 mg TID PO Last administered on 02/05/17 12:47; Start 02/03/17 at 21:00 Insulin Aspart (NovoLOG) 15 units TIDAC SQ Last administered on 02/05/17 13:27 ; Start 02/04/17 at 07:30 Lactobacillus Acidophilus (Bacid, Constance-Bid) 1 tab TIDWMEALS PO Last administered on 02/05/17 12:47; Start 02/04/17 at 08:00 Spironolactone (Aldactone) 100 mg DAILY PO Last administered on 02/05/17 09:19 ; Start 02/04/17 at 09:00 Non-Formulary Medication 100 mg DAILY PO ; Start 02/04/17 at 09:00; Status UNV Vancomycin HCl 125 mg [id number] PO Last administered on 02/05/17 13:28; Start 02/03/17 at 21:00 Zinc Sulfate (Orazinc) 220 mg DAILY PO Last administered on 02/05/17 09:21; Start 02/04/17 at 09:00 Oxycodone/ Acetaminophen (Percocet 5/325) 2 tab PRN Q4HRS PRN PO PAIN Last administered on 02/05/17 12:58; Start 02/04/17 at 09:22 Insulin Aspart (NovoLOG) 0-7 UNITS TIDWMEALS SQ Last administered on 02/05/17 13:28; Start 02/04/17 at 12:00 Dextrose (Dextrose 50%-Water Syringe) 12.5 gm PRN Q15MIN PRN IV SEE COMMENTS; Start 02/04/17 at 11:45 Fentanyl Citrate (Fentanyl 2ml Vial) 50 mcg PRN Q1HR PRN IV SEVERE PAIN Last administered on 02/05/17t 12:47; Start 02/04/17 at 21:45 Active Scripts Active Reported Zinc (Zinc Amino Acid Chelate) 50 Mg Tablet 50 Mg PO DAILY Ascorbic Acid 500 Mg Tablet 500 Mg PO DAILY Cephalexin 500 Mg Tablet 1 Tab PO QID Advair Hfa 230-21 Mcg Inhaler (Fluticasone/Salmeterol) 12 Gm Hfa.aer.ad 1 Inh IH BID Vancomycin Hcl 125 Mg Capsule 125 Mg PO QID Nystatin 15 Gm Powder 1 Carly TP BID Novolog Flexpen (Insulin Aspart) 100 Unit/1 Ml Insuln.pen 1 Unit SQ NITROGLYCERIN SubLingual (Nitroglycerin) 0.4 Mg Tab.subl 0.4 Mg SL PRN Q5MIN PRN Levemir Flextouch (Insulin Detemir) 100 Unit/1 Ml Insuln.pen 30 Unit SQ HS Acidophilus Lactobacillus (Lactobacillus Acidophilus) 1 Each Capsule 1 Each PO TIDWMEALS Isosorbide Mononitrate Er (Isosorbide Mononitrate) 30 Mg Tab.er.24h 1 Tab PO DAILY Heparin Sod 5,000 Unit/ 0.5 Ml (Heparin Sodium,Porcine/Pf) 5,000 Unit/0.5 Ml Vial 5,000 Unit SQ TID Coenzyme Q10 (Ubidecarenone) 100 Mg Tablet 100 Mg PO DAILY Atorvastatin Calcium 40 Mg Tablet 1 Tab PO QHS Albuterol Sulfate Neb Soln (Albuterol Sulfate) 2.5 Mg/3 Ml Vial.neb 1 Vial NEB QID Tylenol (Acetaminophen) 325 Mg Tablet 650 Mg PO PRN Q4HRS PRN Metoprolol Tartrate 50 Mg Tablet 1 Tab PO BID Voltaren (Diclofenac Sodium) 100 Gm Gel..gram. 2 Gm TP QID Tradjenta (Linagliptin) 5 Mg Tablet 1 Tab PO DAILY Torsemide 20 Mg Tablet 20 Tab PO BID Spironolactone 100 Mg Tablet 1 Tab PO DAILY Seroquel (Quetiapine Fumarate) 100 Mg Tablet 1 Tab PO QHS Senna (Sennosides) 8.6 Mg Tablet 8.6 Mg PO DAILY Prozac (Fluoxetine Hcl) 40 Mg Capsule 1 Cap PO TID Protonix (Pantoprazole Sodium) 40 Mg Tablet.dr 40 Mg PO DAILY Oxycodone-Acetaminophen 5-325 (Oxycodone Hcl/Acetaminophen) 1 Each Tablet 2 Each PO PRN Q6HRS PRN Novolog (Insulin Aspart) 100 Unit/1 Ml Cartridge 15 Unit SQ TIDBFRMEAL Nortriptyline Hcl 25 Mg Capsule 25 Mg PO QHS Magnesium Oxide 400 Mg Tablet 1 Tab PO DAILY Levothyroxine Sodium 137 Mcg Tablet 1 Tab PO DAILY Lamotrigine 100 Mg Tablet 1 Tab PO HS Glucose Gel (Dextrose) 38 Gm Gel..gram. 38 Gm PO Gabapentin 400 Mg Capsule 800 Mg PO DAILY Fenofibrate (Fenofibrate Nanocrystallized) 145 Mg Tablet 1 Tab PO DAILY Donepezil Hcl 10 Mg Tablet 1 Tab PO HS Depakote Er (Divalproex Sodium) 500 Mg Tab.er.24h 2 Tab PO BID Vraylar (Cariprazine Hydrochloride) 3 Mg Capsule 3 Mg PO DAILY Aspirin 325 Mg Tablet 1 Tab PO DAILY Vitals/I & O Vital Sign - Last 24 Hours 02/04/17 02/04/17 02/04/17 02/04/17 14:15 14:59 15:00 15:22 Temp 97.9 97.9 Pulse 66 Resp 18 B/P (MAP) 111/49 (69) Pulse Ox 98 O2 Delivery Nasal Cannula Nasal Cannula Room Air Nasal Cannula O2 Flow Rate 2.0 2.0 2.0 02/04/17 02/04/17 02/04/17 02/04/17 17:06 18:06 19:00 19:14 Temp 98.1 98.1 Pulse 91 Resp 18 B/P (MAP) 142/82 (102) Pulse Ox 97 O2 Delivery Nasal Cannula Nasal Cannula Room Air Nasal Cannula O2 Flow Rate 2.0 2.0 2.0 02/04/17 02/04/17 02/04/17 02/04/17 20:00 21:23 21:44 22:20 Pulse 97 Resp 16 16 B/P (MAP) 145/82 O2 Delivery Nasal Cannula Room Air O2 Flow Rate 2.0 02/04/17 02/05/17 02/05/17 02/05/17 23:00 03:00 07:15 07:15 Temp 97.8 98.6 98.8 97.8 98.6 98.8 Pulse 85 74 73 Resp 18 18 20 B/P (MAP) 115/50 (71) 111/71 (84) 124/60 (81) Pulse Ox 94 95 97 96 O2 Delivery Room Air Room Air Nasal Cannula Nasal Cannula O2 Flow Rate 2.0 2.0 02/05/17 02/05/17 02/05/17 02/05/17 09:18 09:19 09:22 09:55 Pulse 73 73 B/P (MAP) 124/60 124/60 Pulse Ox 96 96 O2 Delivery Nasal Cannula Nasal Cannula O2 Flow Rate 2.0 2.0 02/05/17 02/05/17 02/05/17 02/05/17 11:01 11:02 12:47 12:58 Temp 98.1 98.1 Pulse 70 Resp 18 B/P (MAP) 130/58 (82) Pulse Ox 96 96 96 O2 Delivery Room Air Room Air Nasal Cannula Nasal Cannula O2 Flow Rate 2.0 2.0 Intake and Output 02/04/17 02/04/17 02/05/17 15:00 23:00 07:00 Intake Total 250 ml Output Total 800 ml 1350 ml Balance -800 ml -1100 ml PATTY CHRISTIAN MD Feb 05, 2017 14:12
[2017-02-05 15:03] VITALS: BP 127/62
[2017-02-05] MEDS: CARIPRAZINE 3 MG PO SCH (15:21)
--- NOTE | 2017-02-05 17:34 | PDOC ---
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 Patient has soft tissue gas in the left thigh. Arrangements have been made for him to be transferred to for a hip disarticulation. Transfer is scheduled for Thursday Vital Signs Vital Signs Date Time Temp Pulse Resp B/P (MAP) Pulse Ox O2 Delivery O2 Flow Rate FiO2 02/05/17 16:52 97 Nasal Cannula 2.0 02/05/17 16:51 97 Nasal Cannula 02/05/17 15:08 Room Air 02/05/17 15:03 98.3 66 20 127/62 (83) 97 Room Air 98.3 02/05/17 15:00 97 Nasal Cannula 2.0 02/05/17 14:25 Nasal Cannula 02/05/17 14:00 96 Nasal Cannula 2.0 02/05/17 12:58 96 Nasal Cannula 2.0 02/05/17 12:47 96 Nasal Cannula 2.0 02/05/17 11:02 98.1 70 18 130/58 (82) 96 Room Air 98.1 02/05/17 11:01 Room Air 02/05/17 09:22 96 Nasal Cannula 2.0 02/05/17 09:19 73 124/60 02/05/17 09:18 73 124/60 02/05/17 07:15 96 Nasal Cannula 2.0 02/05/17 07:15 98.8 73 20 124/60 (81) 97 Nasal Cannula 2.0 98.8 02/05/17 03:00 98.6 74 18 111/71 (84) 95 Room Air 98.6 02/04/17 23:00 97.8 85 18 115/50 (71) 94 Room Air 97.8 02/04/17 22:20 16 02/04/17 21:44 16 Room Air 02/04/17 21:23 97 145/82 02/04/17 20:00 Nasal Cannula 2.0 02/04/17 19:14 Nasal Cannula 2.0 02/04/17 19:00 98.1 91 18 142/82 (102) 97 Room Air 98.1 I & O Intake and Output 02/05/17 07:00 Intake Total 250 ml Output Total 2150 ml Balance -1900 ml Intake Oral 250 ml Output Urine Total 2150 ml # Bowel Movements 1 ASSESSMENT/PLAN Assessment/Plan Discussed this with the patient. There is generalized agreement between the orthopedic service and vascular services regarding management of this problem. If additional problems with arrangements for transfer then could consider proceeding with hip disarticulation here Problems: COMMENT Lab Laboratory Tests Test 02/04/17 20:34 02/05/17 04:00 02/05/17 07:11 02/05/17 11:44 Glucose (Fingerstick) 263 mg/dL (70-99) 194 mg/dL (70-99) 175 mg/dL (70-99) White Blood Count 5.5 x10^3/uL (4.0-11.0) Red Blood Count 3.71 x10^6/uL (4.30-5.70) Hemoglobin 10.4 g/dL (13.0-17.5) Hematocrit 32.2 % (39.0-53.0) Mean Corpuscular Volume 87 fL (79-100) Mean Corpuscular Hemoglobin 28 pg (25-35) Mean Corpuscular Hemoglobin Concent 32 g/dL (31-37) Red Cell Distribution Width 16.6 % (11.5-14.5) Platelet Count 255 x10^3/uL (140-400) Sodium Level 139 mmol/L (136-145) Potassium Level 4.8 mmol/L (3.5-5.1) Chloride Level 102 mmol/L (98-107) Carbon Dioxide Level 33 mmol/L (21-32) Anion Gap 4 (6-14) Blood Urea Nitrogen 19 mg/dL (8-26) Creatinine 1.1 mg/dL (0.7-1.3) Estimated GFR (Cockcroft-Gault) 68.3 BUN/Creatinine Ratio 17 (6-20) Glucose Level 237 mg/dL (70-99) Calcium Level 8.3 mg/dL (8.5-10.1) Total Bilirubin 0.1 mg/dL (0.2-1.0) Aspartate Amino Transf (AST/SGOT) 18 U/L (15-37) Alanine Aminotransferase (ALT/SGPT) 12 U/L (16-63) Alkaline Phosphatase 111 U/L (46-116) Total Protein 6.6 g/dL (6.4-8.2) Albumin 2.4 g/dL (3.4-5.0) Albumin/Globulin Ratio 0.6 (1.0-1.7) Test 02/05/17 17:05 Glucose (Fingerstick) 158 mg/dL (70-99) AMANDA ANNE MD Feb 05, 2017 17:34
[2017-02-05 19:00] VITALS: BP 119/62
[2017-02-05] MEDS: MORPHINE SULFATE 4 MG/ML DISP.SYRIN. IV PRN ×2 (19:41→21:30)
[2017-02-05] MEDS: ATORVASTATIN CALCIUM 40 MG TABLET. PO SCH (21:00)
[2017-02-05] MEDS: QUEtiapine 100 MG TABLET. PO SCH (21:16)
[2017-02-05] MEDS: lamoTRIgine 100 MG TABLET. PO SCH (21:16)
[2017-02-05] MEDS: DONEPEZIL HCL 10 MG TABLET. PO SCH (21:16)
[2017-02-05] MEDS: NORTRIPTYLINE 25 MG CAPSULE PO SCH (21:16)
[2017-02-05] MEDS: INSULIN DETEMIR 300 UNITS/3 ML INSULN.PEN. SQ SCH (21:22)
[2017-02-05 23:00] VITALS: BP 128/59
[2017-02-06] MEDS: MORPHINE SULFATE 4 MG/ML DISP.SYRIN. IV PRN ×4 (01:19→19:53)
[2017-02-06 03:00] VITALS: BP 129/63
[2017-02-06] MEDS: oxyCODONE/APAP 5/325 1 TAB TABLET PO PRN ×3 (03:31→19:42)
[2017-02-06] MEDS: LEVOTHYROXINE 137 MCG TABLET PO SCH (06:14)
[2017-02-06 07:08] VITALS: BP 130/76
[2017-02-06] MEDS: ALBUTEROL SULFATE 2.5 MG/3 ML NEBU. NEB SCH ×4 (07:16→20:35)
[2017-02-06] MEDS: MAGNESIUM OXIDE 400 MG TABLET PO SCH (08:15)
[2017-02-06] MEDS: ASPIRIN 325 MG TABLET PO SCH (08:15)
[2017-02-06] MEDS: ASCORBIC ACID 500 MG TABLET PO SCH (08:15)
[2017-02-06] MEDS: FENOFIBRATE,MICRONIZED 134 MG CAPSULE PO SCH (08:15)
[2017-02-06] MEDS: LACTOBACILLUS ACIDOPH & BULGAR 1 TABLET. PO SCH ×3 (08:15→18:49)
[2017-02-06] MEDS: SENNOSIDES 8.6 MG TABLET PO SCH (08:15)
[2017-02-06] MEDS: SPIRONOLACTONE 25 MG TABLET PO SCH (08:16)
[2017-02-06] MEDS: PANTOPRAZOLE 40 MG TABLET.DR. PO SCH (08:17)
[2017-02-06] MEDS: GABAPENTIN 400 MG CAPSULE. PO SCH (08:17)
[2017-02-06] MEDS: DIVALPROEX EXTENDED RELEASE 500 MG TAB.ER.24H. PO SCH ×2 (08:17→21:27)
[2017-02-06] MEDS: LINAGLIPTIN 5 MG TABLET PO SCH (08:18)
[2017-02-06] MEDS: ISOSORBIDE MONONITRATE ER 30 MG TAB.ER.24H PO SCH (08:18)
[2017-02-06] MEDS: TORSEMIDE 20 MG TABLET. PO SCH ×2 (08:18→12:43)
[2017-02-06] MEDS: METOPROLOL TART IMMED RELEASE 50 MG TABLET. PO SCH ×2 (08:19→21:27)
[2017-02-06] MEDS: DICLOFENAC SODIUM 1% TOPICAL GEL 100GM TUBE. TP SCH ×4 (08:20→21:29)
[2017-02-06] MEDS: FLUoxetine HCL 20 MG CAPSULE PO SCH ×3 (08:20→21:28)
[2017-02-06] MEDS: CARIPRAZINE 3 MG PO SCH ×2 (08:21→12:28)
[2017-02-06] MEDS: NYSTATIN TOPICAL POWDER 15GM BOTTLE. TP SCH ×2 (08:21→21:28)
--- NOTE | 2017-02-06 08:24 | PDOC ---
Infectious Disease Note Subjective Subjective awake, feeling good ROS ROS GEN: Denies fevers, chills, sweats HEENT: Denies blurred vision, sore throat CV: Denies chest pain RESP: Denies shortness of air, cough GI: Denies n/v/d NEURO: Denies confusion, dizziness MSK: Denies weakness, joint pain/swelling Vital Sign Vital Signs Vital Signs Date Time Temp Pulse Resp B/P (MAP) Pulse Ox O2 Delivery O2 Flow Rate FiO2 02/06/17 07:17 Room Air 02/06/17 07:08 97.5 67 16 130/76 (94) 95 97.5 02/05/17 19:41 2.0 Physical Exam PHYSICAL EXAM GENERAL: NAD, Alert HEENT: PERRL, OC/OP NECK: Supple, no JVD, no LN LUNGS: Clear HEART: S1S2, no gallop, no murmur ABD: Soft, NT, no organomegaly, no rebound EXT: No edema, no cyanosis EXHIBITION DESIGNER: Alert, oriented x 3, no focal neurologic deficit SKIN: No rash IV: ok Labs Lab Laboratory Tests Test 02/05/17 11:44 02/05/17 17:05 02/05/17 20:21 02/06/17 07:08 Glucose (Fingerstick) 175 mg/dL (70-99) 158 mg/dL (70-99) 224 mg/dL (70-99) 156 mg/dL (70-99) Micro BC neg Objective Assessment Left thigh/knee infection with strep anginosus Left thigh and hip pain CAD h/o C diff DM Plan Plan of Care cont cefazolin and po vanc pt to go to for amputation. LOWELL ROSAS MD Feb 06, 2017 08:24
[2017-02-06 10:45] VITALS: BP 109/48
--- NOTE | 2017-02-06 11:22 | PDOC ---
SUBJECTIVE Subjective The patient is still c/o severe pain that he rates at 9/10 We did start him on morphine and Oxycontin OBJECTIVE Objective He was resting comfortably in his chair in NAD Vital Signs Vital Signs Date Time Temp Pulse Resp B/P (MAP) Pulse Ox O2 Delivery O2 Flow Rate FiO2 02/06/17 10:59 Room Air 02/06/17 10:45 97.7 67 18 109/48 (68) 93 Room Air 97.7 02/06/17 08:19 67 130/76 02/06/17 08:18 67 130/76 02/06/17 08:16 95 Room Air 02/06/17 08:13 91 Room Air 2.0 02/06/17 07:17 Room Air 02/06/17 07:08 97.5 67 16 130/76 (94) 95 Room Air 97.5 02/06/17 04:31 20 Room Air 02/06/17 04:02 20 Room Air 02/06/17 03:32 20 Room Air 02/06/17 03:31 20 Room Air 02/06/17 03:00 97.9 70 18 129/63 (85) 91 Room Air 97.9 02/06/17 01:19 20 Room Air 02/05/17 23:00 97.9 68 18 128/59 (82) 98 Room Air 97.9 02/05/17 21:30 20 Room Air 02/05/17 21:16 71 119/62 02/05/17 20:31 95 Room Air 02/05/17 20:05 Room Air 02/05/17 19:41 97 Nasal Cannula 2.0 02/05/17 19:00 71 20 119/62 (81) 93 Room Air 02/05/17 17:55 97 02/05/17 17:25 97 Nasal Cannula 02/05/17 16:52 97 Nasal Cannula 2.0 02/05/17 16:51 97 Nasal Cannula 02/05/17 15:08 Room Air 02/05/17 15:03 98.3 66 20 127/62 (83) 97 Room Air 98.3 02/05/17 15:00 2.0 02/05/17 14:25 Nasal Cannula 02/05/17 14:00 2.0 02/05/17 12:58 96 Nasal Cannula 2.0 02/05/17 12:47 96 Nasal Cannula 2.0 I & O Intake and Output 02/06/17 06:59 Intake Total 1080 ml Output Total 2800 ml Balance -1720 ml Intake Oral 1080 ml Output Urine Total 2800 ml PHYSICAL EXAM Physical Exam Essentially unchanged ASSESSMENT/PLAN Assessment/Plan 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
[2017-02-06] MEDS: INSULIN ASPART 300 UNITS/3 ML INSULN.PEN SQ SCH ×6 (12:17→19:14)
[2017-02-06] MEDS: HEPARIN PF for SUB-Q USE 5,000 UNIT/0.5 ML VIAL. SQ SCH ×3 (12:19→21:41)
[2017-02-06] MEDS: ZINC SULFATE 220 MG CAPSULE. PO SCH (12:25)
[2017-02-06] MEDS: VANCOMYCIN 125 MG/2.5 ML ORAL SOLUTION. PO SCH ×4 (12:25→21:28)
[2017-02-06] MEDS: oxyCODONE ER 15 MG TAB.ER.12H PO SCH ×2 (12:28→21:28)
[2017-02-06 14:37] VITALS: BP 108/58
[2017-02-06 19:00] VITALS: BP 109/62
[2017-02-06] MEDS: ATORVASTATIN CALCIUM 40 MG TABLET. PO SCH (21:00)
[2017-02-06] MEDS: NORTRIPTYLINE 25 MG CAPSULE PO SCH (21:26)
[2017-02-06] MEDS: QUEtiapine 100 MG TABLET. PO SCH (21:26)
[2017-02-06] MEDS: lamoTRIgine 100 MG TABLET. PO SCH (21:26)
[2017-02-06] MEDS: DONEPEZIL HCL 10 MG TABLET. PO SCH (21:28)
[2017-02-06] MEDS: INSULIN DETEMIR 300 UNITS/3 ML INSULN.PEN. SQ SCH (21:40)
[2017-02-06 23:00] VITALS: BP 101/47
[2017-02-07] MEDS: MORPHINE SULFATE 4 MG/ML DISP.SYRIN. IV PRN ×5 (00:22→17:36)
[2017-02-07 03:00] VITALS: BP 123/60
[2017-02-07] MEDS: PANTOPRAZOLE 40 MG TABLET.DR. PO SCH (05:41)
[2017-02-07] MEDS: LEVOTHYROXINE 137 MCG TABLET PO SCH (05:41)
[2017-02-07 07:00] VITALS: BP 121/60
[2017-02-07] MEDS: ALBUTEROL SULFATE 2.5 MG/3 ML NEBU. NEB SCH ×4 (07:00→20:10)
[2017-02-07] MEDS: ISOSORBIDE MONONITRATE ER 30 MG TAB.ER.24H PO SCH (09:00)
[2017-02-07] MEDS: VANCOMYCIN 125 MG/2.5 ML ORAL SOLUTION. PO SCH ×4 (09:11→21:35)
[2017-02-07] MEDS: METOPROLOL TART IMMED RELEASE 50 MG TABLET. PO SCH ×3 (09:12→21:26)
[2017-02-07] MEDS: MAGNESIUM OXIDE 400 MG TABLET PO SCH (09:12)
[2017-02-07] MEDS: ASCORBIC ACID 500 MG TABLET PO SCH (09:13)
[2017-02-07] MEDS: FLUoxetine HCL 20 MG CAPSULE PO SCH ×3 (09:13→21:26)
[2017-02-07] MEDS: oxyCODONE ER 15 MG TAB.ER.12H PO SCH ×2 (09:13→23:09)
[2017-02-07] MEDS: LACTOBACILLUS ACIDOPH & BULGAR 1 TABLET. PO SCH ×3 (09:13→17:31)
[2017-02-07] MEDS: DIVALPROEX EXTENDED RELEASE 500 MG TAB.ER.24H. PO SCH ×2 (09:14→21:27)
[2017-02-07] MEDS: FENOFIBRATE,MICRONIZED 134 MG CAPSULE PO SCH (09:14)
[2017-02-07] MEDS: GABAPENTIN 400 MG CAPSULE. PO SCH (09:14)
[2017-02-07] MEDS: TORSEMIDE 20 MG TABLET. PO SCH ×2 (09:14→14:48)
[2017-02-07] MEDS: SENNOSIDES 8.6 MG TABLET PO SCH (09:15)
[2017-02-07] MEDS: ASPIRIN 325 MG TABLET PO SCH (09:15)
[2017-02-07] MEDS: ZINC SULFATE 220 MG CAPSULE. PO SCH (09:15)
[2017-02-07] MEDS: LINAGLIPTIN 5 MG TABLET PO SCH (09:15)
[2017-02-07] MEDS: SPIRONOLACTONE 25 MG TABLET PO SCH (09:16)
[2017-02-07] MEDS: NYSTATIN TOPICAL POWDER 15GM BOTTLE. TP SCH ×2 (09:25→21:27)
[2017-02-07] MEDS: DICLOFENAC SODIUM 1% TOPICAL GEL 100GM TUBE. TP SCH ×5 (09:26→23:09)
[2017-02-07] MEDS: HEPARIN PF for SUB-Q USE 5,000 UNIT/0.5 ML VIAL. SQ SCH ×3 (09:34→21:47)
[2017-02-07] MEDS: INSULIN ASPART 300 UNITS/3 ML INSULN.PEN SQ SCH ×6 (09:35→17:42)
[2017-02-07 10:57] VITALS: BP 130/64
--- NOTE | 2017-02-07 13:52 | PDOC ---
SUBJECTIVE Subjective setting in hischair playing a game with his He is pain free as he has just recived morphine I V The nurses stated that he is constantly rating his pain at 6-8/10 OBJECTIVE Objective Looked well and was clearly in NAD VSS PE is stable and unchanged Vital Signs Vital Signs Date Time Temp Pulse Resp B/P (MAP) Pulse Ox O2 Delivery O2 Flow Rate FiO2 02/07/17 13:13 Room Air 02/07/17 13:13 Room Air 02/07/17 12:48 98 Room Air 02/07/17 10:57 98.4 76 16 130/64 (86) 98 Room Air 98.4 02/07/17 10:28 Room Air 02/07/17 09:17 Room Air 02/07/17 09:13 94 Room Air 02/07/17 09:12 72 121/60 02/07/17 09:00 72 121/60 02/07/17 07:30 Room Air 02/07/17 07:00 97.5 72 121/60 (80) 94 Room Air 2.0 97.5 02/07/17 03:00 97.5 72 18 123/60 (81) 94 Room Air 97.5 02/07/17 01:28 20 94 02/07/17 00:52 20 94 02/07/17 00:22 20 94 Room Air 02/06/17 23:00 98.1 71 18 101/47 (65) 94 Room Air 98.1 02/06/17 21:28 20 95 Room Air 02/06/17 21:27 69 109/62 02/06/17 20:00 Room Air 02/06/17 19:53 20 95 Room Air 02/06/17 19:00 97.9 69 18 109/62 (78) 96 Room Air 97.9 02/06/17 15:29 Room Air 02/06/17 14:37 97.9 70 16 108/58 (75) 95 Room Air 97.9 I & O Intake and Output 02/07/17 06:59 Intake Total 920 ml Balance 920 ml Intake Oral 870 ml IV Total 50 ml # Voids 2 ASSESSMENT/PLAN Assessment/Plan 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
[2017-02-07] MEDS ORDERED: oxyCODONE ER 15 MG TAB.ER.12H PO ONE (14:00)
[2017-02-07 14:56] VITALS: BP 137/72
[2017-02-07 19:51] VITALS: BP 98/59
[2017-02-07] MEDS: DONEPEZIL HCL 10 MG TABLET. PO SCH (21:26)
[2017-02-07] MEDS: QUEtiapine 100 MG TABLET. PO SCH (21:26)
[2017-02-07] MEDS: lamoTRIgine 100 MG TABLET. PO SCH (21:26)
[2017-02-07] MEDS: ATORVASTATIN CALCIUM 40 MG TABLET. PO SCH (21:27)
[2017-02-07] MEDS: NORTRIPTYLINE 25 MG CAPSULE PO SCH (21:27)
[2017-02-07] MEDS: INSULIN DETEMIR 300 UNITS/3 ML INSULN.PEN. SQ SCH (21:46)
[2017-02-07 23:30] VITALS: BP 103/56
[2017-02-08 03:17] VITALS: BP 92/38
[2017-02-08 05:24] LABS: BASO % 1 % (0-3); EOS % 3 % (0-3); HEMATOCRIT 32.7 % (39.0-53.0); HEMOGLOBIN 10.9 g/dL (13.0-17.5); LYMPH # 1.5 x10^3/uL (1.0-4.8); LYMPH % 29 % (24-48); MEAN CORPUSCULAR HEMOGLOBIN 28 pg (25-35); MEAN CORPUSCULAR HGB CONC 33 g/dL (31-37); MEAN CORPUSCULAR VOLUME 85 fL (79-100); MONO % 14 % (0-9); NEUT % 53 % (31-73); PLATELET COUNT 275 x10^3/uL (140-400); RED BLOOD COUNT 3.87 x10^6/uL (4.30-5.70); RED CELL DISTRIBUTION WIDTH 16.4 % (11.5-14.5)
[2017-02-08 06:05] LABS: ALBUMIN 2.7 g/dL (3.4-5.0); ALBUMIN/GLOBULIN RATIO 0.8 (1.0-1.7); CALCIUM 9.2 mg/dL (8.5-10.1); CREATININE 1.2 mg/dL (0.7-1.3); GFR 61.8; TOTAL BILIRUBIN 0.2 mg/dL (0.2-1.0); TOTAL PROTEIN 6.3 g/dL (6.4-8.2)
[2017-02-08 06:06] LABS: POTASSIUM 5.2 mmol/L (3.5-5.1)
[2017-02-08 07:00] VITALS: BP 97/47
[2017-02-08] MEDS: ALBUTEROL SULFATE 2.5 MG/3 ML NEBU. NEB SCH ×4 (07:05→20:45)
[2017-02-08] MEDS: INSULIN ASPART 300 UNITS/3 ML INSULN.PEN SQ SCH ×7 (07:30→17:59)
[2017-02-08] MEDS: PANTOPRAZOLE 40 MG TABLET.DR. PO SCH (07:33)
[2017-02-08] MEDS: LEVOTHYROXINE 137 MCG TABLET PO SCH (07:33)
[2017-02-08] MEDS: DIVALPROEX EXTENDED RELEASE 500 MG TAB.ER.24H. PO SCH ×2 (08:36→20:39)
[2017-02-08] MEDS: ASCORBIC ACID 500 MG TABLET PO SCH (08:36)
[2017-02-08] MEDS: FLUoxetine HCL 20 MG CAPSULE PO SCH ×3 (08:36→20:38)
[2017-02-08] MEDS: oxyCODONE ER 15 MG TAB.ER.12H PO SCH ×3 (08:36→21:00)
[2017-02-08] MEDS: MAGNESIUM OXIDE 400 MG TABLET PO SCH (08:37)
[2017-02-08] MEDS: ISOSORBIDE MONONITRATE ER 30 MG TAB.ER.24H PO SCH (08:37)
[2017-02-08] MEDS: FENOFIBRATE,MICRONIZED 134 MG CAPSULE PO SCH (08:38)
[2017-02-08] MEDS: GABAPENTIN 400 MG CAPSULE. PO SCH (08:38)
[2017-02-08] MEDS: SENNOSIDES 8.6 MG TABLET PO SCH (08:38)
[2017-02-08] MEDS: ASPIRIN 325 MG TABLET PO SCH (08:38)
[2017-02-08] MEDS: ZINC SULFATE 220 MG CAPSULE. PO SCH (08:38)
[2017-02-08] MEDS: LACTOBACILLUS ACIDOPH & BULGAR 1 TABLET. PO SCH ×3 (08:38→17:53)
[2017-02-08] MEDS: LINAGLIPTIN 5 MG TABLET PO SCH (08:38)
[2017-02-08] MEDS: NYSTATIN TOPICAL POWDER 15GM BOTTLE. TP SCH ×2 (08:40→20:51)
[2017-02-08] MEDS: DICLOFENAC SODIUM 1% TOPICAL GEL 100GM TUBE. TP SCH ×4 (08:40→20:52)
[2017-02-08] MEDS: TORSEMIDE 20 MG TABLET. PO SCH ×2 (08:41→14:00)
[2017-02-08] MEDS: VANCOMYCIN 125 MG/2.5 ML ORAL SOLUTION. PO SCH ×4 (08:41→20:38)
[2017-02-08] MEDS: METOPROLOL TART IMMED RELEASE 50 MG TABLET. PO SCH ×2 (08:41→20:39)
[2017-02-08] MEDS: SPIRONOLACTONE 25 MG TABLET PO SCH (08:41)
[2017-02-08] MEDS: HEPARIN PF for SUB-Q USE 5,000 UNIT/0.5 ML VIAL. SQ SCH ×3 (08:49→20:51)
[2017-02-08 08:53] LABS: % EOS 5 % (0-5); PLT ESTIMATE ADEQUATE (ADEQUATE)
[2017-02-08 10:52] VITALS: BP 104/52
[2017-02-08] MEDS: CARIPRAZINE 3 MG PO SCH (12:31)
--- NOTE | 2017-02-08 12:36 | PN ---
PROGRESS NOTES Subjective Subjective setting on the edge of the bed eating his lunch comfortably The pain is much better controlled He did not require morphine last night stating that he is ready for surgery Objective Objective Vital Signs Date Time Temp Pulse Resp B/P (MAP) Pulse Ox O2 Delivery O2 Flow Rate FiO2 02/08/17 10:55 Nasal Cannula 2.0 02/08/17 10:52 97.9 71 18 104/52 (69) 98 97.9 Intake and Output 02/08/17 07:00 Intake Total 770 ml Output Total 900 ml Balance -130 ml Intake Oral 720 ml IV Total 50 ml Output Urine Total 900 ml Physical Exam Physical Exam afebrile hemodynamibcally stable COMMENT We will arrange to transfer to [facility] tomorrow Diagnosis DIAGNOSIS 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 PROBLEM LIST Problems Medical Problems: (1) Cellulitis of left leg Status: Acute (2) Decubitus ulcer, heel, left, unstageable Status: Acute Assessment Assessment Problems Medical Problems: (1) Cellulitis of left leg Status: Acute (2) Decubitus ulcer, heel, left, unstageable Status: Acute Plan Plan of Care To transfer to [facility] tomorrow Comment Labs Laboratory Tests Test 02/06/17 16:02 02/06/17 20:48 02/07/17 07:17 02/07/17 11:42 Glucose (Fingerstick) 199 mg/dL (70-99) 153 mg/dL (70-99) 226 mg/dL (70-99) 268 mg/dL (70-99) Test 02/07/17 16:46 02/07/17 20:24 02/08/17 04:55 02/08/17 07:02 Glucose (Fingerstick) 165 mg/dL (70-99) 107 mg/dL (70-99) 176 mg/dL (70-99) White Blood Count 5.0 x10^3/uL (4.0-11.0) Red Blood Count 3.87 x10^6/uL (4.30-5.70) Hemoglobin 10.9 g/dL (13.0-17.5) Hematocrit 32.7 % (39.0-53.0) Mean Corpuscular Volume 85 fL (79-100) Mean Corpuscular Hemoglobin 28 pg (25-35) Mean Corpuscular Hemoglobin Concent 33 g/dL (31-37) Red Cell Distribution Width 16.4 % (11.5-14.5) Platelet Count 275 x10^3/uL (140-400) Neutrophils (%) (Auto) 53 % (31-73) Lymphocytes (%) (Auto) 29 % (24-48) Monocytes (%) (Auto) 14 % (0-9) Eosinophils (%) (Auto) 3 % (0-3) Basophils (%) (Auto) 1 % (0-3) Neutrophils # (Auto) 2.7 x10^3uL (1.8-7.7) Lymphocytes # (Auto) 1.5 x10^3/uL (1.0-4.8) Monocytes # (Auto) 0.7 x10^3/uL (0.0-1.1) Eosinophils # (Auto) 0.1 x10^3/uL (0.0-0.7) Basophils # (Auto) 0.0 x10^3/uL (0.0-0.2) Segmented Neutrophils % 53 % (35-66) Band Neutrophils % 1 % (0-9) Lymphocytes % 34 % (24-48) Monocytes % 7 % (0-10) Eosinophils % 5 % (0-5) Platelet Estimate Adequate (ADEQUATE) Giant Platelets Present Sodium Level 139 mmol/L (136-145) Potassium Level 5.2 mmol/L (3.5-5.1) Chloride Level 100 mmol/L (98-107) Carbon Dioxide Level 35 mmol/L (21-32) Anion Gap 4 (6-14) Blood Urea Nitrogen 23 mg/dL (8-26) Creatinine 1.2 mg/dL (0.7-1.3) Estimated GFR (Cockcroft-Gault) 61.8 BUN/Creatinine Ratio 19 (6-20) Glucose Level 175 mg/dL (70-99) Calcium Level 9.2 mg/dL (8.5-10.1) Total Bilirubin 0.2 mg/dL (0.2-1.0) Aspartate Amino Transf (AST/SGOT) 41 U/L (15-37) Alanine Aminotransferase (ALT/SGPT) 30 U/L (16-63) Alkaline Phosphatase 146 U/L (46-116) Total Protein 6.3 g/dL (6.4-8.2) Albumin 2.7 g/dL (3.4-5.0) Albumin/Globulin Ratio 0.8 (1.0-1.7) Test 02/08/17 10:28 Glucose (Fingerstick) 198 mg/dL (70-99) Laboratory Tests Test 02/07/17 16:46 02/07/17 20:24 02/08/17 04:55 02/08/17 07:02 Glucose (Fingerstick) 165 mg/dL (70-99) 107 mg/dL (70-99) 176 mg/dL (70-99) White Blood Count 5.0 x10^3/uL (4.0-11.0) Red Blood Count 3.87 x10^6/uL (4.30-5.70) Hemoglobin 10.9 g/dL (13.0-17.5) Hematocrit 32.7 % (39.0-53.0) Mean Corpuscular Volume 85 fL (79-100) Mean Corpuscular Hemoglobin 28 pg (25-35) Mean Corpuscular Hemoglobin Concent 33 g/dL (31-37) Red Cell Distribution Width 16.4 % (11.5-14.5) Platelet Count 275 x10^3/uL (140-400) Neutrophils (%) (Auto) 53 % (31-73) Lymphocytes (%) (Auto) 29 % (24-48) Monocytes (%) (Auto) 14 % (0-9) Eosinophils (%) (Auto) 3 % (0-3) Basophils (%) (Auto) 1 % (0-3) Neutrophils # (Auto) 2.7 x10^3uL (1.8-7.7) Lymphocytes # (Auto) 1.5 x10^3/uL (1.0-4.8) Monocytes # (Auto) 0.7 x10^3/uL (0.0-1.1) Eosinophils # (Auto) 0.1 x10^3/uL (0.0-0.7) Basophils # (Auto) 0.0 x10^3/uL (0.0-0.2) Segmented Neutrophils % 53 % (35-66) Band Neutrophils % 1 % (0-9) Lymphocytes % 34 % (24-48) Monocytes % 7 % (0-10) Eosinophils % 5 % (0-5) Platelet Estimate Adequate (ADEQUATE) Giant Platelets Present Sodium Level 139 mmol/L (136-145) Potassium Level 5.2 mmol/L (3.5-5.1) Chloride Level 100 mmol/L (98-107) Carbon Dioxide Level 35 mmol/L (21-32) Anion Gap 4 (6-14) Blood Urea Nitrogen 23 mg/dL (8-26) Creatinine 1.2 mg/dL (0.7-1.3) Estimated GFR (Cockcroft-Gault) 61.8 BUN/Creatinine Ratio 19 (6-20) Glucose Level 175 mg/dL (70-99) Calcium Level 9.2 mg/dL (8.5-10.1) Total Bilirubin 0.2 mg/dL (0.2-1.0) Aspartate Amino Transf (AST/SGOT) 41 U/L (15-37) Alanine Aminotransferase (ALT/SGPT) 30 U/L (16-63) Alkaline Phosphatase 146 U/L (46-116) Total Protein 6.3 g/dL (6.4-8.2) Albumin 2.7 g/dL (3.4-5.0) Albumin/Globulin Ratio 0.8 (1.0-1.7) Test 02/08/17 10:28 Glucose (Fingerstick) 198 mg/dL (70-99) Microbiology 02/03/17 Blood Culture - Preliminary, Resulted NO GROWTH AFTER 4 DAYS Medications Current Medications Fentanyl Citrate (Fentanyl 2ml Vial) 50 mcg PRN Q15MIN PRN IV PAIN GREATER THAN 3/10 Last administered on 02/03/17 16:19; Start 02/03/17 at 14:45; Stop 02/04 at 14:44; Status DC Fentanyl Citrate (Fentanyl 2ml Vial) 100 mcg 1X ONCE IV Last administered on 15:00; Start 02/03/17 at 14:45; Stop 02/03/17 at 14:46; Status DC Ondansetron HCl (Zofran) 4 mg 1X ONCE IV Last administered on 02/03/17 14:58; Start 02/03/17 at 15:15; Stop 02/03/17 at 15:16; Status DC Insulin Aspart (NovoLOG) 6 units TIDAC SQ Last administered on 02/04/17 08:52; Start 02/03/17 at 16:30; Stop 02/04/17 at 11:46; Status DC Ondansetron HCl (Zofran) 4 mg PRN Q8HRS PRN IV NAUSEA/VOMITING; Start 02/03/17 at 16:15; Stop 02/04/17 at 16:14; Status DC Fentanyl Citrate (Fentanyl 2ml Vial) 50 mcg PRN Q1HR PRN IV PAIN Last administered on 02/04/17 14:15; Start 02/03/17 at 16:15; Stop 02/04/17 at 16:14; Status DC Cefazolin Sodium 50 ml @ 100 mls/hr TID IV ; Start 02/03/17 at 21:00; Status UNV Cefazolin Sodium 50 ml @ 100 mls/hr 1X ONCE IV Last administered on 02/03/17 16:51; Start 02/03/17 at 16:45; Stop 02/03/17 at 17:14; Status DC Cefazolin Sodium 1 gm/Sodium Chloride 50 ml @ 100 mls/hr Q8HRS IV Last administered on 02/08/17 05:32; Start 02/03/17 at 23:00 Acetaminophen (Tylenol) 650 mg PRN Q4HRS PRN PO MILD PAIN / TEMP; Start at 20:15 Albuterol Sulfate (Ventolin Neb Soln) 2.5 mg RTQID NEB Last administered on 02/08 10:54; Start 02/04/17 at 08:00 Ascorbic Acid (Vitamin C) 500 mg DAILY PO Last administered on 02/08/17 08:36; Start 02/04/17 at 09:00 Aspirin (Ceci Aspirin) 325 mg [id number] PO Last administered on 02/08/17 08: 38; Start 02/04/17 at 08:00 Atorvastatin Calcium (Lipitor) 40 mg QHS PO Last administered on 02/07/17 21:27 ; Start 02/03/17 at 21:00 Diclofenac Sodium (Voltaren) 2 carly QID TP Last administered on 02/08/17 08:40; Start 02/03/17 at 21:00 Divalproex Sodium (Depakote Er) 1,000 mg BID PO Last administered on 02/08/17 08:36; Start 02/03/17 at 21:00 Donepezil HCl (Aricept) 10 mg HS PO Last administered on 02/07/17 21:26; Start 02/03/17 at 21:00 Gabapentin (Neurontin) 800 mg DAILY PO Last administered on 02/08/17 08:38; Start 02/04/17 at 09:00 Heparin Sodium (Porcine) (Heparin Sq) 5,000 unit TID SQ Last administered on 08:49; Start 02/03/17 at 21:00 Insulin Detemir (Levemir) 30 units HS SQ Last administered on 02/07/17 21:46; Start 02/03/17 at 21:00 Isosorbide Mononitrate (Imdur) 30 mg DAILY PO Last administered on 02/08/17 08: 37; Start 02/04/17 at 09:00 Lamotrigine (LaMICtal) 100 mg HS PO Last administered on 02/07/17 21:26; Start 02/03/17 at 21:00 Levothyroxine Sodium (Synthroid) 137 mcg DAILY07 PO Last administered on 07:33; Start 02/04/17 at 07:00 Linagliptin (Tradjenta) 5 mg DAILY PO Last administered on 02/08/17 08:38; Start 02/04/17 at 09:00 Magnesium Oxide (Magnesium Oxide) 400 mg DAILY PO Last administered on 08:37; Start 02/04/17 at 09:00 Metoprolol Tartrate (Lopressor) 50 mg BID PO Last administered on 02/06/17 21: 27; Start 02/03/17 at 21:00 Nitroglycerin (Nitrostat) 0.4 mg PRN Q5MIN PRN SL CHEST PAIN; Start 02/03/17 at 20:15 Nortriptyline HCl (Pamelor) 25 mg QHS PO Last administered on 02/07/17 21:27; Start 02/03/17 at 21:00 Nystatin (Nystop) 1 carly BID TP Last administered on 02/08/17 08:40; Start at 21:00 Oxycodone/ Acetaminophen (Percocet 5/325) 2 tab PRN Q6HRS PRN PO PAIN Last administered on 02/04/17 05:20; Start 02/03/17 at 20:15; Stop 02/04/17 at 09:22; Status DC Pantoprazole Sodium (Protonix) 40 mg DAILYAC PO Last administered on 02/08/17 07:33; Start 02/04/17 at 07:30 Quetiapine Fumarate (SEROquel) 100 mg QHS PO Last administered on 02/07/17 21: 26; Start 02/03/17 at 21:00 Sennosides (Senna) 8.6 mg DAILY PO Last administered on 02/08/17 08:38; Start 02/04/17 at 09:00 Torsemide (Demadex) 20 mg [id number] PO Last administered on 02/07/17 14:48; Start 02/04/17 at 09:00 Non-Formulary Medication 3 mg DAILY PO ; Start 02/04/17 at 09:00; Stop 02/05/17 at 14:56; Status DC Fenofibrate (Lofibra) 134 mg DAILY PO Last administered on 02/08/17 08:38; Start 02/04/17 at 09:00 Fluoxetine HCl (PROzac) 40 mg TID PO Last administered on 02/08/17 08:36; Start 02/03/17 at 21:00 Insulin Aspart (NovoLOG) 15 units TIDAC SQ Last administered on 02/07/17 17:42 ; Start 02/04/17 at 07:30; Stop 02/08/17 at 07:51; Status DC Lactobacillus Acidophilus (Bacid, Constance-Bid) 1 tab TIDWMEALS PO Last administered on 02/08/17 08:38; Start 02/04/17 at 08:00 Spironolactone (Aldactone) 100 mg DAILY PO Last administered on 02/07/17 09:16 ; Start 02/04/17 at 09:00 Non-Formulary Medication 100 mg DAILY PO ; Start 02/04/17 at 09:00; Status UNV Vancomycin HCl 125 mg [id number] PO Last administered on 02/08/17 08:41; Start 02/03/17 at 21:00 Zinc Sulfate (Orazinc) 220 mg DAILY PO Last administered on 02/08/17 08:38; Start 02/04/17 at 09:00 Oxycodone/ Acetaminophen (Percocet 5/325) 2 tab PRN Q4HRS PRN PO PAIN Last administered on 02/06/17 08:16; Start 02/04/17 at 09:22 Insulin Aspart (NovoLOG) 0-7 UNITS TIDWMEALS SQ Last administered on 02/08/17 08:51; Start 02/04/17 at 12:00 Dextrose (Dextrose 50%-Water Syringe) 12.5 gm PRN Q15MIN PRN IV SEE COMMENTS; Start 02/04/17 at 11:45 Fentanyl Citrate (Fentanyl 2ml Vial) 50 mcg PRN Q1HR PRN IV SEVERE PAIN Last administered on 02/05/17 16:52; Start 02/04/17 at 21:45 Non-Formulary Medication 3 mg [id number] PO Last administered on 02/06/17 12:28 ; Start 02/05/17 at 15:00 Morphine Sulfate 4 mg PRN Q2HR PRN IV PAIN Last administered on 02/07/17 17:36 ; Start 02/05/17 at 18:45 Oxycodone HCl (OxyCONTIN) 15 mg Q12HR PO Last administered on 02/07/17 09:13; Start 02/06/17 at 11:30; Stop 02/07/17 at 13:47; Status DC Oxycodone HCl (OxyCONTIN) 30 mg Q12HR PO Last administered on 02/08/17 08:36; Start 02/07/17 at 21:00 Oxycodone HCl (OxyCONTIN) 15 mg 1X ONCE PO Last administered on 02/07/17 14:48 ; Start 02/07/17 at 14:00; Stop 02/07/17 at 14:01; Status DC Insulin Aspart (NovoLOG) 15 units TIDWMEALS SQ Last administered on 02/08/17 08 :50; Start 02/08/17 at 08:00 Active Scripts Active Reported Zinc (Zinc Amino Acid Chelate) 50 Mg Tablet 50 Mg PO DAILY Ascorbic Acid 500 Mg Tablet 500 Mg PO DAILY Cephalexin 500 Mg Tablet 1 Tab PO QID Advair Hfa 230-21 Mcg Inhaler (Fluticasone/Salmeterol) 12 Gm Hfa.aer.ad 1 Inh IH BID Vancomycin Hcl 125 Mg Capsule 125 Mg PO QID Nystatin 15 Gm Powder 1 Carly TP BID Novolog Flexpen (Insulin Aspart) 100 Unit/1 Ml Insuln.pen 1 Unit SQ NITROGLYCERIN SubLingual (Nitroglycerin) 0.4 Mg Tab.subl 0.4 Mg SL PRN Q5MIN PRN Levemir Flextouch (Insulin Detemir) 100 Unit/1 Ml Insuln.pen 30 Unit SQ HS Acidophilus Lactobacillus (Lactobacillus Acidophilus) 1 Each Capsule 1 Each PO TIDWMEALS Isosorbide Mononitrate Er (Isosorbide Mononitrate) 30 Mg Tab.er.24h 1 Tab PO DAILY Heparin Sod 5,000 Unit/ 0.5 Ml (Heparin Sodium,Porcine/Pf) 5,000 Unit/0.5 Ml Vial 5,000 Unit SQ TID Coenzyme Q10 (Ubidecarenone) 100 Mg Tablet 100 Mg PO DAILY Atorvastatin Calcium 40 Mg Tablet 1 Tab PO QHS Albuterol Sulfate Neb Soln (Albuterol Sulfate) 2.5 Mg/3 Ml Vial.neb 1 Vial NEB QID Tylenol (Acetaminophen) 325 Mg Tablet 650 Mg PO PRN Q4HRS PRN Metoprolol Tartrate 50 Mg Tablet 1 Tab PO BID Voltaren (Diclofenac Sodium) 100 Gm Gel..gram. 2 Gm TP QID Tradjenta (Linagliptin) 5 Mg Tablet 1 Tab PO DAILY Torsemide 20 Mg Tablet 20 Tab PO BID Spironolactone 100 Mg Tablet 1 Tab PO DAILY Seroquel (Quetiapine Fumarate) 100 Mg Tablet 1 Tab PO QHS Senna (Sennosides) 8.6 Mg Tablet 8.6 Mg PO DAILY Prozac (Fluoxetine Hcl) 40 Mg Capsule 1 Cap PO TID Protonix (Pantoprazole Sodium) 40 Mg Tablet.dr 40 Mg PO DAILY Oxycodone-Acetaminophen 5-325 (Oxycodone Hcl/Acetaminophen) 1 Each Tablet 2 Each PO PRN Q6HRS PRN Novolog (Insulin Aspart) 100 Unit/1 Ml Cartridge 15 Unit SQ TIDBFRMEAL Nortriptyline Hcl 25 Mg Capsule 25 Mg PO QHS Magnesium Oxide 400 Mg Tablet 1 Tab PO DAILY Levothyroxine Sodium 137 Mcg Tablet 1 Tab PO DAILY Lamotrigine 100 Mg Tablet 1 Tab PO HS Glucose Gel (Dextrose) 38 Gm Gel..gram. 38 Gm PO Gabapentin 400 Mg Capsule 800 Mg PO DAILY Fenofibrate (Fenofibrate Nanocrystallized) 145 Mg Tablet 1 Tab PO DAILY Donepezil Hcl 10 Mg Tablet 1 Tab PO HS Depakote Er (Divalproex Sodium) 500 Mg Tab.er.24h 2 Tab PO BID Vraylar (Cariprazine Hydrochloride) 3 Mg Capsule 3 Mg PO DAILY Aspirin 325 Mg Tablet 1 Tab PO DAILY Vitals/I & O Vital Sign - Last 24 Hours 02/07/17 02/07/17 02/07/17 02/07/17 12:48 13:13 14:48 14:49 Pulse Ox 98 O2 Delivery Room Air Room Air Room Air Room Air 02/07/17 02/07/17 02/07/17 02/07/17 14:56 15:32 17:36 18:10 Temp 98.9 98.9 Pulse 82 Resp 16 B/P (MAP) 137/72 (93) Pulse Ox 98 O2 Delivery Room Air Room Air Nasal Cannula Room Air O2 Flow Rate 2.0 02/07/17 02/07/17 02/07/17 02/07/17 18:58 19:51 19:57 20:00 Temp 98.1 98.1 Pulse 65 Resp 18 B/P (MAP) 98/59 (72) Pulse Ox 95 95 O2 Delivery Room Air Room Air Room Air Room Air 02/07/17 02/07/17 02/07/17 02/07/17 21:00 21:00 23:09 23:30 Temp 97.9 97.9 Pulse 65 65 68 Resp 20 18 B/P (MAP) 98/59 98/59 103/56 (72) Pulse Ox 95 92 O2 Delivery Room Air Room Air 02/08/17 02/08/17 02/08/17 02/08/17 03:09 03:17 07:00 07:06 Temp 97.9 97.7 97.9 97.7 Pulse 72 69 Resp 20 18 18 B/P (MAP) 92/38 (56) 97/47 (64) Pulse Ox 91 91 93 95 O2 Delivery Room Air Room Air Nasal Cannula Nasal Cannula O2 Flow Rate 2.0 2.0 02/08/17 02/08/17 02/08/17 02/08/17 07:40 08:36 08:37 08:41 Pulse 69 69 B/P (MAP) 97/47 97/47 O2 Delivery Nasal Cannula Nasal Cannula O2 Flow Rate 2.0 2.0 7/9/17 7/9/17 10:52 10:55 Temp 97.9 97.9 Pulse 71 Resp 18 B/P (MAP) 104/52 (69) Pulse Ox 98 O2 Delivery Nasal Cannula Nasal Cannula O2 Flow Rate 2.0 2.0 Intake and Output 02/07/17 02/07/17 02/08/17 15:00 23:00 07:00 Intake Total 240 ml 480 ml 50 ml Output Total 900 ml Balance 240 ml 480 ml -850 ml PATTY CHRISTIAN MD Feb 08, 2017 12:36
[2017-02-08] MEDS: oxyCODONE/APAP 5/325 1 TAB TABLET PO PRN (14:33)
[2017-02-08 14:58] VITALS: BP 99/52
[2017-02-08 19:25] VITALS: BP 106/55
[2017-02-08] MEDS: MORPHINE SULFATE 4 MG/ML DISP.SYRIN. IV PRN (19:52)
[2017-02-08] MEDS: DONEPEZIL HCL 10 MG TABLET. PO SCH (20:39)
[2017-02-08] MEDS: NORTRIPTYLINE 25 MG CAPSULE PO SCH (20:40)
[2017-02-08] MEDS: QUEtiapine 100 MG TABLET. PO SCH (20:40)
[2017-02-08] MEDS: ATORVASTATIN CALCIUM 40 MG TABLET. PO SCH (20:40)
[2017-02-08] MEDS: INSULIN DETEMIR 300 UNITS/3 ML INSULN.PEN. SQ SCH (20:51)
[2017-02-08] MEDS: lamoTRIgine 100 MG TABLET. PO SCH (20:51)
[2017-02-08 23:20] VITALS: BP 103/47
[2017-02-09 03:15] VITALS: BP 114/54
[2017-02-09 05:09] LABS: CALCIUM 8.4 mg/dL (8.5-10.1); CREATININE 1.1 mg/dL (0.7-1.3); GFR 68.3; POTASSIUM 4.8 mmol/L (3.5-5.1)
[2017-02-09] MEDS: LEVOTHYROXINE 137 MCG TABLET PO SCH (06:11)
[2017-02-09] MEDS: PANTOPRAZOLE 40 MG TABLET.DR. PO SCH (06:11)
[2017-02-09 07:00] VITALS: BP 129/49
[2017-02-09] MEDS: ALBUTEROL SULFATE 2.5 MG/3 ML NEBU. NEB SCH ×4 (07:22→19:14)
[2017-02-09] MEDS: GABAPENTIN 400 MG CAPSULE. PO SCH (08:46)
[2017-02-09] MEDS: LACTOBACILLUS ACIDOPH & BULGAR 1 TABLET. PO SCH ×3 (08:46→16:50)
[2017-02-09] MEDS: ASPIRIN 325 MG TABLET PO SCH (08:47)
[2017-02-09] MEDS: ASCORBIC ACID 500 MG TABLET PO SCH (08:47)
[2017-02-09] MEDS: LINAGLIPTIN 5 MG TABLET PO SCH (08:47)
[2017-02-09] MEDS: ZINC SULFATE 220 MG CAPSULE. PO SCH (08:47)
[2017-02-09] MEDS: ISOSORBIDE MONONITRATE ER 30 MG TAB.ER.24H PO SCH (08:47)
[2017-02-09] MEDS: SPIRONOLACTONE 25 MG TABLET PO SCH (08:47)
[2017-02-09] MEDS: MAGNESIUM OXIDE 400 MG TABLET PO SCH (08:47)
[2017-02-09] MEDS: FENOFIBRATE,MICRONIZED 134 MG CAPSULE PO SCH (08:47)
[2017-02-09] MEDS: FLUoxetine HCL 20 MG CAPSULE PO SCH ×3 (08:47→21:02)
[2017-02-09] MEDS: SENNOSIDES 8.6 MG TABLET PO SCH (08:47)
[2017-02-09] MEDS: METOPROLOL TART IMMED RELEASE 50 MG TABLET. PO SCH ×2 (08:48→21:01)
[2017-02-09] MEDS: TORSEMIDE 20 MG TABLET. PO SCH ×2 (08:48→14:01)
[2017-02-09] MEDS: oxyCODONE ER 15 MG TAB.ER.12H PO SCH ×2 (08:48→21:02)
[2017-02-09] MEDS: INSULIN ASPART 300 UNITS/3 ML INSULN.PEN SQ SCH ×6 (08:56→17:09)
[2017-02-09] MEDS: HEPARIN PF for SUB-Q USE 5,000 UNIT/0.5 ML VIAL. SQ SCH ×3 (08:58→21:11)
[2017-02-09] MEDS: NYSTATIN TOPICAL POWDER 15GM BOTTLE. TP SCH ×2 (08:59→21:00)
[2017-02-09] MEDS: DICLOFENAC SODIUM 1% TOPICAL GEL 100GM TUBE. TP SCH ×4 (08:59→21:00)
[2017-02-09] MEDS: VANCOMYCIN 125 MG/2.5 ML ORAL SOLUTION. PO SCH ×4 (09:28→20:55)
[2017-02-09] MEDS: DIVALPROEX EXTENDED RELEASE 500 MG TAB.ER.24H. PO SCH ×2 (09:28→21:01)
[2017-02-09] MEDS: MORPHINE SULFATE 4 MG/ML DISP.SYRIN. IV PRN ×6 (09:31→21:54)
[2017-02-09 11:00] VITALS: BP 124/63
[2017-02-09] MEDS: CARIPRAZINE 3 MG PO SCH (12:31)
--- NOTE | 2017-02-09 12:41 | PN ---
PROGRESS NOTES Subjective Subjective setting on the edge of the bed eating his lunch Pain is well controlled on morphine and oxycontin Febrile and labs are stable Objective Objective Vital Signs Date Time Temp Pulse Resp B/P (MAP) Pulse Ox O2 Delivery O2 Flow Rate FiO2 02/09/17 11:15 Room Air 02/09/17 11:00 97.7 76 20 124/63 (83) 92 97.7 02/08/17 20:45 2.0 Intake and Output 02/09/17 07:00 Intake Total 1340 ml Output Total 1250 ml Balance 90 ml Intake Oral 1340 ml Output Urine Total 1250 ml # Bowel Movements 1 Physical Exam Physical Exam HEENT NC/AT Heart S1+S2 normal no G/R/M Chest CTA Abdomen Soft non tender [employer] LLE is still swollen COMMENT We contacyed [facility] transfer center and apparently they have no beds Diagnosis 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 PROBLEM LIST Problems Medical Problems: (1) Cellulitis of left leg Status: Acute (2) Decubitus ulcer, heel, left, unstageable Status: Acute Assessment Assessment Problems Medical Problems: (1) Cellulitis of left leg Status: Acute (2) Decubitus ulcer, heel, left, unstageable Status: Acute Plan Plan of Care To continue with I V antibiotcis and wound care continue pain management We will transfer to [facility] once beds become available Comment Labs Laboratory Tests Test 02/07/17 16:46 02/07/17 20:24 02/08/17 04:55 02/08/17 07:02 Glucose (Fingerstick) 165 mg/dL (70-99) 107 mg/dL (70-99) 176 mg/dL (70-99) White Blood Count 5.0 x10^3/uL (4.0-11.0) Red Blood Count 3.87 x10^6/uL (4.30-5.70) Hemoglobin 10.9 g/dL (13.0-17.5) Hematocrit 32.7 % (39.0-53.0) Mean Corpuscular Volume 85 fL (79-100) Mean Corpuscular Hemoglobin 28 pg (25-35) Mean Corpuscular Hemoglobin Concent 33 g/dL (31-37) Red Cell Distribution Width 16.4 % (11.5-14.5) Platelet Count 275 x10^3/uL (140-400) Neutrophils (%) (Auto) 53 % (31-73) Lymphocytes (%) (Auto) 29 % (24-48) Monocytes (%) (Auto) 14 % (0-9) Eosinophils (%) (Auto) 3 % (0-3) Basophils (%) (Auto) 1 % (0-3) Neutrophils # (Auto) 2.7 x10^3uL (1.8-7.7) Lymphocytes # (Auto) 1.5 x10^3/uL (1.0-4.8) Monocytes # (Auto) 0.7 x10^3/uL (0.0-1.1) Eosinophils # (Auto) 0.1 x10^3/uL (0.0-0.7) Basophils # (Auto) 0.0 x10^3/uL (0.0-0.2) Segmented Neutrophils % 53 % (35-66) Band Neutrophils % 1 % (0-9) Lymphocytes % 34 % (24-48) Monocytes % 7 % (0-10) Eosinophils % 5 % (0-5) Platelet Estimate Adequate (ADEQUATE) Giant Platelets Present Sodium Level 139 mmol/L (136-145) Potassium Level 5.2 mmol/L (3.5-5.1) Chloride Level 100 mmol/L (98-107) Carbon Dioxide Level 35 mmol/L (21-32) Anion Gap 4 (6-14) Blood Urea Nitrogen 23 mg/dL (8-26) Creatinine 1.2 mg/dL (0.7-1.3) Estimated GFR (Cockcroft-Gault) 61.8 BUN/Creatinine Ratio 19 (6-20) Glucose Level 175 mg/dL (70-99) Calcium Level 9.2 mg/dL (8.5-10.1) Total Bilirubin 0.2 mg/dL (0.2-1.0) Aspartate Amino Transf (AST/SGOT) 41 U/L (15-37) Alanine Aminotransferase (ALT/SGPT) 30 U/L (16-63) Alkaline Phosphatase 146 U/L (46-116) Total Protein 6.3 g/dL (6.4-8.2) Albumin 2.7 g/dL (3.4-5.0) Albumin/Globulin Ratio 0.8 (1.0-1.7) Test 7/9/17 10:28 02/08/17 16:17 02/08/17 20:22 02/09/17 04:10 Glucose (Fingerstick) 198 mg/dL (70-99) 189 mg/dL (70-99) 209 mg/dL (70-99) Sodium Level 142 mmol/L (136-145) Potassium Level 4.8 mmol/L (3.5-5.1) Chloride Level 103 mmol/L (98-107) Carbon Dioxide Level 37 mmol/L (21-32) Anion Gap 2 (6-14) Blood Urea Nitrogen 23 mg/dL (8-26) Creatinine 1.1 mg/dL (0.7-1.3) Estimated GFR (Cockcroft-Gault) 68.3 Glucose Level 188 mg/dL (70-99) Calcium Level 8.4 mg/dL (8.5-10.1) Test 02/09/17 07:06 02/09/17 10:31 Glucose (Fingerstick) 193 mg/dL (70-99) 246 mg/dL (70-99) Laboratory Tests Test 02/08/17 16:17 02/08/17 20:22 02/09/17 04:10 02/09/17 07:06 Glucose (Fingerstick) 189 mg/dL (70-99) 209 mg/dL (70-99) 193 mg/dL (70-99) Sodium Level 142 mmol/L (136-145) Potassium Level 4.8 mmol/L (3.5-5.1) Chloride Level 103 mmol/L (98-107) Carbon Dioxide Level 37 mmol/L (21-32) Anion Gap 2 (6-14) Blood Urea Nitrogen 23 mg/dL (8-26) Creatinine 1.1 mg/dL (0.7-1.3) Estimated GFR (Cockcroft-Gault) 68.3 Glucose Level 188 mg/dL (70-99) Calcium Level 8.4 mg/dL (8.5-10.1) Test 02/09/17 10:31 Glucose (Fingerstick) 246 mg/dL (70-99) Microbiology 02/03/17 Blood Culture - Final, Complete NO GROWTH AFTER 5 DAYS Medications Current Medications Fentanyl Citrate (Fentanyl 2ml Vial) 50 mcg PRN Q15MIN PRN IV PAIN GREATER THAN 3/10 Last administered on 02/03/17 16:19; Start 02/03/17 at 14:45; Stop 02/04 at 14:44; Status DC Fentanyl Citrate (Fentanyl 2ml Vial) 100 mcg 1X ONCE IV Last administered on 15:00; Start 02/03/17 at 14:45; Stop 02/03/17 at 14:46; Status DC Ondansetron HCl (Zofran) 4 mg 1X ONCE IV Last administered on 02/03/17 14:58; Start 02/03/17 at 15:15; Stop 02/03/17 at 15:16; Status DC Insulin Aspart (NovoLOG) 6 units TIDAC SQ Last administered on 02/04/17 08:52; Start 02/03/17 at 16:30; Stop 02/04/17 at 11:46; Status DC Ondansetron HCl (Zofran) 4 mg PRN Q8HRS PRN IV NAUSEA/VOMITING; Start 02/03/17 at 16:15; Stop 02/04/17 at 16:14; Status DC Fentanyl Citrate (Fentanyl 2ml Vial) 50 mcg PRN Q1HR PRN IV PAIN Last administered on 02/04/17 14:15; Start 02/03/17 at 16:15; Stop 02/04/17 at 16:14; Status DC Cefazolin Sodium 50 ml @ 100 mls/hr TID IV ; Start 02/03/17 at 21:00; Status UNV Cefazolin Sodium 50 ml @ 100 mls/hr 1X ONCE IV Last administered on 02/03/17 16:51; Start 02/03/17 at 16:45; Stop 02/03/17 at 17:14; Status DC Cefazolin Sodium 1 gm/Sodium Chloride 50 ml @ 100 mls/hr Q8HRS IV Last administered on 02/09/17 06:05; Start 02/03/17 at 23:00 Acetaminophen (Tylenol) 650 mg PRN Q4HRS PRN PO MILD PAIN / TEMP; Start at 20:15 Albuterol Sulfate (Ventolin Neb Soln) 2.5 mg RTQID NEB Last administered on 11:15; Start 02/04/17 at 08:00 Ascorbic Acid (Vitamin C) 500 mg DAILY PO Last administered on 02/09/17 08:47 ; Start 02/04/17 at 09:00 Aspirin (Ceci Aspirin) 325 mg [id number] PO Last administered on 02/09/17 08: 47; Start 02/04/17 at 08:00 Atorvastatin Calcium (Lipitor) 40 mg QHS PO Last administered on 02/08/17 20:40 ; Start 02/03/17 at 21:00 Diclofenac Sodium (Voltaren) 2 carly QID TP Last administered on 02/09/17 08:59 ; Start 02/03/17 at 21:00 Divalproex Sodium (Depakote Er) 1,000 mg BID PO Last administered on 02/09/17 09:28; Start 02/03/17 at 21:00 Donepezil HCl (Aricept) 10 mg HS PO Last administered on 02/08/17 20:39; Start 02/03/17 at 21:00 Gabapentin (Neurontin) 800 mg DAILY PO Last administered on 02/09/17 08:46; Start 02/04/17 at 09:00 Heparin Sodium (Porcine) (Heparin Sq) 5,000 unit TID SQ Last administered on 08:58; Start 02/03/17 at 21:00 Insulin Detemir (Levemir) 30 units HS SQ Last administered on 02/08/17 20:51; Start 02/03/17 at 21:00 Isosorbide Mononitrate (Imdur) 30 mg DAILY PO Last administered on 02/09/17 08 :47; Start 02/04/17 at 09:00 Lamotrigine (LaMICtal) 100 mg HS PO Last administered on 02/08/17 20:51; Start 02/03/17 at 21:00 Levothyroxine Sodium (Synthroid) 137 mcg DAILY07 PO Last administered on 06:11; Start 02/04/17 at 07:00 Linagliptin (Tradjenta) 5 mg DAILY PO Last administered on 02/09/17 08:47; Start 02/04/17 at 09:00 Magnesium Oxide (Magnesium Oxide) 400 mg DAILY PO Last administered on 08:47; Start 02/04/17 at 09:00 Metoprolol Tartrate (Lopressor) 50 mg BID PO Last administered on 02/09/17 08: 48; Start 02/03/17 at 21:00 Nitroglycerin (Nitrostat) 0.4 mg PRN Q5MIN PRN SL CHEST PAIN; Start 02/03/17 at 20:15 Nortriptyline HCl (Pamelor) 25 mg QHS PO Last administered on 02/08/17 20:40; Start 02/03/17 at 21:00 Nystatin (Nystop) 1 carly BID TP Last administered on 02/09/17 08:59; Start 02/03 at 21:00 Oxycodone/ Acetaminophen (Percocet 5/325) 2 tab PRN Q6HRS PRN PO PAIN Last administered on 02/04/17 05:20; Start 02/03/17 at 20:15; Stop 02/04/17 at 09:22; Status DC Pantoprazole Sodium (Protonix) 40 mg DAILYAC PO Last administered on 02/09/17 06:11; Start 02/04/17 at 07:30 Quetiapine Fumarate (SEROquel) 100 mg QHS PO Last administered on 02/08/17 20: 40; Start 02/03/17 at 21:00 Sennosides (Senna) 8.6 mg DAILY PO Last administered on 02/09/17 08:47; Start 02/04/17 at 09:00 Torsemide (Demadex) 20 mg [id number] PO Last administered on 02/09/17 08:48; Start 02/04/17 at 09:00 Non-Formulary Medication 3 mg DAILY PO ; Start 02/04/17 at 09:00; Stop 02/05/17 at 14:56; Status DC Fenofibrate (Lofibra) 134 mg DAILY PO Last administered on 02/09/17 08:47; Start 02/04/17 at 09:00 Fluoxetine HCl (PROzac) 40 mg TID PO Last administered on 02/09/17 08:47; Start 02/03/17 at 21:00 Insulin Aspart (NovoLOG) 15 units TIDAC SQ Last administered on 02/07/17 17:42 ; Start 02/04/17 at 07:30; Stop 02/08/17 at 07:51; Status DC Lactobacillus Acidophilus (Bacid, Constance-Bid) 1 tab TIDWMEALS PO Last administered on 02/09/17 08:46; Start 02/04/17 at 08:00 Spironolactone (Aldactone) 100 mg DAILY PO Last administered on 02/09/17 08:47 ; Start 02/04/17 at 09:00 Non-Formulary Medication 100 mg DAILY PO ; Start 02/04/17 at 09:00; Status UNV Vancomycin HCl 125 mg [id number] PO Last administered on 02/09/17 09:28; Start at 21:00 Zinc Sulfate (Orazinc) 220 mg DAILY PO Last administered on 02/09/17 08:47; Start 02/04/17 at 09:00 Oxycodone/ Acetaminophen (Percocet 5/325) 2 tab PRN Q4HRS PRN PO PAIN Last administered on 02/08/17 14:33; Start 02/04/17 at 09:22 Insulin Aspart (NovoLOG) 0-7 UNITS TIDWMEALS SQ Last administered on 02/09/17 08:56; Start 02/04/17 at 12:00 Dextrose (Dextrose 50%-Water Syringe) 12.5 gm PRN Q15MIN PRN IV SEE COMMENTS; Start 02/04/17 at 11:45 Fentanyl Citrate (Fentanyl 2ml Vial) 50 mcg PRN Q1HR PRN IV SEVERE PAIN Last administered on 02/05/17 16:52; Start 02/04/17 at 21:45 Non-Formulary Medication 3 mg DAILYWLUN PO Last administered on 02/08/17 12:31 ; Start 02/05/17 at 15:00 Morphine Sulfate 4 mg PRN Q2HR PRN IV PAIN Last administered on 02/09/17 09:31 ; Start 02/05/17 at 18:45 Oxycodone HCl (OxyCONTIN) 15 mg Q12HR PO Last administered on 02/07/17 09:13; Start 02/06/17 at 11:30; Stop 02/07/17 at 13:47; Status DC Oxycodone HCl (OxyCONTIN) 30 mg Q12HR PO Last administered on 02/09/17 08:48; Start 02/07/17 at 21:00 Oxycodone HCl (OxyCONTIN) 15 mg 1X ONCE PO Last administered on 02/07/17 14:48 ; Start 02/07/17 at 14:00; Stop 02/07/17 at 14:01; Status DC Insulin Aspart (NovoLOG) 15 units TIDWMEALS SQ Last administered on 02/09/17 08:57; Start 02/08/17 at 08:00 Active Scripts Active Reported Zinc (Zinc Amino Acid Chelate) 50 Mg Tablet 50 Mg PO DAILY Ascorbic Acid 500 Mg Tablet 500 Mg PO DAILY Cephalexin 500 Mg Tablet 1 Tab PO QID Advair Hfa 230-21 Mcg Inhaler (Fluticasone/Salmeterol) 12 Gm Hfa.aer.ad 1 Inh IH BID Vancomycin Hcl 125 Mg Capsule 125 Mg PO QID Nystatin 15 Gm Powder 1 Carly TP BID Novolog Flexpen (Insulin Aspart) 100 Unit/1 Ml Insuln.pen 1 Unit SQ NITROGLYCERIN SubLingual (Nitroglycerin) 0.4 Mg Tab.subl 0.4 Mg SL PRN Q5MIN PRN Levemir Flextouch (Insulin Detemir) 100 Unit/1 Ml Insuln.pen 30 Unit SQ HS Acidophilus Lactobacillus (Lactobacillus Acidophilus) 1 Each Capsule 1 Each PO TIDWMEALS Isosorbide Mononitrate Er (Isosorbide Mononitrate) 30 Mg Tab.er.24h 1 Tab PO DAILY Heparin Sod 5,000 Unit/ 0.5 Ml (Heparin Sodium,Porcine/Pf) 5,000 Unit/0.5 Ml Vial 5,000 Unit SQ TID Coenzyme Q10 (Ubidecarenone) 100 Mg Tablet 100 Mg PO DAILY Atorvastatin Calcium 40 Mg Tablet 1 Tab PO QHS Albuterol Sulfate Neb Soln (Albuterol Sulfate) 2.5 Mg/3 Ml Vial.neb 1 Vial NEB QID Tylenol (Acetaminophen) 325 Mg Tablet 650 Mg PO PRN Q4HRS PRN Metoprolol Tartrate 50 Mg Tablet 1 Tab PO BID Voltaren (Diclofenac Sodium) 100 Gm Gel..gram. 2 Gm TP QID Tradjenta (Linagliptin) 5 Mg Tablet 1 Tab PO DAILY Torsemide 20 Mg Tablet 20 Tab PO BID Spironolactone 100 Mg Tablet 1 Tab PO DAILY Seroquel (Quetiapine Fumarate) 100 Mg Tablet 1 Tab PO QHS Senna (Sennosides) 8.6 Mg Tablet 8.6 Mg PO DAILY Prozac (Fluoxetine Hcl) 40 Mg Capsule 1 Cap PO TID Protonix (Pantoprazole Sodium) 40 Mg Tablet.dr 40 Mg PO DAILY Oxycodone-Acetaminophen 5-325 (Oxycodone Hcl/Acetaminophen) 1 Each Tablet 2 Each PO PRN Q6HRS PRN Novolog (Insulin Aspart) 100 Unit/1 Ml Cartridge 15 Unit SQ TIDBFRMEAL Nortriptyline Hcl 25 Mg Capsule 25 Mg PO QHS Magnesium Oxide 400 Mg Tablet 1 Tab PO DAILY Levothyroxine Sodium 137 Mcg Tablet 1 Tab PO DAILY Lamotrigine 100 Mg Tablet 1 Tab PO HS Glucose Gel (Dextrose) 38 Gm Gel..gram. 38 Gm PO Gabapentin 400 Mg Capsule 800 Mg PO DAILY Fenofibrate (Fenofibrate Nanocrystallized) 145 Mg Tablet 1 Tab PO DAILY Donepezil Hcl 10 Mg Tablet 1 Tab PO HS Depakote Er (Divalproex Sodium) 500 Mg Tab.er.24h 2 Tab PO BID Vraylar (Cariprazine Hydrochloride) 3 Mg Capsule 3 Mg PO DAILY Aspirin 325 Mg Tablet 1 Tab PO DAILY Vitals/I & O Vital Sign - Last 24 Hours 02/08/17 02/08/17 02/08/17 02/08/17 12:42 14:33 14:45 14:58 Temp 99.1 99.1 Pulse 74 Resp 18 B/P (MAP) 99/52 (68) Pulse Ox 98 97 O2 Delivery Nasal Cannula Nasal Cannula Nasal Cannula Nasal Cannula O2 Flow Rate 2.0 2.0 2.0 2.0 02/08/17 02/08/17 02/08/17 02/08/17 15:45 19:25 19:52 20:00 Temp 97.9 97.9 Pulse 77 Resp 18 20 B/P (MAP) 106/55 (72) Pulse Ox 95 97 O2 Delivery Nasal Cannula Room Air Nasal Cannula Room Air O2 Flow Rate 2.0 02/08/17 02/08/17 02/08/17 02/08/17 20:22 20:39 20:45 23:20 Temp 98.2 98.2 Pulse 77 76 Resp 20 20 B/P (MAP) 106/55 103/47 (65) Pulse Ox 94 94 O2 Delivery Nasal Cannula Room Air O2 Flow Rate 2.0 02/09/17 02/09/17 02/09/1702/09/17 03:15 07:00 07:24 08:25 Temp 97.7 97.4 97.7 97.4 Pulse 73 80 Resp 18 20 B/P (MAP) 114/54 (74) 129/49 (75) Pulse Ox 99 95 96 O2 Delivery Room Air Room Air Room Air Room Air 02/09/17 02/09/17 02/09/17 02/09/17 08:47 08:48 08:48 09:31 Pulse 80 80 B/P (MAP) 129/49 129/49 O2 Delivery Room Air Room Air 02/09/17 02/09/17 02/09/17 10:00 11:00 11:15 Temp 97.7 97.7 Pulse 76 Resp 20 B/P (MAP) 124/63 (83) Pulse Ox 92 O2 Delivery Room Air Room Air Room Air Intake and Output 02/08/17 02/08/17 02/09/17 15:00 23:00 07:00 Intake Total 420 ml 520 ml 400 ml Output Total 600 ml 650 ml Balance -180 ml 520 ml -250 ml PATTY CHRISTIAN MD Feb 09, 2017 12:41
[2017-02-09 15:03] VITALS: BP 109/61
[2017-02-09 19:00] VITALS: BP 124/54
[2017-02-09] MEDS: DONEPEZIL HCL 10 MG TABLET. PO SCH (21:00)
[2017-02-09] MEDS: ATORVASTATIN CALCIUM 40 MG TABLET. PO SCH (21:01)
[2017-02-09] MEDS: lamoTRIgine 100 MG TABLET. PO SCH (21:01)
[2017-02-09] MEDS: QUEtiapine 100 MG TABLET. PO SCH (21:02)
[2017-02-09] MEDS: NORTRIPTYLINE 25 MG CAPSULE PO SCH (21:02)
[2017-02-09] MEDS: INSULIN DETEMIR 300 UNITS/3 ML INSULN.PEN. SQ SCH (21:10)
[2017-02-09 23:00] VITALS: BP 113/54
[2017-02-10 03:00] VITALS: BP 116/53
[2017-02-10] MEDS: LEVOTHYROXINE 137 MCG TABLET PO SCH (06:03)
[2017-02-10 07:00] VITALS: BP 124/64
[2017-02-10] MEDS: ALBUTEROL SULFATE 2.5 MG/3 ML NEBU. NEB SCH ×4 (07:23→21:45)
[2017-02-10] MEDS: PANTOPRAZOLE 40 MG TABLET.DR. PO SCH (08:15)
[2017-02-10] MEDS: GABAPENTIN 400 MG CAPSULE. PO SCH (08:15)
[2017-02-10] MEDS: SENNOSIDES 8.6 MG TABLET PO SCH (08:15)
[2017-02-10] MEDS: DIVALPROEX EXTENDED RELEASE 500 MG TAB.ER.24H. PO SCH ×2 (08:15→21:58)
[2017-02-10] MEDS: FENOFIBRATE,MICRONIZED 134 MG CAPSULE PO SCH (08:15)
[2017-02-10] MEDS: VANCOMYCIN 125 MG/2.5 ML ORAL SOLUTION. PO SCH ×4 (08:15→21:58)
[2017-02-10] MEDS: FLUoxetine HCL 20 MG CAPSULE PO SCH ×3 (08:16→21:58)
[2017-02-10] MEDS: ASCORBIC ACID 500 MG TABLET PO SCH (08:16)
[2017-02-10] MEDS: ISOSORBIDE MONONITRATE ER 30 MG TAB.ER.24H PO SCH (08:16)
[2017-02-10] MEDS: LACTOBACILLUS ACIDOPH & BULGAR 1 TABLET. PO SCH ×3 (08:16→17:03)
[2017-02-10] MEDS: ZINC SULFATE 220 MG CAPSULE. PO SCH (08:16)
[2017-02-10] MEDS: LINAGLIPTIN 5 MG TABLET PO SCH (08:16)
[2017-02-10] MEDS: TORSEMIDE 20 MG TABLET. PO SCH ×2 (08:16→13:48)
[2017-02-10] MEDS: ASPIRIN 325 MG TABLET PO SCH (08:17)
[2017-02-10] MEDS: MORPHINE SULFATE 4 MG/ML DISP.SYRIN. IV PRN ×5 (08:17→20:02)
[2017-02-10] MEDS: SPIRONOLACTONE 25 MG TABLET PO SCH (08:17)
[2017-02-10] MEDS: MAGNESIUM OXIDE 400 MG TABLET PO SCH (08:17)
[2017-02-10] MEDS: oxyCODONE ER 15 MG TAB.ER.12H PO SCH ×2 (08:17→21:59)
[2017-02-10] MEDS: METOPROLOL TART IMMED RELEASE 50 MG TABLET. PO SCH ×2 (08:18→21:59)
[2017-02-10] MEDS: INSULIN ASPART 300 UNITS/3 ML INSULN.PEN SQ SCH ×6 (08:24→17:08)
[2017-02-10] MEDS: HEPARIN PF for SUB-Q USE 5,000 UNIT/0.5 ML VIAL. SQ SCH ×3 (08:27→22:02)
[2017-02-10] MEDS: NYSTATIN TOPICAL POWDER 15GM BOTTLE. TP SCH ×2 (08:29→22:01)
[2017-02-10] MEDS: DICLOFENAC SODIUM 1% TOPICAL GEL 100GM TUBE. TP SCH ×4 (08:30→22:01)
[2017-02-10 11:00] VITALS: BP 105/61
[2017-02-10] MEDS: CARIPRAZINE 3 MG PO SCH (11:14)
--- NOTE | 2017-02-10 13:52 | PN ---
PROGRESS NOTES Subjective Subjective resting propped up in bed in NAD He stated clearly that he wants to go ahead with hip disarticulation as the only solution available I discussed this with him and his and both agreed that this is their expectation and this is what they are going for Objective Objective Vital Signs Date Time Temp Pulse Resp B/P (MAP) Pulse Ox O2 Delivery O2 Flow Rate FiO2 02/10/17 12:00 Room Air 02/10/17 11:00 97.9 67 20 105/61 (76) 90 97.9 02/10/17 07:24 2.0 Intake and Output 02/10/17 07:00 Output Total 2520 ml Balance -2520 ml Output Urine Total 2520 ml Stool Total 0 ml # Bowel Movements 1 Physical Exam Physical Exam Vitals are stable The rset of physical exam is satble COMMENT The patient has failed debridement , drainage as well as suppresive therapy Diagnosis DIAGNOSIS Infected megaprosthesis PROBLEM LIST Problems Medical Problems: (1) Cellulitis of left leg Status: Acute (2) Decubitus ulcer, heel, left, unstageable Status: Acute Assessment Assessment Problems Medical Problems: (1) Cellulitis of left leg Status: Acute (2) Decubitus ulcer, heel, left, unstageable Status: Acute Plan Plan of Care I have spoken to the payient and his and they clearly understand that Dr Duenas can only offer hip disarticulation and are willing to proceed Comment Labs Laboratory Tests Test 02/08/17 16:17 02/08/17 20:22 02/09/17 04:10 02/09/17 07:06 Glucose (Fingerstick) 189 mg/dL (70-99) 209 mg/dL (70-99) 193 mg/dL (70-99) Sodium Level 142 mmol/L (136-145) Potassium Level 4.8 mmol/L (3.5-5.1) Chloride Level 103 mmol/L (98-107) Carbon Dioxide Level 37 mmol/L (21-32) Anion Gap 2 (6-14) Blood Urea Nitrogen 23 mg/dL (8-26) Creatinine 1.1 mg/dL (0.7-1.3) Estimated GFR (Cockcroft-Gault) 68.3 Glucose Level 188 mg/dL (70-99) Calcium Level 8.4 mg/dL (8.5-10.1) Test 02/09/17 10:31 02/09/17 16:19 02/09/17 20:22 02/10/17 08:00 Glucose (Fingerstick) 246 mg/dL (70-99) 200 mg/dL (70-99) 276 mg/dL (70-99) 202 mg/dL (70-99) Test 02/10/17 11:02 Glucose (Fingerstick) 231 mg/dL (70-99) Laboratory Tests Test 02/09/17 16:19 02/09/17 20:22 02/10/17 08:00 02/10/17 11:02 Glucose (Fingerstick) 200 mg/dL (70-99) 276 mg/dL (70-99) 202 mg/dL (70-99) 231 mg/dL (70-99) Microbiology 02/03/17 Blood Culture - Final, Complete NO GROWTH AFTER 5 DAYS Medications Current Medications Fentanyl Citrate (Fentanyl 2ml Vial) 50 mcg PRN Q15MIN PRN IV PAIN GREATER THAN 3/10 Last administered on 02/03/17 16:19; Start 02/03/17 at 14:45; Stop 02/04 at 14:44; Status DC Fentanyl Citrate (Fentanyl 2ml Vial) 100 mcg 1X ONCE IV Last administered on 15:00; Start 02/03/17 at 14:45; Stop 02/03/17 at 14:46; Status DC Ondansetron HCl (Zofran) 4 mg 1X ONCE IV Last administered on 02/03/17 14:58; Start 02/03/17 at 15:15; Stop 02/03/17 at 15:16; Status DC Insulin Aspart (NovoLOG) 6 units TIDAC SQ Last administered on 02/04/17 08:52; Start 02/03/17 at 16:30; Stop 02/04/17 at 11:46; Status DC Ondansetron HCl (Zofran) 4 mg PRN Q8HRS PRN IV NAUSEA/VOMITING; Start 02/03/17 at 16:15; Stop 02/04/17 at 16:14; Status DC Fentanyl Citrate (Fentanyl 2ml Vial) 50 mcg PRN Q1HR PRN IV PAIN Last administered on 02/04/17 14:15; Start 02/03/17 at 16:15; Stop 02/04/17 at 16:14; Status DC Cefazolin Sodium 50 ml @ 100 mls/hr TID IV ; Start 02/03/17 at 21:00; Status UNV Cefazolin Sodium 50 ml @ 100 mls/hr 1X ONCE IV Last administered on 02/03/17 16:51; Start 02/03/17 at 16:45; Stop 02/03/17 at 17:14; Status DC Cefazolin Sodium 1 gm/Sodium Chloride 50 ml @ 100 mls/hr Q8HRS IV Last administered on 02/10/17 06:04; Start 02/03/17 at 23:00 Acetaminophen (Tylenol) 650 mg PRN Q4HRS PRN PO MILD PAIN / TEMP; Start at 20:15 Albuterol Sulfate (Ventolin Neb Soln) 2.5 mg RTQID NEB Last administered on 11:33; Start 02/04/17 at 08:00 Ascorbic Acid (Vitamin C) 500 mg DAILY PO Last administered on 02/10/17 08:16 ; Start 02/04/17 at 09:00 Aspirin (Ceci Aspirin) 325 mg DAILYWBKFT PO Last administered on 02/10/17 08: 17; Start 02/04/17 at 08:00 Atorvastatin Calcium (Lipitor) 40 mg QHS PO Last administered on 02/09/17 21: 01; Start 02/03/17 at 21:00 Diclofenac Sodium (Voltaren) 2 carly QID TP Last administered on 02/09/17 21:00 ; Start 02/03/17 at 21:00 Divalproex Sodium (Depakote Er) 1,000 mg BID PO Last administered on 02/10/17 08:15; Start 02/03/17 at 21:00 Donepezil HCl (Aricept) 10 mg HS PO Last administered on 02/09/17 21:00; Start 02/03/17 at 21:00 Gabapentin (Neurontin) 800 mg DAILY PO Last administered on 02/10/17 08:15; Start 02/04/17 at 09:00 Heparin Sodium (Porcine) (Heparin Sq) 5,000 unit TID SQ Last administered on 08:27; Start 02/03/17 at 21:00 Insulin Detemir (Levemir) 30 units HS SQ Last administered on 02/09/17 21:10; Start 02/03/17 at 21:00 Isosorbide Mononitrate (Imdur) 30 mg DAILY PO Last administered on 02/10/17 08 :16; Start 02/04/17 at 09:00 Lamotrigine (LaMICtal) 100 mg HS PO Last administered on 02/09/17 21:01; Start 02/03/17 at 21:00 Levothyroxine Sodium (Synthroid) 137 mcg DAILY07 PO Last administered on 06:03; Start 02/04/17 at 07:00 Linagliptin (Tradjenta) 5 mg DAILY PO Last administered on 02/10/17 08:16; Start 02/04/17 at 09:00 Magnesium Oxide (Magnesium Oxide) 400 mg DAILY PO Last administered on 08:17; Start 02/04/17 at 09:00 Metoprolol Tartrate (Lopressor) 50 mg BID PO Last administered on 02/10/17 08: 18; Start 02/03/17 at 21:00 Nitroglycerin (Nitrostat) 0.4 mg PRN Q5MIN PRN SL CHEST PAIN; Start 02/03/17 at 20:15 Nortriptyline HCl (Pamelor) 25 mg QHS PO Last administered on 02/09/17 21:02; Start 02/03/17 at 21:00 Nystatin (Nystop) 1 carly BID TP Last administered on 02/09/17 08:59; Start 02/03 at 21:00 Oxycodone/ Acetaminophen (Percocet 5/325) 2 tab PRN Q6HRS PRN PO PAIN Last administered on 02/04/17 05:20; Start 02/03/17 at 20:15; Stop 02/04/17 at 09:22; Status DC Pantoprazole Sodium (Protonix) 40 mg DAILYAC PO Last administered on 02/10/17 08:15; Start 02/04/17 at 07:30 Quetiapine Fumarate (SEROquel) 100 mg QHS PO Last administered on 02/09/17 21: 02; Start 02/03/17 at 21:00 Sennosides (Senna) 8.6 mg DAILY PO Last administered on 02/10/17 08:15; Start 02/04/17 at 09:00 Torsemide (Demadex) 20 mg [id number] PO Last administered on 02/10/17 08:16; Start 02/04/17 at 09:00 Non-Formulary Medication 3 mg DAILY PO ; Start 02/04/17 at 09:00; Stop 02/05/17 at 14:56; Status DC Fenofibrate (Lofibra) 134 mg DAILY PO Last administered on 02/10/17 08:15; Start 02/04/17 at 09:00 Fluoxetine HCl (PROzac) 40 mg TID PO Last administered on 02/10/17 08:16; Start 02/03/17 at 21:00 Insulin Aspart (NovoLOG) 15 units TIDAC SQ Last administered on 02/07/17 17:42 ; Start 02/04/17 at 07:30; Stop 02/08/17 at 07:51; Status DC Lactobacillus Acidophilus (Bacid, Constance-Bid) 1 tab TIDWMEALS PO Last administered on 02/10/17 11:15; Start 02/04/17 at 08:00 Spironolactone (Aldactone) 100 mg DAILY PO Last administered on 02/10/17 08:17 ; Start 02/04/17 at 09:00 Non-Formulary Medication 100 mg DAILY PO ; Start 02/04/17 at 09:00; Status UNV Vancomycin HCl 125 mg [id number] PO Last administered on 02/10/17 08:15; Start at 21:00 Zinc Sulfate (Orazinc) 220 mg DAILY PO Last administered on 02/10/17 08:16; Start 02/04/17 at 09:00 Oxycodone/ Acetaminophen (Percocet 5/325) 2 tab PRN Q4HRS PRN PO PAIN Last administered on 02/08/17 14:33; Start 02/04/17 at 09:22 Insulin Aspart (NovoLOG) 0-7 UNITS TIDWMEALS SQ Last administered on 02/10/17 11:19; Start 02/04/17 at 12:00 Dextrose (Dextrose 50%-Water Syringe) 12.5 gm PRN Q15MIN PRN IV SEE COMMENTS; Start 02/04/17 at 11:45 Fentanyl Citrate (Fentanyl 2ml Vial) 50 mcg PRN Q1HR PRN IV SEVERE PAIN Last administered on 02/05/17 16:52; Start 02/04/17 at 21:45 Non-Formulary Medication 3 mg DAILYWLUN PO Last administered on 02/10/17 11:14 ; Start 02/05/17 at 15:00 Morphine Sulfate 4 mg PRN Q2HR PRN IV PAIN Last administered on 02/10/17 11:14 ; Start 02/05/17 at 18:45 Oxycodone HCl (OxyCONTIN) 15 mg Q12HR PO Last administered on 02/07/17 09:13; Start 02/06/17 at 11:30; Stop 02/07/17 at 13:47; Status DC Oxycodone HCl (OxyCONTIN) 30 mg Q12HR PO Last administered on 02/10/17 08:17; Start 02/07/17 at 21:00 Oxycodone HCl (OxyCONTIN) 15 mg 1X ONCE PO Last administered on 02/07/17 14:48 ; Start 02/07/17 at 14:00; Stop 02/07/17 at 14:01; Status DC Insulin Aspart (NovoLOG) 15 units TIDWMEALS SQ Last administered on 02/10/17 11:20; Start 02/08/17 at 08:00 Active Scripts Active Reported Zinc (Zinc Amino Acid Chelate) 50 Mg Tablet 50 Mg PO DAILY Ascorbic Acid 500 Mg Tablet 500 Mg PO DAILY Cephalexin 500 Mg Tablet 1 Tab PO QID Advair Hfa 230-21 Mcg Inhaler (Fluticasone/Salmeterol) 12 Gm Hfa.aer.ad 1 Inh IH BID Vancomycin Hcl 125 Mg Capsule 125 Mg PO QID Nystatin 15 Gm Powder 1 Carly TP BID Novolog Flexpen (Insulin Aspart) 100 Unit/1 Ml Insuln.pen 1 Unit SQ NITROGLYCERIN SubLingual (Nitroglycerin) 0.4 Mg Tab.subl 0.4 Mg SL PRN Q5MIN PRN Levemir Flextouch (Insulin Detemir) 100 Unit/1 Ml Insuln.pen 30 Unit SQ HS Acidophilus Lactobacillus (Lactobacillus Acidophilus) 1 Each Capsule 1 Each PO TIDWMEALS Isosorbide Mononitrate Er (Isosorbide Mononitrate) 30 Mg Tab.er.24h 1 Tab PO DAILY Heparin Sod 5,000 Unit/ 0.5 Ml (Heparin Sodium,Porcine/Pf) 5,000 Unit/0.5 Ml Vial 5,000 Unit SQ TID Coenzyme Q10 (Ubidecarenone) 100 Mg Tablet 100 Mg PO DAILY Atorvastatin Calcium 40 Mg Tablet 1 Tab PO QHS Albuterol Sulfate Neb Soln (Albuterol Sulfate) 2.5 Mg/3 Ml Vial.neb 1 Vial NEB QID Tylenol (Acetaminophen) 325 Mg Tablet 650 Mg PO PRN Q4HRS PRN Metoprolol Tartrate 50 Mg Tablet 1 Tab PO BID Voltaren (Diclofenac Sodium) 100 Gm Gel..gram. 2 Gm TP QID Tradjenta (Linagliptin) 5 Mg Tablet 1 Tab PO DAILY Torsemide 20 Mg Tablet 20 Tab PO BID Spironolactone 100 Mg Tablet 1 Tab PO DAILY Seroquel (Quetiapine Fumarate) 100 Mg Tablet 1 Tab PO QHS Senna (Sennosides) 8.6 Mg Tablet 8.6 Mg PO DAILY Prozac (Fluoxetine Hcl) 40 Mg Capsule 1 Cap PO TID Protonix (Pantoprazole Sodium) 40 Mg Tablet.dr 40 Mg PO DAILY Oxycodone-Acetaminophen 5-325 (Oxycodone Hcl/Acetaminophen) 1 Each Tablet 2 Each PO PRN Q6HRS PRN Novolog (Insulin Aspart) 100 Unit/1 Ml Cartridge 15 Unit SQ TIDBFRMEAL Nortriptyline Hcl 25 Mg Capsule 25 Mg PO QHS Magnesium Oxide 400 Mg Tablet 1 Tab PO DAILY Levothyroxine Sodium 137 Mcg Tablet 1 Tab PO DAILY Lamotrigine 100 Mg Tablet 1 Tab PO HS Glucose Gel (Dextrose) 38 Gm Gel..gram. 38 Gm PO Gabapentin 400 Mg Capsule 800 Mg PO DAILY Fenofibrate (Fenofibrate Nanocrystallized) 145 Mg Tablet 1 Tab PO DAILY Donepezil Hcl 10 Mg Tablet 1 Tab PO HS Depakote Er (Divalproex Sodium) 500 Mg Tab.er.24h 2 Tab PO BID Vraylar (Cariprazine Hydrochloride) 3 Mg Capsule 3 Mg PO DAILY Aspirin 325 Mg Tablet 1 Tab PO DAILY Vitals/I & O Vital Sign - Last 24 Hours 02/09/17 02/09/17 02/09/17 02/09/17 15:03 15:03 16:33 16:50 Temp 98.2 98.2 Pulse 71 Resp 20 B/P (MAP) 109/61 (77) Pulse Ox 93 97 O2 Delivery Room Air Room Air Room Air Room Air 02/09/17 02/09/17 02/09/17 02/09/17 19:00 19:16 19:46 21:01 Temp 98.2 98.2 Pulse 75 75 Resp 17 20 B/P (MAP) 124/54 (77) 124/54 Pulse Ox 90 96 O2 Delivery Room Air Room Air Nasal Cannula O2 Flow Rate 2.0 02/09/17 02/09/17 02/09/17 02/10/17 21:02 21:54 23:00 03:00 Temp 97.9 97.9 97.9 97.9 Pulse 74 71 Resp 20 20 18 18 B/P (MAP) 113/54 (73) 116/53 (74) Pulse Ox 95 95 O2 Delivery Nasal Cannula Room Air Room Air 02/10/17 02/10/17 02/10/17 02/10/17 07:00 07:24 07:45 08:16 Temp 98.0 98.0 Pulse 69 69 Resp 20 B/P (MAP) 124/64 (84) 124/64 Pulse Ox 96 97 O2 Delivery Room Air Nasal Cannula Room Air O2 Flow Rate 2.0 02/10/17 02/10/17 02/10/17 02/10/17 08:17 08:17 08:18 11:00 Temp 97.9 97.9 Pulse 69 67 Resp 20 B/P (MAP) 124/64 105/61 (76) Pulse Ox 90 O2 Delivery Room Air Room Air Room Air 02/10/17 02/10/17 02/10/17 02/10/17 11:14 11:34 12:00 12:00 O2 Delivery Room Air Room Air Room Air Room Air Intake and Output 02/09/17 02/09/17 02/10/17 15:00 23:00 07:00 Output Total 1570 ml 950 ml Balance -1570 ml -950 ml PATTY CHRISTIAN MD Feb 10, 2017 13:52
[2017-02-10 15:00] VITALS: BP 103/51
[2017-02-10 19:00] VITALS: BP 111/53
[2017-02-10] MEDS: QUEtiapine 100 MG TABLET. PO SCH (21:00)
[2017-02-10] MEDS: NORTRIPTYLINE 25 MG CAPSULE PO SCH (21:58)
[2017-02-10] MEDS: lamoTRIgine 100 MG TABLET. PO SCH (21:58)
[2017-02-10] MEDS: ATORVASTATIN CALCIUM 40 MG TABLET. PO SCH (21:58)
[2017-02-10] MEDS: DONEPEZIL HCL 10 MG TABLET. PO SCH (21:59)
[2017-02-10] MEDS: INSULIN DETEMIR 300 UNITS/3 ML INSULN.PEN. SQ SCH (22:03)
[2017-02-10 23:00] VITALS: BP 110/61
[2017-02-11 03:00] VITALS: BP 123/68
[2017-02-11] MEDS: PANTOPRAZOLE 40 MG TABLET.DR. PO SCH (06:08)
[2017-02-11] MEDS: LEVOTHYROXINE 137 MCG TABLET PO SCH (06:08)
[2017-02-11 07:00] VITALS: BP 112/52
[2017-02-11] MEDS: MORPHINE SULFATE 4 MG/ML DISP.SYRIN. IV PRN ×4 (07:05→17:54)
[2017-02-11] MEDS: ALBUTEROL SULFATE 2.5 MG/3 ML NEBU. NEB SCH ×3 (07:58→16:00)
[2017-02-11] MEDS: DICLOFENAC SODIUM 1% TOPICAL GEL 100GM TUBE. TP SCH ×3 (08:53→17:54)
[2017-02-11] MEDS: VANCOMYCIN 125 MG/2.5 ML ORAL SOLUTION. PO SCH ×3 (08:55→17:52)
[2017-02-11] MEDS: LACTOBACILLUS ACIDOPH & BULGAR 1 TABLET. PO SCH ×3 (08:56→17:52)
[2017-02-11] MEDS: oxyCODONE ER 15 MG TAB.ER.12H PO SCH (08:56)
[2017-02-11] MEDS: SPIRONOLACTONE 25 MG TABLET PO SCH (08:56)
[2017-02-11] MEDS: ASPIRIN 325 MG TABLET PO SCH (08:57)
[2017-02-11] MEDS: CARIPRAZINE 3 MG PO SCH (08:57)
[2017-02-11] MEDS: ZINC SULFATE 220 MG CAPSULE. PO SCH (08:58)
[2017-02-11] MEDS: GABAPENTIN 400 MG CAPSULE. PO SCH (08:58)
[2017-02-11] MEDS: FLUoxetine HCL 20 MG CAPSULE PO SCH ×2 (08:58→13:36)
[2017-02-11] MEDS: ASCORBIC ACID 500 MG TABLET PO SCH (08:58)
[2017-02-11] MEDS: TORSEMIDE 20 MG TABLET. PO SCH ×2 (08:58→13:36)
[2017-02-11] MEDS: FENOFIBRATE,MICRONIZED 134 MG CAPSULE PO SCH (08:58)
[2017-02-11] MEDS: LINAGLIPTIN 5 MG TABLET PO SCH (08:59)
[2017-02-11] MEDS: DIVALPROEX EXTENDED RELEASE 500 MG TAB.ER.24H. PO SCH (08:59)
[2017-02-11] MEDS: METOPROLOL TART IMMED RELEASE 50 MG TABLET. PO SCH (09:00)
[2017-02-11] MEDS: NYSTATIN TOPICAL POWDER 15GM BOTTLE. TP SCH (09:00)
[2017-02-11] MEDS: MAGNESIUM OXIDE 400 MG TABLET PO SCH (09:00)
[2017-02-11] MEDS: SENNOSIDES 8.6 MG TABLET PO SCH (09:01)
[2017-02-11] MEDS: ISOSORBIDE MONONITRATE ER 30 MG TAB.ER.24H PO SCH (09:01)
[2017-02-11] MEDS: INSULIN ASPART 300 UNITS/3 ML INSULN.PEN SQ SCH ×6 (09:10→17:59)
[2017-02-11] MEDS: HEPARIN PF for SUB-Q USE 5,000 UNIT/0.5 ML VIAL. SQ SCH ×2 (09:11→13:48)
[2017-02-11 11:00] VITALS: BP 107/54
--- NOTE | 2017-02-11 12:58 | PN ---
PROGRESS NOTES Subjective Subjective Setting up ion the edge of the bed in NAD Pain is well controlled He is waiting for a bed to undergo Left hip disarticulation at [facility] Objective Objective Vital Signs Date Time Temp Pulse Resp B/P (MAP) Pulse Ox O2 Delivery O2 Flow Rate FiO2 02/11/17 11:51 Room Air 02/11/17 11:29 98 02/11/17 11:00 98.3 67 22 107/54 (71) 98.3 02/11/17 08:56 2.0 Intake and Output 02/11/17 07:00 Intake Total 50 ml Output Total 750 ml Balance -700 ml IV Total 50 ml Output Urine Total 750 ml # Voids 2 Physical Exam Physical Exam Well in [facility] Pale but not jaundiced Vitals are stable LLE still swollen COMMENT The patient has failed debridement , drainage as well as suppressive therapy Diagnosis DIAGNOSIS Infected left knee megaprosthesis PROBLEM LIST Problems Medical Problems: (1) Cellulitis of left leg Status: Acute (2) Decubitus ulcer, heel, left, unstageable Status: Acute Assessment Assessment Problems Medical Problems: (1) Cellulitis of left leg Status: Acute (2) Decubitus ulcer, heel, left, unstageable Status: Acute Plan Plan of Care continue i v antibiotics continue pain management continue to monitor his labs Comment Labs Laboratory Tests Test 02/09/17 16:19 02/09/17 20:22 02/10/17 08:00 02/10/17 11:02 Glucose (Fingerstick) 200 mg/dL (70-99) 276 mg/dL (70-99) 202 mg/dL (70-99) 231 mg/dL (70-99) Test 02/10/17 16:16 02/10/17 20:57 02/11/17 07:43 02/11/17 12:09 Glucose (Fingerstick) 202 mg/dL (70-99) 201 mg/dL (70-99) 156 mg/dL (70-99) 141 mg/dL (70-99) Laboratory Tests Test 02/10/17 16:16 02/10/17 20:57 02/11/17 07:43 02/11/17 12:09 Glucose (Fingerstick) 202 mg/dL (70-99) 201 mg/dL (70-99) 156 mg/dL (70-99) 141 mg/dL (70-99) Microbiology 02/03/17 Blood Culture - Final, Complete NO GROWTH AFTER 5 DAYS Medications Current Medications Fentanyl Citrate (Fentanyl 2ml Vial) 50 mcg PRN Q15MIN PRN IV PAIN GREATER THAN 3/10 Last administered on 02/03/17 16:19; Start 02/03/17 at 14:45; Stop 02/04 at 14:44; Status DC Fentanyl Citrate (Fentanyl 2ml Vial) 100 mcg 1X ONCE IV Last administered on 15:00; Start 02/03/17 at 14:45; Stop 02/03/17 at 14:46; Status DC Ondansetron HCl (Zofran) 4 mg 1X ONCE IV Last administered on 02/03/17 14:58; Start 02/03/17 at 15:15; Stop 02/03/17 at 15:16; Status DC Insulin Aspart (NovoLOG) 6 units TIDAC SQ Last administered on 02/04/17 08:52; Start 02/03/17 at 16:30; Stop 02/04/17 at 11:46; Status DC Ondansetron HCl (Zofran) 4 mg PRN Q8HRS PRN IV NAUSEA/VOMITING; Start 02/03/17 at 16:15; Stop 02/04/17 at 16:14; Status DC Fentanyl Citrate (Fentanyl 2ml Vial) 50 mcg PRN Q1HR PRN IV PAIN Last administered on 02/04/17 14:15; Start 02/03/17 at 16:15; Stop 02/04/17 at 16:14; Status DC Cefazolin Sodium 50 ml @ 100 mls/hr TID IV ; Start 02/03/17 at 21:00; Status UNV Cefazolin Sodium 50 ml @ 100 mls/hr 1X ONCE IV Last administered on 02/03/17 16:51; Start 02/03/17 at 16:45; Stop 02/03/17 at 17:14; Status DC Cefazolin Sodium 1 gm/Sodium Chloride 50 ml @ 100 mls/hr Q8HRS IV Last administered on 02/11/17 06:02; Start 02/03/17 at 23:00 Acetaminophen (Tylenol) 650 mg PRN Q4HRS PRN PO MILD PAIN / TEMP; Start at 20:15 Albuterol Sulfate (Ventolin Neb Soln) 2.5 mg RTQID NEB Last administered on 11:50; Start 02/04/17 at 08:00 Ascorbic Acid (Vitamin C) 500 mg DAILY PO Last administered on 02/11/17 08:58 ; Start 02/04/17 at 09:00 Aspirin (Ceci Aspirin) 325 mg DAILYWBKFT PO Last administered on 02/11/17 08: 57; Start 02/04/17 at 08:00 Atorvastatin Calcium (Lipitor) 40 mg QHS PO Last administered on 02/10/17 21: 58; Start 02/03/17 at 21:00 Diclofenac Sodium (Voltaren) 2 carly QID TP Last administered on 02/11/17 08:53 ; Start 02/03/17 at 21:00 Divalproex Sodium (Depakote Er) 1,000 mg BID PO Last administered on 02/11/17 08:59; Start 02/03/17 at 21:00 Donepezil HCl (Aricept) 10 mg HS PO Last administered on 02/10/17 21:59; Start 02/03/17 at 21:00 Gabapentin (Neurontin) 800 mg DAILY PO Last administered on 02/11/17 08:58; Start 02/04/17 at 09:00 Heparin Sodium (Porcine) (Heparin Sq) 5,000 unit TID SQ Last administered on 09:11; Start 02/03/17 at 21:00 Insulin Detemir (Levemir) 30 units HS SQ Last administered on 02/10/17 22:03; Start 02/03/17 at 21:00 Isosorbide Mononitrate (Imdur) 30 mg DAILY PO Last administered on 02/11/17 09 :01; Start 02/04/17 at 09:00 Lamotrigine (LaMICtal) 100 mg HS PO Last administered on 02/10/17 21:58; Start 02/03/17 at 21:00 Levothyroxine Sodium (Synthroid) 137 mcg DAILY07 PO Last administered on 06:08; Start 02/04/17 at 07:00 Linagliptin (Tradjenta) 5 mg DAILY PO Last administered on 02/11/17 08:59; Start 02/04/17 at 09:00 Magnesium Oxide (Magnesium Oxide) 400 mg DAILY PO Last administered on 09:00; Start 02/04/17 at 09:00 Metoprolol Tartrate (Lopressor) 50 mg BID PO Last administered on 02/11/17 09: 00; Start 02/03/17 at 21:00 Nitroglycerin (Nitrostat) 0.4 mg PRN Q5MIN PRN SL CHEST PAIN; Start 02/03/17 at 20:15 Nortriptyline HCl (Pamelor) 25 mg QHS PO Last administered on 02/10/17 21:58; Start 02/03/17 at 21:00 Nystatin (Nystop) 1 carly BID TP Last administered on 02/10/17 22:01; Start 02/03 at 21:00 Oxycodone/ Acetaminophen (Percocet 5/325) 2 tab PRN Q6HRS PRN PO PAIN Last administered on 02/04/17 05:20; Start 02/03/17 at 20:15; Stop 02/04/17 at 09:22; Status DC Pantoprazole Sodium (Protonix) 40 mg DAILYAC PO Last administered on 02/11/17 06:08; Start 02/04/17 at 07:30 Quetiapine Fumarate (SEROquel) 100 mg QHS PO Last administered on 02/10/17 21: 00; Start 02/03/17 at 21:00 Sennosides (Senna) 8.6 mg DAILY PO Last administered on 02/11/17 09:01; Start 02/04/17 at 09:00 Torsemide (Demadex) 20 mg [id number] PO Last administered on 02/11/17 08:58; Start 02/04/17 at 09:00 Non-Formulary Medication 3 mg DAILY PO ; Start 02/04/17 at 09:00; Stop 02/05/17 at 14:56; Status DC Fenofibrate (Lofibra) 134 mg DAILY PO Last administered on 02/11/17 08:58; Start 02/04/17 at 09:00 Fluoxetine HCl (PROzac) 40 mg TID PO Last administered on 02/11/17 08:58; Start 02/03/17 at 21:00 Insulin Aspart (NovoLOG) 15 units TIDAC SQ Last administered on 02/07/17 17:42 ; Start 02/04/17 at 07:30; Stop 02/08/17 at 07:51; Status DC Lactobacillus Acidophilus (Bacid, Constance-Bid) 1 tab TIDWMEALS PO Last administered on 02/11/17 08:56; Start 02/04/17 at 08:00 Spironolactone (Aldactone) 100 mg DAILY PO Last administered on 02/11/17 08:56 ; Start 02/04/17 at 09:00 Non-Formulary Medication 100 mg DAILY PO ; Start 02/04/17 at 09:00; Status UNV Vancomycin HCl 125 mg [id number] PO Last administered on 02/11/17 08:55; Start at 21:00 Zinc Sulfate (Orazinc) 220 mg DAILY PO Last administered on 02/11/17 08:58; Start 02/04/17 at 09:00 Oxycodone/ Acetaminophen (Percocet 5/325) 2 tab PRN Q4HRS PRN PO PAIN Last administered on 02/08/17 14:33; Start 02/04/17 at 09:22 Insulin Aspart (NovoLOG) 0-7 UNITS TIDWMEALS SQ Last administered on 02/11/17 09:10; Start 02/04/17 at 12:00 Dextrose (Dextrose 50%-Water Syringe) 12.5 gm PRN Q15MIN PRN IV SEE COMMENTS; Start 02/04/17 at 11:45 Fentanyl Citrate (Fentanyl 2ml Vial) 50 mcg PRN Q1HR PRN IV SEVERE PAIN Last administered on 02/05/17 16:52; Start 02/04/17 at 21:45 Non-Formulary Medication 3 mg DAILYWLUN PO Last administered on 02/11/17 08:57 ; Start 02/05/17 at 15:00 Morphine Sulfate 4 mg PRN Q2HR PRN IV PAIN Last administered on 02/11/17 11:29 ; Start 02/05/17 at 18:45 Oxycodone HCl (OxyCONTIN) 15 mg Q12HR PO Last administered on 02/07/17 09:13; Start 02/06/17 at 11:30; Stop 02/07/17 at 13:47; Status DC Oxycodone HCl (OxyCONTIN) 30 mg Q12HR PO Last administered on 02/11/17 08:56; Start 02/07/17 at 21:00 Oxycodone HCl (OxyCONTIN) 15 mg 1X ONCE PO Last administered on 02/07/17 14:48 ; Start 02/07/17 at 14:00; Stop 02/07/17 at 14:01; Status DC Insulin Aspart (NovoLOG) 15 units TIDWMEALS SQ Last administered on 02/11/17 09:11; Start 02/08/17 at 08:00 Active Scripts Active Reported Zinc (Zinc Amino Acid Chelate) 50 Mg Tablet 50 Mg PO DAILY Ascorbic Acid 500 Mg Tablet 500 Mg PO DAILY Cephalexin 500 Mg Tablet 1 Tab PO QID Advair Hfa 230-21 Mcg Inhaler (Fluticasone/Salmeterol) 12 Gm Hfa.aer.ad 1 Inh IH BID Vancomycin Hcl 125 Mg Capsule 125 Mg PO QID Nystatin 15 Gm Powder 1 Carly TP BID Novolog Flexpen (Insulin Aspart) 100 Unit/1 Ml Insuln.pen 1 Unit SQ NITROGLYCERIN SubLingual (Nitroglycerin) 0.4 Mg Tab.subl 0.4 Mg SL PRN Q5MIN PRN Levemir Flextouch (Insulin Detemir) 100 Unit/1 Ml Insuln.pen 30 Unit SQ HS Acidophilus Lactobacillus (Lactobacillus Acidophilus) 1 Each Capsule 1 Each PO TIDWMEALS Isosorbide Mononitrate Er (Isosorbide Mononitrate) 30 Mg Tab.er.24h 1 Tab PO DAILY Heparin Sod 5,000 Unit/ 0.5 Ml (Heparin Sodium,Porcine/Pf) 5,000 Unit/0.5 Ml Vial 5,000 Unit SQ TID Coenzyme Q10 (Ubidecarenone) 100 Mg Tablet 100 Mg PO DAILY Atorvastatin Calcium 40 Mg Tablet 1 Tab PO QHS Albuterol Sulfate Neb Soln (Albuterol Sulfate) 2.5 Mg/3 Ml Vial.neb 1 Vial NEB QID Tylenol (Acetaminophen) 325 Mg Tablet 650 Mg PO PRN Q4HRS PRN Metoprolol Tartrate 50 Mg Tablet 1 Tab PO BID Voltaren (Diclofenac Sodium) 100 Gm Gel..gram. 2 Gm TP QID Tradjenta (Linagliptin) 5 Mg Tablet 1 Tab PO DAILY Torsemide 20 Mg Tablet 20 Tab PO BID Spironolactone 100 Mg Tablet 1 Tab PO DAILY Seroquel (Quetiapine Fumarate) 100 Mg Tablet 1 Tab PO QHS Senna (Sennosides) 8.6 Mg Tablet 8.6 Mg PO DAILY Prozac (Fluoxetine Hcl) 40 Mg Capsule 1 Cap PO TID Protonix (Pantoprazole Sodium) 40 Mg Tablet.dr 40 Mg PO DAILY Oxycodone-Acetaminophen 5-325 (Oxycodone Hcl/Acetaminophen) 1 Each Tablet 2 Each PO PRN Q6HRS PRN Novolog (Insulin Aspart) 100 Unit/1 Ml Cartridge 15 Unit SQ TIDBFRMEAL Nortriptyline Hcl 25 Mg Capsule 25 Mg PO QHS Magnesium Oxide 400 Mg Tablet 1 Tab PO DAILY Levothyroxine Sodium 137 Mcg Tablet 1 Tab PO DAILY Lamotrigine 100 Mg Tablet 1 Tab PO HS Glucose Gel (Dextrose) 38 Gm Gel..gram. 38 Gm PO Gabapentin 400 Mg Capsule 800 Mg PO DAILY Fenofibrate (Fenofibrate Nanocrystallized) 145 Mg Tablet 1 Tab PO DAILY Donepezil Hcl 10 Mg Tablet 1 Tab PO HS Depakote Er (Divalproex Sodium) 500 Mg Tab.er.24h 2 Tab PO BID Vraylar (Cariprazine Hydrochloride) 3 Mg Capsule 3 Mg PO DAILY Aspirin 325 Mg Tablet 1 Tab PO DAILY Vitals/I & O Vital Sign - Last 24 Hours 02/10/17 02/10/17 02/10/17 02/10/17 13:49 15:00 15:12 17:04 Temp 97.7 97.7 Pulse 89 Resp 20 B/P (MAP) 103/51 (68) Pulse Ox 96 O2 Delivery Room Air Room Air Room Air Room Air 02/10/17 02/10/17 02/10/17 02/10/17 19:00 20:00 20:02 20:32 Temp 98.2 98.2 Pulse 72 Resp 18 20 20 B/P (MAP) 111/53 (72) Pulse Ox 96 96 O2 Delivery Room Air Room Air Room Air 02/10/17 02/10/17 02/10/17 02/10/17 21:46 21:59 21:59 23:00 Temp 97.8 97.8 Pulse 72 67 Resp 18 B/P (MAP) 111/53 110/61 (77) Pulse Ox 96 96 O2 Delivery Room Air Room Air Room Air O2 Flow Rate 2.0 02/11/17 02/11/17 02/11/17 02/11/17 02:00 03:00 07:00 07:05 Temp 97.5 97.8 97.5 97.8 Pulse 92 62 Resp 20 18 22 20 B/P (MAP) 123/68 (86) 112/52 (72) Pulse Ox 96 70 95 70 O2 Delivery Room Air Room Air Room Air Room Air 02/11/17 02/11/17 02/11/17 02/11/17 07:50 07:58 08:00 08:56 Pulse Ox 98 98 98 O2 Delivery Room Air Room Air Room Air Room Air O2 Flow Rate 2.0 2.0 2.0 02/11/17 02/11/17 02/11/17 02/11/17 09:00 09:01 11:00 11:29 Temp 98.3 98.3 Pulse 92 62 67 Resp 22 B/P (MAP) 123/68 112/52 107/54 (71) Pulse Ox 90 98 O2 Delivery Room Air Room Air 02/11/17 11:51 O2 Delivery Room Air Intake and Output 02/10/17 02/10/17 02/11/17 15:00 23:00 07:00 Intake Total 50 ml Output Total 450 ml 300 ml Balance -450 ml -250 ml PATTY CHRISTIAN MD Feb 11, 2017 12:58
[2017-02-11 15:00] VITALS: BP 104/50
--- NOTE | 2017-02-12 13:45 | PDOC3 ---
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 Final Diagnosis Problems Medical Problems: (1) Cellulitis of left leg Status: Acute (2) Decubitus ulcer, heel, left, unstageable Status: Acute Brief Hospital Course Allergies Allergies Coded Allergies Type Severity Reaction Last Updated Verified Penicillins Allergy Intermediate 01/12/17 Yes Sulfa (Sulfonamide Antibiotics) Allergy Intermediate 01/12/17 Yes clindamycin Allergy Intermediate 01/12/17 Yes lisinopril Allergy Intermediate 01/12/17 Yes I S O L A T I O N *CONTACT* Allergy Unknown 01/12/17 Yes Vital Signs Vital Signs Date Time Temp Pulse Resp B/P (MAP) Pulse Ox O2 Delivery O2 Flow Rate FiO2 02/11/17 17:54 98 Room Air 2.0 02/11/17 15:00 98.3 67 18 104/50 (68) 98.3 Lab Results Laboratory Tests Test 02/10/17 16:16 02/10/17 20:57 02/11/17 07:43 02/11/17 12:09 Glucose (Fingerstick) 202 mg/dL (70-99) 201 mg/dL (70-99) 156 mg/dL (70-99) 141 mg/dL (70-99) Test 02/11/17 16:21 Glucose (Fingerstick) 106 mg/dL (70-99) Laboratory Tests Test 02/11/17 16:21 Glucose (Fingerstick) 106 mg/dL (70-99) Brief Hospital Course Mr. Fregoso is a 61 old [sex] who presented with admitted with altered mental status and LLE Cellulitis as well as pain in his LLE Discharge Information Condition at Discharge: Comment (tHE PATIENT WAS TRANSFERRED TO [facility] FOR DISARTICULATION of his left hip) Scheduled Albuterol Sulfate (Albuterol Sulfate Neb Soln), 1 VIAL NEB QID, (Reported) Ascorbic Acid (Ascorbic Acid), 500 MG PO DAILY, (Reported) Aspirin (Aspirin), 1 TAB PO DAILY, (Reported) Atorvastatin Calcium (Atorvastatin Calcium), 1 TAB PO QHS, (Reported) Cariprazine Hydrochloride (Vraylar), 3 MG PO DAILY, (Reported) Diclofenac Sodium (Voltaren), 2 GM TP QID, (Reported) Divalproex Sodium (Depakote Er), 2 TAB PO BID, (Reported) Donepezil Hcl (Donepezil Hcl), 1 TAB PO HS, (Reported) Fenofibrate Nanocrystallized (Fenofibrate), 1 TAB PO DAILY, (Reported) Fluoxetine Hcl (Prozac), 1 CAP PO TID, (Reported) Fluticasone/Salmeterol (Advair Hfa 230-21 Mcg Inhaler), 1 INH IH BID, (Reported) Gabapentin (Gabapentin), 800 MG PO DAILY, (Reported) Heparin Sodium,Porcine/Pf (Heparin Sod 5,000 Unit/ 0.5 Ml), 5,000 UNIT SQ TID, ( Reported) Insulin Aspart (Novolog), 15 UNIT SQ TIDBFRMEAL, (Reported) Insulin Detemir (Levemir Flextouch), 30 UNIT SQ HS, (Reported) Isosorbide Mononitrate (Isosorbide Mononitrate Er), 1 TAB PO DAILY, (Reported) Lactobacillus Acidophilus (Acidophilus Lactobacillus), 1 EACH PO TIDWMEALS, ( Reported) Lamotrigine (Lamotrigine), 1 TAB PO HS, (Reported) Levothyroxine Sodium (Levothyroxine Sodium), 1 TAB PO DAILY, (Reported) Linagliptin (Tradjenta), 1 TAB PO DAILY, (Reported) Magnesium Oxide (Magnesium Oxide), 1 TAB PO DAILY, (Reported) Metoprolol Tartrate (Metoprolol Tartrate), 1 TAB PO BID, (Reported) Nortriptyline Hcl (Nortriptyline Hcl), 25 MG PO QHS, (Reported) Nystatin (Nystatin), 1 ALLYSON TP BID, (Reported) Pantoprazole Sodium (Protonix), 40 MG PO DAILY, (Reported) Sennosides (Senna), 8.6 MG PO DAILY, (Reported) Spironolactone (Spironolactone), 1 TAB PO DAILY, (Reported) Torsemide (Torsemide), 20 TAB PO BID, (Reported) Vancomycin Hcl (Vancomycin Hcl), 125 MG PO QID, (Reported) Zinc Amino Acid Chelate (Zinc), 50 MG PO DAILY, (Reported) Scheduled PRN Acetaminophen (Tylenol), 650 MG PO PRN Q4HRS PRN for MILD PAIN / TEMP, (Reported ) Nitroglycerin (NITROGLYCERIN SubLingual), 0.4 MG SL PRN Q5MIN PRN for CHEST PAIN , (Reported) Oxycodone Hcl/Acetaminophen (Oxycodone-Acetaminophen 5-325), 2 EACH PO PRN Q6HRS PRN for PAIN, (Reported) Miscellaneous Medications Dextrose (Glucose Gel), 38 GM PO, (Reported) Insulin Aspart (Novolog Flexpen), 1 UNIT SQ, (Reported) Discontinued Medications Cephalexin (Cephalexin), 1 TAB PO QID, (Reported) Quetiapine Fumarate (Seroquel), 1 TAB PO QHS, (Reported) Ubidecarenone (Coenzyme Q10), 100 MG PO DAILY, (Reported) Patient Instructions Patient Instructions I have a lenghty discussion with the patient and his to make sure that they both understand that the only surgery offered at [facility] is Disarticulation of the left hip PATTY CHRISTIAN MD Feb 12, 2017 13:45
== END 2017-02-11 18:30 | disposition short-term general hospital (02) | DRG 559 ==
LOC: ER 14:17 → 4 NORTH 16:02
PROVIDERS: ADMIT Internal Medicine; ATTEND Internal Medicine
DX: T84.54XA Infection and inflammatory reaction due to internal left knee prosthesis, initial encounter (principal); E43 Unspecified severe protein-calorie malnutrition; G92 Toxic encephalopathy; L03.116 Cellulitis of left lower limb; E03.9 Hypothyroidism, unspecified; E11.9 Type 2 diabetes mellitus without complications; E78.5 Hyperlipidemia, unspecified; F02.80 Dementia in other diseases classified elsewhere, unspecified severity, without behavioral disturbance, psychotic disturbance, mood disturbance, and anxiety; G30.9 Alzheimer's disease, unspecified; I11.0 Hypertensive heart disease with heart failure; I25.10 Atherosclerotic heart disease of native coronary artery without angina pectoris; I50.9 Heart failure, unspecified; J44.9 Chronic obstructive pulmonary disease, unspecified; K21.9 Gastro-esophageal reflux disease without esophagitis; L89.620 Pressure ulcer of left heel, unstageable; F25.9 Schizoaffective disorder, unspecified; F32.9 Major depressive disorder, single episode, unspecified; M19.90 Unspecified osteoarthritis, unspecified site; Y83.1 Surgical operation with implant of artificial internal device as the cause of abnormal reaction of the patient, or of later complication, without mention of misadventure at the time of the procedure; Z96.649 Presence of unspecified artificial hip joint; Z96.659 Presence of unspecified artificial knee joint; Z95.1 Presence of aortocoronary bypass graft; Z95.0 Presence of cardiac pacemaker; Z90.49 Acquired absence of other specified parts of digestive tract; Z88.0 Allergy status to penicillin; Z88.2 Allergy status to sulfonamides; Z88.8 Allergy status to other drugs, medicaments and biological substances; Z88.1 Allergy status to other antibiotic agents; I25.2 Old myocardial infarction; Z68.35 Body mass index [BMI] 35.0-35.9, adult; Z86.14 Personal history of Methicillin resistant Staphylococcus aureus infection; Z82.49 Family history of ischemic heart disease and other diseases of the circulatory system
CPT/HCPCS: 36415; 80048; 80053; 81001; 82962; 83605; 85007; 85027; 85610; 85730; 87040; 87641; 93005; 94250; 94640; 94760; 96374; 96375; 96376; A6539; J0690; J1815; J2270; J2405; J3010; 99285-25

== ENCOUNTER 2017-03-26 13:55 | Inpatient (IN) | payer MEDICARE, OTHER ==
[2017-03-26] VITALS (11 sets, daily range): BP systolic 109–160; BP diastolic 47–74
[~2017-03-26] VITALS: Ht 177.8 cm; Wt 118.8 kg
[~2017-03-26 13:55] MED LIST changes: +ASCO500T3 PO; +CEPH500T PO; +FLUT12HF3 IH; +ZINC50TA33 PO
--- NOTE | 2017-03-26 14:14 | PHYS DOC ---
Past Medical History Past Medical History: Constipation, COPD, Dementia, Depression, Diabetes-Type II, Hypertension, Hypothyroid, MRSA Additional Past Medical Histor: SLEEP APNEA,chronic pain; AKA;SCHIZOEFFECTIVE DISORDER Past Surgical History: Coronary Bypass Surgery Additional Past Surgical Histo: CABG X2,BACK X2,L THIGH/KNEE RECONSTRUCTION; L AKA Alcohol Use: None Drug Use: None Adult General Chief Complaint Chief Complaint: ALTERED MENTAL STATUS HPI HPI Patient is a 62 year old male who presents with status. According to alf facility he had decreased responsiveness. He is currently on Rocephin for a left AKA that was performed recently. According EMS he really gave him 2 mg Narcan and he was able to open his eyes slightly. He is on Percocet review of his medications. Patient will open eyes to sternal rubs otherwise is nonresponsive. Review of Systems Review of Systems Unable to obtain secondary to patient's current condition Current Medications Current Medications Current Medications Medications (Trade) Dose Ordered Sig/Tamra Start Time Stop Time Status Last Admin Dose Admin Dextrose (Dextrose 50%-Water Syringe) 25 gm 1X ONCE 03/26/17 15:00 03/26/17 15:01 DC 03/26/17 15:04 25 GM Dextrose/Sodium Chloride 1,000 ml @ 125 mls/hr 1X ONCE 03/26/17 16:30 03/27/17 00:29 03/26/17 16:41 125 MLS/HR Ondansetron HCl (Zofran) 4 mg PRN Q8HRS PRN 03/26/17 16:30 03/27/17 16:29 Vancomycin HCl (Vanco Per Pharmacy) 1 each PRN DAILY PRN 03/26/17 14:30 UNV Vancomycin HCl 2 gm/Sodium Chloride 500 ml @ 250 mls/hr 1X ONCE 03/26/17 14:30 03/26/17 16:29 DC 03/26/17 14:48 250 MLS/HR Allergies Allergies Allergies Coded Allergies Type Severity Reaction Last Updated Verified Penicillins Allergy Intermediate 01/12/17 Yes Sulfa (Sulfonamide Antibiotics) Allergy Intermediate 01/12/17 Yes clindamycin Allergy Intermediate 01/12/17 Yes lisinopril Allergy Intermediate 01/12/17 Yes I S O L A T I O N *CONTACT* Allergy Unknown 01/12/17 Yes Physical Exam Physical Exam Constitutional: Well developed, well nourished, no acute distress, non-toxic appearance. [] HENT: Normocephalic, atraumatic, bilateral external ears normal, oropharynx moist, no oral exudates, nose normal. [] Eyes: PERRLA, EOMI, conjunctiva normal, no discharge. Pupils 1 mm bilaterally Neck: no tenderness,, no stridor. No crepitus noted Cardiovascular:Heart rate regular rhythm, no murmur [] Lungs & Thorax: Bilateral breath sounds clear to auscultation [] Abdomen: Bowel sounds normal, soft, no tenderness, no masses, no pulsatile masses. [] Skin: Warm, dry, no erythema, which the right lower extremities from calf to ankle, Back: No tenderness, no CVA tenderness. [] Extremities: No tenderness, no cyanosis, no clubbing, ROM intact, no edema. left AKA noted[] Neurologic: Will respond to sternal rub only an open eyes will not follow commands. Current Patient Data Vital Signs Vital Signs Date Time Temp Pulse Resp B/P (MAP) Pulse Ox O2 Delivery O2 Flow Rate FiO2 03/26/17 13:55 97.8 60 18 154/76 (102) 96 Room Air 97.8 Lab Values Laboratory Tests Test 03/26/17 13:59 03/26/17 14:01 03/26/17 14:04 03/26/17 14:28 Glucose (Fingerstick) 56 mg/dL (70-99) L 70 mg/dL (70-99) Urine Collection Type U cath Urine Color Yellow Urine Clarity Clear Urine pH 5.5 Urine Specific [place] <=1.005 Urine Protein Negative mg/dL (NEG-TRACE) Urine Glucose (UA) Negative mg/dL (NEG) Urine Ketones (Stick) Negative mg/dL (NEG) Urine Blood Negative (NEG) Urine Nitrite Negative (NEG) Urine Bilirubin Negative (NEG) Urine Urobilinogen Dipstick 0.2 mg/dL (0.2 mg/dL) Urine Leukocyte Esterase Trace (NEG) Urine RBC 0 /HPF (0-2) Urine WBC 0 /HPF (0-4) Urine Bacteria 0 /HPF (0-FEW) Urine Mucus Slight /LPF White Blood Count 6.1 x10^3/uL (4.0-11.0) Red Blood Count 4.13 x10^6/uL (4.30-5.70) L Hemoglobin 10.7 g/dL (13.0-17.5) L Hematocrit 34.0 % (39.0-53.0) L Mean Corpuscular Volume 82 fL (79-100) Mean Corpuscular Hemoglobin 26 pg (25-35) Mean Corpuscular Hemoglobin Concent 32 g/dL (31-37) Red Cell Distribution Width 16.4 % (11.5-14.5) H Platelet Count 290 x10^3/uL (140-400) Neutrophils (%) (Auto) 63 % (31-73) Lymphocytes (%) (Auto) 23 % (24-48) L Monocytes (%) (Auto) 12 % (0-9) H Eosinophils (%) (Auto) 2 % (0-3) Basophils (%) (Auto) 1 % (0-3) Neutrophils # (Auto) 3.9 x10^3uL (1.8-7.7) Lymphocytes # (Auto) 1.4 x10^3/uL (1.0-4.8) Monocytes # (Auto) 0.7 x10^3/uL (0.0-1.1) Eosinophils # (Auto) 0.1 x10^3/uL (0.0-0.7) Basophils # (Auto) 0.0 x10^3/uL (0.0-0.2) Prothrombin Time 14.3 SEC (11.7-14.0) H Prothrombin Time INR 1.2 (0.8-1.1) H PTT 30 SEC (24-38) Sodium Level 141 mmol/L (136-145) Potassium Level 4.0 mmol/L (3.5-5.1) Chloride Level 103 mmol/L (98-107) Carbon Dioxide Level 33 mmol/L (21-32) H Anion Gap 5 (6-14) L Blood Urea Nitrogen 17 mg/dL (8-26) Creatinine 1.0 mg/dL (0.7-1.3) Estimated GFR (Cockcroft-Gault) 76.0 Glucose Level 65 mg/dL (70-99) L Lactic Acid Level 1.2 mmol/L (0.4-2.0) Calcium Level 9.1 mg/dL (8.5-10.1) Magnesium Level 1.8 mg/dL (1.8-2.4) Total Bilirubin 0.1 mg/dL (0.2-1.0) L Direct Bilirubin < 0.1 mg/dL (0.0-0.2) Aspartate Amino Transferase (AST) 15 U/L (15-37) Alanine Aminotransferase (ALT) 9 U/L (16-63) L Alkaline Phosphatase 247 U/L (46-116) H Ammonia 16 mcmol/L (11-34) Creatine Kinase 48 U/L (39-308) Creatine Kinase MB (Mass) 1.7 ng/mL (0.0-3.6) Creatine Kinase MB Relative Index % (0-4) Troponin I Quantitative < 0.017 ng/mL (0.000-0.055) UL-Gtm-D-Type Natriuretic Peptide 165 pg/mL (0-124) H Total Protein 6.9 g/dL (6.4-8.2) Albumin 2.8 g/dL (3.4-5.0) L Test 03/26/17 14:46 03/26/17 15:00 03/26/17 15:46 Glucose (Fingerstick) 55 mg/dL (70-99) L 71 mg/dL (70-99) O2 Saturation 94 % (92-99) Arterial Blood pH 7.41 (7.35-7.45) Arterial Blood pCO2 at Patient Temp 42 mmHg (35-46) Arterial Blood pO2 at Patient Temp 74 mmHg (65-108) Arterial Blood HCO3 26 mmol/L (21-28) Arterial Blood Base Excess 1 mmol/L (-3-3) Oxyhemoglobin 93.4 % Methemoglobin 0.1 % (0.0-1.9) Carbon Monoxide, Quantitative 0.2 % (0.0-1.9) FiO2 21.0 Laboratory Tests 03/26/17 14:28 Laboratory Tests 03/26/17 14:28 EKG EKG EKG shows A. fib with a rate of [address] elevations or T-wave inversions, normal axis, QTC 414 ms, as interpreted by me. Radiology/Procedures Radiology/Procedures [facility] [address] [place] [address] IMAGING REPORT Signed PATIENT: ANANMARIE WHITLOCK ACCOUNT: [id number] : 1955 LOCATION: ER AGE: 62 SEX: M EXAM STATUS: REG ER ORD. PHYSICIAN: BELLA ZAVALA MD REASON: AMS PROCEDURE: PORTABLE CHEST 1V Portable chest, 03/26/2017: History: Altered mental status Comparison is made to a study from 01/12/2017. There has been a previous median sternotomy. A left-sided transvenous pacemaker remains in place with 2 leads extending in the right heart. A right PICC extends into the superior vena cava, although its tip is not clearly defined. The heart size and pulmonary vascularity are normal. No infiltrates are seen. There is no evidence of pleural fluid. IMPRESSION: No acute cardiopulmonary abnormality is detected. DICTATED and SIGNED BY: TONYA JULIEN MD DATE: 03/26/17 1452 CC: BELLA ZAVALA MD; BISHOP RAM MD ~ [address] [id number] IMAGING REPORT Signed PATIENT: ANNAMARIE WHITLOCK ACCOUNT: [id number] : 1955 LOCATION: ER AGE: 62 SEX: M EXAM STATUS: REG ER ORD. PHYSICIAN: BELLA ZAVALA MD REASON: AMS PROCEDURE: CT HEAD WO CONTRAST CT head Indication: Altered mental status, unresponsive. Technique: CT head without IV contrast Comparison: Previous CT head from 01/12/2017 Findings: No pathologic extra-axial or intra-axial fluid collection. No acute intracranial bleed. The ventricles and basil cisterns are within normal limits. No midline shift. Orbits are within normal limits. The paranasal sinuses and mastoid air cells are clear. No calvarial lesions. Impression: No acute intracranial process on this noncontrast study. PQRS Compliance Statement: One or more of the following individualized dose reduction techniques were utilized for this examination: 1. Automated exposure control 2. Adjustment of the mA and/or kV according to patient size 3. Use of iterative reconstruction technique DICTATED and SIGNED BY: CHELSEA DONNELLY DO DATE: 03/26/17 1449 CC: BELLA ZAVALA MD; BISHOP RAM MD ~ Impressions: Altered mental status Hypoglycemia Diarrhea Diabetes Course & Med Decision Making Course & Med Decision Making Pertinent Labs and Imaging studies reviewed. (See chart for details) Patient's vitals are normal and his ABG doesn't show any acute abnormalities. According EMS responded to 2 mg of Narcan and woke up briefly and then went back somnolent. He does have Percocet on his prescription list. Spoke with Dr. Zamudio who informed me that infectious diseases been following him. I spoke with Dr. Baig regarding consultation. I did start 1 g of vancomycin secondary to the fact that he has a possible cellulitis in his right lower show many. He was hypoglycemic in the emergency department and received an amp of D50. At this point he is being admitted to the ICU for altered mental status. I've written interim orders and started D5 half normal saline and upon reassessment the patient is now alert and talking appropriately. Dragon Disclaimer Dragon Disclaimer This electronic medical record was generated, in whole or in part, using a voice recognition dictation system. Departure Departure Impression: Primary Impression: Mental status change Disposition: ADMITTED INPATIENT Admitting Physician: Bishop Ram Condition: GUARDED Referrals: BISHOP RAM MD (PCP) Problem Qualifiers Primary Impression: Mental status change Altered mental status type: delirium Qualified Codes: R41.0 - Disorientation , unspecified BELLA ZAVALA MD Mar 26, 2017 14:14
[2017-03-26 14:21] LABS: BILIRUBIN,URINE NEGATIVE (NEG); GLUCOSE,URINE NEGATIVE (NEG); NITRITE,URINE NEGATIVE (NEG); PH,URINE 5.5; PROTEIN,URINE NEGATIVE (NEG-TRACE); UROBILINOGEN,URINE 0.2 mg/dL (0.2 mg/dL)
[2017-03-26] MEDS ORDERED: VANCOMYCIN 2 GM in IV NORMAL SALINE 500ML BAG 500 ML IV ONE (14:30)
[2017-03-26] MEDS ORDERED: VANCOMYCIN PER PHARMACY MC PRN (14:30)
[2017-03-26 14:32] LABS: BACTERIA,URINE 0 /HPF (0-FEW); RBC,URINE 0 /HPF (0-2); WBC,URINE 0 /HPF (0-4)
[2017-03-26 14:42] LABS: BASO % 1 % (0-3); EOS % 2 % (0-3); HEMOGLOBIN 10.7 g/dL (13.0-17.5); LYMPH # 1.4 x10^3/uL (1.0-4.8); LYMPH % 23 % (24-48); MEAN CORPUSCULAR HEMOGLOBIN 26 pg (25-35); MEAN CORPUSCULAR HGB CONC 32 g/dL (31-37); MEAN CORPUSCULAR VOLUME 82 fL (79-100); MONO % 12 % (0-9); NEUT % 63 % (31-73); PLATELET COUNT 290 x10^3/uL (140-400); RED BLOOD COUNT 4.13 x10^6/uL (4.30-5.70); RED CELL DISTRIBUTION WIDTH 16.4 % (11.5-14.5); WHITE BLOOD COUNT 6.1 x10^3/uL (4.0-11.0)
--- NOTE | 2017-03-26 14:54 | RAD ---
CT head Indication: Altered mental status, unresponsive. Technique: CT head without IV contrast Comparison: Previous CT head from 01/12/2017 Findings: No pathologic extra-axial or intra-axial fluid collection. No acute intracranial bleed. The ventricles and basil cisterns are within normal limits. No midline shift. Orbits are within normal limits. The paranasal sinuses and mastoid air cells are clear. No calvarial lesions. Impression: No acute intracranial process on this noncontrast study. PQRS Compliance Statement: One or more of the following individualized dose reduction techniques were utilized for this examination: 1. Automated exposure control 2. Adjustment of the mA and/or kV according to patient size 3. Use of iterative reconstruction technique
[2017-03-26 14:55] LABS: INR 1.2 (0.8-1.1); PROTHROMBIN TIME PATIENT 14.3 SEC (11.7-14.0)
--- NOTE | 2017-03-26 14:57 | RAD ---
Portable chest, 03/26/2017: History: Altered mental status Comparison is made to a study from 01/12/2017. There has been a previous median sternotomy. A left-sided transvenous pacemaker remains in place with 2 leads extending in the right heart. A right PICC extends into the superior vena cava, although its tip is not clearly defined. The heart size and pulmonary vascularity are normal. No infiltrates are seen. There is no evidence of pleural fluid. IMPRESSION: No acute cardiopulmonary abnormality is detected.
[2017-03-26 14:59] LABS: ANION GAP 5 (6-14); BLOOD UREA NITROGEN 17 mg/dL (8-26); CALCIUM 9.1 mg/dL (8.5-10.1); CARBON DIOXIDE 33 mmol/L (21-32); CHLORIDE 103 mmol/L (98-107); GLUCOSE 65 mg/dL (70-99); SODIUM 141 mmol/L (136-145)
[2017-03-26] MEDS ORDERED: DEXTROSE 50% 25 GM / 50ML DISP.SYRIN. IV ONE (15:00)
[2017-03-26 15:05] LABS: ALBUMIN 2.8 g/dL (3.4-5.0); ALK PHOS 247 U/L (46-116); ALT (SGPT) 9 U/L (16-63); AST (SGOT) 15 U/L (15-37); DIRECT BILIRUBIN < 0.1 mg/dL (0.0-0.2); MAGNESIUM 1.8 mg/dL (1.8-2.4); TOTAL BILIRUBIN 0.1 mg/dL (0.2-1.0); TOTAL PROTEIN 6.9 g/dL (6.4-8.2)
[2017-03-26 15:15] LABS: CKMB MASS 1.7 ng/mL (0.0-3.6); CREATINE KINASE 48 U/L (39-308)
[2017-03-26 15:22] LABS: BASE EXCESS COOX 1 mmol/L (-3-3); CARBON MONOXIDE 0.2 % (0.0-1.9); HCO3 COOX 26 mmol/L (21-28); METHEMOGLOBIN 0.1 % (0.0-1.9); OXYHEMOGLOBIN 93.4 %; PO2 COOX 74 mmHg (65-108); SAT O2 COOX 94 % (92-99); TOTAL HEMOGLOBIN 10.5 g/dL
[2017-03-26 15:26] LABS: PCO2 COOX 42 mmHg (35-46); PH COOX 7.41 (7.35-7.45)
--- NOTE | 2017-03-26 15:53 | EKG ---
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
[2017-03-26] MEDS ORDERED: IV DEXTROSE 5 %-0.45 % NACL 1,000 ML IV ONE (16:30)
[2017-03-26] MEDS ORDERED: ONDANSETRON PF 4 MG/2 ML VIAL. IV PRN (16:30)
[2017-03-26] MEDS ORDERED: ASCO500T3 PO (18:42)
[2017-03-26] MEDS ORDERED: FLUO40CA9 PO (18:42)
[2017-03-26] MEDS ORDERED: METO25TA4 PO (18:42)
[2017-03-26] MEDS ORDERED: LINA5TAB4 PO (18:42)
[2017-03-26] MEDS ORDERED: LACO100T PO (18:42)
[2017-03-26] MEDS ORDERED: CEFT2FRO2 IV (18:42)
[2017-03-26] MEDS ORDERED: POTA20TA82 PO (18:42)
[2017-03-26] MEDS ORDERED: UBID200C27 PO (18:42)
[2017-03-26] MEDS ORDERED: QUET100T4 PO (18:42)
[2017-03-27] VITALS (9 sets, daily range): BP systolic 99–151; BP diastolic 52–71
[2017-03-27] MEDS ORDERED: VANCOMYCIN 1.75 GM in IV NORMAL SALINE 500ML BAG 500 ML IV SCH (03:00)
[2017-03-27 06:23] LABS: BASO % 1 % (0-3); EOS % 2 % (0-3); HEMATOCRIT 30.8 % (39.0-53.0); HEMOGLOBIN 9.8 g/dL (13.0-17.5); LYMPH # 1.4 x10^3/uL (1.0-4.8); LYMPH % 28 % (24-48); MEAN CORPUSCULAR HEMOGLOBIN 26 pg (25-35); MEAN CORPUSCULAR HGB CONC 32 g/dL (31-37); MEAN CORPUSCULAR VOLUME 82 fL (79-100); MONO % 13 % (0-9); NEUT % 57 % (31-73); PLATELET COUNT 212 x10^3/uL (140-400); RED BLOOD COUNT 3.76 x10^6/uL (4.30-5.70); RED CELL DISTRIBUTION WIDTH 16.6 % (11.5-14.5); WHITE BLOOD COUNT 5.1 x10^3/uL (4.0-11.0)
[2017-03-27 06:39] LABS: CALCIUM 8.7 mg/dL (8.5-10.1); CREATININE 0.7 mg/dL (0.7-1.3); GFR 114.6; POTASSIUM 4.2 mmol/L (3.5-5.1)
--- NOTE | 2017-03-27 08:13 | PDOC ---
Infectious Disease Note Vital Sign Vital Signs Vital Signs Date Time Temp Pulse Resp B/P (MAP) Pulse Ox O2 Delivery O2 Flow Rate FiO2 03/27/17 06:00 62 14 101/59 (73) 95 Room Air 03/27/17 04:00 98.5 98.5 Labs Lab Laboratory Tests Test 03/26/17 13:59 03/26/17 14:01 03/26/17 14:04 03/26/17 14:10 Glucose (Fingerstick) 56 mg/dL (70-99) 70 mg/dL (70-99) Urine Collection Type U cath Urine Color Yellow Urine Clarity Clear Urine pH 5.5 Urine Specific [place] <=1.005 Urine Protein Negative mg/dL (NEG-TRACE) Urine Glucose (UA) Negative mg/dL (NEG) Urine Ketones (Stick) Negative mg/dL (NEG) Urine Blood Negative (NEG) Urine Nitrite Negative (NEG) Urine Bilirubin Negative (NEG) Urine Urobilinogen Dipstick 0.2 mg/dL (0.2 mg/dL) Urine Leukocyte Esterase Trace (NEG) Urine RBC 0 /HPF (0-2) Urine WBC 0 /HPF (0-4) Urine Bacteria 0 /HPF (0-FEW) Urine Mucus Slight /LPF Clostridium difficile Toxin (PCR) Negative (Negative) Test 03/26/17 14:28 03/26/17 14:46 03/26/17 15:00 03/26/17 15:46 White Blood Count 6.1 x10^3/uL (4.0-11.0) Red Blood Count 4.13 x10^6/uL (4.30-5.70) Hemoglobin 10.7 g/dL (13.0-17.5) Hematocrit 34.0 % (39.0-53.0) Mean Corpuscular Volume 82 fL (79-100) Mean Corpuscular Hemoglobin 26 pg (25-35) Mean Corpuscular Hemoglobin Concent 32 g/dL (31-37) Red Cell Distribution Width 16.4 % (11.5-14.5) Platelet Count 290 x10^3/uL (140-400) Neutrophils (%) (Auto) 63 % (31-73) Lymphocytes (%) (Auto) 23 % (24-48) Monocytes (%) (Auto) 12 % (0-9) Eosinophils (%) (Auto) 2 % (0-3) Basophils (%) (Auto) 1 % (0-3) Neutrophils # (Auto) 3.9 x10^3uL (1.8-7.7) Lymphocytes # (Auto) 1.4 x10^3/uL (1.0-4.8) Monocytes # (Auto) 0.7 x10^3/uL (0.0-1.1) Eosinophils # (Auto) 0.1 x10^3/uL (0.0-0.7) Basophils # (Auto) 0.0 x10^3/uL (0.0-0.2) Prothrombin Time 14.3 SEC (11.7-14.0) Prothromb Time International Ratio 1.2 (0.8-1.1) Activated Partial Thromboplast Time 30 SEC (24-38) Sodium Level 141 mmol/L (136-145) Potassium Level 4.0 mmol/L (3.5-5.1) Chloride Level 103 mmol/L (98-107) Carbon Dioxide Level 33 mmol/L (21-32) Anion Gap 5 (6-14) Blood Urea Nitrogen 17 mg/dL (8-26) Creatinine 1.0 mg/dL (0.7-1.3) Estimated GFR (Cockcroft-Gault) 76.0 Glucose Level 65 mg/dL (70-99) Lactic Acid Level 1.2 mmol/L (0.4-2.0) Calcium Level 9.1 mg/dL (8.5-10.1) Magnesium Level 1.8 mg/dL (1.8-2.4) Total Bilirubin 0.1 mg/dL (0.2-1.0) Direct Bilirubin < 0.1 mg/dL (0.0-0.2) Aspartate Amino Transf (AST/SGOT) 15 U/L (15-37) Alanine Aminotransferase (ALT/SGPT) 9 U/L (16-63) Alkaline Phosphatase 247 U/L (46-116) Ammonia 16 mcmol/L (11-34) Creatine Kinase 48 U/L (39-308) Creatine Kinase MB (Mass) 1.7 ng/mL (0.0-3.6) Creatine Kinase MB Relative Index % (0-4) Troponin I Quantitative < 0.017 ng/mL (0.000-0.055) GE-Gsk-O-Type Natriuretic Peptide 165 pg/mL (0-124) Total Protein 6.9 g/dL (6.4-8.2) Albumin 2.8 g/dL (3.4-5.0) Glucose (Fingerstick) 55 mg/dL (70-99) 71 mg/dL (70-99) O2 Saturation 94 % (92-99) Arterial Blood pH 7.41 (7.35-7.45) Arterial Blood pCO2 at Patient Temp 42 mmHg (35-46) Arterial Blood pO2 at Patient Temp 74 mmHg (65-108) Arterial Blood HCO3 26 mmol/L (21-28) Arterial Blood Base Excess 1 mmol/L (-3-3) Oxyhemoglobin 93.4 % Methemoglobin 0.1 % (0.0-1.9) Carbon Monoxide, Quantitative 0.2 % (0.0-1.9) FiO2 21.0 Test 03/26/17 23:10 03/27/17 06:00 03/27/17 06:09 Troponin I Quantitative < 0.017 ng/mL (0.000-0.055) < 0.017 ng/mL (0.000-0.055) White Blood Count 5.1 x10^3/uL (4.0-11.0) Red Blood Count 3.76 x10^6/uL (4.30-5.70) Hemoglobin 9.8 g/dL (13.0-17.5) Hematocrit 30.8 % (39.0-53.0) Mean Corpuscular Volume 82 fL (79-100) Mean Corpuscular Hemoglobin 26 pg (25-35) Mean Corpuscular Hemoglobin Concent 32 g/dL (31-37) Red Cell Distribution Width 16.6 % (11.5-14.5) Platelet Count 212 x10^3/uL (140-400) Neutrophils (%) (Auto) 57 % (31-73) Lymphocytes (%) (Auto) 28 % (24-48) Monocytes (%) (Auto) 13 % (0-9) Eosinophils (%) (Auto) 2 % (0-3) Basophils (%) (Auto) 1 % (0-3) Neutrophils # (Auto) 2.9 x10^3uL (1.8-7.7) Lymphocytes # (Auto) 1.4 x10^3/uL (1.0-4.8) Monocytes # (Auto) 0.6 x10^3/uL (0.0-1.1) Eosinophils # (Auto) 0.1 x10^3/uL (0.0-0.7) Basophils # (Auto) 0.0 x10^3/uL (0.0-0.2) Sodium Level 140 mmol/L (136-145) Potassium Level 4.2 mmol/L (3.5-5.1) Chloride Level 104 mmol/L (98-107) Carbon Dioxide Level 29 mmol/L (21-32) Anion Gap 7 (6-14) Blood Urea Nitrogen 12 mg/dL (8-26) Creatinine 0.7 mg/dL (0.7-1.3) Estimated GFR (Cockcroft-Gault) 114.6 Glucose Level 109 mg/dL (70-99) Calcium Level 8.7 mg/dL (8.5-10.1) Glucose (Fingerstick) 110 mg/dL (70-99) Objective Assessment Change in MS, psuedo seizure, pt is back to his normal Left AKA with infection H/O C diff Plan Plan of Care change antibiotics to rocephine po vanc supportive care ok to d/c LOWELL ROSAS MD Mar 27, 2017 08:13
[2017-03-27] MEDS ORDERED: VANCOMYCIN 125 MG/2.5 ML ORAL SOLUTION. PO SCH (09:00)
--- NOTE | 2017-03-27 10:56 | CONS ---
DATE OF CONSULTATION: 03/27/2017 REQUESTING PHYSICIAN: Dr. Ram. REASON FOR CONSULTATION: Change in mental status. HISTORY OF PRESENT ILLNESS: This is a 62-year-old gentleman well known to me. The patient has been a halfway resident who was transferred for change in mental status. The patient had extensive left knee and hardware infection eventual at , bony amputation done and still there was infection in the stump. Hence he had been getting Rocephin. The patient also had C. diff. At least last [facility] he was on p.o. suppressive vancomycin. The patient denies any fevers, chills, nausea, vomiting, diarrhea. In fact, he is back to his normal here now. This morning, he even recognized me with by my name and greeted and he is communicating properly. Again no complaints. The patient has done this before many times, has been labeled as pseudoseizure. Patient evidently just goes out unresponsive for several hours to up to even a day and then he comes back. PAST MEDICAL HISTORY: Positive for COPD, dementia, depression, diabetes, hypothyroidism, sleep apnea, coronary artery bypass grafting in the past. The patient had knee replacement and hardware infection with group B strep status post AKA at and then subsequent infection of the stump, also questionable infection in the canal where the vani was, now that he has been on Rocephin for that. SOCIAL HISTORY: Negative for smoking, alcohol, illicit drug use. The patient lives in a halfway. ALLERGIES: The patient listed as allergic to SULFA, PENICILLIN and CLINDAMYCIN. REVIEW OF SYSTEMS: As per HPI, all other systems reviewed are negative. CURRENT MEDICATIONS: Reviewed. The patient was started on vancomycin from the ER. PHYSICAL EXAMINATION: GENERAL: Alert, oriented gentleman, not in any distress, now back to normal. VITAL SIGNS: Stable, afebrile. HEENT: NAD. NECK: Supple, no JVP, no lymphadenopathy. LUNGS: Clear. HEART: S1, S2 regular. ABDOMEN: Benign. EXTREMITIES: Left AKA distal and stump has drainage and tunneling wound. Channing are in place still. Right lower extremity is unremarkable. NEUROLOGIC: The patient is neurologically intact. LABORATORY DATA: White count is normal. His BUN and creatinine is normal. Urinalysis unremarkable. C. diff is negative. IMPRESSION: 1. Change in mental status, which is not unusual for this gentleman as pseudoseizure has been thought to be the etiology. 2. Left knee and hardware infection, status post above-knee amputation, still has the infection, is on IV Rocephin now. 3. History of Clostridium difficile. 4. Diabetes. 5. Hypertension. 6. Coronary artery disease. RECOMMEND: Would change vancomycin to Rocephin. Continue p.o. vancomycin as suppressive for C. diff, supportive care and the patient can be discharged back to halfway soon. Thank you very much, Dr. Ram for giving me the opportunity to participate in this patient's care. LOWELL ROSAS MD DR: JC/harry JOB#: [id number] / [id number]
--- NOTE | 2017-03-27 11:04 | SSS ---
ADMIT DATE: 03/27/2017 HISTORY OF PRESENT ILLNESS: The patient is a 62-year-old male patient, a resident at [facility] , who was transferred to the Emergency Room of [facility] with altered mental status. On arrival, the patient was lethargic. His blood sugar was apparently low at 65 mg/dL. He was given Narcan without traumatic response. The ER physician was concerned about infection in his left lower extremity. However, I told him that he is already following Dr. Baig in and he is already on ceftriaxone, and in fact, he was also on Flagyl as I was told at [facility]. Given his altered mental status, he had also a CT scan of the head, which basically showed no acute intracranial process and he was admitted to the ICU and continued his IV ceftriaxone and other medications and his level of consciousness improved. There was no documented tonic-clonic seizure. No tongue biting, no incontinence. By the time I saw him this morning, he was awake, alert, sitting propped up comfortably, eating his breakfast and in no apparent respiratory distress. On questioning him, he denied any complaint. When I examined him, he was awake, alert and responding appropriately. PAST MEDICAL HISTORY: Significant for coronary artery disease, congestive heart failure, hypertension, myocardial infarction, hyperlipidemia, chronic obstructive pulmonary disease, gastroesophageal reflux disease, osteoarthritis, chronic renal failure, type 2 diabetes, hypothyroidism as well as schizophrenia. PAST SURGICAL HISTORY: Significant for appendectomy, cholecystectomy, left total knee arthroplasty, tonsillectomy, permanent pacemaker placement and left above-knee amputation. FAMILY HISTORY: Positive for coronary artery disease. SOCIAL HISTORY: He is . He does not smoke, drink alcohol or use recreational drugs. He is currently a resident at [facility]. REVIEW OF SYSTEMS: As per the history of present illness. PHYSICAL EXAMINATION: GENERAL: When I examined him this morning, he looked well and was clearly in no apparent respiratory distress, pale, but not jaundiced, cyanosis or thyromegaly. No jugular venous distention. No limb edema. VITAL SIGNS: His heart rate was 66, blood pressure was 127/59, temperature was 98.5, respiratory rate was 14 and oxygen saturation was 99% on room air. HEENT: Examination of the head, eyes, ears, nose and throat showed normocephalic, atraumatic. NECK: Supple. HEART: Showed normal first and second heart sounds, with no gallop, rub or murmur. CHEST: Clear to auscultation. No crepitation or rhonchi. ABDOMEN: Distended, soft and nontender. No guarding or rigidity. No organomegaly. Hernial orifices intact. Bowel sounds normal. NEUROLOGIC: He was awake, alert, responding appropriately. Cranial nerves intact. He moves extremities without difficulty. He is mostly bedbound and chair bound. LABORATORY DATA: His lab work on admission yesterday was white cell count was 6.1 and this morning, it was 5.1; hemoglobin 10.7; hematocrit was 54; MCV 82 and platelet count of 290,000. His blood gases showed a pH of 7.41, pCO2 of 42, pO2 of 74, bicarbonate 26 and oxygen saturation was 94% on FIO2 of 21%. His chemistry on admission showed a serum sodium 141, potassium 4, chloride 103, bicarbonate 33, anion gap of 5, BUN 17, creatinine 1, estimated GFR was 76 mL per minute, his glucose was 65 and calcium was 9.1. Magnesium 1.8. Total bilirubin, AST and ALT were normal. Alkaline phosphatase slightly elevated. His total protein was 6.9. Albumin was 2.8. His prothrombin time was 14.3, INR 1.2 and APTT was 30. Urinalysis showed the urine was yellow, clear with a pH of 5.5 and specific gravity 1.005. The urine was negative for protein, glucose, ketones, blood, nitrites and leukocyte esterase. There were no wbcs, no rbcs and no bacteria. His nasal screen for MRSA PCR was negative and the stool for C. diff toxins was negative. ASSESSMENT AND PLAN: The patient will be discharged back to [facility] to continue all his medications including his vancomycin 125 mg p.o. b.i.d. and ceftriaxone 2 grams IV once a day. Continue with all other medication. He should continue on acetaminophen 650 mg every 4 hours, albuterol sulfate 2.5 mg/3 mL by nebulizer 4 times a day, ascorbic acid 500 mg once a day, aspirin 325 mg once a day, atorvastatin calcium 40 mg at bedtime, he is on Vraylar 3 mg daily, ceftriaxone 2 g IV daily, diclofenac sodium 100-gram gel 2 grams topically 4 times a day, Depakote extended release 1000 mg twice a day, Aricept 10 mg daily, fenofibrate 145 mg once a day, fluoxetine 40 mg once a day, Advair Diskus 230/21 mcg inhaler 1 inhalation twice a day, gabapentin 800 mg p.o. daily, he is on 15 units of NovoLog insulin before meals and detemir insulin 30 units at bedtime, lacosamide 100 mg p.o. b.i.d., lactobacillus acidophilus one capsule 3 times a day with meals, lamotrigine 100 mg at bedtime, levothyroxine sodium 137 mcg once a day, linagliptin 5 mg once a day, magnesium oxide 400 mg once a day, metoprolol tartrate 25 mg p.o. b.i.d., nitroglycerin 0.4 mg sublingually every 5 minutes x 3, oxycodone/APAP 5/325 one tablet every 4 hours as needed, Protonix 40 mg daily, potassium chloride 20 mEq once a day, quetiapine fumarate 800 mg at bedtime, senna 1 tablet daily, furosemide 20 mg twice a day and Coenzyme Q10 at 100 mg once a day. FINAL DISCHARGE DIAGNOSIS: Altered mental status, resolved. The patient is known to have pseudoseizures. There was no evidence of tonic-clonic seizure, no tongue biting, no incontinence. Has obviously chronic infection of his left lower extremity, for which he continues to be on ceftriaxone and has chronic C. diff colitis, for which he is on oral vancomycin twice a day and his stool for C. diff was negative. PATTY CHRISTIAN MD DR: YUMI/harry JOB#: [id number] / [id number]
--- NOTE | 2017-03-28 00:27 | ACF ---
Admission Forms Criteria MENTAL STATUS CHANGE Clinical Indications for Inpatient Care (Place 'X' for any and all applicable criteria): Ongoing inpatient care may be needed for 1 or more of the following(1)(2)(3)(5)( 6): [X]I. Suspected serious etiology (eg, medical disorder, HANDST[employer]ING [employer]HOLE [employer]LLER event) of altered mental status [ ]II. Danger to self or others not manageable at lower level of care [ ]III. Grave disability (eg, inability to perform self care necessary at lower level of care) [ ]IV. Agitation or inappropriate behavior interfering with care for primary condition (eg, attempting to discontinue lines or drains prematurely, unable to cooperate with respiratory care) [ ]V. Delirium [A] [D][E] as described by 1 or more of the following(26): [ ]a) Delirium due to alcohol or sedative [F] withdrawal [ ]b) Delirium of uncertain etiology that has not responded to appropriate empiric treatment [ ]c) Delirium that prevents performance of a life-sustaining function (eg, feeding or hydrating oneself) [ ]. General contraindications and/or Inappropriate clinical situations for Observational Care in patients with Mental Status Change, when ANY ONE of the following is required: [ ]a) Prediction of prolongation of LOS based on ANY ONE of the following may be considered as a contraindication for observational care 2, 3, 4, 5, 6, 7, 8, 9, 10, 11 [ ]i) Age > 65 yrs. [ ]ii) Patient arriving by ambulance [ ]iii) Patient with high acuity [ ]iv) Patient requiring vital sign monitoring [ ]v) Patient on IV medication [ ]b) Systolic blood pressures greater than or equal to 180mmHg 3, 12 [ ]c) Patient with altered mental status including delirium and other alteration of consciousness, (3) [ ]d) Patient whose discharge disposition will be to a usp home or rehabilitation home should not be managed in Emergency Department Observation Unit. CMS rule requires 3 days hospital stay before such placement.3,13 [ ]e) Patient with failure to thrive due to broad array of etiologies 3,16,17 [ ]f) Inability to ambulate 3,14 Extended stay beyond goal length of stay for the primary condition may be needed until ALL of the following are present(3)(5): [ ]a) Underlying medical etiology of mental status change is absent, or has been established and adequately treated [ ]b) Danger to self or others is absent or manageable at lower level of care. [ ]c) Behavior crisis management, including physical or chemical restraints, is not required or available at lower level of car [ ]d) Substance or alcohol withdrawal is absent or manageable at lower level of care. [ ]e) Behavioral symptoms (eg, agitation, somnolence, inappropriate behavior) are absent, or are manageable at lower level of care. The original [facility] content created by [facility] has been revised. The portions of the content which have been revised are identified through the use of italic text or in bold, and [facility] has neither reviewed nor approved the modified material. All other unmodified content is copyright [facility]. Please see references footnoted in the original [facility] edition 2016 Admission Criteria Met?: Yes BOBO MARROQUIN Mar 28, 2017 00:27
== END 2017-03-27 10:45 | DRG 564 ==
LOC: ER 13:55 → 1 WEST ICU 15:20
PROVIDERS: ADMIT Internal Medicine; ATTEND Internal Medicine
DX: T87.44 Infection of amputation stump, left lower extremity (principal); G93.41 Metabolic encephalopathy; E43 Unspecified severe protein-calorie malnutrition; A04.7 Enterocolitis due to Clostridium difficile; F03.90 Unspecified dementia, unspecified severity, without behavioral disturbance, psychotic disturbance, mood disturbance, and anxiety; I13.0 Hypertensive heart and chronic kidney disease with heart failure and stage 1 through stage 4 chronic kidney disease, or unspecified chronic kidney disease; E11.22 Type 2 diabetes mellitus with diabetic chronic kidney disease; I50.9 Heart failure, unspecified; F20.9 Schizophrenia, unspecified; E03.9 Hypothyroidism, unspecified; N18.9 Chronic kidney disease, unspecified; E78.5 Hyperlipidemia, unspecified; I25.10 Atherosclerotic heart disease of native coronary artery without angina pectoris; J44.9 Chronic obstructive pulmonary disease, unspecified; K21.9 Gastro-esophageal reflux disease without esophagitis; F32.9 Major depressive disorder, single episode, unspecified; G89.29 Other chronic pain; M19.90 Unspecified osteoarthritis, unspecified site; R41.0 Disorientation, unspecified; I25.2 Old myocardial infarction; Z82.49 Family history of ischemic heart disease and other diseases of the circulatory system; Z89.612 Acquired absence of left leg above knee; Z95.0 Presence of cardiac pacemaker; Z95.1 Presence of aortocoronary bypass graft; Z88.1 Allergy status to other antibiotic agents; Z88.0 Allergy status to penicillin; Z88.2 Allergy status to sulfonamides
CPT/HCPCS: 36415; 36600; 51701; 70450; 71010; 80048; 80076; 81001; 82140; 82553; 82805; 82962; 83605; 83735; 83880; 84484; 85025; 85610; 85730; 87040; 87086; 87324; 93005; 96361; 96374; J0696; J3370; J7040; J7042; 99285-25